=== PATIENT | female | born 1975 | race Two or more races ===

== ENCOUNTER 2020-02-12 07:29 | Outpatient (REF) | payer OTHER, SELFPAY ==
[2020-02-12 07:57] LABS: MANUAL DIFF FLAG NO
[2020-02-12 08:07] LABS: Basophils Percent Auto 0.7 % (0-2); Eosinophils Absolute Auto 0.1 X10*3/uL (0.0-0.4); Eosinophils Percent Auto 1.4 % (0-4); Hematocrit 42.3 % (37-47); Hemoglobin 13.4 g/dl (12.0-16.0); Imm Gran Abs Auto 0.02 X10*3/uL (0.00-0.03); Imm Gran Pct Auto 0.4 % (0.0-0.4); Lymphocytes Absolute Auto 1.7 X10*3/uL (1.2-4.9); Lymphocytes Percent Auto 29.4 % (20-40); Mean Corpuscular HGB Conc 31.7 g/dl (31.0-35.0); Mean Corpuscular Hemoglobin 28.5 pg (27.0-33.0); Mean Corpuscular Volume 89.8 fL (80-98); Mean Platelet Volume 11.6 fL (9.4-12.3); Monocytes Absolute Auto 0.5 X10*3/uL (0.1-1.2); Monocytes Percent Auto 8.2 % (2-11); Neutrophils Absolute Auto 3.4 X10*3/uL (2.0-8.3); Neutrophils Percent Auto 59.9 % (45-73); Platelet Count 190 X10*3/uL (160-400); Red Blood Count 4.71 X10*6/uL (4.20-5.50); Red Cell Distribution Width 14.2 % (11.0-16.0); White Blood Count 5.6 X10*3/uL (4.8-10.8)
[2020-02-12 08:18] LABS: Alanine Aminotransferase 9 U/L (0-31); Albumin Level 4.2 g/dL (3.5-5.0); Alkaline Phosphatase 71 U/L (39-117); Anion Gap 11 (12-20); Aspartate Amino Transferase 13 U/L (5-31); Blood Urea Nitrogen 13 mg/dL (9-16); Calcium 9.3 mg/dL (8.4-10.2); Carbon Dioxide 27 mmol/L (22-29); Chloride 108 mmol/L (96-108); Cholesterol 154 mg/dL; Estimated Glomerular Filt Rate > 60; Glucose Random 88 mg/dL (60-115); HDL Cholesterol 51 mg/dL; LDL Cholesterol Calculated 86 mg/dl; Potassium 4.2 mmol/l (3.3-5.1); Sodium 142 mmol/L (135-145); Triglycerides 88 mg/dL
[2020-02-12 08:42] LABS: Thyroid Stimulating Hormone 2.11 uIU/mL (0.32-4.0)
== END 2020-02-12 07:30 | disposition home or self-care (01) ==
LOC: HO.LAB 07:29
PROVIDERS: PCP Internal Medicine; Visit Provider Internal Medicine
DX: D50.8 Other iron deficiency anemias (principal); F32.5 Major depressive disorder, single episode, in full remission; I10 Essential (primary) hypertension; Z68.26 Body mass index [BMI] 26.0-26.9, adult
CPT/HCPCS: 36415; 80053; 80061; 84443; 85025

== ENCOUNTER 2020-05-13 16:40 | Outpatient (REF) | payer OTHER, SELFPAY ==
--- NOTE | ~2020-05-13 | XR_ITS ---
EXAMINATION: XR ANKLE, LEFT XR FOOT, LEFT CLINICAL INFORMATION: Left ankle sprain. COMPARISON: None TECHNIQUE: 3 views left ankle. 2 views left foot. FINDINGS: LEFT ANKLE: There is no visible acute fracture, dislocation or subluxation seen. There is small avulsion fracture fragment dorsal tip of navicular bone, ankle mortise and subtalar joints are normal. The soft tissues are normal. LEFT FOOT: There is no visible acute fracture, dislocation or subluxation seen. The soft tissues are normal. XR/XR foot LT min 3V IMPRESSION: 1. Unremarkable left ankle and left foot exam. 2. Small old avulsion fracture fragment tip of dorsal navicular bone.
--- NOTE | ~2020-05-13 | XR_ITS ---
EXAMINATION: XR ANKLE, LEFT XR FOOT, LEFT CLINICAL INFORMATION: Left ankle sprain. COMPARISON: None TECHNIQUE: 3 views left ankle. 2 views left foot. FINDINGS: LEFT ANKLE: There is no visible acute fracture, dislocation or subluxation seen. There is small avulsion fracture fragment dorsal tip of navicular bone, ankle mortise and subtalar joints are normal. The soft tissues are normal. LEFT FOOT: There is no visible acute fracture, dislocation or subluxation seen. The soft tissues are normal. XR/XR ankle LT min 3V IMPRESSION: 1. Unremarkable left ankle and left foot exam. 2. Small old avulsion fracture fragment tip of dorsal navicular bone.
== END 2020-05-13 16:41 | disposition home or self-care (01) ==
LOC: HO.XRAY 16:40
PROVIDERS: Visit Provider Internal Medicine
DX: S93.402A Sprain of unspecified ligament of left ankle, initial encounter (principal)
CPT/HCPCS: 73610; 73630

== ENCOUNTER 2020-07-04 11:10 | Outpatient (REF) | payer OTHER, SELFPAY ==
--- NOTE | ~2020-07-04 | MM_ITS ---
EXAMINATION: MM SCREENING DIGITAL BREAST TOMOSYNTHESIS, BILATERAL CLINICAL INFORMATION: Screening. Asymptomatic. Ultrasound-guided right breast biopsy 02/20/2019 (Benign breast parenchyma with periductal mastitis, pseudoangiomatous stromal hyperplasia and dense stromal fibrosis; negative for atypia or malignancy). The lifetime risk of breast cancer based on the Tyrer-Cuzick Model is 8%. COMPARISON: Mammography: 02/20/2019, 02/12/2019; outside mammography 12/22/2016 and 10/27/2025 ([place]); ultrasound right breast 02/12/2019; 10/09/2019; Ultrasound guided biopsy 02/20/2019. TECHNIQUE: Digital breast tomosynthesis is performed in both the craniocaudal and mediolateral oblique views along with computer-aided detection (CAD). Synthesized 2D images are generated from the tomosynthesis. FINDINGS: There are scattered areas of fibroglandular density (ACR BI-RADS breast composition Category b). Parenchymal pattern is similar to prior studies. Breast tissue composition borders on heterogeneously dense in the upper outer quadrants. There is no developing density or interval mass or architectural abnormality. There is a biopsy clip marker again noted mid 12:00 right breast. Calcifications loosely grouped anterior upper outer right breast are similar to prior imaging 2018. No abnormal calcifications left breast. The bilateral axilla and skin contours are unremarkable. MM/MM tomosynthesis screening BI IMPRESSION: No significant changes from prior exams. ASSESSMENT: BI-RADS 2: Benign RECOMMENDATION: Routine annual mammography screening. This patient's information was entered into a reminder system with a target due date for their next mammogram.
== END 2020-07-04 11:11 | disposition home or self-care (01) ==
LOC: HO.MAMMO 11:10
PROVIDERS: Visit Provider Internal Medicine
DX: Z12.31 Encounter for screening mammogram for malignant neoplasm of breast (principal)
CPT/HCPCS: 77063; 77067

== ENCOUNTER 2020-10-05 18:59 | Emergency (ER) | payer OTHER, SELFPAY ==
--- NOTE | 2020-10-05 | ECG_ITS ---
Test Reason : CHEST PAIN Blood Pressure : / mmHG Vent. Rate : 077 BPM Atrial Rate : 077 BPM P-R Int : 144 ms QRS Dur : 096 ms QT Int : 400 ms P-R-T Axes : 058 040 053 degrees QTc Int : 452 ms Normal sinus rhythm Normal ECG No significant changes when compared with the previous EKG of 27 feb 2014 Referred By: Generic ED Physician Electronically Signed By:ASHLEE BERMUDEZ
--- NOTE | ~2020-10-05 | US_ITS ---
EXAMINATION: US VENOUS ULTRASOUND WITH DOPPLER LOWER EXTREMITY, BILATERAL CLINICAL INFORMATION: Chest pain with history of PE COMPARISON: Venous Doppler left leg 12/25/2018 and bilateral legs 04/09/2018 TECHNIQUE: Ultrasound of the deep veins is performed from the hip to the calf with compression sonography and color and pulse Doppler assessment. Spectral analysis with color-flow imaging is performed. FINDINGS: RIGHT: There is normal venous compression and respiratory variation and augmented flow. The visualized common femoral vein, superficial femoral vein, profunda femoral vein, popliteal vein, and the trifurcation region shows no evidence of deep venous thrombosis. There is no significant popliteal fossa cyst. LEFT: There is normal venous compression and respiratory variation and augmented flow. The visualized common femoral vein, superficial femoral vein, profunda femoral vein, popliteal vein, and the trifurcation region shows no evidence of deep venous thrombosis. There is no significant popliteal fossa cyst. If the patient's symptoms persist, followup ultrasound in 5 days 7 days might be of value to exclude proximal propagation from a non-visualized calf vein. US/US venous duplex LE BI IMPRESSION: No DVT demonstrated in either lower extremity.
--- NOTE | ~2020-10-05 | CT_ITS ---
EXAMINATION: CT ANGIOGRAM OF THE CHEST WITH AND WITHOUT CONTRAST (CT PULMONARY ANGIOGRAM FOR PE) CLINICAL INFORMATION: Reason for Exam History of PE, chest pain. COMPARISON: CT angiogram chest for PE 04/09/2018 TECHNIQUE: Prior to contrast administration, noncontrast localization images were obtained. Subsequently, multidetector volumetric imaging was performed from the thoracic inlet to below the diaphragms following the administration of 55 mL Omnipaque 350 intravenous contrast. No contrast reaction reported Sagittal, coronal, and MIP oblique sagittal reformatted images were obtained on the CT workstation, uploaded to PACS, and reviewed. This CT examination was performed using dose optimization techniques as appropriate, variously including the following: *Automated exposure control *Adjustment of mA and/or kV according to patient size (this includes techniques or standardized protocols for targeted exams where dose is matched to indication/reason for exam; i.e. extremities or head) *Use of iterative reconstruction technique Total exam dose-length product 275 mGy-cm FINDINGS: QUALITY OF STUDY/CONTRAST BOLUS: Satisfactory. PULMONARY ARTERIES: No central or segmental pulmonary emboli. The pulmonary emboli seen at the time of the prior 04/09/2018 study have cleared. THORACIC AORTA: No aneurysm or dissection. LUNG: No focal consolidation, nodules or masses. PLEURA: No pleural effusion or pneumothorax. MEDIASTINUM: Normal heart size. No pericardial effusion. No hilar or mediastinal lymphadenopathy. No evidence of septal bowing or right heart strain. CHEST WALL/AXILLA: No axillary or internal mammary lymphadenopathy. OSSEOUS STRUCTURES: No acute or suspicious osseous abnormality. UPPER ABDOMEN: Unremarkable. No reflux of contrast into the hepatic veins to suggest elevated right heart pressures. CT/CT angio chest PE protocol IMPRESSION: No evidence of pulmonary emboli VTE: negative
[2020-10-05 19:05] VITALS: BP 182/92; PULSE 101; RESP 18; TEMP 36.9; O2SAT 100; BMI 23.9
[2020-10-05 19:23] LABS: Basophils Percent Auto 0.6 % (0-2); Eosinophils Absolute Auto 0.1 X10*3/uL (0.0-0.4); Eosinophils Percent Auto 0.9 % (0-4); Hematocrit 41.6 % (37-47); Hemoglobin 13.7 g/dl (12.0-16.0); Imm Gran Abs Auto 0.01 X10*3/uL (0.00-0.03); Imm Gran Pct Auto 0.1 % (0.0-0.4); Lymphocytes Absolute Auto 2.1 X10*3/uL (1.2-4.9); Lymphocytes Percent Auto 29.9 % (20-40); MANUAL DIFF FLAG NO; Mean Corpuscular HGB Conc 32.9 g/dl (31.0-35.0); Mean Corpuscular Hemoglobin 29.8 pg (27.0-33.0); Mean Corpuscular Volume 90.6 fL (80-98); Mean Platelet Volume 10.7 fL (9.4-12.3); Monocytes Absolute Auto 0.8 X10*3/uL (0.1-1.2); Neutrophils Absolute Auto 3.9 X10*3/uL (2.0-8.3); Neutrophils Percent Auto 56.5 % (45-73); Platelet Count 170 X10*3/uL (160-400); Red Blood Count 4.59 X10*6/uL (4.20-5.50); Red Cell Distribution Width 13.5 % (11.0-16.0); White Blood Count 6.9 X10*3/uL (4.8-10.8)
[2020-10-05 19:47] LABS: Alanine Aminotransferase 9 U/L (0-31); Albumin Level 4.2 g/dL (3.5-5.0); Alkaline Phosphatase 86 U/L (39-117); Anion Gap 13 (12-20); Aspartate Amino Transferase 17 U/L (5-31); Bilirubin Total 0.5 mg/dL (0.0-1.0); Blood Urea Nitrogen 17 mg/dL (9-16); Calcium 9.4 mg/dL (8.4-10.2); Carbon Dioxide 24 mmol/L (22-29); Chloride 107 mmol/L (96-108); Creatinine Clr Calc Pharmacy 72.2; Estimated Glomerular Filt Rate > 60; Glucose Random 91 mg/dL (60-115); Potassium 3.6 mmol/L (3.3-5.1); Sodium 140 mmol/L (135-145); Total Protein 7.1 g/dL (6.5-8.0)
[2020-10-05 19:53] LABS: Troponin-I High Sensitivity < 3.5 ng/L (<3.5-17.0)
--- NOTE | 2020-10-05 21:11 | ED_ITS ---
HPI - Chest Pain General Chief Complaint: Chest Pain Stated Complaint: chest pressure Time Seen by Provider: 10/05/20 21:07 Source: patient Mode of arrival: ambulatory Limitations: no limitations History of Present Illness HPI narrative: 45-year-old female had a history of pulmonary embolism with unremarkable hypercoagulable workup, patient is not taking anticoagulation therapy at this point, came in for evaluation of left-sided chest pain. Patient woke up this morning with severe pleuritic left-sided chest pain with difficulty breathing. Pain started 09:00 when she woke up from sleep, patient has no obvious risk factor for developing PE declined recent travel, known lower extremities swelling or tenderness. Pain is localized to the left parasternal area, no radiation, associated with pleuritic pain when she take a deep breath, patient had similar symptoms when she had a PE. Related Data Home Medications Medication Instructions Recorded Confirmed aspirin [Aspir-Low] 05/13/20 05/13/20 fluoxetine 20 mg PO DAILY 05/13/20 05/13/20 losartan 100 mg PO DAILY 05/13/20 05/13/20 warfarin 5 mg PO DAILY 05/13/20 05/13/20 Allergies Allergy/AdvReac Type Severity Reaction Status Date / Time latex [LATEX] Allergy Unknown DERMATITIS Unverified 11/29/19 17:45 Review of Systems Review of Systems: All other systems are reviewed and are negative Constitutional: Reports as per HPI and Reports no additional constitutional complaints Eyes: Reports as per HPI and Reports no additional eye complaints Reports system reviewed and no additional complaints, except as documented Cardiovascular: Reports as per HPI and Reports no additional cardiovascular complaints Respiratory: Reports as per HPI and Reports no additional respiratory complaints Gastrointestinal: Reports as per HPI and Reports no additional gastrointestinal complaints Genitourinary: Reports no additional female genitourinary complaints Musculoskeletal: Reports no additional musculoskeletal complaints Skin/Breast: Reports system reviewed and no additional complaints, except as docu Psychiatric: Reports no additional psychiatric complaints Endocrine: Reports no additional endocrine complaints Hematologic/Lymphatic: Reports no additional hematologic/lymphatic complaints Allergic/Immunologic: Reports no additional allergic/immunologic complaints Reports system reviewed and no additional complaints, except as documented and Reports Abnormal speech present [facility] Past Medical History Medical History Anemia History of back pain Hx pulmonary embolism Surgical History History of carpal tunnel surgery Hx of tubal ligation Family History Family History Maternal Uncle Hx of cancer of lung Mother Hx of myocardial infarction Social History Social History Alcohol intake: current Alcohol intake frequency: holidays/special occasions only Alcohol type: beer and wine Advance Directives: No Advance Directives Information Provided: Yes Patient : No Physical Exam Vital Signs: Vital Signs: Last Vital Signs Temp 98.4 F 10/05/20 19:05 Pulse 77 10/05/20 22:56 Resp 16 10/05/20 22:56 BP 159/91 H 10/05/20 22:56 Pulse Ox 98 10/05/20 22:56 Body Mass Index 23.9 Vital signs have been reviewed as appeared to be correct. Blood pressure elevated. Heart rate normal. Respiration rate normal. Temperature normal. Oxygen saturation normal. Appearance: Alert. Oriented X3. No acute distress. Head: Normal external exam. Normocephalic. Atraumatic. No Aiken signs noted. No raccoon eyes noted Eyes: PERRLA. EOMI. Conjunctiva and sclera normal. Eyelids normal. ENT: TM's Normal. Pharynx normal. Uvula midline. Moist mucous membranes. No trismus noted. No drooling noted. No muffled voice noted. Neck: Normal inspection. Neck supple. FROM. No adenopathy. Thyroid Normal. No meningeal signs. No neck mass noted. CVS: Normal heart rate and rhythm. Heart sound normal. No murmurs noted. Pulses normal throughout. Respiratory: No respiratory distress. Painless inspiration. Breath sounds normal. No wheezes/rales/rhonchi noted. Chest nontender. No accessory muscle usage noted or decreased air movement noted. Abdomen: Soft and nontender. Bowel sounds normal in all 4 quadrants. No distention noted. No organomegaly noted. No visible injury noted. Back: No CVA tenderness. Full range of motion noted. Skin: Skin warm and dry. Normal skin color. Normal skin turgor. No rashes/lesions/lacerations noted. Extremities: No lower extremity edema. Extremities exhibit normal range of motion. Extremities nontender. Neuro: Oriented X 3. No motor deficit. No sensory deficit. Reflexes normal. Course Course Course Narrative: Assessment and plan. 45-year-old female woke up from sleep today with chest pain. Which is pleuritic in nature, patient had a history of pulmonary embolism in the past, patient today had stable vital sign no hypoxia, no tachypnea, patient also had a negative D-dimer, had bilateral lower extremities ultrasound which was unremarkable for DVT, patient had CT angio of the chest which ruled out pulmonary embolism. Patient also have unremarkable EKG and negative high sensitive troponin (chest pain started over 12 hours ago). MDM - Chest Pain Lab Data Attestation: I reviewed the patient's lab results. Result diagrams: 10/05/20 19:18 10/05/20 19:18 Labs: Lab Results 10/05/20 10/05/20 10/05/20 Range/Units 19:18 19:18 19:18 WBC 6.9 (4.8-10.8) X10*3/uL RBC 4.59 (4.20-5.50) X10*6/uL Hgb 13.7 (12.0-16.0) g/dl Hct 41.6 (37-47) % MCV 90.6 (80-98) fL MCH 29.8 (27.0-33.0) pg MCHC 32.9 (31.0-35.0) g/dl RDW 13.5 (11.0-16.0) % Plt Count 170 (160-400) X10*3/uL MPV 10.7 (9.4-12.3) fL Immature Gran % (Auto) 0.1 (0.0-0.4) % Neut % (Auto) 56.5 (45-73) % Lymph % (Auto) 29.9 (20-40) % [place] % (Auto) 12.0 H (2-11) % Eos % (Auto) 0.9 (0-4) % Baso % (Auto) 0.6 (0-2) % Lymph # (Auto) 2.1 (1.2-4.9) X10*3/uL [place] # (Auto) 0.8 (0.1-1.2) X10*3/uL Eos # (Auto) 0.1 (0.0-0.4) X10*3/uL Baso # (Auto) 0.0 (0.0-0.2) X10*3/uL Abs Immat Gran (auto) 0.01 (0.00-0.03) X10*3/uL Absolute Neuts (auto) 3.9 (2.0-8.3) X10*3/uL Absolute Nucleated RBC 0.000 (0.0-0.012) X10*3/uL Nucleated RBC % (auto) 0.0 (0.0-0.2) /100WBC D-Dimer NG/ML Sodium 140 (135-145) mmol/L Potassium 3.6 (3.3-5.1) mmol/L Chloride 107 (96-108) mmol/L Carbon Dioxide 24 (22-29) mmol/L Anion Gap 13 (12-20) BUN 17 H (9-16) mg/dL Creatinine 0.77 (0.5-1.4) mg/dL Estim Creat Clear Calc 72.2 Estimated GFR > 60 Random Glucose 91 (60-115) mg/dL Calcium 9.4 D (8.4-10.2) mg/dL Total Bilirubin 0.5 (0.0-1.0) mg/dL AST 17 (5-31) U/L ALT 9 (0-31) U/L Alkaline Phosphatase 86 (39-117) U/L Troponin I High Sens < 3.5 (<3.5-17.0) ng/L Total Protein 7.1 (6.5-8.0) g/dL Albumin 4.2 (3.5-5.0) g/dL 10/05/20 Range/Units 21:29 WBC (4.8-10.8) X10*3/uL RBC (4.20-5.50) X10*6/uL Hgb (12.0-16.0) g/dl Hct (37-47) % MCV (80-98) fL MCH (27.0-33.0) pg MCHC (31.0-35.0) g/dl RDW (11.0-16.0) % Plt Count (160-400) X10*3/uL MPV (9.4-12.3) fL Immature Gran % (Auto) (0.0-0.4) % Neut % (Auto) (45-73) % Lymph % (Auto) (20-40) % [place] % (Auto) (2-11) % Eos % (Auto) (0-4) % Baso % (Auto) (0-2) % Lymph # (Auto) (1.2-4.9) X10*3/uL [place] # (Auto) (0.1-1.2) X10*3/uL Eos # (Auto) (0.0-0.4) X10*3/uL Baso # (Auto) (0.0-0.2) X10*3/uL Abs Immat Gran (auto) (0.00-0.03) X10*3/uL Absolute Neuts (auto) (2.0-8.3) X10*3/uL Absolute Nucleated RBC (0.0-0.012) X10*3/uL Nucleated RBC % (auto) (0.0-0.2) /100WBC D-Dimer < 200 NG/ML Sodium (135-145) mmol/L Potassium (3.3-5.1) mmol/L Chloride (96-108) mmol/L Carbon Dioxide (22-29) mmol/L Anion Gap (12-20) BUN (9-16) mg/dL Creatinine (0.5-1.4) mg/dL Estim Creat Clear Calc Estimated GFR Random Glucose (60-115) mg/dL Calcium (8.4-10.2) mg/dL Total Bilirubin (0.0-1.0) mg/dL AST (5-31) U/L ALT (0-31) U/L Alkaline Phosphatase (39-117) U/L Troponin I High Sens (<3.5-17.0) ng/L Total Protein (6.5-8.0) g/dL Albumin (3.5-5.0) g/dL Imaging Data CT angio of the chest: Radiologist's impression: No evidence of pulmonary emboli. Venous Doppler bilateral lower extremities: Radiologist's impression: No DVT demonstrated in either lower extremity. ECG Data ECG #1: Interpretation: Normal sinus rhythm at 77 beats per minutes, normal axis deviation, normal intervals, no ST-T changes. No change from EKG in 2014. Discharge Plan Discharge Clinical Impression: Pleurisy Patient Disposition: Home, Self-Care Instructions: Pleurisy (ED) Prescriptions: No Action fluoxetine 20 mg Tablet 20 mg PO DAILY RF: 0 losartan 100 mg Tablet 100 mg PO DAILY RF: 0 aspirin [Aspir-Low] 81 mg Tablet,Delayed Release (Dr/Ec) RF: 0 warfarin 5 mg Tablet 5 mg PO DAILY RF: 0 Referrals: Clover Okeefe MD [Primary Care Provider] - 2 days
[2020-10-05 21:45] LABS: D Dimer < 200 NG/ML
[2020-10-05] MEDS: iohexoL 350 MG/ML 100 ML INFUS..BTL IV (22:14)
[2020-10-05 22:56] VITALS: BP 159/91; PULSE 77; RESP 16; O2SAT 98
== END 2020-10-06 00:05 | disposition home or self-care (01) ==
PROVIDERS: Emergency Provider Emergency Medicine; PCP Internal Medicine
DX: R09.1 Pleurisy (principal); Z86.711 Personal history of pulmonary embolism; Z79.82 Long term (current) use of aspirin; Z79.01 Long term (current) use of anticoagulants; Z79.899 Other long term (current) drug therapy
CPT/HCPCS: 36415; 71275; 80053; 84484; 85025; 85379; 93005; 93970; 99284; Q9967

== ENCOUNTER 2021-07-10 10:42 | Outpatient (REF) | payer OTHER, SELFPAY ==
--- NOTE | ~2021-07-10 | MM_ITS ---
EXAMINATION: MM SCREENING DIGITAL BREAST TOMOSYNTHESIS, BILATERAL CLINICAL INFORMATION: Screening. Asymptomatic. Status post benign ultrasound-guided right breast biopsy 02/20/2019 (Benign breast parenchyma with periductal mastitis, pseudoangiomatous stromal hyperplasia and dense stromal fibrosis; negative for atypia or malignancy). The lifetime risk of breast cancer based on the Tyrer-Cuzick Model is 6%. COMPARISON: Mammography: 07/04/2020, 02/20/2019, 02/12/2019, 06/22/2017 TECHNIQUE: Digital breast tomosynthesis is performed in both the craniocaudal and mediolateral oblique views along with computer-aided detection (CAD). Synthesized 2D images are generated from the tomosynthesis. FINDINGS: The breasts are heterogeneously dense, which may obscure small masses (ACR BI-RADS breast composition Category c). Denser breast tissue composition is in the upper outer quadrants. Parenchymal pattern borders on average fibroglandular. There is no interval mass or architectural abnormality or developing density. Biopsy clip marker again seen mid 12:00 right breast. There are stable calcifications anterior upper outer right breast. No significant changes from prior studies. MM/MM tomosynthesis screening BI IMPRESSION: No mammographic evidence of malignancy. ASSESSMENT: BI-RADS 2: Benign RECOMMENDATION: Routine annual mammography screening. This patient's information was entered into a reminder system with a target due date for their next mammogram.
== END 2021-07-10 10:43 | disposition home or self-care (01) ==
LOC: HO.MAMMO 10:42
PROVIDERS: PCP Internal Medicine; Visit Provider Internal Medicine
DX: Z12.31 Encounter for screening mammogram for malignant neoplasm of breast (principal)
CPT/HCPCS: 77063; 77067

== ENCOUNTER 2021-08-04 15:29 | Emergency (ER) | payer OTHER, SELFPAY ==
--- NOTE | ~2021-08-04 | US_ITS ---
EXAMINATION: US VENOUS ULTRASOUND WITH DOPPLER LOWER EXTREMITY, RIGHT CLINICAL INFORMATION: Pain. COMPARISON: None TECHNIQUE: Ultrasound of the deep veins is performed from the hip to the calf with compression sonography and color and pulse Doppler assessment. Spectral analysis with color-flow imaging is performed. FINDINGS: There is normal venous compression and respiratory variation and augmented flow. The visualized common femoral vein, superficial femoral vein, profunda femoral vein, popliteal vein, and the trifurcation region shows no evidence of deep venous thrombosis. There is no significant popliteal fossa cyst. If the patient's symptoms persist, followup ultrasound in 5 days 7 days might be of value to exclude proximal propagation from a non-visualized calf vein. US/US venous duplex LE RT IMPRESSION: No DVT demonstrated in the right lower extremity.
[2021-08-04 16:43] VITALS: BP 189/98; PULSE 95; RESP 18; TEMP 37.1; O2SAT 100; BMI 25.7
[2021-08-04 17:40] LABS: MANUAL DIFF FLAG NO
[2021-08-04 17:41] LABS: Basophils Percent Auto 0.5 % (0-2); Eosinophils Absolute Auto 0.1 X10*3/uL (0.0-0.4); Eosinophils Percent Auto 1.4 % (0-4); Hematocrit 40.7 % (37.0-47.0); Imm Gran Abs Auto 0.02 X10*3/uL (0.00-0.03); Imm Gran Pct Auto 0.3 % (0.0-0.4); Lymphocytes Absolute Auto 1.9 X10*3/uL (1.2-4.9); Lymphocytes Percent Auto 30.7 % (20-40); Mean Corpuscular HGB Conc 31.9 g/dl (31.0-35.0); Mean Corpuscular Hemoglobin 29.2 pg (27.0-33.0); Mean Corpuscular Volume 91.5 fL (80.0-98.0); Mean Platelet Volume 10.5 fL (9.4-12.3); Monocytes Absolute Auto 0.5 X10*3/uL (0.1-1.2); Monocytes Percent Auto 7.5 % (2-11); Neutrophils Absolute Auto 3.8 x10*3/uL (2.0-8.3); Neutrophils Percent Auto 59.6 % (45-73); Platelet Count 179 X10*3/uL (160-400); Red Blood Count 4.45 X10*6/uL (4.20-5.50); Red Cell Distribution Width 13.6 % (11.0-16.0); White Blood Count 6.3 X10*3/uL (4.8-10.8)
[2021-08-04 17:55] LABS: D Dimer High Sensitivity < 150 NG/ML
[2021-08-04 17:59] LABS: Anion Gap 9 (12-20); Blood Urea Nitrogen 17 mg/dL (9-16); Calcium 9.4 mg/dL (8.4-10.2); Carbon Dioxide 27 mmol/L (22-29); Chloride 110 mmol/L (96-108); Creatinine Clr Calc Pharmacy 88.5; Estimated Glomerular Filt Rate > 60; Glucose Random 99 mg/dL (60-115); Potassium 4.6 mmol/L (3.3-5.1); Sodium 141 mmol/L (135-145)
[2021-08-04 19:57] VITALS: BP 184/103; PULSE 93; RESP 18; O2SAT 100
[2021-08-04 22:20] VITALS: BP 179/102; PULSE 67; TEMP 36.6; O2SAT 99
--- NOTE | 2021-08-04 22:46 | ED.GENADULT ---
HPI - General Adult General Chief complaint: General Medical Stated complaint: ankle pain Time Seen by Provider: 08/04/21 19:28 Source: patient Mode of arrival: ambulatory Limitations: no limitations History of Present Illness HPI narrative: 46-year-old female with a history of pulmonary embolism 2 years ago (unknown trigger) who is not currently on anticoagulation here with reports of right calf pain for the last several days with no known injury or trauma. Pain is worsened with flexion of the foot. Patient also reports her foot and ankle or more swollen than normal. No fevers, chills, shortness of breath, chest pain. Related Data Home Medications Medication Instructions Recorded Confirmed fluoxetine 20 mg tablet 20 mg PO DAILY 05/13/20 05/13/20 losartan 100 mg tablet 100 mg PO DAILY 05/13/20 05/13/20 warfarin 5 mg tablet 5 mg PO DAILY 05/13/20 05/13/20 Previous Rx's Medication Instructions Recorded aspirin 81 mg tablet,delayed tab 01/02/21 release Allergies Allergy/AdvReac Type Severity Reaction Status Date / Time latex [LATEX] Allergy Unknown DERMATITIS Unverified 11/29/19 17:45 Review of Systems Review of Systems: Yes all other systems are reviewed and are negative Constitutional: Constitutional: Reports no additional constitutional complaints, Denies body ache(s), Denies chills, Denies fever(s), Denies headache(s) and Denies weakness Eyes: Eyes: Reports no additional eye complaints and Denies change in vision ENT: Reports system reviewed and no additional complaints, except as documented, Denies dizziness, Denies headache(s), Denies nasal congestion, Denies nasal discharge and Denies neck pain Cardiovascular: Cardiovascular: Reports no additional cardiovascular complaints, Denies chest pain, Reports leg edema and Denies dyspnea Respiratory: Respiratory: Reports no additional respiratory complaints, Denies cough and Denies dyspnea Gastrointestinal: Gastrointestinal: Reports no additional gastrointestinal complaints, Denies abdominal pain, Denies diarrhea, Denies nausea and Denies vomiting Genitourinary: Genitourinary: Reports no additional female genitourinary complaints and Denies urinary incontinence Musculoskeletal: Musculoskeletal: Reports no additional musculoskeletal complaints, Denies back pain, Denies arthralgias, Denies joint swelling, Denies neck pain, Denies numbness and Denies tingling Comments: muscle pain Integumentary/Breasts: Skin/Breast: Reports system reviewed and no additional complaints, except as docu and Denies rash Neurologic: Reports system reviewed and no additional complaints, except as documented, Denies dizziness, Denies headache(s), Denies numbness, Denies tingling and Denies weakness PMFSH Past Medical History Attestation statement: The following information was validated with the patient. Source: old records reviewed and nursing notes reviewed Medical History Anemia History of back pain Hx pulmonary embolism Surgical History History of carpal tunnel surgery Hx of tubal ligation Family History Family History Maternal Uncle Hx of cancer of lung Mother Hx of myocardial infarction Social History Social History Alcohol intake: current Alcohol intake frequency: holidays/special occasions only Alcohol type: beer and wine Advance Directives: No Advance Directives Information Provided: No Patient : No Physical Exam ED Vital Signs: Vital Signs - 24 hr 08/04/21 16:43 08/04/21 19:57 08/04/21 22:20 Temperature 98.7 F 97.9 F Pulse Rate 95 93 67 Respiratory Rate 18 18 Blood Pressure 189/98 H 184/103 H 179/102 H Pulse Oximetry 100 100 99 BMI result Body Mass Index 25.7 Const General: cooperative, healthy appearing, comfortable and no acute distress Orientation/consciousness: patient oriented x3 Limitations: no limitations [facility] Head: Yes normal to inspection Ears: hearing grossly normal bilaterally General nose exam: Normal external nose present Face and sinus: Yes normal facial exam Mouth: Normal oral and palatal mucosa present Throat: Yes posterior oropharynx normal Eyes General: appearance normal, both eyes and all related structures Pupils: Equal, round and reactive pupils present Neck Neck: Yes normal visual inspection Chest Chest palpation & inspection: normal inspection of the chest Resp Effort & Inspection: normal respiratory effort Auscultation: clear to auscultation bilaterally Cardio Rate: regular rate Rhythm: regular rhythm Peripheral pulses: Peripheral pulses 2+ throughout GI Inspection: Yes normal to inspection General: Yes no CVA tenderness Back/Spine/Pelvis Back: no CVA tenderness Skin General skin exam: no rashes or lesions noted Neuro General: patient oriented x3 and moves all extremities Cranial nerves: Yes Equal, round and reactive pupils present Extrem Other: Pain to the right posterior calf. There is some swelling noted over the right ankle and dorsal aspect of the foot. There is pain with flexion of the foot. Distal palpable DP and PT pulses. No warmth or redness Course Course Course Narrative: 46-year-old female with history of pulmonary embolism not currently anticoagulated here with right calf pain for several days with no known injury or trauma. Will check ultrasound Reevaluation(s) Reevaluation #1: Ultrasound is negative for DVT. Additional labs and triage were reviewed and are unremarkable. Patient is mildly hypertensive but is asymptomatic. She can follow-up with her primary care doctor for this. Reviewed worrisome signs and symptoms when to return to the emergency department. Comfortable discharge home. Time: 23:15 Medical Decision Making MDM Narrative Medical decision making narrative: DVT, calf strain Medical Records Medical records reviewed: Yes I reviewed the patient's medical records. Lab Data Lab results reviewed: Yes I reviewed the patient's lab results. Result diagrams: 08/04/21 17:35 08/04/21 17:35 Labs: Lab Results 08/04/21 08/04/21 08/04/21 Range/Units 17:35 17:35 17:35 WBC 6.3 (4.8-10.8) X10*3/uL RBC 4.45 (4.20-5.50) X10*6/uL Hgb 13.0 (12.0-16.0) g/dl Hct 40.7 (37.0-47.0) % MCV 91.5 (80.0-98.0) fL MCH 29.2 (27.0-33.0) pg MCHC 31.9 (31.0-35.0) g/dl RDW 13.6 (11.0-16.0) % Plt Count 179 (160-400) X10*3/uL MPV 10.5 (9.4-12.3) fL Immature Gran % (Auto) 0.3 (0.0-0.4) % Neut % (Auto) 59.6 (45-73) % Lymph % (Auto) 30.7 (20-40) % Deuel % (Auto) 7.5 (2-11) % Eos % (Auto) 1.4 (0-4) % Baso % (Auto) 0.5 (0-2) % Lymph # (Auto) 1.9 (1.2-4.9) X10*3/uL Deuel # (Auto) 0.5 (0.1-1.2) X10*3/uL Eos # (Auto) 0.1 (0.0-0.4) X10*3/uL Baso # (Auto) 0.0 (0.0-0.2) X10*3/uL Abs Immat Gran (auto) 0.02 (0.00-0.03) X10*3/uL Absolute Neuts (auto) 3.8 (2.0-8.3) x10*3/uL Absolute Nucleated RBC 0.000 (0.0-0.012) X10*3/uL Nucleated RBC % (auto) 0.0 (0.0-0.2) /100WBC D-Dimer High Sensitivty < 150 NG/ML Sodium 141 (135-145) mmol/L Potassium 4.6 D (3.3-5.1) mmol/L Chloride 110 H (96-108) mmol/L Carbon Dioxide 27 (22-29) mmol/L Anion Gap 9 L (12-20) BUN 17 H (9-16) mg/dL Creatinine 0.69 (0.5-1.4) mg/dL Estim Creat Clear Calc 88.5 Estimated GFR > 60 Random Glucose 99 (60-115) mg/dL Calcium 9.4 (8.4-10.2) mg/dL Imaging Data Venous US: Attestation: I personally reviewed and interpreted this imaging study as follows: Radiologist's impression: TECHNIQUE: Ultrasound of the deep veins is performed from the hip to the calf with compression sonography and color and pulse Doppler assessment. Spectral analysis with color-flow imaging is performed. FINDINGS: There is normal venous compression and respiratory variation and augmented flow. The visualized common femoral vein, superficial femoral vein, profunda femoral vein, popliteal vein, and the trifurcation region shows no evidence of deep venous thrombosis. ? There is no significant popliteal fossa cyst. If the patient's symptoms persist, followup ultrasound in 5 days 7 days might be of value to exclude proximal propagation from a non-visualized calf vein. US/US venous duplex LE RT IMPRESSION: No DVT demonstrated in the right lower extremity. Discharge Plan Discharge Clinical Impression: Strain of right calf muscle Patient Disposition: Home, Self-Care Instructions: Muscle Strain (ED) Additional Instructions: Ultrasound is negative for blood clot Heat or ice Gentle stretching Motrin or Tylenol for pain as needed Prescriptions: No Action aspirin [Aspir-Low] 81 mg Tablet,Delayed Release (Dr/Ec) 4RF fluoxetine 20 mg Tablet 20 mg PO DAILY 0RF losartan 100 mg Tablet 100 mg PO DAILY 0RF warfarin 5 mg Tablet 5 mg PO DAILY 0RF Referrals: Clover Okeefe MD [Primary Care Provider] - 1 week (For persistent symptoms)
== END 2021-08-05 00:07 | disposition home or self-care (01) ==
PROVIDERS: Emergency Provider Internal Medicine; PCP Internal Medicine
DX: S86.911A Strain of unspecified muscle(s) and tendon(s) at lower leg level, right leg, initial encounter (principal); X58.XXXA Exposure to other specified factors, initial encounter; M79.661 Pain in right lower leg; I10 Essential (primary) hypertension; M79.89 Other specified soft tissue disorders; Y93.9 Activity, unspecified; Y92.9 Unspecified place or not applicable; Y99.9 Unspecified external cause status; Z86.711 Personal history of pulmonary embolism; Z79.82 Long term (current) use of aspirin
CPT/HCPCS: 36415; 80048; 85025; 85379; 93971; 99283; 99284

== ENCOUNTER 2021-09-21 06:19 | Outpatient (REF) | payer OTHER, SELFPAY ==
[2021-09-21 06:50] LABS: MANUAL DIFF FLAG NO
[2021-09-21 08:06] LABS: Basophils Absolute Auto 0.1 X10*3/uL (0.0-0.2); Basophils Percent Auto 0.8 % (0-2); Eosinophils Absolute Auto 0.1 X10*3/uL (0.0-0.4); Eosinophils Percent Auto 1.9 % (0-4); Hematocrit 43.9 % (37.0-47.0); Hemoglobin 14.4 g/dl (12.0-16.0); Imm Gran Abs Auto 0.02 X10*3/uL (0.00-0.03); Imm Gran Pct Auto 0.3 % (0.0-0.4); Lymphocytes Absolute Auto 1.7 X10*3/uL (1.2-4.9); Lymphocytes Percent Auto 25.9 % (20-40); Mean Corpuscular HGB Conc 32.8 g/dl (31.0-35.0); Mean Corpuscular Hemoglobin 29.4 pg (27.0-33.0); Mean Corpuscular Volume 89.8 fL (80.0-98.0); Mean Platelet Volume 11.4 fL (9.4-12.3); Monocytes Absolute Auto 0.5 X10*3/uL (0.1-1.2); Neutrophils Percent Auto 63.1 % (45-73); Platelet Count 191 X10*3/uL (160-400); Red Blood Count 4.89 X10*6/uL (4.20-5.50); Red Cell Distribution Width 13.5 % (11.0-16.0); White Blood Count 6.4 X10*3/uL (4.8-10.8)
[2021-09-21 08:41] LABS: Alanine Aminotransferase 10 U/L (0-31); Albumin Level 4.4 g/dL (3.5-5.0); Alkaline Phosphatase 73 U/L (39-117); Anion Gap 12 (12-20); Aspartate Amino Transferase 16 U/L (5-31); Bilirubin Total 0.8 mg/dL (0.0-1.0); Blood Urea Nitrogen 19 mg/dL (9-16); Calcium 9.5 mg/dL (8.4-10.2); Carbon Dioxide 24 mmol/L (22-29); Chloride 109 mmol/L (96-108); Cholesterol 178 mg/dL; Estimated Glomerular Filt Rate > 60; Glucose Random 85 mg/dL (60-115); HDL Cholesterol 67 mg/dL; LDL Cholesterol Calculated 100 mg/dl; Potassium 4.8 mmol/L (3.3-5.1); Sodium 140 mmol/L (135-145); Total Protein 7.8 g/dL (6.5-8.0); Triglycerides 56 mg/dL
[2021-09-21 08:48] LABS: Thyroid Stimulating Hormone 2.08 uIU/mL (0.32-4.0)
== END 2021-09-21 06:20 | disposition home or self-care (01) ==
LOC: HO.LAB 06:19
PROVIDERS: PCP Internal Medicine; Visit Provider Internal Medicine
DX: Z00.00 Encounter for general adult medical examination without abnormal findings (principal); F41.0 Panic disorder [episodic paroxysmal anxiety]; F51.5 Nightmare disorder; I10 Essential (primary) hypertension
CPT/HCPCS: 36415; 80053; 80061; 84443; 85025

== ENCOUNTER 2021-12-06 17:02 | Emergency (ER) | payer OTHER, SELFPAY ==
[2021-12-06 18:05] VITALS: BP 141/85; PULSE 78; RESP 18; TEMP 37.2; O2SAT 99; BMI 25.6
[2021-12-06 18:29] LABS: COVID-19 Test Positive (Negative); IDNOW Serial# 16C4AD1C
--- NOTE | 2021-12-06 18:34 | ED.GENADULT ---
HPI - General Adult General Chief complaint: Upper Respiratory Symptoms Stated complaint: Flu like symptoms Time Seen by Provider: 12/06/21 18:34 Source: patient Mode of arrival: ambulatory Limitations: no limitations History of Present Illness HPI narrative: Patient is a 46 year old female presenting to the emergency department today with a sore throat and feeling generally unwell. Patient states that her throat has been bothering her and her mother just tested positive for COVID-19. Patient denies any dizziness, lightheadedness, abdominal pain, nausea, vomiting, fever, chills, blurry vision, double vision, loss of vision, chest pain, difficulty breathing, shortness of breath, back pain, night sweats, pain with urination, increased urinary frequency, increased urinary urgency, blood in her urine or stool, syncope or a near syncopal episode, recent trauma or falls, bowel incontinence, bladder incontinence, bowel retention, bladder retention, or any other complaints at this time. Onset (ago): day(s) (1) Radiation: non-radiation Severity: mild Severity scale (1-10): 2 Quality: dull Pain Consistency: constant Relieving factors: none Exacerbating factors: none Associated symptoms: denies other symptoms Treatments prior to arrival: none Related Data Home Medications Medication Instructions Recorded Confirmed fluoxetine 20 mg tablet 20 mg PO DAILY 05/13/20 05/13/20 losartan 100 mg tablet 100 mg PO DAILY 05/13/20 05/13/20 warfarin 5 mg tablet 5 mg PO DAILY 05/13/20 05/13/20 Previous Rx's Medication Instructions Recorded aspirin 81 mg tablet,delayed 01/02/21 release Allergies Allergy/AdvReac Type Severity Reaction Status Date / Time latex [LATEX] Allergy Unknown DERMATITIS Verified 12/06/21 18:04 Review of Systems Constitutional: Constitutional: Reports no additional constitutional complaints, Denies chills, Denies fever(s) and Denies night sweats Eyes: Eyes: Reports no additional eye complaints, Denies blurry vision, Denies change in vision, Denies diplopia, Denies eye discharge, Denies loss of vision and Denies eye pain ENT: Denies dizziness and Reports sore throat Cardiovascular: Cardiovascular: Reports no additional cardiovascular complaints, Denies chest pain, Denies lightheadedness, Denies Loss of Consciousness and Denies dyspnea Respiratory: Respiratory: Reports no additional respiratory complaints and Denies dyspnea Gastrointestinal: Gastrointestinal: Reports no additional gastrointestinal complaints, Denies abdominal pain, Denies melena, Denies hematochezia, Denies change in bowel habits and Denies change in stool character Genitourinary: Genitourinary: Denies hematuria, Denies urinary frequency, Denies dysuria, Denies urinary incontinence, Denies urinary hesitancy and Denies urinary urgency Musculoskeletal: Musculoskeletal: Reports no additional musculoskeletal complaints, Denies numbness and Denies tingling Neurologic: Denies dizziness, Denies loss of vision, Denies numbness and Denies tingling Psychiatric: Psychiatric: Reports no additional psychiatric complaints Endocrine: Endocrine: Reports no additional endocrine complaints Hematologic/Lymphatic: Hematologic/Lymphatic: Reports no additional hematologic/lymphatic complaints Allergic/Immunologic: Allergic/Immunologic: Reports no additional allergic/immunologic complaints PMFSH Past Medical History Attestation statement: The following information was validated with the patient. Source: old records reviewed Medical History Anemia History of back pain Hx pulmonary embolism Surgical History History of carpal tunnel surgery Hx of tubal ligation Family History Family History Maternal Uncle Hx of cancer of lung Mother Hx of myocardial infarction Social History Social History Alcohol intake: current Alcohol intake frequency: holidays/special occasions only Alcohol type: beer and wine Advance Directives: No Advance Directives Information Provided: No Physical Exam ED Vital Signs: Vital Signs - 24 hr 12/06/21 18:05 Temperature 98.9 F Pulse Rate 78 Respiratory Rate 18 Blood Pressure 141/85 H Pulse Oximetry 99 Oxygen Delivery Method Room Air BMI result Body Mass Index 25.6 Const General: cooperative, no acute distress, alert and awake Nutritional Appearance: well nourished Orientation/consciousness: patient oriented x3 Limitations: no limitations HENMT Head: Yes normal to inspection and Yes atraumatic Ears: hearing grossly normal bilaterally and external ears normal General nose exam: Normal external nose present, no nasal discharge noted and no epistaxis Face and sinus: Yes normal facial exam, No abrasion and No laceration Mouth: Normal oral and palatal mucosa present, no drooling and no muffled voice Eyes General: appearance normal, both eyes and all related structures Periorbital: periorbital findings normal Eyelids: Yes eyelids normal Conjunctivae: conjunctivae normal Pupils: Equal, round and reactive pupils present EOM: EOMs intact bilaterally Neck Neck: Yes normal visual inspection, Yes full ROM and Yes no lymphadenopathy Chest Chest palpation & inspection: normal inspection of the chest Resp Effort & Inspection: normal respiratory effort and able to speak in complete sentences Auscultation: clear to auscultation bilaterally Cardio Rate: regular rate Rhythm: regular rhythm GI Inspection: Yes normal to inspection Neuro General: patient oriented x3 and moves all extremities Cranial nerves: Yes Equal, round and reactive pupils present Cognition (Neuro): normal cognition Motor exam (neuro): 5/5 motor strength present throughout Sensory Exam: Normal double simultaneous stimulation for sensation Coordination: [id number] test normal Extrem General: Yes normal to inspection, Yes full ROM and Yes capillary refill normal Psych Appearance: grossly normal Mental Status: mental status grossly normal Affect: normal affect Attitude: cooperative Thought process: Normal thought process present Thought content: Normal thought content present Insight: Good insight present (Psych) Medical Decision Making MDM Narrative Medical decision making narrative: Patient is a 46 year old female presenting to the emergency department today with a sore throat. Patient's physical exam was unremarkable. Patient's rapid COVID-19 test came back positive. I explained my physical exam findings as well as all test results to the patient. I answered all questions asked by the patient. I stressed the importance of the patient taking her medication as prescribed. I stressed the importance of the patient following up with her primary care provider. I stressed the importance of the patient returning to the emergency department immediately if her symptoms were to worsen or if she were to develop any dizziness, shortness of breath, difficulty breathing, chest pain, blurry vision, loss of vision, nausea, vomiting, abdominal pain, fever, chills, back pain, or any other complaints. Patient verbalized agreement and understanding with this treatment plan and discharge. Differential Diagnosis Differential Diagnosis: COVID-19 Medical Records Medical records reviewed: Yes I reviewed the patient's medical records. Lab Data Lab results reviewed: Yes I reviewed the patient's lab results. Labs: Lab Results 12/06/21 Range/Units 18:09 COVID-19 (MANNIE) Positive A (Negative) COVID-19 Clin Com See Note Discharge Plan Discharge Clinical Impression: COVID-19 Patient Disposition: Home, Self-Care Instructions: COVID-19 (Coronavirus Disease 2019) (ED) Additional Instructions: Follow up with your primary care provider. Return to the emergency department immediately if your symptoms worsen or if you develop any dizziness, shortness of breath, difficulty breathing, chest pain, blurry vision, loss of vision, nausea, vomiting, abdominal pain, fever, chills, back pain, or any other complaints. Prescriptions: No Action aspirin [Aspir-Low] 81 mg Tablet,Delayed Release (Dr/Ec) 4RF fluoxetine 20 mg Tablet 20 mg PO DAILY losartan 100 mg Tablet 100 mg PO DAILY warfarin 5 mg Tablet 5 mg PO DAILY Referrals: Clover Okeefe MD [Primary Care Provider] - Stand Alone Forms: Work/School Release Interventions: ED Discharge Assessment Last Done: 12/06/21 18:39 Discharge Date/Time: 12/06/21 18:41 Print Language: Welsh
== END 2021-12-06 18:41 | disposition home or self-care (01) ==
PROVIDERS: Emergency Provider Internal Medicine; PCP Internal Medicine
DX: U07.1 COVID-19 (principal); J02.9 Acute pharyngitis, unspecified; Z79.899 Other long term (current) drug therapy
CPT/HCPCS: 87635; 99282

== ENCOUNTER 2021-12-23 06:44 | Outpatient (REF) | payer OTHER, SELFPAY ==
[2021-12-23 06:48] LABS: MANUAL DIFF FLAG NO
[2021-12-23 07:38] LABS: Basophils Percent Auto 0.6 % (0-2); Eosinophils Absolute Auto 0.1 X10*3/uL (0.0-0.4); Eosinophils Percent Auto 1.3 % (0-4); Hematocrit 39.2 % (37.0-47.0); Hemoglobin 12.5 g/dl (12.0-16.0); Imm Gran Abs Auto 0.04 X10*3/uL (0.00-0.03); Imm Gran Pct Auto 0.6 % (0.0-0.4); Lymphocytes Absolute Auto 1.9 X10*3/uL (1.2-4.9); Lymphocytes Percent Auto 26.7 % (20-40); Mean Corpuscular HGB Conc 31.9 g/dl (31.0-35.0); Mean Corpuscular Hemoglobin 28.9 pg (27.0-33.0); Mean Corpuscular Volume 90.5 fL (80.0-98.0); Mean Platelet Volume 10.8 fL (9.4-12.3); Monocytes Absolute Auto 0.6 X10*3/uL (0.1-1.2); Neutrophils Absolute Auto 4.5 x10*3/uL (2.0-8.3); Neutrophils Percent Auto 62.8 % (45-73); Platelet Count 246 X10*3/uL (160-400); Red Blood Count 4.33 X10*6/uL (4.20-5.50); White Blood Count 7.1 X10*3/uL (4.8-10.8)
[2021-12-23 07:59] LABS: Alanine Aminotransferase 14 U/L (0-31); Albumin Level 4.1 g/dL (3.5-5.0); Alkaline Phosphatase 67 U/L (39-117); Anion Gap 16 (12-20); Aspartate Amino Transferase 15 U/L (5-31); Bilirubin Total 0.8 mg/dL (0.0-1.0); Blood Urea Nitrogen 16 mg/dL (9-16); Calcium 9.4 mg/dL (8.4-10.2); Carbon Dioxide 23 mmol/L (22-29); Chloride 109 mmol/L (96-108); Cholesterol 178 mg/dL; Estimated Glomerular Filt Rate > 60; Glucose Random 84 mg/dL (60-115); HDL Cholesterol 68 mg/dL; LDL Cholesterol Calculated 95 mg/dl; Potassium 5.1 mmol/L (3.3-5.1); Sodium 143 mmol/L (135-145); Total Protein 7.1 g/dL (6.5-8.0); Triglycerides 76 mg/dL
[2021-12-23 08:12] LABS: Thyroid Stimulating Hormone 2.35 uIU/mL (0.32-4.0)
== END 2021-12-23 06:45 | disposition home or self-care (01) ==
LOC: HO.LAB 06:44
PROVIDERS: PCP Internal Medicine; Visit Provider Internal Medicine
DX: Z00.00 Encounter for general adult medical examination without abnormal findings (principal); I10 Essential (primary) hypertension; F41.0 Panic disorder [episodic paroxysmal anxiety]; F51.5 Nightmare disorder
CPT/HCPCS: 36415; 80053; 80061; 84443; 85025

== ENCOUNTER 2022-03-11 20:06 | Emergency (ER) | payer OTHER, SELFPAY ==
[2022-03-11 20:12] VITALS: BP 158/89; PULSE 80; RESP 17; TEMP 36.8; O2SAT 97; BMI 25.6
--- NOTE | 2022-03-11 20:12 | ED.URI ---
HPI - URI/Sore Throat General Chief Complaint: Upper Respiratory Symptoms <Daisy Pozo NP - Last Filed: 03/11/22 20:14> Stated Complaint: nasal congestion,sore throat <Daisy Pozo NP - Last Filed: 03/11/22 20:14> Time Seen by Provider: 03/12/22 01:07 <Daisy Pozo NP - Last Filed: 03/11/22 20:14> Source: patient <Jacqui Xvaier MD - Last Filed: 03/12/22 01:31> Mode of arrival: ambulatory <Jacqui Xavier MD - Last Filed: 03/12/22 01:31> Limitations: no limitations <Jacqui Xavier MD - Last Filed: 03/12/22 01:31> History of Present Illness HPI Narrative: Patient comes to the emergency room complaining of a sore throat, nasal congestion and sneezing. Patient states that her [id number] tested positive for COVID a few days ago. Patient denies fever or chills, no nausea vomiting or diarrhea. <Jacqui Xavier MD - Last Filed: 03/12/22 01:31> Related Data Home Medications: Home Medications Medication Instructions Recorded Confirmed fluoxetine 20 mg tablet 20 mg PO DAILY 05/13/20 05/13/20 losartan 100 mg tablet 100 mg PO DAILY 05/13/20 05/13/20 warfarin 5 mg tablet 5 mg PO DAILY 05/13/20 05/13/20 Previous Rx's Medication Instructions Recorded aspirin 81 mg tablet,delayed 01/02/21 release <ZACH Ching Last Filed: 03/11/22 20:14> Allergies/Adverse Reactions: Allergies Allergy/AdvReac Type Severity Reaction Status Date / Time latex [LATEX] Allergy Unknown DERMATITIS Verified 03/11/22 20:15 <ZACH Ching Last Filed: 03/11/22 20:14> Review of Systems Review of Systems: Constitutional : No Weight loss, No Fever, No Chills, No Night Sweats, No Fatigue, No Malaise ENT/Mouth : No Hearing loss, No Ear Pain, complaining of Nasal Congestion, complaining of sneezing, No Hoarseness, No sore throat, No Rhinorrhea, No Swallowing Difficulty Eyes: No Eye Pain, No Swelling, No Redness, No Foreign Body, No Discharge, No Vision Changes Cardiovascular : No Chest Pain, No SOB, No Dyspnea on Exertion, No Orthopnea, No Edema, No Palpitations Respiratory : No Cough, No Sputum, No Wheezing, No Smoke Exposure, No Dyspnea Gastrointestinal : No Nausea, No Vomiting, No Diarrhea, No Constipation, No abdominal Pain, No Hematochezia, No Melena Genitourinary : no irregular bleeding, No Dysuria, No Urinary Frequency, No Hematuria, No Urinary Incontinence, No Urgency, No Flank Pain, No Urinary Flow Changes, No Hesitancy Musculoskeletal : No joint pain, No Myalgias, No Joint Swelling Skin : No Skin Lesions, No rash Neuro : No Weakness, No Numbness, No Paresthesias, No Loss of Consciousness, No Dizziness, No Headache Psych : No Anxiety/Panic, No Depression, No SI/HI/AH/VH, No Social Issues, Heme/Lymph: No Bruising, No Bleeding,No Lymphadenopathy Endocrine : No Polyuria, No Polydipsia, No Temperature Intolerance <Jacqui Xavier MD - Last Filed: 03/12/22 01:31> [facility] Past Medical History Medical History: Medical History Anemia History of back pain Hx pulmonary embolism <Daisy Pozo NP - Last Filed: 03/11/22 20:14> Surgical History: Surgical History History of carpal tunnel surgery Hx of tubal ligation <Daisy Pozo NP - Last Filed: 03/11/22 20:14> Family History Family History: Family History Maternal Uncle Hx of cancer of lung Mother Hx of myocardial infarction <Daisy Pozo NP - Last Filed: 03/11/22 20:14> Social History Social History: Social History Alcohol intake: current Alcohol intake frequency: holidays/special occasions only Alcohol type: beer and wine Advance Directives: No Advance Directives Information Provided: No <Daisy Pozo NP - Last Filed: 03/11/22 20:14> Physical Exam Vital Signs: Vital Signs: Last Vital Signs Temp 98.3 F 03/11/22 20:12 Pulse 80 03/11/22 20:12 Resp 17 03/11/22 20:12 BP 158/89 H 03/11/22 20:12 Pulse Ox 97 03/11/22 20:12 O2 Del Method 03/11/22 20:12 BMI result Body Mass Index 25.6 <Daisy Pozo NP - Last Filed: 03/11/22 20:14> Vital Signs: Last Vital Signs Temp 98.3 F 03/11/22 20:12 Pulse 80 03/11/22 20:12 Resp 17 03/11/22 20:12 BP 158/89 H 03/11/22 20:12 Pulse Ox 97 03/11/22 20:12 O2 Del Method 03/11/22 20:12 BMI result Body Mass Index 25.6 <Jacqui Xavier MD - Last Filed: 03/12/22 01:31> Const: Other: Appearance: Alert. Oriented X3. No acute distress. Eyes: Pupils equal, round and reactive to light. ENT: Pharynx normal. No abscess, no vesicles, very mild erythema Neck: Normal inspection. Neck supple. No lymph nodes noted. No crepitus CVS: Normal heart rate and rhythm. Pulses normal. Normal S1 and S2 Respiratory: No respiratory distress. Breath sounds normal. No Wheezing. No rales Abdomen: Soft and nontender. No rigidity. No distention. Skin: Skin warm and dry. Normal skin color. Normal skin turgor. Extremities: No lower extremity edema. No Lacerations. No Rash Neuro: Oriented X 3. No motor deficit. No sensory deficit. Moving all extremities. No slurred speech. CN 2 through 12 grossly intact Psych: calm, cooperative, normal affect <Jacqui Xavier MD - Last Filed: 03/12/22 01:31> Course Course Course Narrative: This is a rapid medical exam. Defer additional HPI, ROS, PE to prior provider. 46 yo female with history of HTN here with congestion, sore throat, sneezing x1 day. Exposure to sister in law who has covid. Will send testing for flu, covid, rsv. VSS <Daisy Pozo NP - Last Filed: 03/11/22 20:14> This is a rapid medical exam. Defer additional HPI, ROS, PE to prior provider. 46 yo female with history of HTN here with congestion, sore throat, sneezing x1 day. Exposure to sister in law who has covid. Will send testing for flu, covid, rsv. VSS Patient tested negative for COVID. Patient was given for symptomatic relief p.o. Decadron and viscous lidocaine. <Jacqui Xavier MD - Last Filed: 03/12/22 01:31> Medical Decision Making Differential Diagnosis Differential Diagnoses: The differential diagnosis associated with the presentation includes (COVID, influenza, strep, viral pharyngitis) <Jacqui Xavier MD - Last Filed: 03/12/22 01:31> Lab Data MDM Lab Attestation statement: I reviewed the patient's lab results. <Jacqui Xavier MD - Last Filed: 03/12/22 01:31> Labs: Lab Results 03/11/22 Range/Units 20:19 Influenza Type A (PCR) NEGATIVE (Negative) Influenza Type B (PCR) NEGATIVE (Negative) RSV RNA Qual (PCR) NEGATIVE (Negative) SARS-CoV-2 RNA (RT-PCR) NEGATIVE (Negative) <Daisy Pozo NP - Last Filed: 03/11/22 20:14> Lab Results 03/11/22 Range/Units 20:19 Influenza Type A (PCR) NEGATIVE (Negative) Influenza Type B (PCR) NEGATIVE (Negative) RSV RNA Qual (PCR) NEGATIVE (Negative) SARS-CoV-2 RNA (RT-PCR) NEGATIVE (Negative) <Jacqui Xavier MD - Last Filed: 03/12/22 01:31> Discharge Plan Discharge Clinical Impression: Acute viral pharyngitis <Daisy Pozo NP - Last Filed: 03/11/22 20:14> Patient Disposition: Home, Self-Care <Daisy Pozo NP - Last Filed: 03/11/22 20:14> Instructions: Pharyngitis (ED) <Daisy Pozo NP - Last Filed: 03/11/22 20:14> Additional Instructions: Please follow-up with your primary care physician tomorrow. If you have any worsening or new symptoms, please return to the emergency room or call 911 <Daisy Pozo NP - Last Filed: 03/11/22 20:14> Prescriptions: No Action aspirin [Aspir-Low] 81 mg Tablet,Delayed Release (Dr/Ec) 4RF fluoxetine 20 mg Tablet 20 mg PO DAILY losartan 100 mg Tablet 100 mg PO DAILY warfarin 5 mg Tablet 5 mg PO DAILY <Daisy Pozo NP - Last Filed: 03/11/22 20:14>
[2022-03-11 21:01] LABS: Influenza A PCR NEGATIVE (Negative); Influenza B PCR NEGATIVE (Negative); Resp Syncy Virus RNA Qual PCR NEGATIVE (Negative); SARS COV2 PCR INHOUSE NEGATIVE (Negative)
[2022-03-12] MEDS: Lidocaine HCl Viscous 2 % 15 ML SOLUTION MUCOUS MEM (01:27)
[2022-03-12] MEDS: dexAMETHasone sod phosphate 4 MG/ML VIAL 6 MG IVPUSH (01:28)
[2022-03-12 01:29] VITALS: BP 154/99; PULSE 76; RESP 16; O2SAT 98
== END 2022-03-12 01:36 | disposition home or self-care (01) ==
PROVIDERS: Nurse Practitioner Family; Emergency Provider Emergency Medicine; PCP Internal Medicine
DX: J02.9 Acute pharyngitis, unspecified (principal); Z20.828 Contact with and (suspected) exposure to other viral communicable diseases
CPT/HCPCS: 0241U; 99283; J1100

== ENCOUNTER 2022-07-05 12:00 | Observation (INO) | payer OTHER, SELFPAY ==
--- NOTE | ~2022-07-05 | US_ITS ---
EXAMINATION: US VENOUS ULTRASOUND WITH DOPPLER LOWER EXTREMITY, BILATERAL CLINICAL INFORMATION: Bilateral lower extremity pain COMPARISON: Previous exams 2020 and 2021 TECHNIQUE: Ultrasound of the deep veins is performed from the hip to the calf with compression sonography and color and pulse Doppler assessment. Spectral analysis with color-flow imaging is performed. FINDINGS: RIGHT: There is normal venous compression and respiratory variation and augmented flow. The visualized common femoral vein, superficial femoral vein, profunda femoral vein, popliteal vein, and the trifurcation region shows no evidence of deep venous thrombosis. There is no significant popliteal fossa cyst. LEFT: There is normal venous compression and respiratory variation and augmented flow. The visualized common femoral vein, superficial femoral vein, profunda femoral vein, popliteal vein, and the trifurcation region shows no evidence of deep venous thrombosis. There is no significant popliteal fossa cyst. US/US venous duplex LE BI IMPRESSION: No DVT demonstrated in the bilateral lower extremity.
--- NOTE | ~2022-07-05 | CT_ITS ---
EXAMINATION: CT HEAD WITHOUT CONTRAST CLINICAL INFORMATION: Right face and left lower extremity numbness COMPARISON: Previous head CT most recent December 2018 TECHNIQUE: Contiguous axial imaging was performed from the skull base to vertex without intravenous administration of contrast. This CT examination was performed using dose optimization techniques as appropriate, variously including the following: *Automated exposure control *Adjustment of mA and/or kV according to patient size (this includes techniques or standardized protocols for targeted exams where dose is matched to indication/reason for exam; i.e. extremities or head) *Use of iterative reconstruction technique DLP: 638 mGy-cm FINDINGS: There is no evidence of an extra-axial collection. There is no evidence of intra-axial or extra-axial hemorrhage. Ventricles and extra-axial CSF spaces are appropriate. Martinez-white matter differentiation is normal. No mass, mass effect or infarct. Review at bone windows is normal. No skull fracture. Visualized paranasal sinuses, mastoid air cells and middle ears are clear. CT/CT head/brain wo IV con IMPRESSION: Unremarkable exam.
--- NOTE | ~2022-07-05 | XR_ITS ---
EXAMINATION: XR CHEST CLINICAL INFORMATION: Shortness of breath COMPARISON: Previous chest x-ray from 2019 TECHNIQUE: Frontal view of the chest was obtained. FINDINGS: No significant abnormality is noted involving the heart, lungs, mediastinum, bony thorax or soft tissues. XR/XR chest 1V IMPRESSION: Unremarkable examination.
--- NOTE | ~2022-07-05 | CT_ITS ---
EXAMINATION: CT ANGIOGRAM OF THE CHEST WITH AND WITHOUT CONTRAST (CT PULMONARY ANGIOGRAM FOR PE) CLINICAL INFORMATION: Reason for Exam R sided lung pain hx of PE COMPARISON: Previous chest CTA most recent September 2020 and chest x-ray from earlier the same day TECHNIQUE: Prior to contrast administration, noncontrast localization images were obtained. Subsequently, multidetector volumetric imaging was performed from the thoracic inlet to below the diaphragms following the administration of 80 mL Omnipaque 350 intravenous contrast. No contrast reaction reported Sagittal, coronal, and MIP oblique sagittal reformatted images were obtained on the CT workstation, uploaded to PACS, and reviewed. This CT examination was performed using dose optimization techniques as appropriate, variously including the following: *Automated exposure control *Adjustment of mA and/or kV according to patient size (this includes techniques or standardized protocols for targeted exams where dose is matched to indication/reason for exam; i.e. extremities or head) *Use of iterative reconstruction technique Total exam dose-length product 257 mGy-cm FINDINGS: QUALITY OF STUDY/CONTRAST BOLUS: Satisfactory. PULMONARY ARTERIES: No pulmonary emboli. THORACIC AORTA: No aneurysm. LUNG: No focal consolidation, nodules or masses. PLEURA: No pleural effusion or pneumothorax. MEDIASTINUM: Normal heart size. No pericardial effusion. No hilar or mediastinal lymphadenopathy. No evidence of septal bowing or right heart strain. CORONARY ARTERY CALCIFICATION: None visualized on this study. CHEST WALL/AXILLA: No axillary or internal mammary lymphadenopathy. OSSEOUS STRUCTURES: No acute or suspicious osseous abnormality. UPPER ABDOMEN: Small gastric diverticulum similar to previous exams.. No reflux of contrast into the hepatic veins to suggest elevated right heart pressures. CT/CT angio chest PE protocol IMPRESSION: No evidence of pulmonary embolism VTE: negative
--- NOTE | ~2022-07-05 | MR_ITS ---
MRI OF THE BRAIN WITHOUT IV CONTRAST INDICATION: CVA. COMPARISON: Head CT 07/05/2022. TECHNIQUE: Multiplanar multisequence MR imaging of the brain was obtained without IV contrast. FINDINGS: There is no hydrocephalus, extra-axial surface collection, or herniation. There is lack of FLAIR CSF suppression within multiple bilateral posterior cerebral sulci. There is no evidence of acute subarachnoid hemorrhage on the gradient series nor yesterday's head CT. CSF analysis would be helpful in excluding any leptomeningeal pathology to explain this finding such as meningitis. Mild T2 signal changes within the supratentorial white matter in a nonspecific distribution. The major flow voids at the skull base are preserved. There is no acute infarct on diffusion-weighted imaging. There is no intracranial hemorrhage on the gradient recalled echo acquisition. The midline structures are normal. The cerebellar tonsils are normally positioned. The cerebellum and brainstem are normal. The craniocervical junction is normal. Osseous marrow signal intensity is homogenous. The visualized soft tissues are unremarkable. MR/MR head/brain wo con IMPRESSION: - No acute infarcts. - There is lack of FLAIR CSF suppression within multiple bilateral posterior cerebral sulci. There is no evidence of acute subarachnoid hemorrhage on the gradient series nor yesterday's head CT. CSF analysis would be helpful in excluding any leptomeningeal pathology to explain this finding such as meningitis. - Mild T2 signal changes within the supratentorial white matter in a nonspecific distribution.
[2022-07-05 12:50] VITALS: BP 176/88; PULSE 83; RESP 18; TEMP 36.4; O2SAT 99; BMI 27.1
--- NOTE | 2022-07-05 12:50 | ED_ITS ---
HPI - General Adult General Chief complaint: General Medical <UMESH Kelly Last Filed: 07/06/22 13:24> Stated complaint: blocked ear and numbness r side l leg numbness <UMESH Kelly Last Filed: 07/06/22 13:24> Time Seen by Provider: 07/05/22 18:54 <UMESH Kelly Last Filed: 07/06/22 13:24> Source: patient <UMESH Mcclellan Last Filed: 07/05/22 23:12> Mode of arrival: ambulatory <UMESH Mcclellan Last Filed: 07/05/22 23:12> Limitations: no limitations <UMESH Mcclellan Last Filed: 07/05/22 23:12> History of Present Illness HPI narrative: This is a 46-year-old female history of hypertension, PE not anticoagulated presenting to the emergency department with complaints of right- sided facial numbness, decreased sensation to right side of face, fullness sensation and right ear, pins and needles sensation to left lower extremity and right-sided lung pain that is worse with deep breathing. Patient tells me this all started this morning, she woke feeling this by. She reports that the right side of her face is numb and she feels some pain to her scalp particularly on the right side and she describes as someone pulling on her hair. She tells me she has a history of PE and was on anticoagulation taken often told to only take aspirin however she is non med compliant with all medications including antihypertensives, warfarin. Patient tells me she feels awful. <UMESH Mcclellan Last Filed: 07/05/22 23:12> Related Data Home medications: Home Medications Medication Instructions Recorded Confirmed amlodipine 2.5 mg tablet 2.5 mg PO DAILY 07/06/22 07/06/22 aspirin 81 mg tablet,delayed 81 mg DAILY 07/06/22 07/06/22 release fluoxetine 20 mg capsule (Prozac) 20 mg PO DAILY 07/06/22 07/06/22 losartan 100 1 tab DAILY 07/06/22 07/06/22 mg-hydrochlorothiazide 25 mg tablet prazosin 1 mg capsule 1 mg PO BEDTIME 07/06/22 07/06/22 <UMESH Kelly - Last Filed: 07/06/22 13:24> Allergies/adverse reactions: Allergies Allergy/AdvReac Type Severity Reaction Status Date / Time latex [LATEX] Allergy Unknown DERMATITIS Verified 07/05/22 12:52 <UMESH Kelly - Last Filed: 07/06/22 13:24> Review of Systems Review of Systems: Constitutional : No Weight loss, No Fever, No Chills, No Fatigue, No Malaise ENT/Mouth : No sore throat, No Rhinorrhea Eyes: No Eye Pain, No Swelling, No Redness Cardiovascular : No Chest Pain, No SOB, No Dyspnea on Exertion, No Orthopnea, No Edema, No Palpitations Respiratory : No Cough, No Sputum, No Wheezing, + lung pain Gastrointestinal : No Nausea, No Vomiting, No Diarrhea, No Constipation, No abdominal Pain, No Hematochezia, No Melena Genitourinary : No Dysuria, No Urinary Frequency, No Hematuria, Musculoskeletal : No joint pain, No Myalgias, No Joint Swelling Skin : No Skin Lesions, No rash Neuro : No Weakness, + Numbness, No Dizziness, No Headache Psych : No Anxiety/Panic, No Depression All other systems reviewed and are negative <UMESH Mcclellan - Last Filed: 07/05/22 23:12> Yes all other systems are reviewed and are negative <UMESH Mcclellan - Last Filed: 07/05/22 23:12> PMFSH Past Medical History Attestation statement: The following information was validated with the patient. <UMESH Mcclellan - Last Filed: 07/05/22 23:12> Source: old records reviewed and nursing notes reviewed <UMESH Mcclellan - Last Filed: 07/05/22 23:12> Medical History: Medical History Anemia History of back pain Hx pulmonary embolism <UMESH Kelly - Last Filed: 07/06/22 13:24> Surgical History: Surgical History History of carpal tunnel surgery Hx of tubal ligation <UMESH Kelly - Last Filed: 07/06/22 13:24> Family History Family History: Family History Maternal Uncle Hx of cancer of lung Mother Hx of myocardial infarction <UMESH Kelly - Last Filed: 07/06/22 13:24> Social History Social History: Social History Alcohol intake: never Patient Tobacco Use Status: Never used Tobacco service: No Current occupational status: disabled <UMESH Kelly - Last Filed: 07/06/22 13:24> Physical Exam ED Vital Signs: Vital Signs - 24 hr 07/05/22 19:29 07/05/22 22:31 Temperature 97.1 F 98.0 F Pulse Rate 76 66 Respiratory Rate 16 16 Blood Pressure 155/76 H 130/70 Pulse Oximetry 100 98 Oxygen Delivery Method Room Air Room Air BMI result Body Mass Index 27.1 <UMESH Kelly - Last Filed: 07/06/22 13:24> Vital Signs - 24 hr 07/05/22 19:29 07/05/22 22:31 Temperature 97.1 F 98.0 F Pulse Rate 76 66 Respiratory Rate 16 16 Blood Pressure 155/76 H 130/70 Pulse Oximetry 100 98 Oxygen Delivery Method Room Air Room Air BMI result Body Mass Index 27.1 vss <UMESH Mcclellan - Last Filed: 07/05/22 23:12> Appearance: Alert.? Oriented X3.? No acute distress.? Head: Normocephalic, atraumatic, no step-offs or deformities + decreased sensation to right side of face and scalp tenderness to right side of scalp. Eyes: Pupils equal, round and reactive to light.? ENT: Pharynx normal.? Neck: Normal inspection.? Neck supple.? CVS: Normal heart rate and rhythm.? Pulses normal.? Respiratory: No respiratory distress.? Breath sounds normal.? Abdomen: Soft and nontender.? Skin: Skin warm and dry.? Normal skin color.? Normal skin turgor.? Extremities: No lower extremity edema.? No calf ttp. 5/5 strength to bilateral upper and lower extremities Neuro: Oriented X 3.? No motor deficit.? No sensory deficit. CN 2-12 intact . Normal [id number], [id number] steady tandem gait,, negative Romberg and pronator drift. <UMESH Mcclellan - Last Filed: 07/05/22 23:12> Course Course Course Narrative: RME: 46-year-old female with no significant past medical history presenting to the ED complaining of clogged right ear with associated right- sided facial numbness and left leg numbness since waking this morning. Reports feels generally unwell, also mild SOB when waking. No focal neuro deficits noted on exam, ambulating with steady gait EKG, labs, CXR, head CT ordered Full HPI, ROS and PE to be performed by primary ED provider. <UMESH Kelly - Last Filed: 07/06/22 13:24> Reevaluation(s) Reevaluation #1: CBC within normal limits. Normal ESR. Normal CRP. Chemistry unremarkable no acute findings. Troponin negative. Coags unremarkable. Venous duplex of lower extremities with no blood clot. Head CT unremarkable. CTA without PE. Chest x-ray unremarkable. I did discuss this case with hospitalist will admit patient for possible TIA an MRI in the morning with Neurology consult. <UMESH Mcclellan - Last Filed: 07/05/22 23:12> Time: 23:10 <UMESH Mcclellan - Last Filed: 07/05/22 23:12> Reevaluation #2: Patient is now also complaining of mild diffuse headache throughout and slight right hand weakness she tells me she noticed this weakness this morning however did not think much of it initially. She tells me this morning she had difficulty opening a container when she 1st awoke around 8- 09:00 am <UMESH Mcclellan - Last Filed: 07/05/22 23:12> Time: 23:11 <UMESH Mcclellan - Last Filed: 07/05/22 23:12> Medications Administered Generic Name Dose Route Start Last Admin Trade Name Freq PRN Reason Stop Dose Admin Sodium Chloride 3 ml 07/06/22 00:00 07/06/22 07:37 0.9 % Sodium Chloride Flush 3 Ml Syringe IVFLUSH Not Given QSHIFT WILDA Discontinued Medications Generic Name Dose Route Start Last Admin Trade Name Freq PRN Reason Stop Dose Admin Diphenhydramine HCl 25 mg 07/05/22 23:08 07/05/22 23:26 Diphenhydramine Hcl 50 Mg/Ml Vial IVPUSH 07/05/22 23:09 25 mg ONCE ONE Administration Iohexol 100 ml 07/05/22 22:18 07/05/22 22:19 Iohexol 350 Mg/Ml 100 Ml Infus..Btl IV 07/05/22 22:19 65 ml ONCE ONE Administration Metoclopramide HCl 10 mg 07/05/22 23:08 07/05/22 23:26 Metoclopramide Hcl 10 Mg/2 Ml Vial IVPUSH 07/05/22 23:09 10 mg ONCE ONE Administration Morphine Sulfate 2 mg 07/05/22 23:08 07/05/22 23:25 Morphine Sulfate 2 Mg/Ml Cartridge IVPUSH 07/05/22 23:09 2 mg ONCE ONE Administration Protocol <UMESH Kelly - Last Filed: 07/06/22 13:24> Medications Administered Generic Name Dose Route Start Last Admin Trade Name Freq PRN Reason Stop Dose Admin Sodium Chloride 3 ml 07/06/22 00:00 07/06/22 07:37 0.9 % Sodium Chloride Flush 3 Ml Syringe IVFLUSH Not Given [facility] Discontinued Medications Generic Name Dose Route Start Last Admin Trade Name Freq PRN Reason Stop Dose Admin Diphenhydramine HCl 25 mg 07/05/22 23:08 07/05/22 23:26 Diphenhydramine Hcl 50 Mg/Ml Vial IVPUSH 07/05/22 23:09 25 mg ONCE ONE Administration Iohexol 100 ml 07/05/22 22:18 07/05/22 22:19 Iohexol 350 Mg/Ml 100 Ml Infus..Btl IV 07/05/22 22:19 65 ml ONCE ONE Administration Metoclopramide HCl 10 mg 07/05/22 23:08 07/05/22 23:26 Metoclopramide Hcl 10 Mg/2 Ml Vial IVPUSH 07/05/22 23:09 10 mg ONCE ONE Administration Morphine Sulfate 2 mg 07/05/22 23:08 07/05/22 23:25 Morphine Sulfate 2 Mg/Ml Cartridge IVPUSH 07/05/22 23:09 2 mg ONCE ONE Administration Protocol <UMESH Mcclellan - Last Filed: 07/05/22 23:12> Medical Decision Making Medical Decision Making [facility] Narrative: 1931 This is a 46-year-old female presenting with right-sided facial numbness, right- sided scalp tenderness, right-sided lung pain worse with deep breathing, patient has history of PE in is non med compliant with warfarin, aspirin. Physical exam decreased sensation to right side of face. Scalp tenderness on the right-hand side. Neuro nonfocal. Cerebellar intact. Concerns for possible lacunar infarcts, TIA, pulmonary embolism. Also some concern for temporal arteritis, giant cell arteritis. Other differentials include complex migraine. If patient has a PE likely secondary to non med compliance. Unlikely trigeminal neuralgia. Unlikely myasthenia gravis. Unlikely [place] Greco syndrome Patient outside of window for tPA. However I do not suspect embolic stroke or ischemic stroke Plan at this time labs, imaging, inflammatory markers, venous duplex of lower extremities and PE study. <UMESH Mcclellan - Last Filed: 07/05/22 23:12> Differential Diagnosis Differential Diagnoses: The differential diagnosis associated with the presentation includes <UMESH Mcclellan - Last Filed: 07/05/22 23:12> Concerns for possible lacunar infarcts, TIA, pulmonary embolism. Also some concern for temporal arteritis, giant cell arteritis. Other differentials include complex migraine. If patient has a PE likely secondary to non med compliance. Unlikely trigeminal neuralgia. Unlikely myasthenia gravis. Unlikely [place] Greco syndrome <UMESH Mcclellan - Last Filed: 07/05/22 23:12> Admission/Observation Consideration of admission/observation: Escalation of care including admission/observation considered <UMESH Mcclellan - Last Filed: 07/05/22 23:12> Lab Data Result Diagrams: 07/05/22 13:39 07/05/22 13:39 <UMESH Kelly - Last Filed: 07/06/22 13:24> Labs: Lab Results 07/05/22 07/05/22 07/05/22 Range/Units 13:39 13:39 13:39 WBC 6.5 (4.8-10.8) X10*3/uL RBC 4.93 (4.20-5.50) X10*6/uL Hgb 13.8 (12.0-16.0) g/dl Hct 42.7 (37.0-47.0) % MCV 86.6 (80.0-98.0) fL MCH 28.0 (27.0-33.0) pg MCHC 32.3 (31.0-35.0) g/dl RDW 13.7 (11.0-16.0) % Plt Count 203 (160-400) X10*3/uL MPV 11.3 (9.4-12.3) fL Immature Gran % (Auto) 0.2 (0.0-0.4) % Neut % (Auto) 64.7 (45-73) % Lymph % (Auto) 26.0 (20-40) % Cross % (Auto) 7.5 (2-11) % Eos % (Auto) 0.8 (0-4) % Baso % (Auto) 0.8 (0-2) % Lymph # (Auto) 1.7 (1.2-4.9) X10*3/uL Cross # (Auto) 0.5 (0.1-1.2) X10*3/uL Eos # (Auto) 0.1 (0.0-0.4) X10*3/uL Baso # (Auto) 0.1 (0.0-0.2) X10*3/uL Abs Immat Gran (auto) 0.01 (0.00-0.03) X10*3/uL Absolute Neuts (auto) 4.2 (2.0-8.3) x10*3/uL Absolute Nucleated RBC 0.000 (0.0-0.012) X10*3/uL Nucleated RBC % (auto) 0.0 (0.0-0.2) /100WBC ESR (0-20) MM/HR PT (10.0-13.1) SEC INR (0.9-1.1) D-Dimer High Sensitivty NG/ML Sodium 140 (135-145) mmol/L Potassium 4.0 D (3.3-5.1) mmol/L Chloride 106 (96-108) mmol/L Carbon Dioxide 28 (22-29) mmol/L Anion Gap 10 L (12-20) BUN 14 (9-16) mg/dL Creatinine 0.80 (0.5-1.4) mg/dL Estim Creat Clear Calc 78.0 Estimated GFR > 60 Random Glucose 105 (60-115) mg/dL Calcium 9.5 (8.4-10.2) mg/dL Magnesium 2.0 (1.6-2.6) mg/dL Total Bilirubin 1.2 H (0.0-1.0) mg/dL Direct Bilirubin 0.3 (0.0-0.5) mg/dL AST 17 (5-31) U/L ALT 14 (0-31) U/L Alkaline Phosphatase 78 (39-117) U/L Troponin I High Sens < 2.7 (<3.5-17.0) ng/L C-Reactive Protein (< or = 0.50) mg/dL Total Protein 7.2 (6.5-8.0) g/dL Albumin 4.2 (3.5-5.0) g/dL 07/05/22 07/05/22 07/05/22 Range/Units 19:32 19:32 19:32 WBC (4.8-10.8) X10*3/uL RBC (4.20-5.50) X10*6/uL Hgb (12.0-16.0) g/dl Hct (37.0-47.0) % MCV (80.0-98.0) fL MCH (27.0-33.0) pg MCHC (31.0-35.0) g/dl RDW (11.0-16.0) % Plt Count (160-400) X10*3/uL MPV (9.4-12.3) fL Immature Gran % (Auto) (0.0-0.4) % Neut % (Auto) (45-73) % Lymph % (Auto) (20-40) % Cross % (Auto) (2-11) % Eos % (Auto) (0-4) % Baso % (Auto) (0-2) % Lymph # (Auto) (1.2-4.9) X10*3/uL Cross # (Auto) (0.1-1.2) X10*3/uL Eos # (Auto) (0.0-0.4) X10*3/uL Baso # (Auto) (0.0-0.2) X10*3/uL Abs Immat Gran (auto) (0.00-0.03) X10*3/uL Absolute Neuts (auto) (2.0-8.3) x10*3/uL Absolute Nucleated RBC (0.0-0.012) X10*3/uL Nucleated RBC % (auto) (0.0-0.2) /100WBC ESR 6 (0-20) MM/HR PT 10.5 (10.0-13.1) SEC INR 0.9 (0.9-1.1) D-Dimer High Sensitivty < 150 NG/ML Sodium (135-145) mmol/L Potassium (3.3-5.1) mmol/L Chloride (96-108) mmol/L Carbon Dioxide (22-29) mmol/L Anion Gap (12-20) BUN (9-16) mg/dL Creatinine (0.5-1.4) mg/dL Estim Creat Clear Calc Estimated GFR Random Glucose (60-115) mg/dL Calcium (8.4-10.2) mg/dL Magnesium (1.6-2.6) mg/dL Total Bilirubin (0.0-1.0) mg/dL Direct Bilirubin (0.0-0.5) mg/dL AST (5-31) U/L ALT (0-31) U/L Alkaline Phosphatase (39-117) U/L Troponin I High Sens (<3.5-17.0) ng/L C-Reactive Protein < 0.10 (< or = 0.50) mg/dL Total Protein (6.5-8.0) g/dL Albumin (3.5-5.0) g/dL <UMESH Kelly - Last Filed: 07/06/22 13:24> Lab Results 07/05/22 07/05/22 07/05/22 Range/Units 13:39 13:39 13:39 WBC 6.5 (4.8-10.8) X10*3/uL RBC 4.93 (4.20-5.50) X10*6/uL Hgb 13.8 (12.0-16.0) g/dl Hct 42.7 (37.0-47.0) % MCV 86.6 (80.0-98.0) fL MCH 28.0 (27.0-33.0) pg MCHC 32.3 (31.0-35.0) g/dl RDW 13.7 (11.0-16.0) % Plt Count 203 (160-400) X10*3/uL MPV 11.3 (9.4-12.3) fL Immature Gran % (Auto) 0.2 (0.0-0.4) % Neut % (Auto) 64.7 (45-73) % Lymph % (Auto) 26.0 (20-40) % Cross % (Auto) 7.5 (2-11) % Eos % (Auto) 0.8 (0-4) % Baso % (Auto) 0.8 (0-2) % Lymph # (Auto) 1.7 (1.2-4.9) X10*3/uL Cross # (Auto) 0.5 (0.1-1.2) X10*3/uL Eos # (Auto) 0.1 (0.0-0.4) X10*3/uL Baso # (Auto) 0.1 (0.0-0.2) X10*3/uL Abs Immat Gran (auto) 0.01 (0.00-0.03) X10*3/uL Absolute Neuts (auto) 4.2 (2.0-8.3) x10*3/uL Absolute Nucleated RBC 0.000 (0.0-0.012) X10*3/uL Nucleated RBC % (auto) 0.0 (0.0-0.2) /100WBC ESR (0-20) MM/HR PT (10.0-13.1) SEC INR (0.9-1.1) D-Dimer High Sensitivty NG/ML Sodium 140 (135-145) mmol/L Potassium 4.0 D (3.3-5.1) mmol/L Chloride 106 (96-108) mmol/L Carbon Dioxide 28 (22-29) mmol/L Anion Gap 10 L (12-20) BUN 14 (9-16) mg/dL Creatinine 0.80 (0.5-1.4) mg/dL Estim Creat Clear Calc 78.0 Estimated GFR > 60 Random Glucose 105 (60-115) mg/dL Calcium 9.5 (8.4-10.2) mg/dL Magnesium 2.0 (1.6-2.6) mg/dL Total Bilirubin 1.2 H (0.0-1.0) mg/dL Direct Bilirubin 0.3 (0.0-0.5) mg/dL AST 17 (5-31) U/L ALT 14 (0-31) U/L Alkaline Phosphatase 78 (39-117) U/L Troponin I High Sens < 2.7 (<3.5-17.0) ng/L C-Reactive Protein (< or = 0.50) mg/dL Total Protein 7.2 (6.5-8.0) g/dL Albumin 4.2 (3.5-5.0) g/dL 07/05/22 07/05/22 07/05/22 Range/Units 19:32 19:32 19:32 WBC (4.8-10.8) X10*3/uL RBC (4.20-5.50) X10*6/uL Hgb (12.0-16.0) g/dl Hct (37.0-47.0) % MCV (80.0-98.0) fL MCH (27.0-33.0) pg MCHC (31.0-35.0) g/dl RDW (11.0-16.0) % Plt Count (160-400) X10*3/uL MPV (9.4-12.3) fL Immature Gran % (Auto) (0.0-0.4) % Neut % (Auto) (45-73) % Lymph % (Auto) (20-40) % Cross % (Auto) (2-11) % Eos % (Auto) (0-4) % Baso % (Auto) (0-2) % Lymph # (Auto) (1.2-4.9) X10*3/uL Cross # (Auto) (0.1-1.2) X10*3/uL Eos # (Auto) (0.0-0.4) X10*3/uL Baso # (Auto) (0.0-0.2) X10*3/uL Abs Immat Gran (auto) (0.00-0.03) X10*3/uL Absolute Neuts (auto) (2.0-8.3) x10*3/uL Absolute Nucleated RBC (0.0-0.012) X10*3/uL Nucleated RBC % (auto) (0.0-0.2) /100WBC ESR 6 (0-20) MM/HR PT 10.5 (10.0-13.1) SEC INR 0.9 (0.9-1.1) D-Dimer High Sensitivty < 150 NG/ML Sodium (135-145) mmol/L Potassium (3.3-5.1) mmol/L Chloride (96-108) mmol/L Carbon Dioxide (22-29) mmol/L Anion Gap (12-20) BUN (9-16) mg/dL Creatinine (0.5-1.4) mg/dL Estim Creat Clear Calc Estimated GFR Random Glucose (60-115) mg/dL Calcium (8.4-10.2) mg/dL Magnesium (1.6-2.6) mg/dL Total Bilirubin (0.0-1.0) mg/dL Direct Bilirubin (0.0-0.5) mg/dL AST (5-31) U/L ALT (0-31) U/L Alkaline Phosphatase (39-117) U/L Troponin I High Sens (<3.5-17.0) ng/L C-Reactive Protein < 0.10 (< or = 0.50) mg/dL Total Protein (6.5-8.0) g/dL Albumin (3.5-5.0) g/dL <UMESH Mcclellan - Last Filed: 07/05/22 23:12> Critical Care Time Critical Care Time Critical Care Time: No <UMESH Mcclellan - Last Filed: 07/05/22 23:12> Discharge Plan Discharge Clinical Impression: Facial numbness, Headache <UMESH Kelly - Last Filed: 07/06/22 13:24> Patient Disposition: Admitted As Inpatient <UMESH Kelly Last Filed: 07/06/22 13:24> Interventions: Admission Worksheet (ED) Last Done: 07/06/22 02:02 <UMESH Kelly - Last Filed: 07/06/22 13:24> Discharge Date/Time: 07/06/22 02:02 <UMESH Kelly - Last Filed: 07/06/22 13:24>
--- NOTE | 2022-07-05 12:51 | ECG_ITS ---
Test Reason : chest tightness/ numbness Blood Pressure : / mmHG Vent. Rate : 077 BPM Atrial Rate : 077 BPM P-R Int : 144 ms QRS Dur : 098 ms QT Int : 406 ms P-R-T Axes : 043 023 024 degrees QTc Int : 459 ms Sinus rhythm with occasional Premature ventricular complexes Incomplete right bundle branch block Borderline ECG When compared with ECG of 05-OCT-2020 19:15, Premature ventricular complexes are now Present Referred By: Valentina Henry Electronically Signed By:Saúl Monge
[2022-07-05 13:52] LABS: MANUAL DIFF FLAG NO
[2022-07-05 13:54] LABS: Basophils Absolute Auto 0.1 X10*3/uL (0.0-0.2); Basophils Percent Auto 0.8 % (0-2); Eosinophils Absolute Auto 0.1 X10*3/uL (0.0-0.4); Eosinophils Percent Auto 0.8 % (0-4); Hematocrit 42.7 % (37.0-47.0); Hemoglobin 13.8 g/dl (12.0-16.0); Imm Gran Abs Auto 0.01 X10*3/uL (0.00-0.03); Imm Gran Pct Auto 0.2 % (0.0-0.4); Lymphocytes Absolute Auto 1.7 X10*3/uL (1.2-4.9); Mean Corpuscular HGB Conc 32.3 g/dl (31.0-35.0); Mean Corpuscular Volume 86.6 fL (80.0-98.0); Mean Platelet Volume 11.3 fL (9.4-12.3); Monocytes Absolute Auto 0.5 X10*3/uL (0.1-1.2); Monocytes Percent Auto 7.5 % (2-11); Neutrophils Absolute Auto 4.2 x10*3/uL (2.0-8.3); Neutrophils Percent Auto 64.7 % (45-73); Platelet Count 203 X10*3/uL (160-400); Red Blood Count 4.93 X10*6/uL (4.20-5.50); Red Cell Distribution Width 13.7 % (11.0-16.0); White Blood Count 6.5 X10*3/uL (4.8-10.8)
[2022-07-05 14:10] LABS: Alanine Aminotransferase 14 U/L (0-31); Albumin Level 4.2 g/dL (3.5-5.0); Alkaline Phosphatase 78 U/L (39-117); Anion Gap 10 (12-20); Aspartate Amino Transferase 17 U/L (5-31); Bilirubin Direct 0.3 mg/dL (0.0-0.5); Bilirubin Total 1.2 mg/dL (0.0-1.0); Blood Urea Nitrogen 14 mg/dL (9-16); Calcium 9.5 mg/dL (8.4-10.2); Carbon Dioxide 28 mmol/L (22-29); Chloride 106 mmol/L (96-108); Estimated Glomerular Filt Rate > 60; Glucose Random 105 mg/dL (60-115); Sodium 140 mmol/L (135-145); Total Protein 7.2 g/dL (6.5-8.0)
[2022-07-05 14:25] LABS: Troponin-I High Sensitivity < 2.7 ng/L (<3.5-17.0)
[2022-07-05 19:29] VITALS: BP 155/76; PULSE 76; RESP 16; TEMP 36.2; O2SAT 100
[2022-07-05 19:45] LABS: INTERNATIONAL NORM RATIO 0.9 (0.9-1.1); Prothrombin Time 10.5 SEC (10.0-13.1)
[2022-07-05 19:48] LABS: D Dimer High Sensitivity < 150 NG/ML
[2022-07-05 19:50] LABS: C Reactive Protein < 0.10 mg/dL (< or = 0.50)
[2022-07-05 20:27] LABS: Erythrocyte Sedimentation Rate 6 MM/HR (0-20)
[2022-07-05] MEDS: iohexoL 350 MG/ML 100 ML INFUS..BTL IV (22:19)
[2022-07-05 22:31] VITALS: BP 130/70; PULSE 66; RESP 16; TEMP 36.7; O2SAT 98
--- NOTE | 2022-07-05 23:10 | P.HPHOSP_ITS ---
History of Present Illness Date of Service: 07/05/22 Chief Complaint: right arm weakness This is a 46-year-old female with pertinent history PE on Coumadin, mood disorder, essential hypertension who presents to the emergency department for evaluation of right-sided facial numbness and right arm weakness. Patient states she noticed when she got up this a.m.. No similar complaints in the past. Patient states her right sided face felt numb and she had difficulty using her right arm to open the lid containers. Patient admits she is not compliant with her medications including antihypertensives and Coumadin. Patient denies any other extremity weakness, difficulty with vision, headache, swallowing, gait imbalance. Patient denies fever, chills, chest discomfort, palpitations, shortness of breath, abdominal pain, changes in urinary or bowel habits. The emergency department CTA and CT head without acute abnormality Review of Systems Constitutional: Constitutional: Reports no additional constitutional complaints Cardiovascular: Cardiovascular: Reports no additional cardiovascular complaints Respiratory: Respiratory: Reports no additional respiratory complaints Gastrointestinal: Gastrointestinal: Reports no additional gastrointestinal complaints Genitourinary: Genitourinary: Reports no additional female genitourinary complaints Neurologic: Reports focal weakness [facility] Medical History Anemia History of back pain Hx pulmonary embolism Family History Maternal Uncle Hx of cancer of lung Mother Hx of myocardial infarction Surgical History History of carpal tunnel surgery Hx of tubal ligation Social History Alcohol intake: current Alcohol intake frequency: holidays/special occasions only Alcohol type: beer and wine Advance Directives: No Advance Directives Information Provided: Yes Meds Allergies Allergy/AdvReac Type Severity Reaction Status Date / Time latex [LATEX] Allergy Unknown DERMATITIS Verified 07/05/22 12:52 Home Medications Medication Instructions Recorded Confirmed Last Taken Type fluoxetine 20 mg tablet 20 mg PO DAILY 05/13/20 05/13/20 Unknown History losartan 100 mg tablet 100 mg PO DAILY 05/13/20 05/13/20 Unknown History warfarin 5 mg tablet 5 mg PO DAILY 05/13/20 05/13/20 Unknown History Physical Exam Vital Signs and Narrative: Vital Signs: Last Vital Signs Temp 98.0 F 07/05/22 22:31 Pulse 66 07/05/22 22:31 Resp 16 07/05/22 22:31 BP 130/70 07/05/22 22:31 Pulse Ox 98 07/05/22 22:31 O2 Del Method Room Air 07/05/22 22:31 BMI result Body Mass Index 27.1 Middle-aged female lying in bed in no distress Neck supple, no JVD Regular rate and rhythm, S1-S2 heard Regular breath sounds bilaterally, no wheezing or crackles appreciated Abdomen soft nontender, no guarding, no rigidity Patient is awake, alert and oriented to self, place, time and person ; strength equal and 5/5 in bilateral upper and lower extremity, no facial droop, no tongue deviation, no nystagmus Psych: Normal mood No pedal edema Results Labs 07/05/22 13:39 07/05/22 13:39 Labs: Laboratory Results - last 24 hr 07/05/22 07/05/22 07/05/22 13:39 13:39 13:39 MCV 86.6 MCH 28.0 MCHC 32.3 RDW 13.7 Plt Count 203 MPV 11.3 Immature Gran % (Auto) 0.2 Neut % (Auto) 64.7 Lymph % (Auto) 26.0 [place] % (Auto) 7.5 Eos % (Auto) 0.8 Baso % (Auto) 0.8 Lymph # (Auto) 1.7 [place] # (Auto) 0.5 Eos # (Auto) 0.1 Baso # (Auto) 0.1 Abs Immat Gran (auto) 0.01 Absolute Neuts (auto) 4.2 Absolute Nucleated RBC 0.000 Nucleated RBC % (auto) 0.0 ESR PT INR D-Dimer High Sensitivty Anion Gap 10 L Estim Creat Clear Calc 78.0 Estimated GFR > 60 Random Glucose 105 Calcium 9.5 Magnesium 2.0 Total Bilirubin 1.2 H Direct Bilirubin 0.3 AST 17 ALT 14 Alkaline Phosphatase 78 Troponin I High Sens < 2.7 C-Reactive Protein Total Protein 7.2 Albumin 4.2 07/05/22 07/05/22 07/05/22 19:32 19:32 19:32 MCV MCH MCHC RDW Plt Count MPV Immature Gran % (Auto) Neut % (Auto) Lymph % (Auto) [place] % (Auto) Eos % (Auto) Baso % (Auto) Lymph # (Auto) [place] # (Auto) Eos # (Auto) Baso # (Auto) Abs Immat Gran (auto) Absolute Neuts (auto) Absolute Nucleated RBC Nucleated RBC % (auto) ESR 6 PT 10.5 INR 0.9 D-Dimer High Sensitivty < 150 Anion Gap Estim Creat Clear Calc Estimated GFR Random Glucose Calcium Magnesium Total Bilirubin Direct Bilirubin AST ALT Alkaline Phosphatase Troponin I High Sens C-Reactive Protein < 0.10 Total Protein Albumin Imaging Radiologist's Impressions: Impressions Chest X-Ray 07/05/22 12:59 IMPRESSION: Unremarkable examination. Head CT 07/05/22 14:17 IMPRESSION: Unremarkable exam. Venous Duplex 07/05/22 20:37 IMPRESSION: No DVT demonstrated in the bilateral lower extremity. Chest CTA 07/05/22 22:19 IMPRESSION: No evidence of pulmonary embolism VTE: negative Assessment and Plan (1) Facial numbness: Status: Acute (2) Right arm weakness: Status: Acute Plan This is a 46-year-old female with pertinent history PE on Coumadin, mood diso rder, essential hypertension who presents to the emergency department for evaluation of right-sided facial numbness and right arm weakness. #. ?TIA: Will admit patient with observation. Consulting Neurology in a.m. and obtaining MRI of the brain to rule out acute CVA. Further workup based on MRI results #. Mood disorder: Continue home mood stabilizers #. Essential hypertension: Continue home antihypertensive #. History of PE on Coumadin Med rec pending DVT prophylaxis: On Coumadin Full code Cardiac diet Time Spent With Patient Time: Total time managing care of this patient today ____ minutes. Quality Stroke Does the patient have a stroke diagnosis?: No VTE Prior VTE?: No VTE Risk Level:: Medical - moderate - high VTE Device Contraindication: Treatment Not Indicated VTE Drug Contraindication: N/A - Med Ordered
[2022-07-05] MEDS: Morphine Sulfate 2 MG/ML CARTRIDGE IVPUSH (23:25)
[2022-07-05] MEDS: diphenhydrAMINE HCL 50 MG/ML VIAL 25 MG IVPUSH (23:26)
[2022-07-05] MEDS: Metoclopramide HCl 10 MG/2 ML VIAL IVPUSH (23:26)
[2022-07-06 01:04] VITALS: BP 97/66; PULSE 66; RESP 17; TEMP 36.7; O2SAT 96
[2022-07-06] MEDS: 0.9 % Sodium Chloride Flush 3 ML SYRINGE IVFLUSH (01:22)
[2022-07-06 02:38] VITALS: BMI 27.2
[2022-07-06 02:50] VITALS: BP 93/55; PULSE 66; RESP 20; TEMP 36.3; O2SAT 98
[2022-07-06 05:52] LABS: MANUAL DIFF FLAG NO
[2022-07-06 06:12] LABS: Basophils Absolute Auto 0.1 X10*3/uL (0.0-0.2); Basophils Percent Auto 0.9 % (0-2); Eosinophils Absolute Auto 0.1 X10*3/uL (0.0-0.4); Eosinophils Percent Auto 1.2 % (0-4); Hematocrit 40.9 % (37.0-47.0); Hemoglobin 13.1 g/dl (12.0-16.0); Imm Gran Abs Auto 0.02 X10*3/uL (0.00-0.03); Imm Gran Pct Auto 0.3 % (0.0-0.4); Mean Corpuscular Hemoglobin 27.8 pg (27.0-33.0); Mean Corpuscular Volume 86.8 fL (80.0-98.0); Mean Platelet Volume 11.3 fL (9.4-12.3); Monocytes Absolute Auto 0.7 X10*3/uL (0.1-1.2); Monocytes Percent Auto 9.9 % (2-11); Neutrophils Absolute Auto 3.8 x10*3/uL (2.0-8.3); Neutrophils Percent Auto 57.7 % (45-73); Platelet Count 201 X10*3/uL (160-400); Red Blood Count 4.71 X10*6/uL (4.20-5.50); Red Cell Distribution Width 13.7 % (11.0-16.0); White Blood Count 6.6 X10*3/uL (4.8-10.8)
[2022-07-06 06:21] LABS: Anion Gap 13 (12-20); Blood Urea Nitrogen 16 mg/dL (9-16); Calcium 9.3 mg/dL (8.4-10.2); Carbon Dioxide 26 mmol/L (22-29); Chloride 106 mmol/L (96-108); Estimated Glomerular Filt Rate > 60; Glucose Random 84 mg/dL (60-115); Potassium 3.7 mmol/L (3.3-5.1); Sodium 141 mmol/L (135-145)
[2022-07-06 06:40] LABS: Thyroid Stimulating Hormone 4.68 uIU/mL (0.32-4.0)
[2022-07-06 07:42] VITALS: BP 113/55; PULSE 64; RESP 18; TEMP 36.8; O2SAT 98
--- NOTE | 2022-07-06 08:30 | PHA.MEDREC ---
Pharmacy Consult ? Medication Reconciliation Pharmacy has completed the medication reconciliation. Instructional Interventionist services used, although pt able to communicate with German pretty well. Able to name most medications on her own. Pt admittedly non-adherent to medications, states she really only takes her blood pressure medications when it's high.
[2022-07-06 11:07] VITALS: BP 126/68; PULSE 75; RESP 18; TEMP 36.8; O2SAT 98
--- NOTE | 2022-07-06 11:18 | MHC.CM.PN ---
CM met with Patient and several family members at bedside and addressed CARVAJAL with Patient and her Daughter/HCP, providing them with the original and placing a copy on the chart. Patient lives alone in an apartment and she required no services nor DME CONSULTING SOLUTION DIRECTOR. Home/self care is the goal and CM has initiated and will follow for dc planning. Patient is taina freire and her PCP is Dr. Clover Okeefe.
[2022-07-06 15:20] VITALS: BP 117/65; PULSE 80; RESP 20; TEMP 36.7; O2SAT 98
--- NOTE | 2022-07-06 15:45 | P.DS_ITS ---
DS: Providers Provider Date of Service: 07/06/22 Date of admission: 07/05/22 23:08 Primary care physician: Clover Okeefe MD Consults: 07/05/22 23:10 Consult to Neurology Routine Consulting Provider: [facility] Reason for consultation: right arm weakness DS: Diagnosis Discharge Diagnosis (1) Facial numbness: Status: Acute (2) Right arm weakness: Status: Acute DS: Summary Hospital Course Hospital Course: HP as per admitting provider This is a 46-year-old female with pertinent history PE on Coumadin, mood disorder, essential hypertension who presents to the emergency department for evaluation of right-sided facial numbness and right arm weakness.? Patient states she noticed when she got up this a.m..? No similar complaints in the past.? Patient states her right sided face felt numb and she had difficulty using her right arm to open the lid containers.? Patient admits she is not compliant with her medications including antihypertensives and Coumadin.? Patient denies any other extremity weakness, difficulty with vision, headache, swallowing, gait imbalance.? Patient denies fever, chills, chest discomfort, palpitations, shortness of breath, abdominal pain, changes in urinary or bowel habits. The emergency department CTA and CT head without acute abnormality . Migraine. Normal MRI with no acute infarction. Seen by neurology. symptoms likely some degree of stress and anxiety Mood disorder. Continue home mood stabilizers Essential hypertension. Continue home antihypertensive History of PE on Coumadin Time Spent with Patient Time attestation: Total time managing care of this patient today ____ minutes. Discharge coordination time: Greater than 30 minutes Quality: Safe Use of Opioids Does Pt have an Active Cancer Diagnosis on the Problem List?: No Quality: Stroke Does the patient have a stroke diagnosis?: No Physical Exam Vital Signs: Vital Signs: Last Vital Signs Temp 98.0 F 07/06/22 15:20 Pulse 80 07/06/22 15:20 Resp 20 07/06/22 15:20 BP 117/65 07/06/22 15:20 Pulse Ox 98 07/06/22 15:20 O2 Del Method Room Air 07/06/22 15:20 BMI result Body Mass Index 27.2 Appearing in no acute distress head is normocephalic atraumatic eyes pupils are PERRLA sclera is anicteric mouth throat mucous membranes are intact and moist neck is supple no lymphadenopathy, no JVD noted lung sounds are clear to auscultation heart regular rate rhythm, clear S1, S2 positive bowel sounds, abdomen is soft, nontender neuro patient is alert x3, no focal deficits DS: Data Data Completed and Pending Labs on day of discharge: Laboratory Results - last 24 hr 07/05/22 07/05/22 07/05/22 19:32 19:32 19:32 WBC RBC Hgb Hct MCV MCH MCHC RDW Plt Count MPV Immature Gran % (Auto) Neut % (Auto) Lymph % (Auto) [place] % (Auto) Eos % (Auto) Baso % (Auto) Lymph # (Auto) [place] # (Auto) Eos # (Auto) Baso # (Auto) Abs Immat Gran (auto) Absolute Neuts (auto) Absolute Nucleated RBC Nucleated RBC % (auto) ESR 6 PT 10.5 INR 0.9 D-Dimer High Sensitivty < 150 Sodium Potassium Chloride Carbon Dioxide Anion Gap BUN Creatinine Estim Creat Clear Calc Estimated GFR Random Glucose Calcium C-Reactive Protein < 0.10 TSH 07/06/22 07/06/22 05:40 05:40 WBC 6.6 RBC 4.71 Hgb 13.1 Hct 40.9 MCV 86.8 MCH 27.8 MCHC 32.0 RDW 13.7 Plt Count 201 MPV 11.3 Immature Gran % (Auto) 0.3 Neut % (Auto) 57.7 Lymph % (Auto) 30.0 [place] % (Auto) 9.9 Eos % (Auto) 1.2 Baso % (Auto) 0.9 Lymph # (Auto) 2.0 [place] # (Auto) 0.7 Eos # (Auto) 0.1 Baso # (Auto) 0.1 Abs Immat Gran (auto) 0.02 Absolute Neuts (auto) 3.8 Absolute Nucleated RBC 0.000 Nucleated RBC % (auto) 0.0 ESR PT INR D-Dimer High Sensitivty Sodium 141 Potassium 3.7 Chloride 106 Carbon Dioxide 26 Anion Gap 13 BUN 16 Creatinine 0.87 Estim Creat Clear Calc 72.0 Estimated GFR > 60 Random Glucose 84 Calcium 9.3 C-Reactive Protein TSH 4.68 H Discharge Plan Discharge Anticipated Discharge Date/Time: 07/06/22 15:09 Patient Disposition: Home, Self-Care Discharge Diagnosis: migraine headache vs stress response no stroke Referrals: Clover Okeefe MD [Primary Care Provider] - 1 Week Discharge Medications: Continued prazosin 1 mg capsule 1 mg PO BEDTIME amlodipine 2.5 mg tablet 2.5 mg PO DAILY aspirin 81 mg tablet,delayed release (DR/EC) 81 mg DAILY losartan-hydrochlorothiazide 100-25 mg tablet 1 tab DAILY fluoxetine [Prozac] 20 mg capsule 20 mg PO DAILY Discharge Orders: Discharge Order (Routine); Ordered 07/06/22 Ordered By: Leia Bustamante Diet: Advance to usual diet Activity on Discharge: As tolerated Stand Alone Forms: Patient Portal Discharge page Care Plan Goals: complete resolution of symptoms Health Concerns: Migraine headache vs stress response no stroke Plan of Treatment: Follow up with primary care provider as needed take all medication as prescribed Assessment: See discharge summary
--- NOTE | 2022-07-06 18:01 | P.CNNE_ITS ---
History of Present Illness Data of Consult Service Date: 07/06/22 Primary Care Provider: Clover Okeefe MD [facility] Reason for consult: Right facial numbness This is a 46-year-old female with h/o PE on Coumadin, mood disorder, essential hypertension who presents to the emergency department after waking with right-sided facial numbness and right ear blocked.? Patient states she noticed when she got up this a.m..? No similar complaints in the past.? Patient admits she is not compliant with her medications including antihypertensives and Coumadin.? Patient denies any other extremity weakness, difficulty with vision, headache, swallowing, gait imbalance.? Patient denies fever, chills. MRI brain negative Review of Systems Review of Systems: Constitutional : No Weight loss, No Fever, No Chills, No Fatigue, No Malaise ENT/Mouth : No sore throat, No Rhinorrhea Eyes: No Eye Pain, No Swelling, No Redness Cardiovascular : No Chest Pain, No SOB, No Dyspnea on Exertion, No Orthopnea, No Edema, No Palpitations Respiratory : No Cough, No Sputum, No Wheezing, + lung pain Gastrointestinal : No Nausea, No Vomiting, No Diarrhea, No Constipation, No abdominal Pain, No Hematochezia, No Melena Genitourinary : No Dysuria, No Urinary Frequency, No Hematuria, Musculoskeletal : No joint pain, No Myalgias, No Joint Swelling Skin : No Skin Lesions, No rash Neuro : No Weakness, + Numbness, No Dizziness, No Headache Psych : No Anxiety/Panic, No Depression All other systems reviewed and are negative Yes all other systems are reviewed and are negative Constitutional: Constitutional: Reports no additional constitutional complaints Cardiovascular: Cardiovascular: Reports no additional cardiovascular compla ints Respiratory: Respiratory: Reports no additional respiratory complaints Gastrointestinal: Gastrointestinal: Reports no additional gastrointestinal complaints Neurologic: Reports focal weakness PMFSH Past Medical History Medical History Anemia History of back pain Hx pulmonary embolism Family History Family History Maternal Uncle Hx of cancer of lung Mother Hx of myocardial infarction Surgical History Surgical History History of carpal tunnel surgery Hx of tubal ligation Social History Social History Alcohol intake: never Patient Tobacco Use Status: Never used Tobacco service: No Current occupational status: disabled Meds Allergies Allergy/AdvReac Type Severity Reaction Status Date / Time latex [LATEX] Allergy Unknown DERMATITIS Verified 07/05/22 12:52 Active Medications: Current Medications Acetaminophen (Acetaminophen 325 Mg Tablet) 650 mg PO Q6H PRN PRN Reason: Pain, Mild (Pain Scale 1-3) Melatonin (Melatonin 3 Mg Tablet) 6 mg PO BEDTIME PRN PRN Reason: Insomnia Ondansetron HCl (Ondansetron Hcl 4 Mg/2 Ml Vial) 4 mg IVPUSH Q8H PRN PRN Reason: Nausea and Vomiting Pharmacy Consult (Consult Rx Perform Med Rec) 1 each MISCELLANE ONCE PRN PRN Reason: Consult order Sodium Chloride (0.9 % Sodium Chloride Flush 3 Ml Syringe) 3 ml IVFLUSH [facility] Last Admin: 07/06/22 14:24 Dose: Not Given Home Medications Medication Instructions Recorded Confirmed Last Taken Type amlodipine 2.5 mg tablet 2.5 mg PO DAILY 07/06/22 07/06/22 Unknown History aspirin 81 mg tablet,delayed 81 mg DAILY 07/06/22 07/06/22 Unknown History release fluoxetine 20 mg capsule (Prozac) 20 mg PO DAILY 07/06/22 07/06/22 Unknown History losartan 100 1 tab DAILY 07/06/22 07/06/22 Unknown History mg-hydrochlorothiazide 25 mg tablet prazosin 1 mg capsule 1 mg PO BEDTIME 07/06/22 07/06/22 Unknown History Physical Exam Vital Signs: Vital Signs: Last Vital Signs Temp 98.0 F 07/06/22 15:20 Pulse 80 07/06/22 15:20 Resp 20 07/06/22 15:20 BP 117/65 07/06/22 15:20 Pulse Ox 98 07/06/22 15:20 O2 Del Method Room Air 07/06/22 15:20 BMI result Body Mass Index 27.2 Neuro: Other: Normal. Non focal Results Labs 07/06/22 05:40 07/06/22 05:40 Labs: Short CBC 07/06/22 Range/Units 05:40 WBC 6.6 (4.8-10.8) X10*3/uL Hgb 13.1 (12.0-16.0) g/dl Hct 40.9 (37.0-47.0) % Plt Count 201 (160-400) X10*3/uL [facility] 07/06/22 05:40 Sodium 141 Potassium 3.7 Chloride 106 Carbon Dioxide 26 BUN 16 Creatinine 0.87 Calcium 9.3 Assessment and Plan (1) Facial numbness: Status: Acute unclear etiology, ? ear infection. No signs of Zoster or Gonzales's palsy. ? anxiety MRI and exam normal. Can be discharged (2) Right arm weakness: Status: Acute Plan This is a 46-year-old female with pertinent history PE on Coumadin, mood disorder, essential hypertension who presents to the emergency department for evaluation of right-sided facial numbness and right arm weakness. #. ?TIA: Will admit patient with observation. Consulting Neurology in a.m. and obtaining MRI of the brain to rule out acute CVA. Further workup based on MRI results #. Mood disorder: Continue home mood stabilizers #. Essential hypertension: Continue home antihypertensive #. History of PE on Coumadin Med rec pending DVT prophylaxis: On Coumadin Full code Cardiac diet Time Spent With Patient Time: Total time managing care of this patient today ____ minutes. Procedures Date of Service Date of Service: 07/06/22
== END 2022-07-06 19:03 | disposition home or self-care (01) ==
LOC: HO.ED 23:12 → HO.EDOVER 23:15 → HO.IMC 07-06 00:39
PROVIDERS: Physician Assistant; Admitting Provider Student in an Organized Health Care Education/Training Program; Emergency Provider Student in an Organized Health Care Education/Training Program; PCP Internal Medicine; Visit Provider Nurse Practitioner Acute Care
DX: R51.9 Headache, unspecified (principal); R53.1 Weakness; R20.0 Anesthesia of skin; I10 Essential (primary) hypertension; R07.1 Chest pain on breathing; Z86.711 Personal history of pulmonary embolism
CPT/HCPCS: 36415; 70450; 70551; 71045; 71275; 80048; 80076; 83735; 84443; 84484; 85025; 85379; 85610; 85652; 86140; 93005; 93970; 96374; 96375; 99222; 99285; J1200; J2270; J2765; Q9967

== ENCOUNTER 2022-07-26 17:48 | Emergency (ER) | payer OTHER, SELFPAY ==
--- NOTE | ~2022-07-26 | CT_ITS ---
EXAMINATION: CT ABDOMEN AND PELVIS WITH CONTRAST CLINICAL INFORMATION: Abdominal/epigastric pain COMPARISON: Previous CT of the abdomen and pelvis most recent July 2017 TECHNIQUE: Multidetector volumetric images were obtained from the superior aspect of the liver through the pubic symphysis following administration 85 mL of Omnipaque 350 intravenous contrast. Sagittal and coronal reformatted images were obtained on the technologist's workstation. Oral contrast: Yes This CT examination was performed using dose optimization techniques as appropriate, variously including the following: *Automated exposure control *Adjustment of mA and/or kV according to patient size (this includes techniques or standardized protocols for targeted exams where dose is matched to indication/reason for exam; i.e. extremities or head) *Use of iterative reconstruction technique DLP: 438 mGy-cm FINDINGS: LUNG BASES: The visualized lung bases are unremarkable. LIVER, GALLBLADDER, AND BILIARY TREE: The liver is normal in size, shape, and attenuation. No focal hepatic lesion or biliary ductal dilatation is present. The gallbladder is unremarkable with no evidence of radiopaque gallstones, gallbladder wall thickening, or obvious pericholecystic inflammatory changes. PANCREAS: Unremarkable. SPLEEN: Unremarkable. ADRENAL GLANDS: Unremarkable. KIDNEYS AND URETERS: The kidneys are normal in size, shape, and attenuation. No hydronephrosis, hydroureter. Question tiny stone in the lower pole right kidney. No perinephric stranding. BLADDER: Unremarkable. GASTROINTESTINAL TRACT: There is abnormal wall thickening, mucosal enhancement and wall edema of the distal ileum and cecum and proximal right colon. Findings are suggestive of enterocolitis. There is prominence of the adjacent vasculature/vasa recta. No evidence of obstruction, perforation or abscess. The appendix is fluid-filled and upper normal in size. There are fluid-filled large bowel suggestive of an ileus. ABDOMINAL WALL: No significant hernia is appreciated. LYMPH NODES: Small bowel mesentery shotty lymphadenopathy. Largest lymph nodes are upper normal in size. VASCULAR: Unremarkable. PELVIC VISCERA: Prominent pelvic vessels questionable for pelvic congestion. OSSEOUS STRUCTURES: Degenerative disc disease at L5-S1. CT/CT abdomen pelvis w IV con IMPRESSION: Severe enterocolitis. Fleischner guidelines were followed.
[2022-07-26 18:02] VITALS: BP 152/79; PULSE 78; RESP 18; TEMP 36.7; O2SAT 100; BMI 27.1
--- NOTE | 2022-07-26 18:02 | ED_ITS ---
HPI - Nausea/Vomiting/Diarrhea General Chief complaint: Abdominal Pain <Daisy Singleton NP - Last Filed: 07/26/22 18:06> Stated complaint: food poison? <Daisy Singleton NP - Last Filed: 07/26/22 18:06> Time Seen by Provider: 07/26/22 19:12 <Daisy Singleton NP - Last Filed: 07/26/22 18:06> Source: patient <Jacqui Xavier MD - Last Filed: 07/26/22 23:54> Mode of arrival: ambulatory <Jacqui Xavier MD - Last Filed: 07/26/22 23:54> Limitations: no limitations <Jacqui Xavier MD - Last Filed: 07/26/22 23:54> History of Present Illness HPI Narrative: Patient comes to the emergency room complaining of nausea vomiting diarrhea for a week <Jacqui Xavier MD - Last Filed: 07/26/22 23:54> Related Data Home medications: Home Medications Medication Instructions Recorded Confirmed amlodipine 2.5 mg tablet 2.5 mg PO DAILY 07/06/22 07/06/22 aspirin 81 mg tablet,delayed 81 mg DAILY 07/06/22 07/06/22 release fluoxetine 20 mg capsule (Prozac) 20 mg PO DAILY 07/06/22 07/06/22 losartan 100 1 tab DAILY 07/06/22 07/06/22 mg-hydrochlorothiazide 25 mg tablet prazosin 1 mg capsule 1 mg PO BEDTIME 07/06/22 07/06/22 <Daisy Singleton NP - Last Filed: 07/26/22 18:06> Allergies/Adverse reactions: Allergies Allergy/AdvReac Type Severity Reaction Status Date / Time latex [LATEX] Allergy Unknown DERMATITIS Verified 07/26/22 18:02 <Daisy Singleton NP - Last Filed: 07/26/22 18:06> [facility] Past Medical History Medical History: Medical History Anemia History of back pain Hx pulmonary embolism <Daisy Singleton NP - Last Filed: 07/26/22 18:06> Surgical History: Surgical History History of carpal tunnel surgery Hx of tubal ligation <Daisy Singleton NP - Last Filed: 07/26/22 18:06> Family History Family History: Family History Maternal Uncle Hx of cancer of lung Mother Hx of myocardial infarction <Daisy Singleton NP - Last Filed: 07/26/22 18:06> Social History Social History: Social History Alcohol intake: current Alcohol intake frequency: a few times a month Alcohol type: beer Patient Tobacco Use Status: Never used Tobacco Smoked in Last 30 Days: No Use of substances other than those prescribed or required for medical reasons: No Advance Directives: No Advance Directives Information Provided: Yes service: No Current occupational status: disabled <Daisy Singleton NP - Last Filed: 07/26/22 18:06> Physical Exam Vital Signs: Vital Signs: Last Vital Signs Temp 98.8 F 07/26/22 20:42 Pulse 65 07/26/22 22:39 Resp 16 07/26/22 22:39 BP 111/64 07/26/22 22:39 Pulse Ox 98 07/26/22 22:39 O2 Del Method Room Air 07/26/22 22:39 O2 Flow Rate 99 07/26/22 18:42 BMI result Body Mass Index 27.1 <Daisy Singleton NP - Last Filed: 07/26/22 18:06> Vital Signs: Last Vital Signs Temp 98.8 F 07/26/22 20:42 Pulse 65 07/26/22 22:39 Resp 16 07/26/22 22:39 BP 111/64 07/26/22 22:39 Pulse Ox 98 07/26/22 22:39 O2 Del Method Room Air 07/26/22 22:39 O2 Flow Rate 99 07/26/22 18:42 BMI result Body Mass Index 27.1 <Jacqui Xavier MD - Last Filed: 07/26/22 23:54> Course Course Course Narrative: This is a rapid medical exam. Deferred additional HPI, ROS, PE to primary provider. 46 yo w/ history of hypertension, PE not anticoagulated here with com plaints of 6 days of diarrhea, initially had tactile fever now resolved, +abdominal pain, intermittent vomiting. Started while patient was in [place] after eating green bananas w/ chicken, shrimp, queso and rice. Will need labs, UA, stool studies, COVID screen. VSS <Daisy Singleton NP - Last Filed: 07/26/22 18:06> Medications Administered Discontinued Medications Generic Name Dose Route Start Last Admin Trade Name Ammy PRN Reason Stop Dose Admin Sodium Chloride 1,000 mls @ 999 mls/hr 07/26/22 19:21 07/26/22 22:11 Ns IVCONT 07/26/22 20:21 Infused .Q1H1M ONE Infusion Iohexol 100 ml 07/26/22 21:10 07/26/22 21:10 Iohexol 350 Mg/Ml 100 Ml Infus..Btl IV 07/26/22 21:11 85 ml ONCE ONE Administration Levofloxacin 500 mg 07/26/22 22:41 07/26/22 23:06 Levofloxacin 500 Mg Tablet PO 07/26/22 22:42 500 mg ONCE ONE Administration Morphine Sulfate 4 mg 07/26/22 19:21 07/26/22 19:49 Morphine Sulfate 4 Mg/Ml Cartridge IVPUSH 07/26/22 19:22 4 mg ONCE ONE Administration Protocol Ondansetron HCl 4 mg 07/26/22 19:21 07/26/22 19:48 Ondansetron Hcl 4 Mg/2 Ml Vial IVPUSH 07/26/22 19:22 4 mg ONCE ONE Administration <Daisy Singleton NP - Last Filed: 07/26/22 18:06> Medications Administered Discontinued Medications Generic Name Dose Route Start Last Admin Trade Name Charlieq PRN Reason Stop Dose Admin Sodium Chloride 1,000 mls @ 999 mls/hr 07/26/22 19:21 07/26/22 22:11 Ns IVCONT 07/26/22 20:21 Infused .Q1H1M ONE Infusion Iohexol 100 ml 07/26/22 21:10 07/26/22 21:10 Iohexol 350 Mg/Ml 100 Ml Infus..Btl IV 07/26/22 21:11 85 ml ONCE ONE Administration Levofloxacin 500 mg 07/26/22 22:41 05/15/23 23:06 Levofloxacin 500 Mg Tablet PO 07/26/22 22:42 500 mg ONCE ONE Administration Morphine Sulfate 4 mg 07/26/22 19:21 07/26/22 19:49 Morphine Sulfate 4 Mg/Ml Cartridge IVPUSH 07/26/22 19:22 4 mg ONCE ONE Administration Protocol Ondansetron HCl 4 mg 07/26/22 19:21 07/26/22 19:48 Ondansetron Hcl 4 Mg/2 Ml Vial IVPUSH 07/26/22 19:22 4 mg ONCE ONE Administration <Jacqui Xavier MD - Last Filed: 07/26/22 23:54> Medical Decision Making Lab Data Result Diagrams: 07/26/22 18:18 07/26/22 18:18 <Diasy Singleton NP - Last Filed: 07/26/22 18:06> Labs: Lab Results 07/26/22 07/26/22 07/26/22 Range/Units 18:18 18:18 18:18 WBC 6.9 (4.8-10.8) X10*3/uL RBC 4.66 (4.20-5.50) X10*6/uL Hgb 13.2 (12.0-16.0) g/dl Hct 40.0 (37.0-47.0) % MCV 85.8 (80.0-98.0) fL MCH 28.3 (27.0-33.0) pg MCHC 33.0 (31.0-35.0) g/dl RDW 13.6 (11.0-16.0) % Plt Count 227 (160-400) X10*3/uL MPV 10.4 (9.4-12.3) fL Immature Gran % (Auto) 0.6 H (0.0-0.4) % Neut % (Auto) 55.4 (45-73) % Lymph % (Auto) 30.3 (20-40) % [place] % (Auto) 12.5 H (2-11) % Eos % (Auto) 0.6 (0-4) % Baso % (Auto) 0.6 (0-2) % Lymph # (Auto) 2.1 (1.2-4.9) X10*3/uL [place] # (Auto) 0.9 (0.1-1.2) X10*3/uL Eos # (Auto) 0.0 (0.0-0.4) X10*3/uL Baso # (Auto) 0.0 (0.0-0.2) X10*3/uL Abs Immat Gran (auto) 0.04 H (0.00-0.03) X10*3/uL Absolute Neuts (auto) 3.8 (2.0-8.3) x10*3/uL Absolute Nucleated RBC 0.000 (0.0-0.012) X10*3/uL Nucleated RBC % (auto) 0.0 (0.0-0.2) /100WBC Sodium 141 (135-145) mmol/L Potassium 3.5 (3.3-5.1) mmol/L Chloride 105 (96-108) mmol/L Carbon Dioxide 24 (22-29) mmol/L Anion Gap 16 (12-20) BUN 12 (9-16) mg/dL Creatinine 0.73 (0.5-1.4) mg/dL Estim Creat Clear Calc 85.7 Estimated GFR > 60 Random Glucose 106 (60-115) mg/dL Calcium 9.2 (8.4-10.2) mg/dL Total Bilirubin 0.6 (0.0-1.0) mg/dL Direct Bilirubin 0.2 (0.0-0.5) mg/dL AST 15 (5-31) U/L ALT 10 (0-31) U/L Alkaline Phosphatase 71 (39-117) U/L Total Protein 7.2 (6.5-8.0) g/dL Albumin 3.9 (3.5-5.0) g/dL Lipase 240 H (8-78) U/L Urine Color Dark Yellow Urine Appearance Clear Urine pH 6.5 (5.0-9.0) Ur Specific [place] 1.020 (1.005-1.025) Urine Protein 30 (1+) H (Neg-Trace) mg/dL Urine Glucose (UA) Negative (Negative) mg/dL Urine Ketones Trace (Negative) mg/dL Urine Blood Moderate (2+) H (Negative) Urine Nitrite Negative (Negative) Ur Leukocyte Esterase Trace H (Negative) Urine RBC >20 H (0-2) /HPF Urine WBC 0-5 (0-5) /HPF Ur Squamous Epith Cells 3-5 (0-2) /HPF Urine Bacteria None Seen (None Seen) Hyaline Casts 0-2 (0-2) /LPF C. difficile Tox B Gene (Negative) COVID-19 (MANNIE) (Negative) COVID-19 Clin Com 07/26/22 07/26/22 Range/Units 18:19 21:22 WBC (4.8-10.8) X10*3/uL RBC (4.20-5.50) X10*6/uL Hgb (12.0-16.0) g/dl Hct (37.0-47.0) % MCV (80.0-98.0) fL MCH (27.0-33.0) pg MCHC (31.0-35.0) g/dl RDW (11.0-16.0) % Plt Count (160-400) X10*3/uL MPV (9.4-12.3) fL Immature Gran % (Auto) (0.0-0.4) % Neut % (Auto) (45-73) % Lymph % (Auto) (20-40) % [place] % (Auto) (2-11) % Eos % (Auto) (0-4) % Baso % (Auto) (0-2) % Lymph # (Auto) (1.2-4.9) X10*3/uL [place] # (Auto) (0.1-1.2) X10*3/uL Eos # (Auto) (0.0-0.4) X10*3/uL Baso # (Auto) (0.0-0.2) X10*3/uL Abs Immat Gran (auto) (0.00-0.03) X10*3/uL Absolute Neuts (auto) (2.0-8.3) x10*3/uL Absolute Nucleated RBC (0.0-0.012) X10*3/uL Nucleated RBC % (auto) (0.0-0.2) /100WBC Sodium (135-145) mmol/L Potassium (3.3-5.1) mmol/L Chloride (96-108) mmol/L Carbon Dioxide (22-29) mmol/L Anion Gap (12-20) BUN (9-16) mg/dL Creatinine (0.5-1.4) mg/dL Estim Creat Clear Calc Estimated GFR Random Glucose (60-115) mg/dL Calcium (8.4-10.2) mg/dL Total Bilirubin (0.0-1.0) mg/dL Direct Bilirubin (0.0-0.5) mg/dL AST (5-31) U/L ALT (0-31) U/L Alkaline Phosphatase (39-117) U/L Total Protein (6.5-8.0) g/dL Albumin (3.5-5.0) g/dL Lipase (8-78) U/L Urine Color Urine Appearance Urine pH (5.0-9.0) Ur Specific [place] (1.005-1.025) Urine Protein (Neg-Trace) mg/dL Urine Glucose (UA) (Negative) mg/dL Urine Ketones (Negative) mg/dL Urine Blood (Negative) Urine Nitrite (Negative) Ur Leukocyte Esterase (Negative) Urine RBC (0-2) /HPF Urine WBC (0-5) /HPF Ur Squamous Epith Cells (0-2) /HPF Urine Bacteria (None Seen) Hyaline Casts (0-2) /LPF C. difficile Tox B Gene NEGATIVE (Negative) COVID-19 (MANNIE) Negative (Negative) COVID-19 Clin Com See Note <Daisy Singleton NP - Last Filed: 07/26/22 18:06> Lab Results 07/26/22 07/26/22 07/26/22 Range/Units 18:18 18:18 18:18 WBC 6.9 (4.8-10.8) X10*3/uL RBC 4.66 (4.20-5.50) X10*6/uL Hgb 13.2 (12.0-16.0) g/dl Hct 40.0 (37.0-47.0) % MCV 85.8 (80.0-98.0) fL MCH 28.3 (27.0-33.0) pg MCHC 33.0 (31.0-35.0) g/dl RDW 13.6 (11.0-16.0) % Plt Count 227 (160-400) X10*3/uL MPV 10.4 (9.4-12.3) fL Immature Gran % (Auto) 0.6 H (0.0-0.4) % Neut % (Auto) 55.4 (45-73) % Lymph % (Auto) 30.3 (20-40) % [place] % (Auto) 12.5 H (2-11) % Eos % (Auto) 0.6 (0-4) % Baso % (Auto) 0.6 (0-2) % Lymph # (Auto) 2.1 (1.2-4.9) X10*3/uL [place] # (Auto) 0.9 (0.1-1.2) X10*3/uL Eos # (Auto) 0.0 (0.0-0.4) X10*3/uL Baso # (Auto) 0.0 (0.0-0.2) X10*3/uL Abs Immat Gran (auto) 0.04 H (0.00-0.03) X10*3/uL Absolute Neuts (auto) 3.8 (2.0-8.3) x10*3/uL Absolute Nucleated RBC 0.000 (0.0-0.012) X10*3/uL Nucleated RBC % (auto) 0.0 (0.0-0.2) /100WBC Sodium 141 (135-145) mmol/L Potassium 3.5 (3.3-5.1) mmol/L Chloride 105 (96-108) mmol/L Carbon Dioxide 24 (22-29) mmol/L Anion Gap 16 (12-20) BUN 12 (9-16) mg/dL Creatinine 0.73 (0.5-1.4) mg/dL Estim Creat Clear Calc 85.7 Estimated GFR > 60 Random Glucose 106 (60-115) mg/dL Calcium 9.2 (8.4-10.2) mg/dL Total Bilirubin 0.6 (0.0-1.0) mg/dL Direct Bilirubin 0.2 (0.0-0.5) mg/dL AST 15 (5-31) U/L ALT 10 (0-31) U/L Alkaline Phosphatase 71 (39-117) U/L Total Protein 7.2 (6.5-8.0) g/dL Albumin 3.9 (3.5-5.0) g/dL Lipase 240 H (8-78) U/L Urine Color Dark Yellow Urine Appearance Clear Urine pH 6.5 (5.0-9.0) Ur Specific [place] 1.020 (1.005-1.025) Urine Protein 30 (1+) H (Neg-Trace) mg/dL Urine Glucose (UA) Negative (Negative) mg/dL Urine Ketones Trace (Negative) mg/dL Urine Blood Moderate (2+) H (Negative) Urine Nitrite Negative (Negative) Ur Leukocyte Esterase Trace H (Negative) Urine RBC >20 H (0-2) /HPF Urine WBC 0-5 (0-5) /HPF Ur Squamous Epith Cells 3-5 (0-2) /HPF Urine Bacteria None Seen (None Seen) Hyaline Casts 0-2 (0-2) /LPF C. difficile Tox B Gene (Negative) COVID-19 (MANNIE) (Negative) COVID-19 Clin Com 07/26/22 07/26/22 Range/Units 18:19 21:22 WBC (4.8-10.8) X10*3/uL RBC (4.20-5.50) X10*6/uL Hgb (12.0-16.0) g/dl Hct (37.0-47.0) % MCV (80.0-98.0) fL MCH (27.0-33.0) pg MCHC (31.0-35.0) g/dl RDW (11.0-16.0) % Plt Count (160-400) X10*3/uL MPV (9.4-12.3) fL Immature Gran % (Auto) (0.0-0.4) % Neut % (Auto) (45-73) % Lymph % (Auto) (20-40) % [place] % (Auto) (2-11) % Eos % (Auto) (0-4) % Baso % (Auto) (0-2) % Lymph # (Auto) (1.2-4.9) X10*3/uL [place] # (Auto) (0.1-1.2) X10*3/uL Eos # (Auto) (0.0-0.4) X10*3/uL Baso # (Auto) (0.0-0.2) X10*3/uL Abs Immat Gran (auto) (0.00-0.03) X10*3/uL Absolute Neuts (auto) (2.0-8.3) x10*3/uL Absolute Nucleated RBC (0.0-0.012) X10*3/uL Nucleated RBC % (auto) (0.0-0.2) /100WBC Sodium (135-145) mmol/L Potassium (3.3-5.1) mmol/L Chloride (96-108) mmol/L Carbon Dioxide (22-29) mmol/L Anion Gap (12-20) BUN (9-16) mg/dL Creatinine (0.5-1.4) mg/dL Estim Creat Clear Calc Estimated GFR Random Glucose (60-115) mg/dL Calcium (8.4-10.2) mg/dL Total Bilirubin (0.0-1.0) mg/dL Direct Bilirubin (0.0-0.5) mg/dL AST (5-31) U/L ALT (0-31) U/L Alkaline Phosphatase (39-117) U/L Total Protein (6.5-8.0) g/dL Albumin (3.5-5.0) g/dL Lipase (8-78) U/L Urine Color Urine Appearance Urine pH (5.0-9.0) Ur Specific [place] (1.005-1.025) Urine Protein (Neg-Trace) mg/dL Urine Glucose (UA) (Negative) mg/dL Urine Ketones (Negative) mg/dL Urine Blood (Negative) Urine Nitrite (Negative) Ur Leukocyte Esterase (Negative) Urine RBC (0-2) /HPF Urine WBC (0-5) /HPF Ur Squamous Epith Cells (0-2) /HPF Urine Bacteria (None Seen) Hyaline Casts (0-2) /LPF C. difficile Tox B Gene NEGATIVE (Negative) COVID-19 (MANNIE) Negative (Negative) COVID-19 Clin Com See Note <Jacqui Xavier MD - Last Filed: 07/26/22 23:54> Discharge Plan Discharge Clinical Impression: Enterocolitis <Daisy Singleton NP - Last Filed: 07/26/22 18:06> Patient Disposition: Home, Self-Care <Daisy Singleton NP - Last Filed: 07/26/22 18:06> Instructions: Colitis (ED) <Daisy Singleton NP - Last Filed: 07/26/22 18:06> Prescriptions: No Action prazosin 1 mg capsule 1 mg PO BEDTIME amlodipine 2.5 mg tablet 2.5 mg PO DAILY aspirin 81 mg tablet,delayed release (DR/EC) 81 mg DAILY losartan-hydrochlorothiazide 100-25 mg tablet 1 tab DAILY fluoxetine [Prozac] 20 mg capsule 20 mg PO DAILY <Daisy Singleton NP - Last Filed: 07/26/22 18:06>
[2022-07-26 18:23] LABS: MANUAL DIFF FLAG NO
[2022-07-26 18:30] LABS: Basophils Percent Auto 0.6 % (0-2); Eosinophils Percent Auto 0.6 % (0-4); Hemoglobin 13.2 g/dl (12.0-16.0); Imm Gran Abs Auto 0.04 X10*3/uL (0.00-0.03); Imm Gran Pct Auto 0.6 % (0.0-0.4); Lymphocytes Absolute Auto 2.1 X10*3/uL (1.2-4.9); Lymphocytes Percent Auto 30.3 % (20-40); Mean Corpuscular Hemoglobin 28.3 pg (27.0-33.0); Mean Corpuscular Volume 85.8 fL (80.0-98.0); Mean Platelet Volume 10.4 fL (9.4-12.3); Monocytes Absolute Auto 0.9 X10*3/uL (0.1-1.2); Monocytes Percent Auto 12.5 % (2-11); Neutrophils Absolute Auto 3.8 x10*3/uL (2.0-8.3); Neutrophils Percent Auto 55.4 % (45-73); Platelet Count 227 X10*3/uL (160-400); Red Blood Count 4.66 X10*6/uL (4.20-5.50); Red Cell Distribution Width 13.6 % (11.0-16.0); White Blood Count 6.9 X10*3/uL (4.8-10.8)
[2022-07-26 18:36] LABS: Appearance Urine Clear; Color Urine Dark Yellow; Glucose Urine UA Negative (Negative); Leukocyte Esterase Urine Trace (Negative); Nitrite Urine Negative (Negative); PH 6.5 (5.0-9.0); UMIC TRIGGER UACC YES; Urine Blood Moderate (2+) (Negative); Urine Ketones Trace mg/dL (Negative); Urine Protein 30 (1+) mg/dL (Neg-Trace)
[2022-07-26 18:37] VITALS: BP 132/67; PULSE 73; RESP 16; O2SAT 100
[2022-07-26 18:40] LABS: Bacteria Urine None Seen (None Seen); Hyaline Casts Urine 0-2 /LPF (0-2); RBC Urine >20 /HPF (0-2); WBC Urine 0-5 /HPF (0-5)
[2022-07-26 18:42] VITALS: BP 132/67; PULSE 106; RESP 18; TEMP 37.2
[2022-07-26 18:47] LABS: COVID-19 Test Negative (Negative); IDNOW Serial# BCCEAD1C
[2022-07-26 19:09] LABS: Alanine Aminotransferase 10 U/L (0-31); Albumin Level 3.9 g/dL (3.5-5.0); Alkaline Phosphatase 71 U/L (39-117); Anion Gap 16 (12-20); Aspartate Amino Transferase 15 U/L (5-31); Bilirubin Direct 0.2 mg/dL (0.0-0.5); Bilirubin Total 0.6 mg/dL (0.0-1.0); Blood Urea Nitrogen 12 mg/dL (9-16); Calcium 9.2 mg/dL (8.4-10.2); Carbon Dioxide 24 mmol/L (22-29); Chloride 105 mmol/L (96-108); Creatinine Clr Calc Pharmacy 85.7; Estimated Glomerular Filt Rate > 60; Glucose Random 106 mg/dL (60-115); Lipase 240 U/L (8-78); Potassium 3.5 mmol/L (3.3-5.1); Sodium 141 mmol/L (135-145); Total Protein 7.2 g/dL (6.5-8.0)
--- NOTE | 2022-07-26 19:12 | PC.NURSE ---
Report received from kyler Walker Pt is resting on stretcher, no apparent distress at this time. Respirations even and unlabored, skin pwd, alert and oriented x4. Awaiting new MD orders
--- NOTE | 2022-07-26 19:22 | ED.ABDPAIN ---
HPI - Abdominal Pain General Chief Complaint: Abdominal Pain Stated Complaint: food poison? Time Seen by Provider: 07/26/22 19:12 Source: patient Mode of arrival: ambulatory Limitations: no limitations History of Present Illness HPI narrative: Patient comes to the emergency room complaining of abdominal pain, epigastric area, nausea vomiting and diarrhea. Patient states that 1 week ago she went to [facility]. Patient states that when she was there, she developed nausea vomiting diarrhea and abdominal pain. Patient went to a local clinic and she was given an IM injection of hyoscyamine and dipirona (NSAID). Patient states that she did not improve, she actually started getting much worse. Patient states that she got here few days ago back to the [facility], patient has not vomited, but has 8-10 bowel movements of diarrhea and epigastric pain keeps getting worse. Related Data Home Medications Medication Instructions Recorded Confirmed amlodipine 2.5 mg tablet 2.5 mg PO DAILY 07/06/22 07/06/22 aspirin 81 mg tablet,delayed 81 mg DAILY 07/06/22 07/06/22 release fluoxetine 20 mg capsule (Prozac) 20 mg PO DAILY 07/06/22 07/06/22 losartan 100 1 tab DAILY 07/06/22 07/06/22 mg-hydrochlorothiazide 25 mg tablet prazosin 1 mg capsule 1 mg PO BEDTIME 07/06/22 07/06/22 Previous Rx's Medication Instructions Recorded levofloxacin 500 mg tablet 500 mg PO DAILY #7 tabs 07/26/22 Allergies Allergy/AdvReac Type Severity Reaction Status Date / Time latex [LATEX] Allergy Unknown DERMATITIS Verified 07/26/22 18:02 Review of Systems Review of Systems Constitutional : No Weight loss, No Fever, No Chills, No Night Sweats, No Fatigue, No Malaise ENT/Mouth : No Hearing loss, No Ear Pain, No Nasal Congestion, No Sinus Pain, No Hoarseness, No sore throat, No Rhinorrhea, No Swallowing Difficulty Eyes: No Eye Pain, No Swelling, No Redness, No Foreign Body, No Discharge, No Vision Changes Cardiovascular : No Chest Pain, No SOB, No Dyspnea on Exertion, No Orthopnea, No Edema, No Palpitations Respiratory : No Cough, No Sputum, No Wheezing, No Smoke Exposure, No Dyspnea Gastrointestinal : Complaining of nausea, vomiting stopped, continues diarrhea, worsening epigastric pain, denies melena Genitourinary : no irregular bleeding, No Dysuria, No Urinary Frequency, No Hematuria, No Urinary Incontinence, No Urgency, No Flank Pain, No Urinary Flow Changes, No Hesitancy Musculoskeletal : No joint pain, No Myalgias, No Joint Swelling Skin : No Skin Lesions, No rash Neuro : No Weakness, No Numbness, No Paresthesias, No Loss of Consciousness, No Dizziness, No Headache Psych : No Anxiety/Panic, No Depression, No SI/HI/AH/VH, No Social Issues, Heme/Lymph: No Bruising, No Bleeding,No Lymphadenopathy Endocrine : No Polyuria, No Polydipsia, No Temperature Intolerance [facility] Past Medical History Medical History Anemia History of back pain Hx pulmonary embolism Surgical History History of carpal tunnel surgery Hx of tubal ligation Family History Family History Maternal Uncle Hx of cancer of lung Mother Hx of myocardial infarction Social History Social History Alcohol intake: current Alcohol intake frequency: a few times a month Alcohol type: beer Patient Tobacco Use Status: Never used Tobacco Smoked in Last 30 Days: No Use of substances other than those prescribed or required for medical reasons: No Advance Directives: No Advance Directives Information Provided: Yes service: No Current occupational status: disabled Physical Exam ED Vital Signs: Vital Signs - 24 hr 07/26/22 18:02 07/26/22 18:37 07/26/22 18:42 Temperature 98.0 F 98.9 F Pulse Rate 78 73 106 H Respiratory Rate 18 16 18 Blood Pressure 152/79 H 132/67 132/67 Pulse Oximetry 100 100 Oxygen Delivery Method Room Air Room Air Oxygen Flow Rate 99 07/26/22 20:42 07/26/22 22:39 07/26/22 23:51 Temperature 98.8 F 98.5 F Pulse Rate 71 65 72 Respiratory Rate 16 16 16 Blood Pressure 121/73 111/64 115/76 Pulse Oximetry 99 98 98 Oxygen Delivery Method Room Air Room Air Oxygen Flow Rate BMI result Body Mass Index 27.1 Const Other: Appearance: Alert. Oriented X3. No acute distress. Eyes: Pupils equal, round and reactive to light. ENT: Pharynx normal. Neck: Normal inspection. Neck supple. No lymph nodes noted. No crepitus CVS: Normal heart rate and rhythm. Pulses normal. Normal S1 and S2 Respiratory: No respiratory distress. Breath sounds normal. No Wheezing. No rales Abdomen: Soft , tenderness to palpation epigastric area. No rigidity. No distention. Skin: Skin warm and dry. Normal skin color. Normal skin turgor. Extremities: No lower extremity edema. No Lacerations. No Rash Neuro: Oriented X 3. No motor deficit. No sensory deficit. Moving all extremities. No slurred speech. CN 2 through 12 grossly intact Psych: calm, cooperative, normal affect Course Course Course Narrative: -patient's lipase is a bit bumped. Patient does have epigastric pain, CT scan pending. Electrolytes within normal limits. -patient receiving IV fluids, morphine, Zofran. Medical Decision Making Medical Decision Making MDM Narrative: -patient's lipase is a bit elevated, CT scan does not show pancreatitis -symptoms patient does have severe colitis. Patient given p.o. Levaquin in the emergency room Differential Diagnosis Differential Diagnoses: The differential diagnosis associated with the presentation includes (Pancreatitis, colitis, gastroenteritis) Lab Data [facility] Lab Attestation statement: I reviewed the patient's lab results. 07/26/22 18:18 07/26/22 18:18 Labs: Lab Results 07/26/22 07/26/22 07/26/22 Range/Units 18:18 18:18 18:18 WBC 6.9 (4.8-10.8) X10*3/uL RBC 4.66 (4.20-5.50) X10*6/uL Hgb 13.2 (12.0-16.0) g/dl Hct 40.0 (37.0-47.0) % MCV 85.8 (80.0-98.0) fL MCH 28.3 (27.0-33.0) pg MCHC 33.0 (31.0-35.0) g/dl RDW 13.6 (11.0-16.0) % Plt Count 227 (160-400) X10*3/uL MPV 10.4 (9.4-12.3) fL Immature Gran % (Auto) 0.6 H (0.0-0.4) % Neut % (Auto) 55.4 (45-73) % Lymph % (Auto) 30.3 (20-40) % [place] % (Auto) 12.5 H (2-11) % Eos % (Auto) 0.6 (0-4) % Baso % (Auto) 0.6 (0-2) % Lymph # (Auto) 2.1 (1.2-4.9) X10*3/uL [place] # (Auto) 0.9 (0.1-1.2) X10*3/uL Eos # (Auto) 0.0 (0.0-0.4) X10*3/uL Baso # (Auto) 0.0 (0.0-0.2) X10*3/uL Abs Immat Gran (auto) 0.04 H (0.00-0.03) X10*3/uL Absolute Neuts (auto) 3.8 (2.0-8.3) x10*3/uL Absolute Nucleated RBC 0.000 (0.0-0.012) X10*3/uL Nucleated RBC % (auto) 0.0 (0.0-0.2) /100WBC Sodium 141 (135-145) mmol/L Potassium 3.5 (3.3-5.1) mmol/L Chloride 105 (96-108) mmol/L Carbon Dioxide 24 (22-29) mmol/L Anion Gap 16 (12-20) BUN 12 (9-16) mg/dL Creatinine 0.73 (0.5-1.4) mg/dL Estim Creat Clear Calc 85.7 Estimated GFR > 60 Random Glucose 106 (60-115) mg/dL Calcium 9.2 (8.4-10.2) mg/dL Total Bilirubin 0.6 (0.0-1.0) mg/dL Direct Bilirubin 0.2 (0.0-0.5) mg/dL AST 15 (5-31) U/L ALT 10 (0-31) U/L Alkaline Phosphatase 71 (39-117) U/L Total Protein 7.2 (6.5-8.0) g/dL Albumin 3.9 (3.5-5.0) g/dL Lipase 240 H (8-78) U/L Urine Color Dark Yellow Urine Appearance Clear Urine pH 6.5 (5.0-9.0) Ur Specific [place] 1.020 (1.005-1.025) Urine Protein 30 (1+) H (Neg-Trace) mg/dL Urine Glucose (UA) Negative (Negative) mg/dL Urine Ketones Trace (Negative) mg/dL Urine Blood Moderate (2+) H (Negative) Urine Nitrite Negative (Negative) Ur Leukocyte Esterase Trace H (Negative) Urine RBC >20 H (0-2) /HPF Urine WBC 0-5 (0-5) /HPF Ur Squamous Epith Cells 3-5 (0-2) /HPF Urine Bacteria None Seen (None Seen) Hyaline Casts 0-2 (0-2) /LPF C. difficile Tox B Gene (Negative) COVID-19 (MANNIE) (Negative) COVID-19 Clin Com 07/26/22 07/26/22 Range/Units 18:19 21:22 WBC (4.8-10.8) X10*3/uL RBC (4.20-5.50) X10*6/uL Hgb (12.0-16.0) g/dl Hct (37.0-47.0) % MCV (80.0-98.0) fL MCH (27.0-33.0) pg MCHC (31.0-35.0) g/dl RDW (11.0-16.0) % Plt Count (160-400) X10*3/uL MPV (9.4-12.3) fL Immature Gran % (Auto) (0.0-0.4) % Neut % (Auto) (45-73) % Lymph % (Auto) (20-40) % [place] % (Auto) (2-11) % Eos % (Auto) (0-4) % Baso % (Auto) (0-2) % Lymph # (Auto) (1.2-4.9) X10*3/uL [place] # (Auto) (0.1-1.2) X10*3/uL Eos # (Auto) (0.0-0.4) X10*3/uL Baso # (Auto) (0.0-0.2) X10*3/uL Abs Immat Gran (auto) (0.00-0.03) X10*3/uL Absolute Neuts (auto) (2.0-8.3) x10*3/uL Absolute Nucleated RBC (0.0-0.012) X10*3/uL Nucleated RBC % (auto) (0.0-0.2) /100WBC Sodium (135-145) mmol/L Potassium (3.3-5.1) mmol/L Chloride (96-108) mmol/L Carbon Dioxide (22-29) mmol/L Anion Gap (12-20) BUN (9-16) mg/dL Creatinine (0.5-1.4) mg/dL Estim Creat Clear Calc Estimated GFR Random Glucose (60-115) mg/dL Calcium (8.4-10.2) mg/dL Total Bilirubin (0.0-1.0) mg/dL Direct Bilirubin (0.0-0.5) mg/dL AST (5-31) U/L ALT (0-31) U/L Alkaline Phosphatase (39-117) U/L Total Protein (6.5-8.0) g/dL Albumin (3.5-5.0) g/dL Lipase (8-78) U/L Urine Color Urine Appearance Urine pH (5.0-9.0) Ur Specific [place] (1.005-1.025) Urine Protein (Neg-Trace) mg/dL Urine Glucose (UA) (Negative) mg/dL Urine Ketones (Negative) mg/dL Urine Blood (Negative) Urine Nitrite (Negative) Ur Leukocyte Esterase (Negative) Urine RBC (0-2) /HPF Urine WBC (0-5) /HPF Ur Squamous Epith Cells (0-2) /HPF Urine Bacteria (None Seen) Hyaline Casts (0-2) /LPF C. difficile Tox B Gene NEGATIVE (Negative) COVID-19 (MANNIE) Negative (Negative) COVID-19 Clin Com See Note Radiology Impression Discussion of test interpretation with radiology: I have reviewed the radiologist's reading. Radiologist Impression: FINDINGS: LUNG BASES: The visualized lung bases are unremarkable.? LIVER, GALLBLADDER, AND BILIARY TREE: The liver is normal in size, shape, and attenuation. No focal hepatic lesion or biliary ductal dilatation is present. The gallbladder is unremarkable with no evidence of radiopaque gallstones, gallbladder wall thickening, or obvious pericholecystic inflammatory changes.? PANCREAS: Unremarkable.? SPLEEN: Unremarkable.? ADRENAL GLANDS: Unremarkable.? KIDNEYS AND URETERS: The kidneys are normal in size, shape, and attenuation. No hydronephrosis, hydroureter. Question tiny stone in the lower pole right kidney. No perinephric stranding. ? BLADDER: Unremarkable.? GASTROINTESTINAL TRACT: There is abnormal wall thickening, mucosal enhancement and wall edema of the distal ileum and cecum and proximal right colon. Findings are suggestive of enterocolitis. There is prominence of the adjacent vasculature/vasa recta.? No evidence of obstruction, perforation or abscess. The appendix is fluid-filled and upper normal in size. There are fluid-filled large bowel suggestive of an ileus. ABDOMINAL WALL: No significant hernia is appreciated.? LYMPH NODES: Small bowel mesentery shotty lymphadenopathy. Largest lymph nodes are upper normal in size. VASCULAR: Unremarkable. PELVIC VISCERA: Prominent pelvic vessels questionable for pelvic congestion.? OSSEOUS STRUCTURES: Degenerative disc disease at L5-S1.? CT/CT abdomen pelvis w IV con IMPRESSION: Severe enterocolitis. Fleischner guidelines were followed. Medications Administered Discontinued Medications Generic Name Dose Route Start Last Admin Trade Name Freq PRN Reason Stop Dose Admin Sodium Chloride 1,000 mls @ 999 mls/hr 07/26/22 19:21 07/26/22 22:11 Ns IVCONT 07/26/22 20:21 Infused .Q1H1M ONE Infusion Iohexol 100 ml 07/26/22 21:10 07/26/22 21:10 Iohexol 350 Mg/Ml 100 Ml Infus..Btl IV 07/26/22 21:11 85 ml ONCE ONE Administration Levofloxacin 500 mg 07/26/22 22:41 07/26/22 23:06 Levofloxacin 500 Mg Tablet PO 07/26/22 22:42 500 mg ONCE ONE Administration Morphine Sulfate 4 mg 07/26/22 19:21 07/26/22 19:49 Morphine Sulfate 4 Mg/Ml Cartridge IVPUSH 07/26/22 19:22 4 mg ONCE ONE Administration Protocol Ondansetron HCl 4 mg 07/26/22 19:21 07/26/22 19:48 Ondansetron Hcl 4 Mg/2 Ml Vial IVPUSH 07/26/22 19:22 4 mg ONCE ONE Administration Discharge Plan Discharge Clinical Impression: Enterocolitis Patient Disposition: Home, Self-Care Instructions: Colitis (ED) Additional Instructions: Please follow-up with your primary care physician tomorrow. If you have any worsening or new symptoms, please return to the emergency room or call 911 Prescriptions: New levofloxacin 500 mg tablet 500 mg PO DAILY Qty: 7 0RF No Action prazosin 1 mg capsule 1 mg PO BEDTIME amlodipine 2.5 mg tablet 2.5 mg PO DAILY aspirin 81 mg tablet,delayed release (DR/EC) 81 mg DAILY losartan-hydrochlorothiazide 100-25 mg tablet 1 tab DAILY fluoxetine [Prozac] 20 mg capsule 20 mg PO DAILY
[2022-07-26] MEDS: 0.9 % Sodium Chloride 1,000 ML 999 ML IVCONT (19:48)
[2022-07-26] MEDS: ondansetron HCL 4 MG/2 ML VIAL IVPUSH (19:48)
[2022-07-26] MEDS: Morphine Sulfate 4 MG/ML CARTRIDGE IVPUSH (19:49)
[2022-07-26 20:42] VITALS: BP 121/73; PULSE 71; RESP 16; TEMP 37.1; O2SAT 99
[2022-07-26] MEDS: iohexoL 350 MG/ML 100 ML INFUS..BTL IV (21:10)
[2022-07-26 22:39] VITALS: BP 111/64; PULSE 65; RESP 16; O2SAT 98
[2022-07-26 22:58] LABS: CDiff Gene PCR NEGATIVE (Negative)
[2022-07-26] MEDS: levoFLOXacin 500 MG TABLET PO (23:06)
[2022-07-26 23:51] VITALS: BP 115/76; PULSE 72; RESP 16; TEMP 36.9; O2SAT 98
--- NOTE | 2022-07-26 23:54 | MHC.EDTECH ---
THIS PCT ASSUMED CARE OF PATIENT AT 2300 ,VITALS SIGN TAKEN ,PATIENT RESTING ,QUIETLY IN BED .
[2022-07-27 12:51] LABS: Campylobacter Not Detected (Not Detect.); Plesiomonas shigelloides Not Detected (Not Detect.)
[2022-07-27 12:53] LABS: Adenovirus F 40/41 Not Detected (Not Detect.); Astrovirus Not Detected (Not Detect.); Cryptosporidium Not Detected (Not Detect.); Cyclospora cayetanensis Not Detected (Not Detect.); E. coli EAEC Not Detected (Not Detect.); E. coli EPEC Not Detected (Not Detect.); E. coli ETEC Not Detected (Not Detect.); E. coli STEC Not Detected (Not Detect.); Entamoeba histolytica Not Detected (Not Detect.); Giardia lamblia Not Detected (Not Detect.); Norovirus GI/GII Not Detected (Not Detect.); Rotavirus A Not Detected (Not Detect.); Sapovirus Not Detected (Not Detect.); Shigella sp./EIEC Not Detected (Not Detect.); Vibrio Cholerae Not Detected (Not Detect.); Yersinia enterocolitica Not Detected (Not Detect.)
[2022-07-27 12:56] LABS: Salmonella Detected (Not Detect.)
[2022-07-27 12:57] LABS: Vibrio Not Detected (Not Detect.)
== END 2022-07-27 00:43 | disposition home or self-care (01) ==
PROVIDERS: Nurse Practitioner Family; Emergency Provider Emergency Medicine; PCP Internal Medicine
DX: K52.9 Noninfective gastroenteritis and colitis, unspecified (principal); R10.13 Epigastric pain; Z20.822 Contact with and (suspected) exposure to COVID-19; Z20.828 Contact with and (suspected) exposure to other viral communicable diseases; Z79.899 Other long term (current) drug therapy
CPT/HCPCS: 74177; 80048; 80076; 81001; 83690; 85025; 87493; 87507; 87635; 96361; 96374; 96375; 99284; 99285; J2270; J2405; Q9967

== ENCOUNTER 2022-07-28 14:36 | Outpatient (REF) | payer OTHER, SELFPAY | END 2022-07-28 14:37 | disposition home or self-care (01) | LOC: HO.SH 14:36 | PROVIDERS: PCP Internal Medicine; Visit Provider Internal Medicine | DX: Z01.118 Encounter for examination of ears and hearing with other abnormal findings (principal); H90.3 Sensorineural hearing loss, bilateral; H93.13 Tinnitus, bilateral | CPT/HCPCS: 92557; 92567; 92588 ==

== ENCOUNTER 2022-07-28 16:11 | Inpatient (IN) | payer OTHER, SELFPAY ==
[2022-07-28 16:17] VITALS: BP 144/75; PULSE 73; RESP 18; TEMP 36.7; O2SAT 100; BMI 27.5
--- NOTE | 2022-07-28 16:20 | ED.NAVMDI ---
HPI - Nausea/Vomiting/Diarrhea General Chief complaint: Nausea/Vomiting/Diarrhea Stated complaint: salmonella positive from labs Time Seen by Provider: 07/28/22 17:58 Related Data Home Medications Medication Instructions Recorded Confirmed amlodipine 2.5 mg tablet 2.5 mg PO DAILY 07/06/22 07/06/22 aspirin 81 mg tablet,delayed 81 mg DAILY 07/06/22 07/06/22 release fluoxetine 20 mg capsule (Prozac) 20 mg PO DAILY 07/06/22 07/06/22 losartan 100 1 tab DAILY 07/06/22 07/06/22 mg-hydrochlorothiazide 25 mg tablet prazosin 1 mg capsule 1 mg PO BEDTIME 07/06/22 07/06/22 Previous Rx's Medication Instructions Recorded levofloxacin 500 mg tablet 500 mg PO DAILY #7 tabs 07/26/22 Allergies Allergy/AdvReac Type Severity Reaction Status Date / Time latex [LATEX] Allergy Unknown DERMATITIS Verified 07/26/22 18:02 PMFSH Past Medical History Medical History Anemia History of back pain Hx pulmonary embolism Surgical History History of carpal tunnel surgery Hx of tubal ligation Family History Family History Maternal Uncle Hx of cancer of lung Mother Hx of myocardial infarction Social History Social History Alcohol intake: never Patient Tobacco Use Status: Never used Tobacco Smoked in Last 30 Days: No Use of substances other than those prescribed or required for medical reasons: No Advance Directives: No Advance Directives Information Provided: No Patient : No service: No Current occupational status: disabled Physical Exam Vital Signs: Vital Signs: Last Vital Signs Temp 98.1 F 07/28/22 20:04 Pulse 62 07/28/22 20:04 Resp 17 07/28/22 20:04 BP 125/79 07/28/22 20:04 Pulse Ox 98 07/28/22 20:04 O2 Del Method Room Air 07/28/22 20:04 BMI result Body Mass Index 27.5 Course Course Course Narrative: RME 46 yo female recently diagnosed with Salmonella on Levaquin presenting with epigastric abdominal pain and ongoing diarrhea, no blood in the stool, but her stool is black (took Pepto Bismol recently). She is unable to tolerate PO, food is going right through her. Plan: CMP, CBC, IVF Reevaluation(s) Reevaluation #1: See Dr. Mitchell's note for full evaluation and treatment Medications Administered Discontinued Medications Generic Name Dose Route Start Last Admin Trade Name Freq PRN Reason Stop Dose Admin Belladonna Alkaloids/Phenobarbital 10 ml 07/28/22 18:16 07/28/22 18:30 Phenobarb/Hyoscy/Atropine/Scop 10 Ml Elixir PO 07/28/22 18:17 10 ml ONCE ONE Administration Sodium Chloride 1,000 mls @ 999 mls/hr 07/28/22 16:30 07/28/22 19:35 Ns IVCONT 07/28/22 17:30 Infused .Q1H1M WILDA Infusion Sodium Chloride 1,000 mls @ 999 mls/hr 07/28/22 18:15 07/28/22 20:20 Ns IVCONT 07/28/22 20:15 999 mls/hr .Q1H1M WILDA Administration Promethazine HCl 12.5 mg/ 50.5 mls @ 202 mls/hr 07/28/22 18:14 07/28/22 19:00 Sodium Chloride IV 07/28/22 18:15 Infused ONCE ONE Infusion Medical Decision Making Lab Data 07/28/22 17:07 07/28/22 17:07 Labs: Lab Results 07/28/22 07/28/22 Range/Units 17:07 17:07 WBC 7.0 (4.8-10.8) X10*3/uL RBC 4.25 (4.20-5.50) X10*6/uL Hgb 11.7 L (12.0-16.0) g/dl Hct 36.2 L (37.0-47.0) % MCV 85.2 (80.0-98.0) fL MCH 27.5 (27.0-33.0) pg MCHC 32.3 (31.0-35.0) g/dl RDW 13.3 (11.0-16.0) % Plt Count 262 (160-400) X10*3/uL MPV 10.3 (9.4-12.3) fL Immature Gran % (Auto) 1.0 H (0.0-0.4) % Neut % (Auto) 53.5 (45-73) % Lymph % (Auto) 36.0 (20-40) % [place] % (Auto) 8.1 (2-11) % Eos % (Auto) 1.0 (0-4) % Baso % (Auto) 0.4 (0-2) % Lymph # (Auto) 2.5 (1.2-4.9) X10*3/uL [place] # (Auto) 0.6 (0.1-1.2) X10*3/uL Eos # (Auto) 0.1 (0.0-0.4) X10*3/uL Baso # (Auto) 0.0 (0.0-0.2) X10*3/uL Abs Immat Gran (auto) 0.07 H (0.00-0.03) X10*3/uL Absolute Neuts (auto) 3.8 (2.0-8.3) x10*3/uL Absolute Nucleated RBC 0.000 (0.0-0.012) X10*3/uL Nucleated RBC % (auto) 0.0 (0.0-0.2) /100WBC Smear Tech's Comments VERIFIED Sodium 143 (135-145) mmol/L Potassium 3.8 (3.3-5.1) mmol/L Chloride 109 H (96-108) mmol/L Carbon Dioxide 27 (22-29) mmol/L Anion Gap 11 L (12-20) BUN 11 (9-16) mg/dL Creatinine 0.70 (0.5-1.4) mg/dL Estim Creat Clear Calc 89.9 Estimated GFR > 60 Random Glucose 89 (60-115) mg/dL Calcium 9.0 (8.4-10.2) mg/dL Magnesium 2.1 (1.6-2.6) mg/dL Total Bilirubin 0.4 (0.0-1.0) mg/dL Direct Bilirubin 0.1 (0.0-0.5) mg/dL AST 13 (5-31) U/L ALT 11 (0-31) U/L Alkaline Phosphatase 66 (39-117) U/L Total Protein 6.6 (6.5-8.0) g/dL Albumin 3.7 (3.5-5.0) g/dL Discharge Plan Discharge Clinical Impression: Salmonella enteritis Patient Disposition: Still a Patient Prescriptions: No Action prazosin 1 mg capsule 1 mg PO BEDTIME amlodipine 2.5 mg tablet 2.5 mg PO DAILY aspirin 81 mg tablet,delayed release (DR/EC) 81 mg DAILY losartan-hydrochlorothiazide 100-25 mg tablet 1 tab DAILY fluoxetine [Prozac] 20 mg capsule 20 mg PO DAILY levofloxacin 500 mg tablet 500 mg PO DAILY Qty: 7 0RF
[2022-07-28 17:21] LABS: Basophils Percent Auto 0.4 % (0-2); Eosinophils Absolute Auto 0.1 X10*3/uL (0.0-0.4); Hematocrit 36.2 % (37.0-47.0); Hemoglobin 11.7 g/dl (12.0-16.0); Imm Gran Abs Auto 0.07 X10*3/uL (0.00-0.03); Lymphocytes Absolute Auto 2.5 X10*3/uL (1.2-4.9); MANUAL DIFF FLAG SCAN; Mean Corpuscular HGB Conc 32.3 g/dl (31.0-35.0); Mean Corpuscular Hemoglobin 27.5 pg (27.0-33.0); Mean Corpuscular Volume 85.2 fL (80.0-98.0); Mean Platelet Volume 10.3 fL (9.4-12.3); Monocytes Absolute Auto 0.6 X10*3/uL (0.1-1.2); Monocytes Percent Auto 8.1 % (2-11); Neutrophils Absolute Auto 3.8 x10*3/uL (2.0-8.3); Neutrophils Percent Auto 53.5 % (45-73); Platelet Count 262 X10*3/uL (160-400); Red Blood Count 4.25 X10*6/uL (4.20-5.50); Red Cell Distribution Width 13.3 % (11.0-16.0); SCAN SMEAR FLAG 1
[2022-07-28 17:28] LABS: Alanine Aminotransferase 11 U/L (0-31); Albumin Level 3.7 g/dL (3.5-5.0); Alkaline Phosphatase 66 U/L (39-117); Anion Gap 11 (12-20); Aspartate Amino Transferase 13 U/L (5-31); Bilirubin Direct 0.1 mg/dL (0.0-0.5); Bilirubin Total 0.4 mg/dL (0.0-1.0); Blood Urea Nitrogen 11 mg/dL (9-16); Carbon Dioxide 27 mmol/L (22-29); Chloride 109 mmol/L (96-108); Creatinine Clr Calc Pharmacy 89.9; Estimated Glomerular Filt Rate > 60; Glucose Random 89 mg/dL (60-115); Magnesium 2.1 mg/dL (1.6-2.6); Potassium 3.8 mmol/L (3.3-5.1); Sodium 143 mmol/L (135-145); Total Protein 6.6 g/dL (6.5-8.0)
[2022-07-28 17:51] LABS: SLIDE REVIEW VERIFIED
[2022-07-28] MEDS: 0.9 % Sodium Chloride 1,000 ML 999 ML IVCONT ×3 (17:59→20:20)
--- NOTE | 2022-07-28 18:01 | PC.NURSE ---
Initial contact with pt. IV placed, fluids as ordered. blankets offered.
[2022-07-28 18:12] VITALS: BP 140/84; PULSE 65; RESP 18; TEMP 36.8; O2SAT 100
--- NOTE | 2022-07-28 18:16 | ED_ITS ---
HPI - General Adult General Chief complaint: Nausea/Vomiting/Diarrhea Stated complaint: salmonella positive from labs Time Seen by Provider: 07/28/22 17:58 Source: patient History of Present Illness HPI narrative: Patient with nausea vomiting diarrhea and abdominal cramping symptoms since she was in [place]. She was seen here in the emergency department 2 days ago and diagnosed with enterocolitis. Her stool profile, however, has since resulted positive for salmonella. She returns today because she is unable to keep down p.o. fluids. She took 1 dose of Levaquin yesterday but none today. No fevers or chills. Stool is dark but she did take Pepto-Bismol. No bloody stool. Related Data Home Medications Medication Instructions Recorded Confirmed amlodipine 2.5 mg tablet 2.5 mg PO DAILY 07/06/22 07/06/22 aspirin 81 mg tablet,delayed 81 mg DAILY 07/06/22 07/06/22 release fluoxetine 20 mg capsule (Prozac) 20 mg PO DAILY 07/06/22 07/06/22 losartan 100 1 tab DAILY 07/06/22 07/06/22 mg-hydrochlorothiazide 25 mg tablet prazosin 1 mg capsule 1 mg PO BEDTIME 07/06/22 07/06/22 Previous Rx's Medication Instructions Recorded levofloxacin 500 mg tablet 500 mg PO DAILY #7 tabs 07/26/22 Allergies Allergy/AdvReac Type Severity Reaction Status Date / Time latex [LATEX] Allergy Unknown DERMATITIS Verified 07/26/22 18:02 Review of Systems Constitutional: Comments: General malaise Cardiovascular: Comments: No chest pain Respiratory: Comments: No cough or dyspnea Gastrointestinal: Gastrointestinal: Reports as per HPI Integumentary/Breasts: Comments: No rash Neurologic: Comments: No focal weakness PMFSH Past Medical History Medical History Anemia History of back pain Hx pulmonary embolism Surgical History History of carpal tunnel surgery Hx of tubal ligation Family History Family History Maternal Uncle Hx of cancer of lung Mother Hx of myocardial infarction Social History Social History Alcohol intake: never Patient Tobacco Use Status: Never used Tobacco Smoked in Last 30 Days: No Use of substances other than those prescribed or required for medical reasons: No Advance Directives: No Advance Directives Information Provided: No Patient : No service: No Current occupational status: disabled Physical Exam ED Vital Signs: Vital Signs - 24 hr 07/28/22 16:17 07/28/22 18:12 07/28/22 20:04 Temperature 98.0 F 98.3 F 98.1 F Pulse Rate 73 65 62 Respiratory Rate 18 18 17 Blood Pressure 144/75 H 140/84 H 125/79 Pulse Oximetry 100 100 98 Oxygen Delivery Method Room Air Room Air Room Air 07/28/22 21:22 07/28/22 21:22 07/28/22 21:23 Temperature Pulse Rate 72 74 72 Respiratory Rate Blood Pressure 132/74 134/74 135/78 Pulse Oximetry Oxygen Delivery Method BMI result Body Mass Index 27.5 Const Other: Awake and alert. Looks fatigued but nontoxic. No acute distress. Resp Other: Clear and equal bilaterally Cardio Other: Regular rate and rhythm without murmurs rubs or gallops GI Other: Soft. Diffusely mildly tender without guarding or rebound. No focal or point tenderness. Nondistended. Bowel sounds normal Skin Other: Warm pink and dry without rash Neuro Other: No gross neuro deficits Medications Administered Discontinued Medications Generic Name Dose Route Start Last Admin Trade Name Freq PRN Reason Stop Dose Admin Belladonna Alkaloids/Phenobarbital 10 ml 07/28/22 18:16 07/28/22 18:30 Phenobarb/Hyoscy/Atropine/Scop 10 Ml Elixir PO 07/28/22 18:17 10 ml ONCE ONE Administration Sodium Chloride 1,000 mls @ 999 mls/hr 07/28/22 16:30 07/28/22 19:35 Ns IVCONT 07/28/22 17:30 Infused .Q1H1M WILDA Infusion Sodium Chloride 1,000 mls @ 999 mls/hr 07/28/22 18:15 07/28/22 20:20 Ns IVCONT 07/28/22 20:15 999 mls/hr .Q1H1M WILDA Administration Promethazine HCl 12.5 mg/ 50.5 mls @ 202 mls/hr 07/28/22 18:14 07/28/22 19:00 Sodium Chloride IV 07/28/22 18:15 Infused ONCE ONE Infusion Medical Decision Making Medical Decision Making MDM Narrative: Patient with enterocolitis secondary to Salmonella, complicated by dehydration. Antibiotic treatment and salmonella gastroenteritis is equivocal as it likely will not decrease duration of symptoms and may increase rate of symptomatic areas. Given this, will treat symptomatically as patient is immunocompetent. Will continue with IV fluids, IV antiemetics. P.o. when able to tolerate. 21:23. Patient is feeling somewhat better. No longer having abdominal pain or nausea. Will attempt a p.o. challenge. She does, however, still feel dizzy when she stands up. Will check orthostatic vital signs as well. 21:27. Orthostatic vital signs are normal. Unfortunately, she is unable to tolerate p.o. challenge. Will hospitalized for IV hydration and antiemetics Lab Data 07/28/22 17:07 07/28/22 17:07 Labs: Lab Results 07/28/22 07/28/22 Range/Units 17:07 17:07 WBC 7.0 (4.8-10.8) X10*3/uL RBC 4.25 (4.20-5.50) X10*6/uL Hgb 11.7 L (12.0-16.0) g/dl Hct 36.2 L (37.0-47.0) % MCV 85.2 (80.0-98.0) fL MCH 27.5 (27.0-33.0) pg MCHC 32.3 (31.0-35.0) g/dl RDW 13.3 (11.0-16.0) % Plt Count 262 (160-400) X10*3/uL MPV 10.3 (9.4-12.3) fL Immature Gran % (Auto) 1.0 H (0.0-0.4) % Neut % (Auto) 53.5 (45-73) % Lymph % (Auto) 36.0 (20-40) % [place] % (Auto) 8.1 (2-11) % Eos % (Auto) 1.0 (0-4) % Baso % (Auto) 0.4 (0-2) % Lymph # (Auto) 2.5 (1.2-4.9) X10*3/uL [place] # (Auto) 0.6 (0.1-1.2) X10*3/uL Eos # (Auto) 0.1 (0.0-0.4) X10*3/uL Baso # (Auto) 0.0 (0.0-0.2) X10*3/uL Abs Immat Gran (auto) 0.07 H (0.00-0.03) X10*3/uL Absolute Neuts (auto) 3.8 (2.0-8.3) x10*3/uL Absolute Nucleated RBC 0.000 (0.0-0.012) X10*3/uL Nucleated RBC % (auto) 0.0 (0.0-0.2) /100WBC Smear Tech's Comments VERIFIED Sodium 143 (135-145) mmol/L Potassium 3.8 (3.3-5.1) mmol/L Chloride 109 H (96-108) mmol/L Carbon Dioxide 27 (22-29) mmol/L Anion Gap 11 L (12-20) BUN 11 (9-16) mg/dL Creatinine 0.70 (0.5-1.4) mg/dL Estim Creat Clear Calc 89.9 Estimated GFR > 60 Random Glucose 89 (60-115) mg/dL Calcium 9.0 (8.4-10.2) mg/dL Magnesium 2.1 (1.6-2.6) mg/dL Total Bilirubin 0.4 (0.0-1.0) mg/dL Direct Bilirubin 0.1 (0.0-0.5) mg/dL AST 13 (5-31) U/L ALT 11 (0-31) U/L Alkaline Phosphatase 66 (39-117) U/L Total Protein 6.6 (6.5-8.0) g/dL Albumin 3.7 (3.5-5.0) g/dL Discharge Plan Discharge Clinical Impression: Salmonella enteritis Patient Disposition: Admitted As Inpatient Prescriptions: No Action prazosin 1 mg capsule 1 mg PO BEDTIME amlodipine 2.5 mg tablet 2.5 mg PO DAILY aspirin 81 mg tablet,delayed release (DR/EC) 81 mg DAILY losartan-hydrochlorothiazide 100-25 mg tablet 1 tab DAILY fluoxetine [Prozac] 20 mg capsule 20 mg PO DAILY levofloxacin 500 mg tablet 500 mg PO DAILY Qty: 7 0RF
[2022-07-28] MEDS: PHENobarb/Hyoscy/Atropine/Scop 10 ML ELIXIR PO (18:30)
[2022-07-28 20:04] VITALS: BP 125/79; PULSE 62; RESP 17; TEMP 36.7; O2SAT 98
[2022-07-28 21:22] VITALS: BP 132/74; BP 134/74; PULSE 72; PULSE 74
[2022-07-28 21:23] VITALS: BP 135/78; PULSE 72
--- NOTE | 2022-07-28 22:11 | PHA.MEDREC ---
Pharmacy Consult ? Medication Reconciliation Pharmacy has completed the medication reconciliation. spoke with patient. She was able to confirm her medications. Daughter was also present and was able to assist translating when there was any confusion. Patient claims no medication was taken today.
[2022-07-28 22:37] VITALS: BP 100/66; PULSE 70; RESP 15; O2SAT 98
--- NOTE | 2022-07-28 22:40 | P.HPHOSP_ITS ---
History of Present Illness Date of Service: 07/28/22 Chief Complaint: nausea. vomiting diarrhea 47-year-old female with past medical history of PE not on anticoagulation, history of back pain, hypertension, presents to the hospital with complaints of persistent nausea vomiting and diarrhea. Patient was seen in the hospital on 07/26, diagnosed with salmonella, discharged home on levofloxacin. Returns today stating that continued symptoms. She states that she continues to not tolerate anything by mouth, she vomit even small amounts of water, and has persistent diarrhea. She reports that she was in [place], and has been treated with rifaximin for a week, and given levofloxacin was taking it for the past 2 days with no relief of symptoms. Denies any fever, no chills, no chest pain, shortness of breath, no urinary symptoms, no lower extremity edema On arrival to the ED patient hemodynamically stable Labs are significant for WBC count 7.0, otherwise unremarkable, GI panel done on 07/[address] abdomen shows severe enterocolitis patient started on IV fluids, antiemetics, and will be admitted for further management Review of Systems Review of Systems: Yes all other systems are reviewed and are negative [facility] Medical History Anemia History of back pain Hx pulmonary embolism Hypertension Family History Maternal Uncle Hx of cancer of lung Mother Hx of myocardial infarction Surgical History History of carpal tunnel surgery Hx of tubal ligation Social History Alcohol intake: never Patient Tobacco Use Status: Never used Tobacco Smoked in Last 30 Days: No Use of substances other than those prescribed or required for medical reasons: No Advance Directives: No Advance Directives Information Provided: No Patient : No service: No Current occupational status: disabled Meds Allergies Allergy/AdvReac Type Severity Reaction Status Date / Time latex [LATEX] Allergy Unknown DERMATITIS Verified 07/26/22 18:02 Active Medications: Current Medications Acetaminophen (Acetaminophen 325 Mg Tablet) 650 mg PO Q6H PRN PRN Reason: Pain, Mild (Pain Scale 1-3) Amlodipine Besylate (Amlodipine Besylate 2.5 Mg Tablet) 2.5 mg PO DAILY [facility]; Protocol Aspirin (Aspirin Enteric Coated 81 Mg Tablet.Dr) 81 mg PO DAILY [facility] Docusate Sodium (Docusate Sodium 100 Mg Capsule) 100 mg PO DAILY PRN PRN Reason: Constipation Enoxaparin Sodium (Enoxaparin Sodium 40 Mg/0.4 Ml Syringe) 40 mg SUBCUT Q24H [facility] Fluoxetine HCl (Fluoxetine Hcl 20 Mg Capsule) 20 mg PO BID [facility] Hydroxyzine HCl (Hydroxyzine Hcl 25 Mg Tablet) 25 - 50 mg PO BEDTIME PRN PRN Reason: Sleep Ceftriaxone Sodium 1 gm/ (Sodium Chloride) 50 mls @ 100 mls/hr IV Q24H [facility] Morphine Sulfate (Morphine Sulfate 4 Mg/Ml Cartridge) 4 mg IVPUSH Q4H PRN; Protocol PRN Reason: Pain, Severe (Pain Scale 7-10) Ondansetron HCl (Ondansetron Hcl 4 Mg/2 Ml Vial) 4 mg IVPUSH Q8H PRN PRN Reason: Nausea and Vomiting Sodium Chloride (0.9 % Sodium Chloride Flush 3 Ml Syringe) 3 ml IVFLUSH QSHIFT [facility] Home Medications Medication Instructions Recorded Confirmed Last Taken Type amlodipine 2.5 mg tablet 2.5 mg PO DAILY 07/06/22 07/28/22 Unknown History aspirin 81 mg tablet,delayed 81 mg DAILY 07/06/22 07/28/22 Unknown History release fluoxetine 20 mg capsule (Prozac) 20 mg PO BID 07/06/22 07/28/22 Unknown History losartan 100 1 tab DAILY 07/06/22 07/28/22 Unknown History mg-hydrochlorothiazide 25 mg tablet hydroxyzine pamoate 25 mg capsule 25 - 50 mg PO BEDTIME PRN Sleep 07/28/2207/28 Unknown History Physical Exam Vital Signs and Narrative: Vital Signs: Last Vital Signs Temp 98.1 F 07/28/22 20:04 Pulse 70 07/28/22 22:37 Resp 15 07/28/22 22:37 BP 100/66 07/28/22 22:37 Pulse Ox 98 07/28/22 22:37 O2 Del Method Room Air 07/28/22 22:37 BMI result Body Mass Index 27.5 Const: General: cooperative and no acute distress Soy entation/consciousness: patient oriented x3 Eyes: General: appearance normal, both eyes and all related structures Resp: Effort & Inspection: normal respiratory effort Auscultation: clear to auscultation bilaterally Cardio: Rate: regular rate Rhythm: regular rhythm GI: Other: abdomen is diffusely tender, no rebound or guarding Palpation (GI): Soft to palpation Auscultation: normal bowel sounds Skin: General skin exam: no rashes or lesions noted Neuro: General: patient oriented x3 Cognition (Neuro): normal cognition Extrem: General: Yes normal to inspection and Yes no pedal edema Results Labs 07/28/22 17:07 07/28/22 17:07 Labs: Laboratory Results - last 24 hr 07/28/22 07/28/22 17:07 17:07 MCV 85.2 MCH 27.5 MCHC 32.3 RDW 13.3 Plt Count 262 MPV 10.3 Immature Gran % (Auto) 1.0 H Neut % (Auto) 53.5 Lymph % (Auto) 36.0 [place] % (Auto) 8.1 Eos % (Auto) 1.0 Baso % (Auto) 0.4 Lymph # (Auto) 2.5 [place] # (Auto) 0.6 Eos # (Auto) 0.1 Baso # (Auto) 0.0 Abs Immat Gran (auto) 0.07 H Absolute Neuts (auto) 3.8 Absolute Nucleated RBC 0.000 Nucleated RBC % (auto) 0.0 Smear Tech's Comments VERIFIED Anion Gap 11 L Estim Creat Clear Calc 89.9 Estimated GFR > 60 Random Glucose 89 Calcium 9.0 Magnesium 2.1 Total Bilirubin 0.4 Direct Bilirubin 0.1 AST 13 ALT 11 Alkaline Phosphatase 66 Total Protein 6.6 Albumin 3.7 Assessment and Plan (1) Salmonella enteritis: Status: Acute Plan 47-year-old female with past medical history of hypertension, PE presents to the hospital with complaints of nausea vomiting diarrhea found to have salmonella enter colitis # severe enterocolitis - CT abdomen showing severe enterocolitis - GI panel done on 07/26 shows positive salmonella - given the severity, failed p.o. antibiotics, and duration of symptoms will treat with ceftriaxone IV - follow cultures - antiemetics - IV fluids # hypertension - continue home antihypertensives # history of PE - patient with history of PE, on last visit to the hospital on 07/01/2022, patient was noted to be on Coumadin, and somewhere / somehow that medication was discontinued, patient reports that her PE was provoked with a family history, she does not remember why Coumadin was discontinued, and there is no note of that in our discharge summary from 07/04 - therefore at this time I will start her on Eliquis 10 mg b.i.d. for 10 days, and then 5 mg b.i.d. from there DVT prophylaxis: Eliquis given patient's need for IV antibiotics, IV fluids patient will be admitted for further management and monitoring Time Spent With Patient Time: Total time managing care of this patient today ____ minutes. Quality Stroke Does the patient have a stroke diagnosis?: No VTE Prior VTE?: No VTE Risk Level:: Medical - moderate - high VTE Device Contraindication: Treatment Not Indicated VTE Drug Contraindication: N/A - Med Ordered
[2022-07-28] MEDS: Enoxaparin Sodium 40 MG/0.4 ML SYRINGE SUBCUT (23:18)
[2022-07-28] MEDS: FLUoxetine HCl 20 MG CAPSULE PO (23:18)
[2022-07-28] MEDS: cefTRIAXone sodium 1 GM in 0.9 % Sodium Chloride 50 ML IV (23:19)
[2022-07-28] MEDS: 0.9 % Sodium Chloride Flush 3 ML SYRINGE IVFLUSH (23:43)
[2022-07-29 02:00] VITALS: BP 121/76; PULSE 66; RESP 14; O2SAT 97
[2022-07-29 05:56] LABS: MANUAL DIFF FLAG NO
[2022-07-29 05:57] LABS: Basophils Absolute Auto 0.1 X10*3/uL (0.0-0.2); Basophils Percent Auto 0.7 % (0-2); Eosinophils Absolute Auto 0.1 X10*3/uL (0.0-0.4); Eosinophils Percent Auto 1.6 % (0-4); Hematocrit 34.6 % (37.0-47.0); Hemoglobin 11.4 g/dl (12.0-16.0); Imm Gran Abs Auto 0.09 X10*3/uL (0.00-0.03); Imm Gran Pct Auto 1.3 % (0.0-0.4); Lymphocytes Absolute Auto 2.4 X10*3/uL (1.2-4.9); Lymphocytes Percent Auto 34.7 % (20-40); Mean Corpuscular HGB Conc 32.9 g/dl (31.0-35.0); Mean Corpuscular Hemoglobin 27.9 pg (27.0-33.0); Mean Corpuscular Volume 84.6 fL (80.0-98.0); Mean Platelet Volume 9.8 fL (9.4-12.3); Monocytes Absolute Auto 0.5 X10*3/uL (0.1-1.2); Monocytes Percent Auto 7.8 % (2-11); Neutrophils Absolute Auto 3.8 x10*3/uL (2.0-8.3); Neutrophils Percent Auto 53.9 % (45-73); Platelet Count 245 X10*3/uL (160-400); Red Blood Count 4.09 X10*6/uL (4.20-5.50); Red Cell Distribution Width 13.4 % (11.0-16.0)
[2022-07-29 05:58] VITALS: BP 121/75; PULSE 66; RESP 16; TEMP 37.2; O2SAT 96
[2022-07-29 06:18] LABS: Anion Gap 9 (12-20); Blood Urea Nitrogen 6 mg/dL (9-16); Calcium 8.3 mg/dL (8.4-10.2); Carbon Dioxide 25 mmol/L (22-29); Chloride 111 mmol/L (96-108); Estimated Glomerular Filt Rate > 60; Glucose Random 92 mg/dL (60-115); Potassium 3.4 mmol/L (3.3-5.1); Sodium 142 mmol/L (135-145)
[2022-07-29 09:50] VITALS: BP 124/80; PULSE 70; RESP 14; TEMP 37.2; O2SAT 97
[2022-07-29] MEDS: 0.9 % Sodium Chloride Flush 3 ML SYRINGE IVFLUSH (09:52)
[2022-07-29] MEDS: amLODIPine Besylate 2.5 MG TABLET PO (09:52)
[2022-07-29] MEDS: Apixaban 5 MG TABLET 10 MG PO ×2 (09:52→20:00)
[2022-07-29] MEDS: Aspirin Enteric Coated 81 MG TABLET.DR PO (09:53)
[2022-07-29] MEDS: FLUoxetine HCl 20 MG CAPSULE PO ×2 (09:53→20:00)
--- NOTE | 2022-07-29 11:43 | P.PNIM_ITS ---
Subjective Subjective Date of Service: 07/29/22 Interval History: feeling better, no further episodes of diarrhea since arrival to [facility], denies nausea ,vomiting ,continue to have mild mid abdominal discomfort, denied any blood in stools, denies fever chills, no shortness of breath, no chest pain no headache, no dizziness, no lightheadedness. Review of Systems Review of Systems: Yes all other systems are reviewed and are negative Physical Exam Vital Signs: Vital Signs: Last Vital Signs Temp 98.9 F 07/29/22 09:50 Pulse 70 07/29/22 09:50 Resp 14 07/29/22 09:50 BP 124/80 07/29/22 09:50 Pulse Ox 97 07/29/22 09:50 O2 Del Method Room Air 07/29/22 09:50 BMI result Body Mass Index 27.5 Const: Other: General resting comfortably in no acute distress. Neck supple no JVD. CVS regular rate rhythm, Respiratory lungs clear to auscultation, no respiratory distress, no wheeze, no rhonchi. Gastrointestinal abdomen soft, mid abd tenderness mild, bowel sounds audible, no guarding , no rigidity. Extremities no edema. Neuro nonfocal Skin no rash psych appropriate affect Objective Data Active Medications Acetaminophen (Acetaminophen 325 Mg Tablet) 650 mg PO Q6H PRN PRN Reason: Pain, Mild (Pain Scale 1-3) Amlodipine Besylate (Amlodipine Besylate 2.5 Mg Tablet) 2.5 mg PO DAILY [facility]; Protocol Last Admin: 07/29/22 09:52 Dose: 2.5 mg Documented By: SUSANNE Apixaban (Apixaban 5 Mg Tablet) 10 mg PO BID [facility] Stop: 08/04/22 21:01 Last Admin: 07/29/22 09:52 Dose: 10 mg Documented By: SUSANNE Aspirin (Aspirin Enteric Coated 81 Mg Tablet.) 81 mg PO DAILY [facility] Last Admin: 07/29/22 09:53 Dose: 81 mg Documented By: SUSANNE Docusate Sodium (Docusate Sodium 100 Mg Capsule) 100 mg PO DAILY PRN PRN Reason: Constipation Fluoxetine HCl (Fluoxetine Hcl 20 Mg Capsule) 20 mg PO BID [facility] Last Admin: 07/29/22 09:53 Dose: 20 mg Documented By: SUSANNE Hydroxyzine HCl (Hydroxyzine Hcl 25 Mg Tablet) 25 - 50 mg PO BEDTIME PRN PRN Reason: Sleep Ceftriaxone Sodium 1 gm/ (Sodium Chloride) 50 mls @ 100 mls/hr IV Q24H [facility] Last Infusion: 07/28/22 23:58 Dose: 0 mls/hr Documented By: MIGUE Morphine Sulfate (Morphine Sulfate 4 Mg/Ml Cartridge) 4 mg IVPUSH Q4H PRN; Protocol PRN Reason: Pain, Severe (Pain Scale 7-10) Ondansetron HCl (Ondansetron Hcl 4 Mg/2 Ml Vial) 4 mg IVPUSH Q8H PRN PRN Reason: Nausea and Vomiting Sodium Chloride (0.9 % Sodium Chloride Flush 3 Ml Syringe) 3 ml IVFLUSH QSHIFT [facility] Last Admin: 07/29/22 09:52 Dose: 3 ml Documented By: SUSANNE Labs 07/29/22 05:51 07/29/22 05:51 Labs: Laboratory Results - last 24 hr 07/28/22 07/28/22 07/29/22 17:07 17:07 05:51 MCV 85.2 84.6 MCH 27.5 27.9 MCHC 32.3 32.9 RDW 13.3 13.4 Plt Count 262 245 MPV 10.3 9.8 Immature Gran % (Auto) 1.0 H 1.3 H Neut % (Auto) 53.5 53.9 Lymph % (Auto) 36.0 34.7 [place] % (Auto) 8.1 7.8 Eos % (Auto) 1.0 1.6 Baso % (Auto) 0.4 0.7 Lymph # (Auto) 2.5 2.4 [place] # (Auto) 0.6 0.5 Eos # (Auto) 0.1 0.1 Baso # (Auto) 0.0 0.1 Abs Immat Gran (auto) 0.07 H 0.09 H Absolute Neuts (auto) 3.8 3.8 Absolute Nucleated RBC 0.000 0.000 Nucleated RBC % (auto) 0.0 0.0 Smear Tech's Comments VERIFIED Anion Gap 11 L Estim Creat Clear Calc 89.9 Estimated GFR > 60 Random Glucose 89 Calcium 9.0 Magnesium 2.1 Total Bilirubin 0.4 Direct Bilirubin 0.1 AST 13 ALT 11 Alkaline Phosphatase 66 Total Protein 6.6 Albumin 3.7 07/29/22 05:51 MCV MCH MCHC RDW Plt Count MPV Immature Gran % (Auto) Neut % (Auto) Lymph % (Auto) [place] % (Auto) Eos % (Auto) Baso % (Auto) Lymph # (Auto) [place] # (Auto) Eos # (Auto) Baso # (Auto) Abs Immat Gran (auto) Absolute Neuts (auto) Absolute Nucleated RBC Nucleated RBC % (auto) Smear Tech's Comments Anion Gap 9 L Estim Creat Clear Calc 89.0 Estimated GFR > 60 Random Glucose 92 Calcium 8.3 L D Magnesium Total Bilirubin Direct Bilirubin AST ALT Alkaline Phosphatase Total Protein Albumin Assessment and Plan (1) Salmonella enteritis: Status: Acute (2) Pulmonary embolism: Status: Acute Plan 47-year-old female with past medical history of hypertension, PE presents to the hospital with complaints of nausea vomiting diarrhea found to have salmonella enter colitis #? severe enterocolitis due to salmonella feeling better less abdominal pain no further bout of nausea vomiting or diarrhea, with similar symptoms, was in [place] when symptoms started 1 week ago same day after eating chicken. -? CT abdomen showing severe enterocolitis, denies high-grade fevers, no bloody stools -? GI panel done on 07/26 shows positive salmonella -? took outpatient antibiotics, will DC further antibiotics continue supportive care with IV fluids antiemetics add clear liquid diet #? hypertensionm-? continue home antihypertensives #? history of PE-? patient with history of PE, on last visit to the hospital on 07/01/2022, patient was noted to be on Coumadin, and somewhere / somehow that medication was discontinued, since PE was provoked with a family history,? she does not remember why Coumadin was discontinued, and there is no note of that in our discharge summary from 07/04 - therefore started on Eliquis 10 mg b.i.d. for 10 days, and then 5 mg b.i.d. ?DVT prophylaxis: Eliquis ?given patient's need for IV IV fluids, IV antiemetics and unable to keep food down patient will need continued inpatient management and monitoring. Time Spent With Patient Time: Total time managing care of this patient today ____ minutes. Quality Stroke Does the patient have a stroke diagnosis?: No VTE Prior VTE?: No VTE Risk Level:: Medical - moderate - high VTE Device Contraindication: Treatment Not Indicated VTE Drug Contraindication: N/A - Med Ordered
--- NOTE | 2022-07-29 12:44 | PC.NURSE ---
[facility] called for IVF.
[2022-07-29] MEDS: KCl 20 mEq in 5 % Dex/Lact Rin 20 MEQ/1,000 ML IV.SOLN 100 MEQ IVCONT ×2 (13:21→16:01)
--- NOTE | 2022-07-29 14:00 | PC.NURSE ---
pt tolerating clear liquid diet. ambulating with strong independent gait.
--- NOTE | 2022-07-29 15:17 | PC.NURSE ---
nurse to nurse report to S3 Colten CHACON
[2022-07-29 15:49] VITALS: BMI 27.5
[2022-07-29 19:07] VITALS: BP 120/81; PULSE 68; RESP 18; TEMP 36.5; O2SAT 97
[2022-07-30] MEDS: KCl 20 mEq in 5 % Dex/Lact Rin 20 MEQ/1,000 ML IV.SOLN 100 MEQ IVCONT (02:30)
[2022-07-30 03:23] VITALS: BP 113/70; PULSE 63; RESP 16; TEMP 36.6; O2SAT 96
[2022-07-30 07:31] VITALS: BP 114/73; PULSE 69; RESP 17; TEMP 36.7; O2SAT 97
[2022-07-30] MEDS: Aspirin Enteric Coated 81 MG TABLET.DR PO (07:44)
[2022-07-30] MEDS: FLUoxetine HCl 20 MG CAPSULE PO (07:44)
[2022-07-30] MEDS: Apixaban 5 MG TABLET 10 MG PO (07:44)
[2022-07-30] MEDS: amLODIPine Besylate 2.5 MG TABLET PO (07:44)
--- NOTE | 2022-07-30 10:43 | MHC.CM.PN ---
pt lives alone had no previous serveis is expected to dc home no servies covid vax x 3
--- NOTE | 2022-07-30 13:45 | P.DS_ITS ---
DS: Providers Provider Date of Service: 07/30/22 Date of admission: 07/28/22 22:32 Primary care physician: Clover Okeefe MD Consults: 07/29/22 08:22 Consult to Infectious Diseases Routine Consulting Provider: Candida Bee Reason for consultation: salmonella enteritis Has provider been notified: No DS: Diagnosis Discharge Diagnosis (1) Salmonella enteritis: Status: Acute (2) Pulmonary embolism: Status: Acute DS: Summary Hospital Course Hospital Course: Hospital course: Date of Service: 07/28/22 Chief Complaint: nausea. vomiting diarrhea ?47-year-old female with past medical history of PE not on anticoagulation, history of back pain, hypertension, presents to the hospital with complaints of persistent nausea vomiting and diarrhea.? Patient was seen in the hospital on 07/26, diagnosed with salmonella, discharged home on levofloxacin.? Returns today stating that continued symptoms.? She states that she continues to not tolerate anything by mouth, she vomit even small amounts of water,? and has persistent diarrhea.? She reports that? she was in [place], and has been treated with rifaximin for a week, and given levofloxacin was taking it for the past 2 days with no relief of symptoms. Denies any fever, no chills, no chest pain, shortness of breath, no urinary symptoms, no lower extremity edema On arrival to the ED patient hemodynamically stable Labs are significant for WBC count 7.0, otherwise unremarkable, GI panel done on 07/26 shows? salmonella CT abdomen shows severe enterocolitis patient started on IV fluids, antiemetics, and will be admitted for further management. hospital course: 47-year-old female with past medical history of hypertension, PE presents to the hospital with complaints of nausea vomiting diarrhea found to have salmonella enter colitis #? severe enterocolitis due to salmonella, admitted to medical floor treated with IV fluids, antiemetics and analgesics CT abdomen showed severe enterocoliti s patient denied bloody stool no high-grade fevers patient responded well to symptomatic treatment diet was gradually advanced patient is tolerating diet with no further bout of nausea vomiting abdominal pain or diarrhea therefore being discharged home with recommendation to follow bland diet. ? #? hypertensionm-? noted to have soft blood pressure therefore losartan/hydrochlorothiazide has been discontinued continue Norvas recommend resume losartan/ hydrochlorothiazide if noted to have systolic BP greater than 135. #? history of PE-? patient with history of PE, previously was on Coumadin, currently patient not on any anticoagulation recommend to follow-up with primary care physician to address continued need for anticoagulationon. Time Spent with Patient Time attestation: Total time managing care of this patient today ____ minutes. Discharge coordination time: Greater than 30 minutes Quality: Safe Use of Opioids Does Pt have an Active Cancer Diagnosis on the Problem List?: No Quality: Stroke Does the patient have a stroke diagnosis?: No Physical Exam Vital Signs: Vital Signs: Last Vital Signs Temp 98.0 F 07/30/22 07:31 Pulse 69 07/30/22 07:31 Resp 17 07/30/22 07:31 BP 114/73 07/30/22 07:31 Pulse Ox 97 07/30/22 07:31 O2 Del Method Room Air 07/30/22 07:31 BMI result Body Mass Index 27.5 Const: Other: General? resting comfortably in no acute distress.? Neck supple no JVD. CVS? regular rate rhythm, Respiratory lungs clear to auscultation, no respiratory distress, no wheeze, no rhonchi. Gastrointestinal abdomen soft, nontender, bowel sounds audible, no guarding , no rigidity. Extremities no? edema. Neuro nonfocal Skin no rash psych appropriate affect Discharge Plan Discharge Anticipated Discharge Date/Time: 07/30/22 13:38 Patient Disposition: Home, Self-Care Discharge Diagnosis: severe enterocolitis Referrals: Clover Okeefe MD [Primary Care Provider] - 1 Week Discharge Medications: Continued amlodipine 2.5 mg tablet 2.5 mg PO DAILY aspirin 81 mg tablet,delayed release (DR/EC) 81 mg DAILY fluoxetine [Prozac] 20 mg capsule 20 mg PO BID hydroxyzine pamoate 25 mg capsule 25 - 50 mg PO BEDTIME PRN (Reason: Sleep) Discontinued losartan-hydrochlorothiazide 100-25 mg tablet 1 tab DAILY levofloxacin 500 mg tablet 500 mg PO DAILY Qty: 7 0RF Discharge Orders: Discharge Order (Routine); Ordered 07/30/22 Ordered By: Tasia Sánchez Diet: bland diet Activity on Discharge: As tolerated Stand Alone Forms: Patient Portal Discharge page Care Plan Goals: salmonella enterocolitis, take bland diet that is yogurt banana pudding Jell-O for next few days avoid high-fiber diet drink plenty of fluids soft blood pressures hold losartan/ hydrochlorothiazide if noted to have blood pressure greater than 135 resume medication follow-up with primary care physician to discuss regarding continued use of anticoagulant return to check with recurrent episodes of abdominal pain, worsening diarrhea. Health Concerns: history of PE/hypertension Plan of Treatment: outpatient follow-up with primary care physician Assessment: as above
--- NOTE | 2022-07-30 14:02 | MHC.CM.PN ---
pt dcd home no skilled sevceis ordered by
== END 2022-07-30 14:57 | disposition home or self-care (01) | DRG 373 ==
LOC: HO.ED 21:28 → HO.EDOVER 22:40 → HO.S3 07-29 15:08
PROVIDERS: Physician Assistant; Admitting Provider Internal Medicine; Emergency Provider Emergency Medicine; PCP Internal Medicine; Visit Provider Hospitalist
DX: A02.0 Salmonella enteritis (principal); Z86.711 Personal history of pulmonary embolism; I10 Essential (primary) hypertension; Z91.040 Latex allergy status; Z79.82 Long term (current) use of aspirin; Z79.899 Other long term (current) drug therapy
CPT/HCPCS: 36415; 80048; 80076; 83735; 85025; 99285; J0696; J1650; J2550

== ENCOUNTER 2022-09-15 17:41 | Emergency (ER) | payer OTHER, SELFPAY ==
[2022-09-15 17:56] VITALS: BP 135/79; PULSE 92; RESP 18; TEMP 37.9; O2SAT 97; BMI 27.1
--- NOTE | 2022-09-15 17:57 | ED_ITS ---
HPI - General Adult General Chief complaint: Urogenital-Female Stated complaint: right side abd pain Time Seen by Provider: 09/15/22 19:01 Source: patient Mode of arrival: ambulatory Limitations: language barrier (Arabic-speaking medical concierge utilized) History of Present Illness HPI narrative: Patient is a 39-year-old female who presents emergency department with 3 days of dysuria, foul-smelling urine, urinary urgency, and right flank pain. Low-grade temperature at home, 100.2 upon arrival to ED. Denies chills, nausea, vomiting, abdominal pain, hematuria, abnormal vaginal discharge or bleeding. Denies possibility of , however she is unaware of last menstrual period. Related Data Home Medications Medication Instructions Recorded Confirmed amlodipine 2.5 mg tablet 2.5 mg PO DAILY 07/06/22 07/28/22 aspirin 81 mg tablet,delayed 81 mg DAILY 07/06/22 07/28/22 release fluoxetine 20 mg capsule (Prozac) 20 mg PO BID 07/06/22 07/28/22 hydroxyzine pamoate 25 mg capsule 25 - 50 mg PO BEDTIME PRN Sleep 07/28/22 07/28/22 Previous Rx's Medication Instructions Recorded ciprofloxacin HCl 500 mg tablet 500 mg PO BID #14 tabs 09/15/22 phenazopyridine 100 mg tablet 100 mg PO TID PRN pain 6 doses #6 09/15/22 (Pyridium) tabs Allergies Allergy/AdvReac Type Severity Reaction Status Date / Time latex [LATEX] Allergy Unknown DERMATITIS Verified 07/26/22 18:02 Review of Systems Review of Systems: Constitutional : No Weight loss, No Fever, No Chills ENT/Mouth :? No sore throat, No Rhinorrhea Eyes: No Swelling, No Redness Cardiovascular : No Chest Pain, No SOB, No Edema Respiratory : No Cough, No Sputum, No Wheezing Gastrointestinal : No Nausea, no Vomiting, no Diarrhea, no abdominal pain, No Hematochezia, No Melena Genitourinary : Positive Dysuria, positive Urinary Frequency, No Hematuria, positive Urgency. Positive flank pain Musculoskeletal : No joint pain, No Myalgias, No Joint Swelling Skin : No Skin Lesions, No rash Neuro : No Weakness, No Numbness, No Dizziness, No Headache Psych : No Anxiety/Panic, No Depression Heme/Lymph: No Bruising, No Lymphadenopathy Endocrine : No Polyuria, No Polydipsia Yes all other systems are reviewed and are negative [facility] Past Medical History Attestation statement: The following information was validated with the patient. Source: old records reviewed Medical History Anemia History of back pain Hx pulmonary embolism Hypertension Pulmonary embolism Surgical History History of carpal tunnel surgery Hx of tubal ligation Family History Family History Maternal Uncle Hx of cancer of lung Mother Hx of myocardial infarction Social History Social History Household Members: Significant Other Housing: Apartment Do you presently have visiting nurse or other home services: No Alcohol intake: never Patient Tobacco Use Status: Never used Tobacco Advance Directives: No Advance Directives Information Provided: Yes service: No Current occupational status: disabled Physical Exam ED Vital Signs: Vital Signs - 24 hr 09/15/22 17:56 Temperature 100.2 F Pulse Rate 92 Respiratory Rate 18 Blood Pressure 135/79 Pulse Oximetry 97 Oxygen Delivery Method Room Air BMI result Body Mass Index 27.1 Appearance: Alert.?Oriented to person, place and time. No acute distress.?Normal affect. Eyes: Pupils equal, round and reactive to light.? ENT: Pharynx normal.?? Neck: Normal inspection.? Neck supple.?? CVS: Heart sounds normal. Normal heart rate and rhythm.? Pulses normal.?? Respiratory: No respiratory distress.? Lung sounds clear to auscultation bilaterally?? Abdomen: Soft and non-tender. Mild right-sided CVA tenderness. Normoactive bowel sounds. Skin: Skin warm and dry.? Normal skin color.? Extremities: No lower extremity edema.? Neuro: Moves all extremities spontaneously. Sensation intact bilaterally. No focal neuro deficits. Ambulates with normal steady gait. Course Course Course Narrative: RME- 39-year-old female presents for evaluation of right flank pain, foul smelling and painful urination. In triage with a temp 100.2?. Plan for labs, UA Reevaluation(s) Reevaluation #1: CBC reveals a mild leukocytosis 11.4 with left shift, overall unremarkable CMP, no ENEDINA, urinalysis consistent with urinary tract infection. HCG is negative. Patient is Tolerating oral intake, mild right CVA tenderness, concern for pyelonephritis, Will treat with oral antibiotic, discussed strict return precautions. Verbalized understanding. Stable for discharge. Time: 20:19 Medical Decision Making Medical Decision Making MDM Narrative: Patient is a 47-year-old female presenting to emergency department for evaluation of dysuria. At the time of examination she is overall well- appearing, nontoxic, low-grade temp, mild CVA tenderness upon examination, otherwise abdominal examination is benign, no peritoneal signs. Will obtain CBC to evaluate for leukocytosis/ anemia, CMP to evaluate for abnormal electrolytes /abnormal renal function and Urinalysis. Differential Diagnosis Differential Diagnoses: The differential diagnosis associated with the presentation includes (Urinary tract infection, pyelonephritis, nephrolithiasis, ureteral calculi, hydronephrosis) Lab Data [facility] Lab Attestation statement: I reviewed the patient's lab results. (As per course narrative) 09/15/22 18:13 09/15/22 18:13 Labs: Lab Results 09/15/22 09/15/22 09/15/22 Range/Units 18:12 18:13 18:13 WBC 11.4 H (4.8-10.8) X10*3/uL RBC 4.67 (4.20-5.50) X10*6/uL Hgb 13.2 (12.0-16.0) g/dl Hct 39.9 (37.0-47.0) % MCV 85.4 (80.0-98.0) fL MCH 28.3 (27.0-33.0) pg MCHC 33.1 (31.0-35.0) g/dl RDW 14.1 (11.0-16.0) % Plt Count 190 (160-400) X10*3/uL MPV 11.9 (9.4-12.3) fL Immature Gran % (Auto) 0.3 (0.0-0.4) % Neut % (Auto) 74.2 H (45-73) % Lymph % (Auto) 17.6 L (20-40) % [place] % (Auto) 5.9 (2-11) % Eos % (Auto) 1.4 (0-4) % Baso % (Auto) 0.6 (0-2) % Lymph # (Auto) 2.0 (1.2-4.9) X10*3/uL [place] # (Auto) 0.7 (0.1-1.2) X10*3/uL Eos # (Auto) 0.2 (0.0-0.4) X10*3/uL Baso # (Auto) 0.1 (0.0-0.2) X10*3/uL Abs Immat Gran (auto) 0.03 (0.00-0.03) X10*3/uL Absolute Neuts (auto) 8.5 H (2.0-8.3) x10*3/uL Absolute Nucleated RBC 0.000 (0.0-0.012) X10*3/uL Nucleated RBC % (auto) 0.0 (0.0-0.2) /100WBC Sodium 143 (135-145) mmol/L Potassium 3.7 (3.3-5.1) mmol/L Chloride 110 H (96-108) mmol/L Carbon Dioxide 26 (22-29) mmol/L Anion Gap 11 L (12-20) BUN 12 (9-16) mg/dL Creatinine 0.83 (0.5-1.4) mg/dL Estim Creat Clear Calc 74.5 Estimated GFR > 60 Random Glucose 90 (60-115) mg/dL Lactic Acid 1.0 (0.5-2.0) mmol/L Calcium 9.4 D (8.4-10.2) mg/dL Total Bilirubin 0.8 (0.0-1.0) mg/dL AST 14 (5-31) U/L ALT 9 (0-31) U/L Alkaline Phosphatase 80 (39-117) U/L Total Protein 7.7 (6.5-8.0) g/dL Albumin 4.1 (3.5-5.0) g/dL Lipase 22 (8-78) U/L Urine Color Urine Appearance Urine pH (5.0-9.0) Ur Specific [place] (1.005-1.025) Urine Protein (Neg-Trace) mg/dL Urine Glucose (UA) (Negative) mg/dL Urine Ketones (Negative) mg/dL Urine Blood (Negative) Urine Nitrite (Negative) Ur Leukocyte Esterase (Negative) Urine RBC (0-2) /HPF Urine WBC (0-5) /HPF Ur Squamous Epith Cells Urine Bacteria (None Seen) Hyaline Casts Urine Test (NEGATIVE) 09/15/22 09/15/22 Range/Units 18:13 18:13 WBC (4.8-10.8) X10*3/uL RBC (4.20-5.50) X10*6/uL Hgb (12.0-16.0) g/dl Hct (37.0-47.0) % MCV (80.0-98.0) fL MCH (27.0-33.0) pg MCHC (31.0-35.0) g/dl RDW (11.0-16.0) % Plt Count (160-400) X10*3/uL MPV (9.4-12.3) fL Immature Gran % (Auto) (0.0-0.4) % Neut % (Auto) (45-73) % Lymph % (Auto) (20-40) % [place] % (Auto) (2-11) % Eos % (Auto) (0-4) % Baso % (Auto) (0-2) % Lymph # (Auto) (1.2-4.9) X10*3/uL [place] # (Auto) (0.1-1.2) X10*3/uL Eos # (Auto) (0.0-0.4) X10*3/uL Baso # (Auto) (0.0-0.2) X10*3/uL Abs Immat Gran (auto) (0.00-0.03) X10*3/uL Absolute Neuts (auto) (2.0-8.3) x10*3/uL Absolute Nucleated RBC (0.0-0.012) X10*3/uL Nucleated RBC % (auto) (0.0-0.2) /100WBC Sodium (135-145) mmol/L Potassium (3.3-5.1) mmol/L Chloride (96-108) mmol/L Carbon Dioxide (22-29) mmol/L Anion Gap (12-20) BUN (9-16) mg/dL Creatinine (0.5-1.4) mg/dL Estim Creat Clear Calc Estimated GFR Random Glucose (60-115) mg/dL Lactic Acid (0.5-2.0) mmol/L Calcium (8.4-10.2) mg/dL Total Bilirubin (0.0-1.0) mg/dL AST (5-31) U/L ALT (0-31) U/L Alkaline Phosphatase (39-117) U/L Total Protein (6.5-8.0) g/dL Albumin (3.5-5.0) g/dL Lipase (8-78) U/L Urine Color Yellow Urine Appearance Cloudy Urine pH 6.0 (5.0-9.0) Ur Specific [place] >= 1.030 H (1.005-1.025) Urine Protein 300 (3+) H (Neg-Trace) mg/dL Urine Glucose (UA) Negative (Negative) mg/dL Urine Ketones 15 (Negative) mg/dL Urine Blood Large (3+) H (Negative) Urine Nitrite Positive H (Negative) Ur Leukocyte Esterase Trace H (Negative) Urine RBC 6-10 H (0-2) /HPF Urine WBC 6-10 (0-5) /HPF Ur Squamous Epith Cells Not Reportable Urine Bacteria 1+ (None Seen) Hyaline Casts Not Reportable Urine Test NEGATIVE (NEGATIVE) External Record Review External record reviewed: Outpatient record and Prior outpatient labs Tests considered The following testing was considered but not selected: I considered CT imaging of the abdomen and pelvis, however abdominal examination is benign, CT imaging deferred. Prescription Management I considered prescription management with: Antibiotic Discharge Plan Discharge Clinical Impression: Urinary tract infection Patient Disposition: Home, Self-Care Instructions: Urinary Tract Infection in Women (DC) Additional Instructions: As discussed, you were found to have a urinary tract infection today. I have sent a prescription for Pyridium to the pharmacy this may help with the burning while urinating, it is common that this will turn your urine bright orange. I have also sent a prescription for antibiotics your pharmacy, please complete this entire course. Return back to the emergency department any new or worsening symptoms or concerns, this includes but is not limited to; fevers not responding to acetaminophen/ibuprofen, shaking chills, nausea with persistent vomiting, inability to tolerate oral intake, inability to urinate, severe worsening pain. Please contact your primary care provider and arrange for a follow-up visit within 1-3 days. Prescriptions: New phenazopyridine [Pyridium] 100 mg tablet 100 mg PO TID PRN (Reason: pain) Qty: 6 0RF ciprofloxacin HCl 500 mg tablet 500 mg PO BID Qty: 14 0RF No Action amlodipine 2.5 mg tablet 2.5 mg PO DAILY aspirin 81 mg tablet,delayed release (DR/EC) 81 mg DAILY fluoxetine [Prozac] 20 mg capsule 20 mg PO BID hydroxyzine pamoate 25 mg capsule 25 - 50 mg PO BEDTIME PRN (Reason: Sleep) Referrals: Clover Okeefe MD [Primary Care Provider] - Interventions: ED Discharge Assessment Last Done: 09/15/22 20:21 Discharge Date/Time: 09/15/22 20:37
== END 2022-09-15 20:37 | disposition home or self-care (01) ==
PROVIDERS: Emergency Provider Emergency Medicine Emergency Medical Services; PCP Internal Medicine
DX: N39.0 Urinary tract infection, site not specified (principal); B96.20 Unspecified Escherichia coli [E. coli] as the cause of diseases classified elsewhere; R50.9 Fever, unspecified; I10 Essential (primary) hypertension; Z79.82 Long term (current) use of aspirin; Z79.899 Other long term (current) drug therapy
CPT/HCPCS: 36415; 80053; 81001; 81025; 83605; 83690; 85025; 87040; 87086; 87088; 87186; 99283

== ENCOUNTER 2022-12-20 09:51 | Emergency (ER) | payer OTHER, SELFPAY ==
[2022-12-20 10:03] VITALS: BP 168/90; PULSE 96; RESP 16; TEMP 37; O2SAT 98; BMI 27.4
[2022-12-20 12:12] VITALS: BP 127/79; PULSE 83; RESP 14; TEMP 37.3; O2SAT 99
--- NOTE | 2022-12-20 12:53 | ED.URI ---
HPI - URI/Sore Throat General Chief Complaint: Upper Respiratory Symptoms Stated Complaint: running nose headache Time Seen by Provider: 12/20/22 11:39 Source: patient and RN notes reviewed Mode of arrival: ambulatory Limitations: no limitations History of Present Illness HPI Narrative: This is a 47-year-old female, with a past medical history of pulmonary embolism on Eliquis, presenting to the emergency department for evaluation of nasal congestion, runny nose, headaches, and productive cough with clear colored sputum x 5 days. Patient denies any fevers, chills, worsening headache with leaning over, chest pain, abdominal pain, nausea, vomiting or diarrhea. Denies any sick contacts. She has been taking [place] for her symptoms which has provided her with minimal relief. No other complaints or concerns at this time. MD elicited complaint: cough Consistency: constant Severity: moderate Description of mucous: clear and watery Able to tolerate fluids by mouth: Yes Exacerbating factors: nothing Associated symptoms: headache, rhinorrhea, nasal congestion and cough Treatments prior to arrival: none Related Data Home Medications Medication Instructions Recorded Confirmed amlodipine 2.5 mg tablet 2.5 mg PO DAILY 07/06/22 07/28/22 aspirin 81 mg tablet,delayed 81 mg DAILY 07/06/22 07/28/22 release fluoxetine 20 mg capsule (Prozac) 20 mg PO BID 07/06/22 07/28/22 hydroxyzine pamoate 25 mg capsule 25 - 50 mg PO BEDTIME PRN Sleep 07/28/22 07/28/22 Previous Rx's Medication Instructions Recorded ciprofloxacin HCl 500 mg tablet 500 mg PO BID #14 tabs 09/15/22 phenazopyridine 100 mg tablet 100 mg PO TID PRN pain 6 doses #6 09/15/22 (Pyridium) tabs acetaminophen 325 mg capsule 650 mg (2 x 325 mg) PO Q6H PRN 12/20/22 (Tylenol) pain #30 caps benzonatate 200 mg capsule 200 mg PO BID PRN cough #20 caps 12/20/22 Allergies Allergy/AdvReac Type Severity Reaction Status Date / Time latex [LATEX] Allergy Unknown DERMATITIS Verified 07/26/22 18:02 Review of Systems Review of Systems: Yes all other systems are reviewed and are negative Constitutional: Constitutional: Reports as per [facility] Past Medical History Medical History Anemia History of back pain Hx pulmonary embolism Hypertension Pulmonary embolism Surgical History History of carpal tunnel surgery Hx of tubal ligation Family History Family History Maternal Uncle Hx of cancer of lung Mother Hx of myocardial infarction Social History Social History Household Members: Significant Other Housing: Apartment Do you presently have visiting nurse or other home services: No Alcohol intake: never Patient Tobacco Use Status: Never used Tobacco Advance Directives: No service: No Current occupational status: disabled Physical Exam Vital Signs: Vital Signs: Last Vital Signs Temp 99.1 F 12/20/22 12:12 Pulse 83 12/20/22 12:12 Resp 14 12/20/22 12:12 BP 127/79 12/20/22 12:12 Pulse Ox 99 12/20/22 12:12 O2 Del Method Room Air 12/20/22 12:12 BMI result Body Mass Index 27.4 Const: General: cooperative, comfortable and no acute distress Orientation/consciousness: patient oriented x3 Limitations: no limitations HEENT: Head: Yes normal to inspection, Yes normocephalic and Yes atraumatic Ears: hearing grossly normal bilaterally General nose exam: Normal external nose present Face and sinus: Yes normal facial exam Mouth: Normal oral and palatal mucosa present, oropharynx normal and moist mucous membranes Throat: Yes posterior oropharynx normal Eyes: General: appearance normal, both eyes and all related structures Eyelids: Yes eyelids normal Conjunctivae: conjunctivae normal Sclerae: sclerae normal Pupils: Equal, round and reactive pupils present EOM: EOMs intact bilaterally Neck: Neck: Yes normal visual inspection, Yes full ROM and Yes no lymphadenopathy Lymphatic: no lymphadenopathy noted Chest: Chest palpation & inspection: normal inspection of the chest Resp: Other: Faint expiratory wheeze noted at the left lower base Effort & Inspection: normal respiratory effort and able to speak in complete sentences Auscultation: clear to auscultation bilaterally, no crackles, no rales and no rhonchi Cardio: Rate: regular rate Rhythm: regular rhythm Heart sounds: S1 normal heart sound present and S2 normal heart sound present GI: Inspection: Yes normal to inspection Skin: General skin exam: no rashes or lesions noted Trauma: no lacerations or abrasions Wounds: no wounds Neuro: General: patient oriented x3 and moves all extremities Cranial nerves: Yes Equal, round and reactive pupils present Extrem: General: Yes normal to inspection Right upper extremity: normal to inspection Left upper extremity: normal to inspection Right lower extremity: normal to inspection Left lower extremity: normal to inspection Course Reevaluation(s) Reevaluation #1: Chest x-ray negative. Symptoms likely due to viral URI. Will treat conservatively, does not require antibiotics at this time. Given return precautions. Patient understands and agrees with plan patient stable for discharge. Time: 13:22 Medical Decision Making Medical Decision Making MDM Narrative: 47-year-old female presenting to the emergency department for evaluation of nasal congestion, runny nose, headache, productive cough with clear colored sputum x5 days. On arrival, blood pressure elevated at 168/90, repeat 127/79, patient afebrile. On examination, patient has nontender sinuses, with faint expiratory wheeze noted to the left lower base, no rhonchi or rales noted. Given findings, will obtain chest x-ray Differential Diagnosis Differential Diagnoses: The differential diagnosis associated with the presentation includes URI, sinusitis, COVID, influenza, pneumonia Lab Data Labs: Lab Results 12/20/22 Range/Units 10:12 COVID-19 (MANNIE) Negative (Negative) COVID-19 Clin Com See Note Influenza Type A (JUANY) Negative (Negative) Influenza Type B (JUANY) Negative (Negative) Influenza A & B Note See Note Radiology Impression Discussion of test interpretation with radiology: I have reviewed the radiologist's reading. Radiologist Impression: EXAMINATION: XR CHEST 2 VIEW CLINICAL INFORMATION: Cough COMPARISON: 07/05/2022 TECHNIQUE: PA and lateral views of the chest obtained. FINDINGS: The lungs are clear. There are no pleural effusions. The cardiomediastinal silhouette is normal. XR/XR chest 2V IMPRESSION: No acute cardiopulmonary disease. Dictated By: Kane Freeman MD Discharge Plan Discharge Clinical Impression: Acute viral syndrome, Acute upper respiratory infection Patient Disposition: Home, Self-Care Instructions: Viral Syndrome (ED) Additional Instructions: You tested negative for flu, RSV, COVID. Your chest x-ray did not show pneumonia. Your symptoms are likely due to a virus. This does not require antibiotics to resolve. Please drink plenty of fluids get plenty of rest. Take prescribed medication as directed. Follow-up with your primary care physician. If any new or worsening symptoms occur, including but not limited to chest pain, shortness of breath, please return for re-evaluation. Prescriptions: New benzonatate 200 mg capsule 200 mg PO BID PRN (Reason: cough) Qty: 20 0RF acetaminophen [Tylenol] 325 mg capsule 650 mg PO Q6H PRN (Reason: pain) Qty: 30 0RF No Action amlodipine 2.5 mg tablet 2.5 mg PO DAILY aspirin 81 mg tablet,delayed release (DR/EC) 81 mg DAILY fluoxetine [Prozac] 20 mg capsule 20 mg PO BID hydroxyzine pamoate 25 mg capsule 25 - 50 mg PO BEDTIME PRN (Reason: Sleep) phenazopyridine [Pyridium] 100 mg tablet 100 mg PO TID PRN (Reason: pain) Qty: 6 0RF ciprofloxacin HCl 500 mg tablet 500 mg PO BID Qty: 14 0RF Interventions: ED Discharge Assessment Last Done: 12/20/22 13:30 Discharge Date/Time: 12/20/22 13:31
--- NOTE | 2022-12-20 13:08 | PC.NURSE ---
AWAITING XRAY RESULTS. RESTING QUIETLY ON STRETCHER
== END 2022-12-20 13:31 | disposition home or self-care (01) ==
PROVIDERS: Emergency Provider Emergency Medicine; PCP Internal Medicine
DX: J06.9 Acute upper respiratory infection, unspecified (principal); B34.9 Viral infection, unspecified; R09.81 Nasal congestion; R51.9 Headache, unspecified; R05.9 Cough, unspecified; R07.89 Other chest pain; Z11.52 Encounter for screening for COVID-19
CPT/HCPCS: 71046; 87502; 87635; 99283

== ENCOUNTER 2023-02-07 10:44 | Emergency (ER) | payer OTHER, SELFPAY ==
[2023-02-07 11:11] VITALS: BP 155/83; PULSE 91; RESP 18; TEMP 37.3; O2SAT 99; BMI 27.9
--- NOTE | 2023-02-07 11:12 | ED_ITS ---
HPI - Abdominal Pain General Chief Complaint: Urogenital-Female Stated Complaint: R side back pain Time Seen by Provider: 02/07/23 13:51 Source: patient Mode of arrival: ambulatory Limitations: language barrier History of Present Illness HPI narrative: 47yo female with history of HTN, PE on eliquis here with complaints of right flank pain x 1 month with dysuria, urinary frequency. NO vomiting, fevers, vaginal discharge LMP 10/15-h/o irregular menses. Related Data Home Medications Medication Instructions Recorded Confirmed amlodipine 2.5 mg tablet 2.5 mg PO DAILY 07/06/22 07/28/22 aspirin 81 mg tablet,delayed 81 mg DAILY 07/06/22 07/28/22 release fluoxetine 20 mg capsule (Prozac) 20 mg PO BID 07/06/22 07/28/22 hydroxyzine pamoate 25 mg capsule 25 - 50 mg PO BEDTIME PRN Sleep 07/28/22 07/28/22 Previous Rx's Medication Instructions Recorded ciprofloxacin HCl 500 mg tablet 500 mg PO BID #14 tabs 09/15/22 phenazopyridine 100 mg tablet 100 mg PO TID PRN pain 6 doses #6 09/15/22 (Pyridium) tabs acetaminophen 325 mg capsule 650 mg (2 x 325 mg) PO Q6H PRN 12/20/22 (Tylenol) pain #30 caps benzonatate 200 mg capsule 200 mg PO BID PRN cough #20 caps 12/20/22 cephalexin 500 mg capsule 500 mg PO BID 14 days #28 caps 02/07/23 phenazopyridine 200 mg tablet 200 mg PO TID PRN pain 6 doses #6 02/07/23 (Pyridium) tabs Allergies Allergy/AdvReac Type Severity Reaction Status Date / Time latex [LATEX] Allergy Unknown DERMATITIS Verified 07/26/22 18:02 Review of Systems Review of Systems Yes all other systems are reviewed and are negative Constitutional: Reports no additional constitutional complaints, Denies body ache(s), Denies chills, Denies fever(s), Denies headache(s) and Denies weakness Eyes: Reports no additional eye complaints and Denies change in vision Reports system reviewed and no additional complaints, except as documented, Denies dizziness, Denies headache(s), Denies nasal congestion, Denies nasal discharge and Denies neck pain Cardiovascular: Reports no additional cardiovascular complaints, Denies chest pain, Denies leg edema and Denies dyspnea Respiratory: Reports no additional respiratory complaints, Denies cough and Denies dyspnea Gastrointestinal: Reports no additional gastrointestinal complaints, Denies abdominal pain, Denies diarrhea, Denies nausea and Denies vomiting Genitourinary: Reports no additional female genitourinary complaints, Denies hematuria, Denies dysuria, Reports flank pain, Denies urinary incontinence, Denies urinary hesitancy, Reports urinary urgency and Denies vaginal discharge Musculoskeletal: Reports no additional musculoskeletal complaints, Reports back pain, Denies arthralgias, Denies joint swelling, Denies neck pain, Denies numbness and Denies tingling Skin/Breast: Reports system reviewed and no additional complaints, except as docu and Denies rash Reports system reviewed and no additional complaints, except as documented, Denies Abnormal speech present, Denies dizziness, Denies headache(s), Denies numbness, Denies tingling and Denies weakness PMFSH Past Medical History Attestation statement: The following information was validated with the patient. Source: old records reviewed and nursing notes reviewed Medical History Hypertension Pulmonary embolism History of back pain Anemia Hx pulmonary embolism Surgical History Hx of tubal ligation History of carpal tunnel surgery Family History Family History Maternal Uncle Hx of cancer of lung Mother Hx of myocardial infarction Social History Household Members: Significant Other Housing: Apartment Do you presently have visiting nurse or other home services: No Alcohol intake: never Patient Tobacco Use Status: Never used Tobacco service: No Current occupational status: disabled Physical Exam ED Vital Signs: Vital Signs - 24 hr 02/07/23 11:11 Temperature 99.2 F Pulse Rate 91 Respiratory Rate 18 Blood Pressure 155/83 H Pulse Oximetry 99 Oxygen Delivery Method Room Air BMI result Body Mass Index 27.9 Const General: cooperative, healthy appearing, comfortable and no acute distress Orientation/consciousness: patient oriented x3 Limitations: no limitations HENMT Head: Yes normal to inspection Ears: hearing grossly normal bilaterally General nose exam: Normal external nose present Face and sinus: Yes normal facial exam Mouth: Normal oral and palatal mucosa present Throat: Yes posterior oropharynx normal Eyes General: appearance normal, both eyes and all related structures Pupils: Equal, round and reactive pupils present Neck Neck: Yes normal visual inspection Chest Chest palpation & inspection: normal inspection of the chest Resp Effort & Inspection: normal respiratory effort Auscultation: clear to auscultation bilaterally Cardio Rate: regular rate Rhythm: regular rhythm Peripheral pulses: Peripheral pulses 2+ throughout GI Inspection: Yes normal to inspection Palpation (GI): Soft to palpation and nontender Auscultation: normal bowel sounds General: Yes CVA tenderness (mild) Back/Spine/Pelvis Back: CVA tenderness (mild) Thoracic/Lumbar Spine: thoracic and lumbar spine normal to inspection Skin General skin exam: no rashes or lesions noted Neuro General: patient oriented x3, no focal motor deficits and normal sensation to monofilament Cranial nerves: Yes Equal, round and reactive pupils present Cognition (Neuro): normal cognition Speech: No Abnormal speech present Gait exam (Neuro): Normal gait present Motor exam (neuro): 5/5 motor strength present throughout Extrem General: Yes normal to inspection Course Course Course Narrative: This is a rapid medical exam. Deferred additional HPI, ROS, PE to primary provider. 47 yo female with history of HTN, PE on eliquis here with complaints of right flank pain x 1 month with dysuria, urinary frequency. LMP 10/15-h/o irregular menses. Will obtain labs, UA, ur preg VSS Medical Decision Making Medical Decision Making MDM Narrative: 47yo female with history of HTN, PE on eliquis here with complaints of right flank pain x 1 month with dysuria, urinary frequency. NO vomiting, fevers, vaginal discharge LMP 10/15-h/o irregular menses. Mild R CVAT. NO focal abdominal pain Reviewed labs, UA from triage Mild UTI-normal renal function with no leukocytosis or shift. Patient afebrile, non-toxic and tolerating PO. May have mild pyelo. Can be discharged home on oral antitbiotics with return precautions. Differential Diagnosis Differential Diagnoses: The differential diagnosis associated with the presentation includes low concern for acute appy, renal colic Admission/Observation Consideration of admission/observation: Escalation of care including admission/observation considered Afebrile, normal renal function, tolerating PO, pain controlled-will discharge home with oral antibiotics. No need for IV antibiotics or admission Lab Data MDM Lab Attestation statement: I reviewed the patient's lab results. +uti otherwise normal 02/07/23 13:18 02/07/23 13:23 Labs: Lab Results 02/07/23 02/07/23 Range/Units 13:18 13:23 WBC 7.0 (4.8-10.8) X10*3/uL RBC 4.98 (4.20-5.50) X10*6/uL Hgb 13.3 (12.0-16.0) g/dl Hct 41.9 (37.0-47.0) % MCV 84.1 (80.0-98.0) fL MCH 26.7 L (27.0-33.0) pg MCHC 31.7 (31.0-35.0) g/dl RDW 15.4 (11.0-16.0) % Plt Count 217 (160-400) X10*3/uL MPV 11.8 (9.4-12.3) fL Immature Gran % (Auto) 0.1 (0.0-0.4) % Neut % (Auto) 60.6 (45-73) % Lymph % (Auto) 29.4 (20-40) % Mineral % (Auto) 8.5 (2-11) % Eos % (Auto) 0.7 (0-4) % Baso % (Auto) 0.7 (0-2) % Lymph # (Auto) 2.1 (1.2-4.9) X10*3/uL Mineral # (Auto) 0.6 (0.1-1.2) X10*3/uL Eos # (Auto) 0.1 (0.0-0.4) X10*3/uL Baso # (Auto) 0.1 (0.0-0.2) X10*3/uL Abs Immat Gran (auto) 0.01 (0.00-0.03) X10*3/uL Absolute Neuts (auto) 4.3 (2.0-8.3) x10*3/uL Absolute Nucleated RBC 0.000 (0.0-0.012) X10*3/uL Nucleated RBC % (auto) 0.0 (0.0-0.2) /100WBC Sodium 139 (135-145) mmol/L Potassium 4.3 (3.3-5.1) mmol/L Chloride 109 H (96-108) mmol/L Carbon Dioxide 24 (22-29) mmol/L Anion Gap 10 L (12-20) BUN 15 (9-16) mg/dL Creatinine 0.78 (0.5-1.4) mg/dL Estim Creat Clear Calc 80.3 Estimated GFR > 60 Random Glucose 88 (60-115) mg/dL Calcium 9.5 (8.4-10.2) mg/dL Total Bilirubin 0.7 (0.0-1.0) mg/dL Direct Bilirubin 0.2 (0.0-0.5) mg/dL AST 14 (5-31) U/L ALT 9 (0-31) U/L Alkaline Phosphatase 72 (39-117) U/L Total Protein 7.8 (6.5-8.0) g/dL Albumin 4.2 (3.5-5.0) g/dL Urine Color Dark Yellow Urine Appearance Cloudy Urine pH 7.0 (5.0-9.0) Ur Specific [place] 1.025 (1.005-1.025) Urine Protein Trace (Neg-Trace) mg/dL Urine Glucose (UA) Negative (Negative) mg/dL Urine Ketones Trace (Negative) mg/dL Urine Blood Negative (Negative) Urine Nitrite Positive H (Negative) Ur Leukocyte Esterase Small (1+) H (Negative) Urine RBC 0-2 (0-2) /HPF Urine WBC 11-20 H (0-5) /HPF Ur Squamous Epith Cells 6-10 (0-2) /HPF Urine Bacteria 4+ (None Seen) Hyaline Casts 3-5 (0-2) /LPF Urine Test NEGATIVE (NEGATIVE) Tests considered The following testing was considered but not selected: MIld cvat, non toxic-no need for CT A/P Prescription Management I considered prescription management with: Pain Medication and Antibiotic Chronic Conditions PE on AC therapy Discharge Plan Discharge Clinical Impression: Pyelonephritis Patient Disposition: Home, Self-Care Instructions: Kidney Infection (ED) Additional Instructions: Increase fluid, rest Take the antibiotics as prescribed Return for worsening symptoms Aumentar l?quido, descansar. [place] los antibi?ticos seg?n lo recetado. Regresar si los s?ntomas empeoran Prescriptions: New cephalexin 500 mg capsule 500 mg PO BID 14 Days Qty: 28 0RF phenazopyridine [Pyridium] 200 mg tablet 200 mg PO TID PRN (Reason: pain) Qty: 6 0RF No Action amlodipine 2.5 mg tablet 2.5 mg PO DAILY aspirin 81 mg tablet,delayed release (DR/EC) 81 mg DAILY fluoxetine [Prozac] 20 mg capsule 20 mg PO BID benzonatate 200 mg capsule 200 mg PO BID PRN (Reason: cough) Qty: 20 0RF acetaminophen [Tylenol] 325 mg capsule 650 mg PO Q6H PRN (Reason: pain) Qty: 30 0RF hydroxyzine pamoate 25 mg capsule 25 - 50 mg PO BEDTIME PRN (Reason: Sleep) phenazopyridine [Pyridium] 100 mg tablet 100 mg PO TID PRN (Reason: pain) Qty: 6 0RF ciprofloxacin HCl 500 mg tablet 500 mg PO BID Qty: 14 0RF Referrals: Clover Okeefe MD [Primary Care Provider] - 10 days Print Language: Indonesian
[2023-02-07 13:25] LABS: MANUAL DIFF FLAG NO
[2023-02-07 13:33] LABS: Appearance Urine Cloudy; Color Urine Dark Yellow; Glucose Urine UA Negative (Negative); Leukocyte Esterase Urine Small (1+) (Negative); Nitrite Urine Positive (Negative); Specific Gravity - Urine 1.025 (1.005-1.025); UMIC TRIGGER UACC YES; Urine Blood Negative (Negative); Urine Ketones Trace mg/dL (Negative); Urine Protein Trace mg/dL (Neg-Trace)
[2023-02-07 13:34] LABS: UPreg QC Valid YES; Urine Pregnancy NEGATIVE (NEGATIVE)
[2023-02-07 13:35] LABS: Basophils Absolute Auto 0.1 X10*3/uL (0.0-0.2); Basophils Percent Auto 0.7 % (0-2); Eosinophils Absolute Auto 0.1 X10*3/uL (0.0-0.4); Eosinophils Percent Auto 0.7 % (0-4); Hematocrit 41.9 % (37.0-47.0); Hemoglobin 13.3 g/dl (12.0-16.0); Imm Gran Abs Auto 0.01 X10*3/uL (0.00-0.03); Imm Gran Pct Auto 0.1 % (0.0-0.4); Lymphocytes Absolute Auto 2.1 X10*3/uL (1.2-4.9); Lymphocytes Percent Auto 29.4 % (20-40); Mean Corpuscular HGB Conc 31.7 g/dl (31.0-35.0); Mean Corpuscular Hemoglobin 26.7 pg (27.0-33.0); Mean Corpuscular Volume 84.1 fL (80.0-98.0); Mean Platelet Volume 11.8 fL (9.4-12.3); Monocytes Absolute Auto 0.6 X10*3/uL (0.1-1.2); Monocytes Percent Auto 8.5 % (2-11); Neutrophils Absolute Auto 4.3 x10*3/uL (2.0-8.3); Neutrophils Percent Auto 60.6 % (45-73); Platelet Count 217 X10*3/uL (160-400); Red Blood Count 4.98 X10*6/uL (4.20-5.50); Red Cell Distribution Width 15.4 % (11.0-16.0)
[2023-02-07 13:37] LABS: Bacteria Urine 4+ (None Seen); RBC Urine 0-2 /HPF (0-2); UACC Culture Trigger YES
[2023-02-07 13:45] LABS: Alanine Aminotransferase 9 U/L (0-31); Albumin Level 4.2 g/dL (3.5-5.0); Alkaline Phosphatase 72 U/L (39-117); Anion Gap 10 (12-20); Aspartate Amino Transferase 14 U/L (5-31); Bilirubin Direct 0.2 mg/dL (0.0-0.5); Bilirubin Total 0.7 mg/dL (0.0-1.0); Blood Urea Nitrogen 15 mg/dL (9-16); Calcium 9.5 mg/dL (8.4-10.2); Carbon Dioxide 24 mmol/L (22-29); Chloride 109 mmol/L (96-108); Creatinine Clr Calc Pharmacy 80.3; Estimated Glomerular Filt Rate > 60; Glucose Random 88 mg/dL (60-115); Potassium 4.3 mmol/L (3.3-5.1); Sodium 139 mmol/L (135-145); Total Protein 7.8 g/dL (6.5-8.0)
== END 2023-02-07 14:08 | disposition home or self-care (01) ==
PROVIDERS: Nurse Practitioner Family; Emergency Provider Emergency Medicine; PCP Internal Medicine
DX: N12 Tubulo-interstitial nephritis, not specified as acute or chronic (principal); I10 Essential (primary) hypertension; Z86.711 Personal history of pulmonary embolism; Z79.01 Long term (current) use of anticoagulants; Z79.82 Long term (current) use of aspirin; Z79.899 Other long term (current) drug therapy
CPT/HCPCS: 36415; 80048; 80076; 81001; 81025; 85025; 87086; 87088; 87186; 99282; 99283

== ENCOUNTER 2023-03-24 11:17 | Emergency (ER) | payer OTHER, SELFPAY ==
--- NOTE | ~2023-03-24 | CT_ITS ---
EXAMINATION: CT SOFT TISSUE NECK WITH CONTRAST CLINICAL INFORMATION: Globus sensation, evaluate for peritonsillar abscess COMPARISON: None available. TECHNIQUE: Following the administration of 60 mL of Omnipaque 350 intravenous contrast, helical imaging was performed in the axial plane with generation of coronal and sagittal reformatted images. This CT examination was performed using dose optimization techniques as appropriate, variously including the following: *Automated exposure control. *Adjustment of mA and/or kV according to patient size (this includes techniques or standardized protocols for targeted exams where dose is matched to indication/reason for exam; i.e. extremities or head). *Use of iterative reconstruction technique. DLP: 449.0 mGy-cm mGy-cm. FINDINGS: Nasopharynx/Skull Base: The fat planes at the skull base and the soft tissues of the nasopharynx are within normal limits. The paranasal sinuses and mastoid air cells are well-aerated. Suprahyoid Neck: Suboptimal evaluation the oral cavity/oropharynx secondary to streak artifact from dental amalgam. No exophytic mass/lesion or drainable collection is visualized within this constraint. The submandibular glands are within normal limits. Approximately 9 mm hyperenhancing nodule along the deep lobe of the left parotid gland (2-27). Infrahyoid Neck: Evaluation is limited by apposed vocal folds. No exophytic mass/lesion is visualized within this constraint. Thyroid: Subcentimeter hypodense thyroid nodules for which no imaging follow-up is needed per size criteria. Nodes: No significant cervical lymph nodes by CT size criteria. Lung Apices: The partially visualized lungs are clear. Vascular Structures:Venous contamination degrades evaluation of the left vertebral artery and portions of the right vertebral artery. Osseous Structures: No acute osseous abnormality. Other Findings: Limited intracranial evaluation is within normal limits. CT/CT soft tissue neck w IV con IMPRESSION: Suboptimal evaluation of the oral cavity/oropharynx secondary to streak artifact from dental amalgam. No exophytic mass/lesion or drainable collection is visualized within this constraint. Approximately 9 mm rounded lesion along the deep lobe of the left parotid gland is indeterminate and may represent a primary parotid neoplasm. Attention on follow-up/ENT evaluation is recommended.
--- NOTE | ~2023-03-24 | XR_ITS ---
EXAMINATION: XR CHEST 2 VIEW CLINICAL INFORMATION: Chest pain COMPARISON: 12/20/2022 TECHNIQUE: PA and lateral views of the chest obtained. FINDINGS: The lungs are clear. There are no pleural effusions. The cardiomediastinal silhouette is normal. XR/XR chest 2V IMPRESSION: No acute cardiopulmonary disease.
--- NOTE | 2023-03-24 11:21 | ECG_ITS ---
Test Reason : chest pain Blood Pressure : / mmHG Vent. Rate : 105 BPM Atrial Rate : 105 BPM P-R Int : 166 ms QRS Dur : 094 ms QT Int : 350 ms P-R-T Axes : 060 018 047 degrees QTc Int : 462 ms Sinus tachycardia Incomplete right bundle branch block Borderline ECG When compared with ECG of 05-JUL-2022 13:31, Premature ventricular complexes are no longer Present Referred By: Kathi Doherty Electronically Signed By:NICHOLAS MCCARTHY MD
--- NOTE | 2023-03-24 11:22 | ED.CHESTPAIN ---
HPI - Chest Pain General Chief Complaint: Chest Pain Stated Complaint: chest pain dizzy Time Seen by Provider: 03/24/23 12:54 Source: patient and patient experience coordinator Mode of arrival: ambulatory Limitations: language barrier History of Present Illness HPI narrative: Patient is a 47 year old assigned female at with a medical history of anemia, PE, and HTN presenting to the emergency department today with a cough, sore throat, and upper chest pain. Patient states that over the last 2 days she has had a sore throat and felt like something is stuck in her upper chest. Patient states that she is able to eat and drink but when she does, she immediately feels nauseous. Patient states that 2 days ago when this started she was seen in a [facility] where they told her that her cardiac enzyme was elevated and transferred her to a different hospital. The other hospital told her everything was fine and discharged her. Patient's neck has not been imaged. Patient denies any dizziness, lightheadedness, abdominal pain, fever, chills, blurry vision, double vision, loss of vision, difficulty breathing, shortness of breath, back pain, night sweats, pain with urination, increased urinary frequency, increased urinary urgency, blood in her urine or stool, syncope or a near syncopal episode, recent trauma or falls, bowel incontinence, bladder incontinence, bowel retention, bladder retention, or any other complaints at this time. Onset (ago): day(s) (2) Related Data Home Medications Medication Instructions Recorded Confirmed amlodipine 2.5 mg tablet 2.5 mg PO DAILY 07/06/22 07/28/22 aspirin 81 mg tablet,delayed 81 mg DAILY 07/06/22 07/28/22 release fluoxetine 20 mg capsule (Prozac) 20 mg PO BID 07/06/22 07/28/22 hydroxyzine pamoate 25 mg capsule 25 - 50 mg PO BEDTIME PRN Sleep 07/28/22 07/28/22 Previous Rx's Medication Instructions Recorded ciprofloxacin HCl 500 mg tablet 500 mg PO BID #14 tabs 09/15/22 phenazopyridine 100 mg tablet 100 mg PO TID PRN pain 6 doses #6 09/15/22 (Pyridium) tabs acetaminophen 325 mg capsule 650 mg (2 x 325 mg) PO Q6H PRN 12/20/22 (Tylenol) pain #30 caps benzonatate 200 mg capsule 200 mg PO BID PRN cough #20 caps 12/20/22 cephalexin 500 mg capsule 500 mg PO BID 14 days #28 caps 02/07/23 phenazopyridine 200 mg tablet 200 mg PO TID PRN pain 6 doses #6 02/07/23 (Pyridium) tabs Allergies Allergy/AdvReac Type Severity Reaction Status Date / Time latex [LATEX] Allergy Unknown DERMATITIS Verified 03/24/23 11:55 Review of Systems Constitutional: Constitutional: Reports no additional constitutional complaints, Denies chills, Denies fever(s) and Denies night sweats Eyes: Eyes: Reports no additional eye complaints, Denies blurry vision, Denies change in vision, Denies diplopia, Denies eye discharge, Denies loss of vision and Denies eye pain ENT: Denies dizziness and Reports sore throat Cardiovascular: Cardiovascular: Reports no additional cardiovascular complaints, Reports chest pain, Denies lightheadedness, Denies Loss of Consciousness and Denies dyspnea Respiratory: Respiratory: Reports no additional respiratory complaints and Denies dyspnea Gastrointestinal: Gastrointestinal: Reports no additional gastrointestinal complaints, Denies abdominal pain, Denies melena, Denies hematochezia, Denies change in bowel habits and Denies change in stool character Genitourinary: Genitourinary: Denies hematuria, Denies urinary frequency, Denies dysuria, Denies urinary incontinence, Denies urinary hesitancy and Denies urinary urgency Musculoskeletal: Musculoskeletal: Reports no additional musculoskeletal complaints, Denies numbness and Denies tingling Neurologic: Denies dizziness, Denies loss of vision, Denies numbness and Denies tingling Psychiatric: Psychiatric: Reports no additional psychiatric complaints Endocrine: Endocrine: Reports no additional endocrine complaints Hematologic/Lymphatic: Hematologic/Lymphatic: Reports no additional hematologic/lymphatic complaints Allergic/Immunologic: Allergic/Immunologic: Reports no additional allergic/immunologic complaints PMFSH Past Medical History Attestation statement: The following information was validated with the patient. Source: old records reviewed and nursing notes reviewed Onset Date is defined in the Problem List Problems that require an onset date and time if occurred within 24 hrs of arrival to the ED Aortic Dissection and Rupture; Neurologic impairment; Cardiopulmonary Arrest; Endotracheal Intubation; Insertion or Replacement of Mechanical Circulatory Assist Device Medical History (Updated 03/24/23 @ 17:22 by Elsie Vazquez NP) Salmonella enteritis COVID-19 Pulmonary embolism Hypertension History of back pain Anemia Hx pulmonary embolism Surgical History Hx of tubal ligation History of carpal tunnel surgery Family History Family History Maternal Uncle Hx of cancer of lung Mother Hx of myocardial infarction Social History Social History Household Members: Significant Other Housing: Apartment Do you presently have visiting nurse or other home services: No Alcohol intake: never Patient Tobacco Use Status: Never used Tobacco Advance Directives: No Advance Directives Information Provided: Yes service: No Current occupational status: disabled Physical Exam Vital Signs: Vital Signs: Last Vital Signs Temp 99.2 F 03/24/23 14:01 Pulse 92 03/24/23 15:02 Resp 16 03/24/23 15:02 BP 168/92 H 03/24/23 15:02 Pulse Ox 99 03/24/23 15:02 O2 Del Method Room Air 03/24/23 15:02 BMI result Body Mass Index 27.4 Const: General: cooperative, no acute distress, alert and awake Nutritional Appearance: well nourished Orientation/consciousness: patient oriented x3 Limitations: no limitations HEENT: Head: Yes normal to inspection and Yes atraumatic Ears: hearing grossly normal bilaterally and external ears normal General nose exam: Normal external nose present, no nasal discharge noted and no epistaxis Face and sinus: Yes normal facial exam, No abrasion and No laceration Mouth: Normal oral and palatal mucosa present, no drooling and no muffled voice Eyes: General: appearance normal, both eyes and all related structures Periorbital: periorbital findings normal Eyelids: Yes eyelids normal Conjunctivae: conjunctivae normal Pupils: Equal, round and reactive pupils present EOM: EOMs intact bilaterally Neck: Neck: Yes normal visual inspection, Yes full ROM and Yes no lymphadenopathy Chest: Chest palpation & inspection: normal inspection of the chest Resp: Effort & Inspection: normal respiratory effort and able to speak in complete sentences Auscultation: clear to auscultation bilaterally Cardio: Rate: regular rate Rhythm: regular rhythm GI: Inspection: Yes normal to inspection Neuro: General: patient oriented x3 and moves all extremities Cranial nerves: Yes Equal, round and reactive pupils present Cognition (Neuro): normal cognition Motor exam (neuro): 5/5 motor strength present throughout Sensory Exam: Normal double simultaneous stimulation for sensation Coordination: [id number] test normal Extrem: General: Yes normal to inspection, Yes full ROM and Yes capillary refill normal Psych: Appearance: grossly normal Mental Status: mental status grossly normal Affect: normal affect Attitude: cooperative Thought process: Normal thought process present Thought content: Normal thought content present Insight: Good insight present (Psych) Course Course Course Narrative: Came in from [place] yesterday. Pain in mid chest x 2 days. 'feels like something is stuck' but denies difficulty eating or drinking or tolerating secretions. Coughing began today. Denies fevers. SOB exacerbated by inspiration. Denies dizziness, FLORES, hemoptysis Seen at hospital in [place] with high blood pressure and told she was having a 'small' heart attack and transferrred to a different hospital and was told 'there was nothing wrong'. RME: NAD, LS CTA, +cough, A&O x4, JORGE x 4, tachycardic w/HR 120s, BP 195/116. Reevaluation(s) Reevaluation #1: Patient received in sign out from UMESH Botello pending CT results. CT neck shows 9mm lesion along left parotid gland. When results discussed with patient, she states that she was already aware of this, has seen a specialist and told it was a benign cyst. On exam, patient has no trismus, no evidence of Ubaldo's angina, no erythema or warmth. She is afebrile. Patient states her symptoms this morning that brought her to the ED were cough, chest pain worse with coughing, and sensation of food getting stuck in the area of her cricoid notch with swallowing. She states her chest pain has resolved since arriving to the ED. Will refer to ENT and GI, feel patient is stable for discharge home at this time. Return precautions discussed at bedside. seamer elastic band utilized. Patient verbalized understanding of and agreement with plan. Time: 17:10 Medications Administered Discontinued Medications Generic Name Dose Route Start Last Admin Trade Name Freq PRN Reason Stop Dose Admin Al Hydroxide/Mg Hydroxide 15 ml 03/24/23 13:06 03/24/23 15:00 Magnesium Hydrox/Alum Hydrox 30 Ml Oral.Susp PO 03/24/23 13:07 15 ml ONCE ONE Administration Dexamethasone Sodium Phosphate 10 mg 03/24/23 13:06 03/24/23 14:59 Dexamethasone Sod Phosphate 10 Mg/Ml Vial PO 03/24/23 13:07 Not Given ONCE ONE Iohexol 60 ml 03/24/23 14:38 03/24/23 14:38 Iohexol 350 Mg/Ml 50 Ml Infus..Btl IV 03/24/23 14:39 60 ml ONCE ONE Administration Morphine Sulfate 4 mg 03/24/23 15:09 03/24/23 15:28 Morphine Sulfate 4 Mg/Ml Cartridge IVPUSH 03/24/23 15:10 4 mg ONCE ONE Administration Protocol Ondansetron HCl 4 mg 03/24/23 15:09 03/24/23 15:28 Ondansetron Hcl 4 Mg/2 Ml Vial IVPUSH 03/24/23 15:10 4 mg ONCE ONE Administration Pantoprazole Sodium 40 mg 03/24/23 13:06 03/24/23 15:01 Pantoprazole Sodium 40 Mg/10 Ml Vial IVPUSH 03/24/23 13:07 40 mg ONCE ONE Administration Medical Decision Making Medical Decision Making MDM Narrative: Patient is a 47 year old assigned female at with a history of anemia, PE, and HTN presenting to the emergency department today with a sore throat. Patient's physical exam was unremarkable. Patient's blood work showed an elevated WBC count of 12.4 but was otherwise unremarkable. Patient's EKG was unremarkable. Patient's chest x-ray showed no acute process. Patient's CT soft tissue neck is pending at this time. I explained my physical exam findings as well as all test results to the patient. I answered all questions asked by the patient. Patient's disposition will be determined after the CT soft tissue neck results. Patient signed out to evening ELISA. 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 Lab Data [facility] Lab Attestation statement: I reviewed the patient's lab results. My interpretation of these results are in the MDM Rationale portion of this note. 03/24/23 11:34 03/24/23 11:34 Labs: Lab Results 03/24/23 03/24/23 03/24/23 Range/Units 11:34 14:02 14:03 WBC 12.4 H (4.8-10.8) X10*3/uL RBC 4.78 (4.20-5.50) X10*6/uL Hgb 12.8 (12.0-16.0) g/dl Hct 40.6 (37.0-47.0) % MCV 84.9 (80.0-98.0) fL MCH 26.8 L (27.0-33.0) pg MCHC 31.5 (31.0-35.0) g/dl RDW 15.0 (11.0-16.0) % Plt Count 245 (160-400) X10*3/uL MPV 10.3 (9.4-12.3) fL Immature Gran % (Auto) 0.4 (0.0-0.4) % Neut % (Auto) 83.8 H (45-73) % Lymph % (Auto) 10.2 L (20-40) % [place] % (Auto) 4.7 (2-11) % Eos % (Auto) 0.6 (0-4) % Baso % (Auto) 0.3 (0-2) % Lymph # (Auto) 1.3 (1.2-4.9) X10*3/uL Canadian # (Auto) 0.6 (0.1-1.2) X10*3/uL Eos # (Auto) 0.1 (0.0-0.4) X10*3/uL Baso # (Auto) 0.0 (0.0-0.2) X10*3/uL Abs Immat Gran (auto) 0.05 H (0.00-0.03) X10*3/uL Absolute Neuts (auto) 10.4 H (2.0-8.3) x10*3/uL Absolute Nucleated RBC 0.000 (0.0-0.012) X10*3/uL Nucleated RBC % (auto) 0.0 (0.0-0.2) /100WBC Sodium 139 (135-145) mmol/L Potassium 3.5 (3.3-5.1) mmol/L Chloride 106 (96-108) mmol/L Carbon Dioxide 24 (22-29) mmol/L Anion Gap 13 (12-20) BUN 9 (9-16) mg/dL Creatinine 0.68 (0.5-1.4) mg/dL Estim Creat Clear Calc TNP Estimated GFR > 60 Random Glucose 92 (60-115) mg/dL Calcium 9.1 (8.4-10.2) mg/dL Total Bilirubin 1.2 H (0.0-1.0) mg/dL AST 15 (5-31) U/L ALT 9 (0-31) U/L Alkaline Phosphatase 85 (39-117) U/L Troponin I High Sens < 2.7 (<3.5-17.0) ng/L Total Protein 7.9 (6.5-8.0) g/dL Albumin 4.1 (3.5-5.0) g/dL COVID-19 (MANNIE) Negative (Negative) COVID-19 Clin Com See Note Influenza Type A (JUANY) Negative (Negative) Influenza Type B (JUANY) Negative (Negative) Influenza A & B Note See Note S. pyogenes GrpA JUANY Negative (Negative) Independent Interpretation I performed an independent interpretation of an: EKG and Plain X-Ray Interpretation: My interpretation is in agreement with the radiologist's impression of this imaging study. EXAMINATION: XR CHEST 2 VIEW CLINICAL INFORMATION: Chest pain COMPARISON: 12/20/2022 TECHNIQUE: PA and lateral views of the chest obtained. FINDINGS: The lungs are clear. There are no pleural effusions. The cardiomediastinal silhouette is normal. XR/XR chest 2V IMPRESSION: No acute cardiopulmonary disease. Dictated By: Kane Freeman MD Signed By: Electronically signed by Kane Freeman MD 03/24/23 1334 Vent. Rate: 105 BPM Atrial Rate: 105 BPM P-R Int: 166 ms QRS Dur: 094 ms QT Int: 350 ms P-R-T Axes: 060 018 047 degrees QTc Int: 462 ms Sinus tachycardia Incomplete right bundle branch block Borderline ECG When compared with ECG of 05-JUL-2022 13:31, Premature ventricular complexes are no longer Present Electronically Signed By:KIT MCCARTHY MD Dictated By: Kit Mccarthy MD Signed By: Electronically signed by Kit Mccarthy MD 03/24/23 4741 Radiology Impression Discussion of test interpretation with radiology: I have reviewed the radiologist's reading. Discharge Plan Discharge Clinical Impression: Sore throat, Viral illness Patient Disposition: Home, Self-Care Instructions: Viral Syndrome (ED) Additional Instructions: Lo evaluaron hoy en el departamento de emergencias por tos, dolor en el pecho y dolor al tragar. Hudson evaluaci?n no revel? evidencia de condiciones que requieran tratamiento m?dico de emergencia en bereket momento. Se observ? wei lesi?n en la tomograf?a computarizada de hudson tera que usted afirma conocer previamente. Lo derivar?n al especialista en o?do, nariz y garganta si desarrolla nuevas inquietudes con respecto a esta lesi?n. Tambi?n lo derivar?n al gastroenter?logo para wei evaluaci?n m?s detallada de shaun s?ntomas. Llame a hudson oficina para programar wei joseph. Regrese al departamento de emergencias si presenta un dolor en el pecho que empeora, dificultad para respirar, dificultad para tragar, dificultad para abrir y cerrar la boca, fiebre de 100.4? F o m?s, o cualquier otro s?ntoma preocupante. Prescriptions: No Action amlodipine 2.5 mg tablet 2.5 mg PO DAILY aspirin 81 mg tablet,delayed release (DR/EC) 81 mg DAILY fluoxetine [Prozac] 20 mg capsule 20 mg PO BID benzonatate 200 mg capsule 200 mg PO BID PRN (Reason: cough) Qty: 20 0RF acetaminophen [Tylenol] 325 mg capsule 650 mg PO Q6H PRN (Reason: pain) Qty: 30 0RF hydroxyzine pamoate 25 mg capsule 25 - 50 mg PO BEDTIME PRN (Reason: Sleep) phenazopyridine [Pyridium] 100 mg tablet 100 mg PO TID PRN (Reason: pain) Qty: 6 0RF ciprofloxacin HCl 500 mg tablet 500 mg PO BID Qty: 14 0RF cephalexin 500 mg capsule 500 mg PO BID 14 Days Qty: 28 0RF phenazopyridine [Pyridium] 200 mg tablet 200 mg PO TID PRN (Reason: pain) Qty: 6 0RF Referrals: [facility] [Provider Group] Jagjit Vega [Physician] - Print Language: Indonesian
[2023-03-24 11:40] LABS: MANUAL DIFF FLAG NO
[2023-03-24 11:41] LABS: Basophils Percent Auto 0.3 % (0-2); Eosinophils Absolute Auto 0.1 X10*3/uL (0.0-0.4); Eosinophils Percent Auto 0.6 % (0-4); Hematocrit 40.6 % (37.0-47.0); Hemoglobin 12.8 g/dl (12.0-16.0); Imm Gran Abs Auto 0.05 X10*3/uL (0.00-0.03); Imm Gran Pct Auto 0.4 % (0.0-0.4); Lymphocytes Absolute Auto 1.3 X10*3/uL (1.2-4.9); Lymphocytes Percent Auto 10.2 % (20-40); Mean Corpuscular HGB Conc 31.5 g/dl (31.0-35.0); Mean Corpuscular Hemoglobin 26.8 pg (27.0-33.0); Mean Corpuscular Volume 84.9 fL (80.0-98.0); Mean Platelet Volume 10.3 fL (9.4-12.3); Monocytes Absolute Auto 0.6 X10*3/uL (0.1-1.2); Monocytes Percent Auto 4.7 % (2-11); Neutrophils Absolute Auto 10.4 x10*3/uL (2.0-8.3); Neutrophils Percent Auto 83.8 % (45-73); Platelet Count 245 X10*3/uL (160-400); Red Blood Count 4.78 X10*6/uL (4.20-5.50); White Blood Count 12.4 X10*3/uL (4.8-10.8)
[2023-03-24 11:55] VITALS: BP 195/116; PULSE 111; RESP 19; TEMP 36.6; O2SAT 99; BMI 27.4
[2023-03-24 11:57] LABS: Alanine Aminotransferase 9 U/L (0-31); Albumin Level 4.1 g/dL (3.5-5.0); Alkaline Phosphatase 85 U/L (39-117); Anion Gap 13 (12-20); Aspartate Amino Transferase 15 U/L (5-31); Bilirubin Total 1.2 mg/dL (0.0-1.0); Blood Urea Nitrogen 9 mg/dL (9-16); Calcium 9.1 mg/dL (8.4-10.2); Carbon Dioxide 24 mmol/L (22-29); Chloride 106 mmol/L (96-108); Estimated Glomerular Filt Rate > 60; Glucose Random 92 mg/dL (60-115); Potassium 3.5 mmol/L (3.3-5.1); Sodium 139 mmol/L (135-145); Total Protein 7.9 g/dL (6.5-8.0)
[2023-03-24 12:10] LABS: Troponin-I High Sensitivity < 2.7 ng/L (<3.5-17.0)
[2023-03-24 13:58] VITALS: BP 164/91; PULSE 93; RESP 16; O2SAT 98
[2023-03-24 14:01] VITALS: TEMP 37.3
[2023-03-24 14:55] LABS: IDNOW Serial# 58CA691E; Strep A Nucleic Acid Negative (Negative)
[2023-03-24] MEDS: Magnesium Hydrox/Alum Hydrox 30 ML ORAL.SUSP 15 ML PO (15:00)
[2023-03-24] MEDS: Pantoprazole Sodium 40 MG/10 ML VIAL IVPUSH (15:01)
[2023-03-24 15:02] VITALS: BP 168/92; PULSE 92; RESP 16; O2SAT 99
[2023-03-24 15:02] LABS: IDNOW Serial# 9DB6401D; Influenza A Negative (Negative); Influenza B2 Negative (Negative)
[2023-03-24 15:03] LABS: COVID-19 Test Negative (Negative); IDNOW Serial# 152EDE1D
--- NOTE | 2023-03-24 15:25 | PC.NURSE ---
alert and oriented, respirations even and unlabored. no signs/symptoms of distress noted. complaining of headache and dry throat, IV established pending ct scan. call gomez within reach.
[2023-03-24] MEDS: Morphine Sulfate 4 MG/ML CARTRIDGE IVPUSH (15:28)
[2023-03-24] MEDS: ondansetron HCL 4 MG/2 ML VIAL IVPUSH (15:28)
--- NOTE | 2023-03-24 15:31 | PC.NURSE ---
patient resting quietly in bed, this rn assumed care of patient. patient respirations equal and unlabored manages own secretions speaks in clear full sentences, medicated per MAY for pain in head 11/21. patient shows no signs of distress, call gomez within reach
== END 2023-03-24 17:53 | disposition home or self-care (01) ==
PROVIDERS: Nurse Practitioner Family; Physician Assistant Medical; Emergency Provider Emergency Medicine; PCP Internal Medicine
DX: B34.9 Viral infection, unspecified (principal); J02.9 Acute pharyngitis, unspecified; Z11.52 Encounter for screening for COVID-19; I10 Essential (primary) hypertension; Z79.899 Other long term (current) drug therapy
CPT/HCPCS: 36415; 70491; 71046; 80053; 84484; 85025; 87502; 87635; 87651; 93005; 96374; 96375; 99284; C9113; J2270; J2405; Q9967

== ENCOUNTER → 2023-03-24 11:21 | Outpatient (BNV) | payer OTHER, SELFPAY | PROVIDERS: Emergency Provider Emergency Medicine; PCP Internal Medicine; Visit Provider Internal Medicine Cardiovascular Disease | DX: R00.0 Tachycardia, unspecified (principal) | CPT/HCPCS: 93010 ==

== ENCOUNTER 2023-03-26 10:46 | Emergency (ER) | payer OTHER, SELFPAY ==
--- NOTE | ~2023-03-26 | XR_ITS ---
EXAMINATION: XR CHEST CLINICAL INFORMATION: Chest pain COMPARISON: Chest x-ray 03/24/2023 TECHNIQUE: 2 views of the chest were obtained. FINDINGS: No significant abnormality is noted involving the heart, lungs, mediastinum, bony thorax or soft tissues. XR/XR chest 2V IMPRESSION: Unremarkable examination.
--- NOTE | ~2023-03-26 | CT_ITS ---
EXAMINATION: CT ABDOMEN AND PELVIS WITHOUT CONTRAST CLINICAL INFORMATION: Right CVA. Hematuria and tenderness. COMPARISON: None available. TECHNIQUE: Multidetector volumetric imaging was performed from the superior aspect of the liver through the pubic symphysis. Sagittal and coronal reformatted images were obtained on the technologist's workstation. This CT examination was performed using dose optimization techniques as appropriate, variously including the following: *Automated exposure control *Adjustment of mA and/or kV according to patient size (this includes techniques or standardized protocols for targeted exams where dose is matched to indication/reason for exam; i.e. extremities or head) *Use of iterative reconstruction technique DLP: 420 mGy-cm FINDINGS: LUNG BASES: The visualized lung bases are unremarkable. LIVER, GALLBLADDER, AND BILIARY TREE: The liver is normal in size, shape, and attenuation. No focal hepatic lesion or biliary ductal dilatation is present. The gallbladder is unremarkable with no evidence of radiopaque gallstones, gallbladder wall thickening, or obvious pericholecystic inflammatory changes. PANCREAS: Unremarkable. SPLEEN: Unremarkable. ADRENAL GLANDS: Unremarkable. KIDNEYS AND URETERS: The kidneys are normal in size, shape, and attenuation. No hydronephrosis, hydroureter, or calculi seen. No perinephric stranding. BLADDER: Unremarkable. GASTROINTESTINAL TRACT: The small and large bowel are unremarkable. The appendix is unremarkable. ABDOMINAL WALL: No significant hernia is appreciated. LYMPH NODES: Normal. VASCULAR: Unremarkable. PELVIC VISCERA: Unremarkable. OSSEOUS STRUCTURES: Unremarkable. CT/CT abdomen pelvis wo IV con IMPRESSION: No significant abnormality. Fleischner guidelines were followed.
[2023-03-26 11:23] VITALS: BP 149/72; PULSE 91; RESP 18; TEMP 37.1; O2SAT 99; BMI 27.0
--- NOTE | 2023-03-26 11:23 | ED_ITS ---
HPI - General Adult General Chief complaint: Urogenital-Female Stated complaint: flu like symptoms/ chest pain Time Seen by Provider: 03/26/23 16:01 Source: patient, RN notes reviewed, old records reviewed and translator and interpreter Mode of arrival: ambulatory Limitations: language barrier History of Present Illness HPI narrative: 47-year-old female presents for evaluation of fevers, body aches, flank pain and blood in her urine. Patient reports her symptoms started 2 days ago and she was actually seen here 2 days ago. At that time she had a negative viral swab including flu, COVID, RSV She did not check her temperature earlier but reports subjective fevers Denies cough, shortness of breath but the patient endorses some chest pain Patient reports that due to subjective fevers today she represents to the ER Related Data Home Medications Medication Instructions Recorded Confirmed amlodipine 2.5 mg tablet 2.5 mg PO DAILY 07/06/22 07/28/22 aspirin 81 mg tablet,delayed 81 mg DAILY 07/06/22 07/28/22 release fluoxetine 20 mg capsule (Prozac) 20 mg PO BID 07/06/22 07/28/22 hydroxyzine pamoate 25 mg capsule 25 - 50 mg PO BEDTIME PRN Sleep 07/28/22 07/28/22 Previous Rx's Medication Instructions Recorded ciprofloxacin HCl 500 mg tablet 500 mg PO BID #14 tabs 09/15/22 phenazopyridine 100 mg tablet 100 mg PO TID PRN pain 6 doses #6 09/15/22 (Pyridium) tabs acetaminophen 325 mg capsule 650 mg (2 x 325 mg) PO Q6H PRN 12/20/22 (Tylenol) pain #30 caps benzonatate 200 mg capsule 200 mg PO BID PRN cough #20 caps 12/20/22 cephalexin 500 mg capsule 500 mg PO BID 14 days #28 caps 02/07/23 phenazopyridine 200 mg tablet 200 mg PO TID PRN pain 6 doses #6 02/07/23 (Pyridium) tabs Allergies Allergy/AdvReac Type Severity Reaction Status Date / Time latex [LATEX] Allergy Unknown DERMATITIS Verified 03/26/23 11:23 Review of Systems 2 Constitutional: Constitutional: Reports body ache(s), Reports chills, Reports fever(s) and Reports headache(s) ENT: Reports headache(s) and Reports sore throat Cardiovascular: Cardiovascular: Reports chest pain and Denies dyspnea Respiratory: Respiratory: Denies dyspnea Gastrointestinal: Gastrointestinal: Reports abdominal pain Genitourinary: Genitourinary: Reports hematuria and Reports flank pain Integumentary/Breasts: Skin/Breast: Denies rash Neurologic: Reports headache(s) PMFSH Past Medical History Onset Date is defined in the Problem List Problems that require an onset date and time if occurred within 24 hrs of arrival to the ED Aortic Dissection and Rupture; Neurologic impairment; Cardiopulmonary Arrest; Endotracheal Intubation; Insertion or Replacement of Mechanical Circulatory Assist Device Medical History (Updated 03/26/23 @ 17:11 by Milan Richardson) Salmonella enteritis COVID-19 Pulmonary embolism Hypertension History of back pain Anemia Hx pulmonary embolism Surgical History Hx of tubal ligation History of carpal tunnel surgery Family History Family History Maternal Uncle Hx of cancer of lung Mother Hx of myocardial infarction Social History Social History Household Members: Significant Other Housing: Apartment Do you presently have visiting nurse or other home services: No Alcohol intake: never Patient Tobacco Use Status: Never used Tobacco Advance Directives: No Advance Directives Information Provided: No service: No Current occupational status: disabled Physical Exam ED Vital Signs: Vital Signs - 24 hr 03/26/23 11:23 03/26/23 14:55 03/26/23 16:00 Temperature 98.8 F 98.4 F Pulse Rate 91 96 78 Respiratory Rate 18 18 16 Blood Pressure 149/72 H 141/85 H 140/82 H Pulse Oximetry 99 99 98 Oxygen Delivery Method Room Air Room Air Room Air BMI result Body Mass Index 27.0 Const General: healthy appearing, comfortable, no acute distress, alert and awake Nutritional Appearance: well nourished Orientation/consciousness: patient oriented x3 HENMT Head: Yes normocephalic and Yes atraumatic Eyes Eyelids: Yes eyelids normal Conjunctivae: conjunctivae normal Sclerae: sclerae normal Corneas: corneas normal Pupils: Equal, round and reactive pupils present EOM: EOMs intact bilaterally Neck Neck: Yes full ROM Resp Effort & Inspection: normal respiratory effort, able to speak in complete sentences, no audible wheezes and not labored Auscultation: clear to auscultation bilaterally GI Inspection: No distended Palpation (GI): Soft to palpation, not firm, nontender, no guarding and not rigid Neuro General: patient oriented x3 Cranial nerves: Yes Equal, round and reactive pupils present and Yes Bilaterally intact EOM present Cognition (Neuro): normal cognition Extrem Other: Moving all extremities well without any obvious deformities Course Course Course Narrative: This is an RME: Additional HPI, ROS, PE not included below will be deferred to primary provider. This is a [id number], medical history of anemia, PE, and HTN presenting to the emergency department today with a cough, sore throat. Patient was seen here 2 days ago was diagnosed with viral syndrome. She noticed blood in her urine and back pain last night. LMP March 09. She has a history of kidney stones. No dysuria. Right CVA tenderness Plan: Labs, UA, CT abd/pelvis Medical Decision Making Medical Decision Making [facility] Narrative: 39-year-old female presents for evaluation continued fevers. She states she was told her white blood cell count was 2 days ago and it was in fact 12.4 K. vital signs are within normal limits. Patient's white count today is actually 3.9 she has no lab abnormalities. Will repeat influenza and COVID swabs. An abdominal pelvic CT scan was ordered in triage that did not show any significant findings or obstructive uropathy to explain the hematuria. Patient's urine does not appear infected. She can follow up with Urology for the hematuria. Plan for chest x-ray as we had not found a source of her symptoms with may just be viral Differential Diagnosis Differential Diagnoses: The differential diagnosis associated with the presentation includes Upper respiratory infection Bronchitis Influenza COVID-19 Pharyngitis Hematuria Obstructive uropathy Lab Data [facility] Lab Attestation statement: I reviewed the patient's lab results. Mild leukopenia to 3.9, no left shift. No anemia. No significant electrolyte abnormalities. 03/26/23 11:58 03/26/23 11:58 Labs: Lab Results 03/26/23 03/26/23 Range/Units 11:58 16:21 WBC 3.9 L (4.8-10.8) X10*3/uL RBC 5.11 (4.20-5.50) X10*6/uL Hgb 13.5 (12.0-16.0) g/dl Hct 42.8 (37.0-47.0) % MCV 83.8 (80.0-98.0) fL MCH 26.4 L (27.0-33.0) pg MCHC 31.5 (31.0-35.0) g/dl RDW 15.0 (11.0-16.0) % Plt Count 208 (160-400) X10*3/uL MPV 9.6 (9.4-12.3) fL Immature Gran % (Auto) 0.5 H (0.0-0.4) % Neut % (Auto) 52.9 (45-73) % Lymph % (Auto) 26.0 (20-40) % [place] % (Auto) 19.3 H (2-11) % Eos % (Auto) 0.8 (0-4) % Baso % (Auto) 0.5 (0-2) % Lymph # (Auto) 1.0 L (1.2-4.9) X10*3/uL [place] # (Auto) 0.8 (0.1-1.2) X10*3/uL Eos # (Auto) 0.0 (0.0-0.4) X10*3/uL Baso # (Auto) 0.0 (0.0-0.2) X10*3/uL Abs Immat Gran (auto) 0.02 (0.00-0.03) X10*3/uL Absolute Neuts (auto) 2.1 (2.0-8.3) x10*3/uL Absolute Nucleated RBC 0.000 (0.0-0.012) X10*3/uL Nucleated RBC % (auto) 0.0 (0.0-0.2) /100WBC Sodium 138 (135-145) mmol/L Potassium 3.9 (3.3-5.1) mmol/L Chloride 105 (96-108) mmol/L Carbon Dioxide 25 (22-29) mmol/L Anion Gap 12 (12-20) BUN 16 (9-16) mg/dL Creatinine 0.88 (0.5-1.4) mg/dL Estim Creat Clear Calc 70.1 Estimated GFR > 60 Random Glucose 89 (60-115) mg/dL Calcium 9.5 (8.4-10.2) mg/dL Total Bilirubin 0.5 (0.0-1.0) mg/dL Direct Bilirubin 0.2 (0.0-0.5) mg/dL AST 18 (5-31) U/L ALT 13 (0-31) U/L Alkaline Phosphatase 77 (39-117) U/L Total Protein 8.1 H (6.5-8.0) g/dL Albumin 4.1 (3.5-5.0) g/dL Beta HCG, Quant < 2 mIU/mL Urine Color Dark Yellow Urine Appearance Turbid Urine pH 6.0 (5.0-9.0) Ur Specific [place] 1.020 (1.005-1.025) Urine Protein 30 (1+) H (Neg-Trace) mg/dL Urine Glucose (UA) Negative (Negative) mg/dL Urine Ketones Trace (Negative) mg/dL Urine Blood Large (3+) H (Negative) Urine Nitrite Negative (Negative) Ur Leukocyte Esterase Negative (Negative) Urine RBC 6-10 H (0-2) /HPF Urine WBC 0-5 (0-5) /HPF Ur Squamous Epith Cells 6-10 (0-2) /HPF Urine Bacteria None Seen (None Seen) Hyaline Casts 3-5 (0-2) /LPF COVID-19 (MANNIE) Negative (Negative) COVID-19 Clin Com See Note Influenza Type A (JUANY) Negative (Negative) Influenza Type B (JUANY) Negative (Negative) Influenza A & B Note See Note Discharge Plan Discharge Clinical Impression: Acute viral syndrome Patient Disposition: Home, Self-Care Instructions: Viral Syndrome (ED) Additional Instructions: Your workup in the emergency room today was reassuring. Include your blood work, repeat viral swabs and chest x-ray Your CT scan of the abdomen pelvis did not show any evidence of kidney stones. Your urine had some blood but did not show any infection You may follow-up with urology for the blood in your urine at the number provided Prescriptions: No Action amlodipine 2.5 mg tablet 2.5 mg PO DAILY aspirin 81 mg tablet,delayed release (DR/EC) 81 mg DAILY fluoxetine [Prozac] 20 mg capsule 20 mg PO BID benzonatate 200 mg capsule 200 mg PO BID PRN (Reason: cough) Qty: 20 0RF acetaminophen [Tylenol] 325 mg capsule 650 mg PO Q6H PRN (Reason: pain) Qty: 30 0RF hydroxyzine pamoate 25 mg capsule 25 - 50 mg PO BEDTIME PRN (Reason: Sleep) phenazopyridine [Pyridium] 100 mg tablet 100 mg PO TID PRN (Reason: pain) Qty: 6 0RF ciprofloxacin HCl 500 mg tablet 500 mg PO BID Qty: 14 0RF cephalexin 500 mg capsule 500 mg PO BID 14 Days Qty: 28 0RF phenazopyridine [Pyridium] 200 mg tablet 200 mg PO TID PRN (Reason: pain) Qty: 6 0RF Referrals: Radha Hitchcock MD [Physician] - (hematuria)
[2023-03-26 12:03] LABS: MANUAL DIFF FLAG NO
[2023-03-26 12:05] LABS: Appearance Urine Turbid; Color Urine Dark Yellow; Glucose Urine UA Negative (Negative); Leukocyte Esterase Urine Negative (Negative); Nitrite Urine Negative (Negative); UMIC TRIGGER UACC YES; Urine Blood Large (3+) (Negative); Urine Ketones Trace mg/dL (Negative); Urine Protein 30 (1+) mg/dL (Neg-Trace)
[2023-03-26 12:09] LABS: Basophils Percent Auto 0.5 % (0-2); Eosinophils Percent Auto 0.8 % (0-4); Hematocrit 42.8 % (37.0-47.0); Hemoglobin 13.5 g/dl (12.0-16.0); Imm Gran Abs Auto 0.02 X10*3/uL (0.00-0.03); Imm Gran Pct Auto 0.5 % (0.0-0.4); Mean Corpuscular HGB Conc 31.5 g/dl (31.0-35.0); Mean Corpuscular Hemoglobin 26.4 pg (27.0-33.0); Mean Corpuscular Volume 83.8 fL (80.0-98.0); Mean Platelet Volume 9.6 fL (9.4-12.3); Monocytes Absolute Auto 0.8 X10*3/uL (0.1-1.2); Monocytes Percent Auto 19.3 % (2-11); Neutrophils Absolute Auto 2.1 x10*3/uL (2.0-8.3); Neutrophils Percent Auto 52.9 % (45-73); Platelet Count 208 X10*3/uL (160-400); Red Blood Count 5.11 X10*6/uL (4.20-5.50); White Blood Count 3.9 X10*3/uL (4.8-10.8)
[2023-03-26 12:12] LABS: Bacteria Urine None Seen (None Seen); WBC Urine 0-5 /HPF (0-5)
[2023-03-26 12:28] LABS: Alanine Aminotransferase 13 U/L (0-31); Albumin Level 4.1 g/dL (3.5-5.0); Alkaline Phosphatase 77 U/L (39-117); Anion Gap 12 (12-20); Aspartate Amino Transferase 18 U/L (5-31); Bilirubin Direct 0.2 mg/dL (0.0-0.5); Bilirubin Total 0.5 mg/dL (0.0-1.0); Blood Urea Nitrogen 16 mg/dL (9-16); Calcium 9.5 mg/dL (8.4-10.2); Carbon Dioxide 25 mmol/L (22-29); Chloride 105 mmol/L (96-108); Creatinine Clr Calc Pharmacy 70.1; Estimated Glomerular Filt Rate > 60; Glucose Random 89 mg/dL (60-115); Potassium 3.9 mmol/L (3.3-5.1); Sodium 138 mmol/L (135-145); Total Protein 8.1 g/dL (6.5-8.0)
[2023-03-26 12:39] LABS: HCG Quantitative < 2 mIU/mL
[2023-03-26 14:55] VITALS: BP 141/85; PULSE 96; RESP 18; O2SAT 99
[2023-03-26 16:00] VITALS: BP 140/82; PULSE 78; RESP 16; TEMP 36.9; O2SAT 98
[2023-03-26 17:03] LABS: IDNOW Serial# 152EDE1D; Influenza A Negative (Negative); Influenza B2 Negative (Negative)
[2023-03-26 17:04] LABS: COVID-19 Test Negative (Negative); IDNOW Serial# 08D9AD1C
[2023-03-26 20:00] VITALS: BP 139/80; PULSE 81; RESP 18; TEMP 536.7; TEMP 998.1; O2SAT 98
== END 2023-03-26 20:02 | disposition home or self-care (01) ==
PROVIDERS: Physician Assistant; Physician Assistant Medical; Emergency Provider Internal Medicine; PCP Internal Medicine
DX: B34.9 Viral infection, unspecified (principal); R50.9 Fever, unspecified; R10.9 Unspecified abdominal pain; R31.9 Hematuria, unspecified; Z11.52 Encounter for screening for COVID-19; R51.9 Headache, unspecified; J02.9 Acute pharyngitis, unspecified; I10 Essential (primary) hypertension; Z86.711 Personal history of pulmonary embolism; Z79.82 Long term (current) use of aspirin; Z79.899 Other long term (current) drug therapy
CPT/HCPCS: 36415; 71046; 74176; 80048; 80076; 81001; 84702; 85025; 87502; 87635; 99284

== ENCOUNTER 2023-06-03 21:21 | Emergency (ER) | payer OTHER, SELFPAY ==
[2023-06-03 21:46] VITALS: BP 167/100; PULSE 83; RESP 14; TEMP 37; O2SAT 100; BMI 26.7
[2023-06-03 22:06] LABS: MANUAL DIFF FLAG NO
[2023-06-03 22:07] LABS: Basophils Absolute Auto 0.1 X10*3/uL (0.0-0.2); Basophils Percent Auto 0.6 % (0-2); Eosinophils Absolute Auto 0.1 X10*3/uL (0.0-0.4); Eosinophils Percent Auto 1.7 % (0-4); Hematocrit 39.2 % (37.0-47.0); Hemoglobin 12.6 g/dl (12.0-16.0); Imm Gran Abs Auto 0.01 X10*3/uL (0.00-0.03); Imm Gran Pct Auto 0.1 % (0.0-0.4); Lymphocytes Absolute Auto 2.4 X10*3/uL (1.2-4.9); Lymphocytes Percent Auto 30.8 % (20-40); Mean Corpuscular HGB Conc 32.1 g/dl (31.0-35.0); Mean Corpuscular Hemoglobin 26.6 pg (27.0-33.0); Mean Corpuscular Volume 82.9 fL (80.0-98.0); Mean Platelet Volume 10.3 fL (9.4-12.3); Monocytes Absolute Auto 0.6 X10*3/uL (0.1-1.2); Monocytes Percent Auto 7.4 % (2-11); Neutrophils Absolute Auto 4.7 x10*3/uL (2.0-8.3); Neutrophils Percent Auto 59.4 % (45-73); Platelet Count 213 X10*3/uL (160-400); Red Blood Count 4.73 X10*6/uL (4.20-5.50); White Blood Count 7.9 X10*3/uL (4.8-10.8)
[2023-06-03 22:20] LABS: Alanine Aminotransferase 11 U/L (0-31); Albumin Level 4.3 g/dL (3.5-5.0); Alkaline Phosphatase 83 U/L (39-117); Anion Gap 11 (12-20); Aspartate Amino Transferase 17 U/L (5-31); Bilirubin Total 0.5 mg/dL (0.0-1.0); Blood Urea Nitrogen 21 mg/dL (9-16); Calcium 9.9 mg/dL (8.4-10.2); Carbon Dioxide 26 mmol/L (22-29); Chloride 105 mmol/L (96-108); Creatinine Clr Calc Pharmacy 83.9; Estimated Glomerular Filt Rate > 60; Glucose Random 93 mg/dL (60-115); Potassium 3.2 mmol/L (3.3-5.1); Sodium 139 mmol/L (135-145); Total Protein 7.9 g/dL (6.5-8.0)
[2023-06-03 22:21] LABS: COVID-19 Test Negative (Negative); IDNOW Serial# 08D9AD1C
[2023-06-03 22:30] LABS: IDNOW Serial# 152EDE1D; Influenza A Negative (Negative); Influenza B2 Negative (Negative)
[2023-06-04 00:06] VITALS: BP 157/85; PULSE 74; RESP 16; TEMP 36.6; O2SAT 99
--- NOTE | 2023-06-04 00:07 | MHC.EDTECH ---
This tech took over care of patient at this time, hourly rounds and vitals completed,call gomez in reach
--- NOTE | 2023-06-04 00:22 | ED.HA ---
HPI - Headache General Chief Complaint: Headache Stated Complaint: Headache/Nausea/Dizziness Time Seen by Provider: 06/04/23 00:15 Source: patient Mode of arrival: ambulatory Limitations: no limitations History of Present Illness HPI Narrative: Patient with no diagnosed history of migraine complaining of right-sided headache for last 6 days treated with nausea slight light sensitivity no fever no sinus problem no neck pain no head injury patient had MRI of brain in 07/04 which was negative headache does not get worse with change of position Related Data Home Medications Medication Instructions Recorded Confirmed amlodipine 2.5 mg tablet 2.5 mg PO DAILY 07/06/22 07/28/22 aspirin 81 mg tablet,delayed 81 mg DAILY 07/06/22 07/28/22 release fluoxetine 20 mg capsule (Prozac) 20 mg PO BID 07/06/22 07/28/22 hydroxyzine pamoate 25 mg capsule 25 - 50 mg PO BEDTIME PRN Sleep 07/28/22 07/28/22 Previous Rx's Medication Instructions Recorded ciprofloxacin HCl 500 mg tablet 500 mg PO BID #14 tabs 09/15/22 phenazopyridine 100 mg tablet 100 mg PO TID PRN pain 6 doses #6 09/15/22 (Pyridium) tabs acetaminophen 325 mg capsule 650 mg (2 x 325 mg) PO Q6H PRN 12/20/22 (Tylenol) pain #30 caps benzonatate 200 mg capsule 200 mg PO BID PRN cough #20 caps 12/20/22 cephalexin 500 mg capsule 500 mg PO BID 14 days #28 caps 02/07/23 phenazopyridine 200 mg tablet 200 mg PO TID PRN pain 6 doses #6 02/07/23 (Pyridium) tabs haafsmzluc-[id number]-[id number] 1 tab PO Q6H PRN haeadace #20 tabs 06/04/23 50 mg-325 mg-40 mg tablet ondansetron 4 mg disintegrating 4 mg PO Q6-8H PRN nausea and 06/04/23 tablet vomiting #10 tabs sumatriptan succinate 50 mg tablet 50 mg PO Q2H PRN migraine headache 06/04/23 (Imitrex) #10 tabs Allergies Allergy/AdvReac Type Severity Reaction Status Date / Time latex [LATEX] Allergy Unknown DERMATITIS Verified 06/03/23 21:46 Review of Systems Review of Systems: Yes all other systems are reviewed and are negative PMFSH Past Medical History Medical History Salmonella enteritis COVID-19 Pulmonary embolism Hypertension History of back pain Anemia Hx pulmonary embolism Surgical History Hx of tubal ligation History of carpal tunnel surgery Family History Family History Maternal Uncle Hx of cancer of lung Mother Hx of myocardial infarction Social History Social History Household Members: Significant Other Housing: Apartment Do you presently have visiting nurse or other home services: No Alcohol intake: never Patient Tobacco Use Status: Never used Tobacco Advance Directives: No Advance Directives Information Provided: No service: No Current occupational status: disabled Physical Exam Vital Signs: Vital Signs: Last Vital Signs Temp 97.9 F 06/04/23 02:20 Pulse 61 06/04/23 02:20 Resp 18 06/04/23 02:20 BP 127/85 06/04/23 02:20 Pulse Ox 99 06/04/23 02:20 O2 Del Method Room Air 06/04/23 02:20 BMI result Body Mass Index 26.7 Appearance: Alert. Oriented X3. No acute distress. Eyes: PERRLA, No Nystagmus ENT: Pharynx normal. Oral Mucosa moist no temporal artery tenderness Neck: Normal inspection. Neck supple. CVS: Normal heart rate and rhythm. Pulses normal. Respiratory: No respiratory distress. Equal air entry bilateral, no wheezing/rales/rhonchi Abdomen: Soft and nontender. Bowel sounds are present, no mass palpable, no CVA tenderness Skin: Skin warm and dry. Normal skin color. Normal skin turgor. Extremities: No lower extremity edema. No calf tenderness Neuro: Oriented X 3. No motor deficit. No sensory deficit.No cerebellar signs , cranial nerves II-XII intact Medications Administered Discontinued Medications Generic Name Dose Route Start Last Admin Trade Name Freq PRN Reason Stop Dose Admin Acetaminophen/Butalbital/Caffeine 1 tab 06/04/23 01:47 06/04/23 01:56 Butalb/Acetamin/Caff 50/325/40 Tablet PO 06/04/23 01:48 1 tab ONCE ONE Administration Ondansetron HCl 4 mg 06/04/23 00:57 06/04/23 01:13 Ondansetron Odt 4 Mg Tab.Rapdis TRANSLINGU 06/04/23 00:58 4 mg ONCE ONE Administration Sumatriptan Succinate 6 mg 06/04/23 00:57 06/04/23 01:13 Sumatriptan Succinate 6 Mg/0.5 Ml Vial SUBCUT 06/04/23 00:58 6 mg ONCE ONE Administration Medical Decision Making Medical Decision Making [facility] Narrative: Patient with right-sided headache likely migraine/complex migraine headache partially responded to Imitrex will give Fioricet Differential Diagnosis Differential Diagnoses: The differential diagnosis associated with the presentation includes Migraine headache/sinus headache /tension headache/temporal arteritis Lab Data 06/03/23 21:59 06/03/23 21:59 Labs: Lab Results 06/03/23 Range/Units 21:59 WBC 7.9 (4.8-10.8) X10*3/uL RBC 4.73 (4.20-5.50) X10*6/uL Hgb 12.6 (12.0-16.0) g/dl Hct 39.2 (37.0-47.0) % MCV 82.9 (80.0-98.0) fL MCH 26.6 L (27.0-33.0) pg MCHC 32.1 (31.0-35.0) g/dl RDW 15.0 (11.0-16.0) % Plt Count 213 (160-400) X10*3/uL MPV 10.3 (9.4-12.3) fL Immature Gran % (Auto) 0.1 (0.0-0.4) % Neut % (Auto) 59.4 (45-73) % Lymph % (Auto) 30.8 (20-40) % [place] % (Auto) 7.4 (2-11) % Eos % (Auto) 1.7 (0-4) % Baso % (Auto) 0.6 (0-2) % Lymph # (Auto) 2.4 (1.2-4.9) X10*3/uL [place] # (Auto) 0.6 (0.1-1.2) X10*3/uL Eos # (Auto) 0.1 (0.0-0.4) X10*3/uL Baso # (Auto) 0.1 (0.0-0.2) X10*3/uL Abs Immat Gran (auto) 0.01 (0.00-0.03) X10*3/uL Absolute Neuts (auto) 4.7 (2.0-8.3) x10*3/uL Absolute Nucleated RBC 0.000 (0.0-0.012) X10*3/uL Nucleated RBC % (auto) 0.0 (0.0-0.2) /100WBC Sodium 139 (135-145) mmol/L Potassium 3.2 L (3.3-5.1) mmol/L Chloride 105 (96-108) mmol/L Carbon Dioxide 26 (22-29) mmol/L Anion Gap 11 L (12-20) BUN 21 H (9-16) mg/dL Creatinine 0.76 (0.5-1.4) mg/dL Estim Creat Clear Calc 83.9 Estimated GFR > 60 Random Glucose 93 (60-115) mg/dL Calcium 9.9 (8.4-10.2) mg/dL Total Bilirubin 0.5 (0.0-1.0) mg/dL AST 17 (5-31) U/L ALT 11 (0-31) U/L Alkaline Phosphatase 83 (39-117) U/L Total Protein 7.9 (6.5-8.0) g/dL Albumin 4.3 (3.5-5.0) g/dL COVID-19 (MANNIE) Negative (Negative) COVID-19 Clin Com See Note Influenza Type A (JUANY) Negative (Negative) Influenza Type B (JUANY) Negative (Negative) Influenza A & B Note See Note Discharge Plan Discharge Clinical Impression: Migraine Patient Disposition: Home, Self-Care Instructions: Migraine Headache (ED) Additional Instructions: Take Imitrex 1 tablet at onset of headache may repeat in 2 hours if headache persists Fioricet 1 tablet every 6 hours as needed for the headaches Zofran for nausea as prescribed Follow with PCP as needed Prescriptions: New sumatriptan succinate [Imitrex] 50 mg tablet 50 mg PO Q2H PRN (Reason: migraine headache) Qty: 10 0RF Rx Instructions: do not exceed 2 doses per 24 hrs ytnfsaprqd-waskiiusbpipx-blal 50-325-40 mg tablet 1 tab PO Q6H PRN (Reason: haeadace) Qty: 20 0RF ondansetron 4 mg tablet,disintegrating 4 mg PO Q6-8H PRN (Reason: nausea and vomiting) Qty: 10 0RF No Action amlodipine 2.5 mg tablet 2.5 mg PO DAILY aspirin 81 mg tablet,delayed release (DR/EC) 81 mg DAILY fluoxetine [Prozac] 20 mg capsule 20 mg PO BID benzonatate 200 mg capsule 200 mg PO BID PRN (Reason: cough) Qty: 20 0RF acetaminophen [Tylenol] 325 mg capsule 650 mg PO Q6H PRN (Reason: pain) Qty: 30 0RF hydroxyzine pamoate 25 mg capsule 25 - 50 mg PO BEDTIME PRN (Reason: Sleep) phenazopyridine [Pyridium] 100 mg tablet 100 mg PO TID PRN (Reason: pain) Qty: 6 0RF ciprofloxacin HCl 500 mg tablet 500 mg PO BID Qty: 14 0RF cephalexin 500 mg capsule 500 mg PO BID 14 Days Qty: 28 0RF phenazopyridine [Pyridium] 200 mg tablet 200 mg PO TID PRN (Reason: pain) Qty: 6 0RF Interventions: ED Discharge Assessment Last Done: 06/04/23 02:20 Discharge Date/Time: 06/04/23 02:42
[2023-06-04] MEDS: Ondansetron ODT 4 MG TAB.RAPDIS TRANSLINGU (01:13)
[2023-06-04] MEDS: SUMAtriptan succinate 6 MG/0.5 ML VIAL SUBCUT (01:13)
[2023-06-04] MEDS: Butalb/Acetamin/Caff 50/325/40 TABLET 1 TAB PO (01:56)
[2023-06-04 02:20] VITALS: BP 127/85; PULSE 61; RESP 18; TEMP 36.6; O2SAT 99
--- NOTE | 2023-06-04 02:20 | MHC.EDTECH ---
Hourly rounds and vitals completed,awaiting discharge at this time
== END 2023-06-04 02:42 | disposition home or self-care (01) ==
PROVIDERS: Emergency Provider Internal Medicine; PCP Internal Medicine
DX: G43.909 Migraine, unspecified, not intractable, without status migrainosus (principal); I10 Essential (primary) hypertension; Z86.711 Personal history of pulmonary embolism; Z11.52 Encounter for screening for COVID-19
CPT/HCPCS: 80053; 85025; 87502; 87635; 96372; 99284; J3030

== ENCOUNTER 2023-09-26 16:09 | Emergency (ER) | payer OTHER, SELFPAY ==
[2023-09-26 16:13] VITALS: BP 147/79; PULSE 72; RESP 17; TEMP 36.4; O2SAT 99; BMI 27.8
--- NOTE | 2023-09-26 16:15 | ED.GENADULT ---
HPI - General Adult General Chief complaint: Wound/Laceration Stated complaint: stabbed leg with scissors Time Seen by Provider: 09/26/23 19:57 Source: patient Mode of arrival: ambulatory Limitations: no limitations History of Present Illness HPI narrative: Patient is a 48-year-old female who presents to the emergency department for evaluation. She reports sustaining an accidental laceration to the left anterior thigh. She was crafting at home, the scissors she was using had fallen from the counter and she attempted to catch them by adducting her legs, the tips of the scissors stabbed into her thigh. Admits that this was completely accidental. No active bleeding at this time, she does admit that she is anticoagulated with Eliquis. She has had unaware of the date of her last tetanus vaccination. Two denies any numbness tingling or pain to this area. Related Data Home Medications ?Medication ?Instructions ?Recorded ?Confirmed amlodipine 2.5 mg tablet 2.5 mg PO DAILY 07/06/22 07/28/22 aspirin 81 mg tablet,delayed 81 mg DAILY 07/06/22 07/28/22 release fluoxetine 20 mg capsule (Prozac) 20 mg PO BID 07/06/22 07/28/22 hydroxyzine pamoate 25 mg capsule 25 - 50 mg PO BEDTIME PRN Sleep 07/28/22 07/28/22 Previous Rx's ?Medication ?Instructions ?Recorded ciprofloxacin HCl 500 mg tablet 500 mg PO BID #14 tabs 09/15/22 phenazopyridine 100 mg tablet 100 mg PO TID PRN pain 6 doses #6 09/15/22 (Pyridium) tabs acetaminophen 325 mg capsule 650 mg (2 x 325 mg) PO Q6H PRN 12/20/22 (Tylenol) pain #30 caps benzonatate 200 mg capsule 200 mg PO BID PRN cough #20 caps 12/20/22 cephalexin 500 mg capsule 500 mg PO BID 14 days #28 caps 02/07/23 phenazopyridine 200 mg tablet 200 mg PO TID PRN pain 6 doses #6 02/07/23 (Pyridium) tabs rnogxslrob-xdusxqbjrsghj-erwxvqmr 1 tab PO Q6H PRN haeadace #20 tabs 06/04/23 50 mg-325 mg-40 mg tablet ondansetron 4 mg disintegrating 4 mg PO Q6-8H PRN nausea and 03/23/24 tablet vomiting #10 tabs sumatriptan succinate 50 mg tablet 50 mg PO Q2H PRN migraine headache 06/04/23 (Imitrex) #10 tabs Allergies Allergy/AdvReac Type Severity Reaction Status Date / Time latex [LATEX] Allergy Unknown DERMATITIS Verified 09/26/23 16:31 Review of Systems Review of Systems: Yes all other systems are reviewed and are negative [facility] Past Medical History Attestation statement: The following information was validated with the patient. Source: old records reviewed Medical History Salmonella enteritis COVID-19 Pulmonary embolism Hypertension History of back pain Anemia Hx pulmonary embolism Surgical History Hx of tubal ligation History of carpal tunnel surgery Family History Family History Maternal Uncle Hx of cancer of lung Mother Hx of myocardial infarction Social History Social History Household Members: Significant Other Housing: Apartment Do you presently have visiting nurse or other home services: No Alcohol intake: never Patient Tobacco Use Status: Never used Tobacco Advance Directives: No Advance Directives Information Provided: No Do you have a plan to hurt others: No Plan service: No Current occupational status: disabled Physical Exam ED Vital Signs: Vital Signs - 24 hr 09/26/23 16:13 09/26/23 20:23 Temperature 97.6 F 98.1 F Pulse Rate 72 67 Respiratory Rate 17 16 Blood Pressure 147/79 H 125/69 Pulse Oximetry 99 100 Oxygen Delivery Method Room Air BMI result Body Mass Index 27.8 Appearance: Alert.?Oriented to person, place and time. No acute distress.?Normal affect. Neck: Normal inspection.? Neck supple.?? CVS: Heart sounds normal. Normal heart rate and rhythm.? Pulses normal.?? Respiratory: No respiratory distress.? Lung sounds clear to auscultation bilaterally?? Skin: Skin warm and dry.? Normal skin color.? Left anterior mid thigh with 2 superficial lacerations measuring 0.5 cm, no active bleeding. Mild tenderness upon palpation of the surrounding region, no evidence of hematoma. Extremities: No lower extremity edema.? Neuro: Moves all extremities spontaneously. Sensation intact bilaterally. Ambulates with normal steady gait. Course Course Course Narrative: RME performed by Rosmery Sawyer PA-C. Patient is a 48 year old assigned female at presenting to the emergency department with a right thigh injury. Detailed physical exam and review of systems are deferred to the glass beveler. Patient placed back in the waiting room pending room availability. Medications Administered Discontinued Medications Generic Name Dose Route Start Last Admin Trade Name Freq PRN Reason Stop Dose Admin Diphtheria/Tetanus/Acell Pertussis 0.5 ml 09/26/23 16:31 09/26/23 19:18 Diphth,Pertus(Acell),Tet Adult 0.5 Ml Syringe IM 09/26/23 16:32 0.5 ml .ONCE ONE Administration Medical Decision Making Medical Decision Making MDM Narrative: Patient is a 48-year-old female who presents emergency department for evaluation of laceration to the left anterior by, accidental in nature as per HPI. Overall appears well, no active bleeding. Laceration/puncture is superficial, not amenable to repair with suture, edges are well approximated, areas not under tension. Cleansed extensively with saline and Betadine, skin adhesive applied. No active hematoma. Given mechanism of injury suspect less likely to have any acute osseous involvement. Discussed conservative treatment, monitoring of the area. Tetanus vaccination was updated. Advised outpatient follow-up with primary care provider. Differential Diagnosis Differential Diagnoses: The differential diagnosis associated with the presentation includes (See narrative above) External Record Review External record reviewed: Outpatient record Prescription Management I considered prescription management with: Pain Medication (Acetaminophen/ibuprofen) Chronic Conditions Patient?s care impacted by: Other (Long-term anticoagulant with Eliquis secondary to past medical history of pulmonary embolism) Discharge Plan Discharge Clinical Impression: Laceration of left thigh Patient Disposition: Home, Self-Care Instructions: Laceration (ED), Skin Adhesive Care (ED) Prescriptions: No Action amlodipine 2.5 mg tablet 2.5 mg PO DAILY aspirin 81 mg tablet,delayed release (DR/EC) 81 mg DAILY fluoxetine [Prozac] 20 mg capsule 20 mg PO BID benzonatate 200 mg capsule 200 mg PO BID PRN (Reason: cough) Qty: 20 0RF acetaminophen [Tylenol] 325 mg capsule 650 mg PO Q6H PRN (Reason: pain) Qty: 30 0RF hydroxyzine pamoate 25 mg capsule 25 - 50 mg PO BEDTIME PRN (Reason: Sleep) phenazopyridine [Pyridium] 100 mg tablet 100 mg PO TID PRN (Reason: pain) Qty: 6 0RF ciprofloxacin HCl 500 mg tablet 500 mg PO BID Qty: 14 0RF cephalexin 500 mg capsule 500 mg PO BID 14 Days Qty: 28 0RF phenazopyridine [Pyridium] 200 mg tablet 200 mg PO TID PRN (Reason: pain) Qty: 6 0RF sumatriptan succinate [Imitrex] 50 mg tablet 50 mg PO Q2H PRN (Reason: migraine headache) Qty: 10 0RF Rx Instructions: do not exceed 2 doses per 24 hrs kzcqjtwles-bvljjejshaqjh-bfdt 50-325-40 mg tablet 1 tab PO Q6H PRN (Reason: haeadace) Qty: 20 0RF ondansetron 4 mg tablet,disintegrating 4 mg PO Q6-8H PRN (Reason: nausea and vomiting) Qty: 10 0RF Referrals: Clover Okeefe MD [Primary Care Provider] - Print Language: Belarusian
[2023-09-26] MEDS: Diphth,Pertus(ACell),Tet Adult 0.5 ML SYRINGE IM (19:18)
[2023-09-26 20:23] VITALS: BP 125/69; PULSE 67; RESP 16; TEMP 36.7; O2SAT 100
[2023-09-26 21:20] VITALS: BP 121/71; PULSE 59; RESP 18; TEMP 36.6; O2SAT 98
[2023-09-26 21:29] VITALS: BP 121/71; PULSE 59; RESP 18; TEMP 36.6; O2SAT 98
== END 2023-09-26 21:30 | disposition home or self-care (01) ==
PROVIDERS: Emergency Provider Emergency Medicine; PCP Internal Medicine
DX: S71.112A Laceration without foreign body, left thigh, initial encounter (principal); X58.XXXA Exposure to other specified factors, initial encounter; W27.2XXA Contact with scissors, initial encounter; Y93.89 Activity, other specified; Y92.008 Other place in unspecified non-institutional (private) residence as the place of occurrence of the external cause; Y99.8 Other external cause status; Z23 Encounter for immunization
CPT/HCPCS: 90471; 90715; 99283; 99284

== ENCOUNTER → 2023-11-09 15:01 | Outpatient (RCR) | payer OTHER, SELFPAY ==
[2020-05-13 15:59] VITALS: BP 138/72; PULSE 80; RESP 12; TEMP 36.7; O2SAT 100; BMI 24.7
--- NOTE | 2020-05-13 16:08 | P.PNHO_ITS ---
Medical Summary - Medical Summary Date of Service: 05/13/20 Chief complaint: Follow-up for: PE. Medical Summary: DIAGNOSIS: Bilateral Subsegmental P.E, noted April 09, 2018. CURRENT THERAPY: Off Warfarin. Currently on a baby aspirin. Interval History Interval history: This is a pleasant 44-year-old lady, here for a follow-up visit. She tells me she has been feeling quite well. Sometimes she gets tired. She has a cyst in her neck. She tells me she is on prednisolone liquid and Cefdinir 100 mg, antibiotic under the care of Dr. Vega. She has to follow-up with him. Denies headaches nor dizziness. She denies any lower extremity pain or swelling. No chest pain or trouble breathing. She denies abdominal pain nausea vomiting heartburn indigestion. Bowels are working without any gross blood in it. She enjoys a good appetite. She has lost weight. She used to get a heavy period. Not any more. She recently took herself off the Depo-Provera. She is in good spirits. Rest of the review of systems is unremarkable. Review of Systems - Constitutional Reports no additional constitutional complaints - Eyes Reports no additional eye complaints - ENT Reports no additional ear, nose, mouth, and throat complaints - Cardiovascular Reports no additional cardiovascular complaints - Respiratory Reports no additional respiratory complaints - Gastrointestinal Reports no additional gastrointestinal complaints - Genitourinary Reports no additional female genitourinary complaints - Musculoskeletal Reports no additional musculoskeletal complaints - Integumentary/Breasts Skin/Breast: Reports no additional skin complaints - Neurologic Reports no additional neurologic complaints - Psychiatric Reports no additional psychiatric complaints - Endocrine Reports no additional endocrine complaints - Hematologic/Lymphatic Reports no additional hematologic/lymphatic complaints - Allergic/Immunologic Reports no additional allergic/immunologic complaints [facility] Medical History: Medical History (Last Updated 05/13/20 @ 14:06 by Johanna Mendez) Anemia History of back pain Hx pulmonary embolism Functional capacity: independent ambulation Patient : No Family History: Family History (Last Updated 05/13/20 @ 14:08 by Johanna Mendez) Maternal Uncle Hx of cancer of lung Mother Hx of myocardial infarction Surgical History: Surgical History (Last Updated 05/13/20 @ 14:06 by Johanna Mendez) History of carpal tunnel surgery Hx of tubal ligation Social History: Social History (Last Updated 05/13/20 @ 16:10 by Johanna Gonzalez Alcohol History: Alcohol intake: current Alcohol History Details: Alcohol intake frequency: holiday/special occasion Alcohol type: beer Alcohol type: wine Oncology Screenings - ECOG Performance Status ECOG Performance Status: 0 Home Medications and Allergies Home Medications Medication Instructions Recorded Confirmed Type aspirin [Aspir-Low] 05/13/20 05/13/20 History fluoxetine 20 mg PO DAILY 05/13/20 05/13/20 History losartan 100 mg PO DAILY 05/13/20 05/13/20 History warfarin 5 mg PO DAILY 05/13/20 05/13/20 History Allergies Allergy/AdvReac Type Severity Reaction Status Date / Time latex [LATEX] Allergy Unknown DERMATITIS Unverified 11/29/19 17:45 Exam Vital signs: Vital Signs Temp 98.1 F 05/13/20 15:59 Pulse 80 05/13/20 15:59 Resp 12 05/13/20 15:59 BP 138/72 05/13/20 15:59 Pulse Ox 100 05/13/20 15:59 Intake & Output 05/12/20 05/13/20 05/13/20 18:59 06:59 18:59 Other: Weight 61.5 kg Weight in Grams 58160 Weight 61.5 kg Body Mass Index 24.7 - Constitutional Present: no acute distress - Routine HEENT Exam Head: Present: normal inspection Eye: Present: normal appearance ENT: Present: mucous membranes moist - Routine Neck Exam Present: full ROM - Routine Respiratory Exam Present: CTAB - Routine Cardiovascular Exam Cardiovascular: Present: RRR, S1, S2 - Routine Abdominal Exam Present: soft, nontender - Routine Rectal Exam Patient deferred: digital exam - Routine Extremities Exam Present: nontender - Routine Back/Spine/Pelvis Exam Back/Spine: Present: full ROM - Routine Skin Exam Present: intact - Routine Neurological Exam Present: alert, oriented X3 - Routine Psychiatric Exam Present: normal affect Data - Labs CBC & Chem 7: 05/13/20 16:00 05/13/20 16:00 Progress Note: A/P (1) Pulmonary embolism Status: Acute Assessment and plan: This is a pleasant 44 year-old lady, admitted April 092018, with chest pain and shortness of breath. She was noted to have bilateral subsegmental Pulmonary Emboli. There was no obvious precipitating factor, indicative of unprovoked Thromboembolism. In view of her young age, I recommended a hypercoagulable workup. This came back nonrevealing. She initially elected to go on one of the NOAC. After she had a workup by PET SITTER, she was switched over to warfarin. Her INR from and October 31 was 1.5. She has been taking 5 mg daily. Except for last couple days when the dose was boosted. It appears that she is not very compliant, with her visit to [facility]. Her D-dimer has been less than 200, since June of last year. This is reassuring. We discussed the duration of anticoagulation therapy. I explained that since this is unprovoked the duration recommended is controversial. The risk goes down after a couple of years of anticoagulation therapy. We had initially decided to complete 2 years of therapy. However she felt quite asymptomatic. [place] comfortable getting off of it. She stopped taking it about 6 months ago. She has been feeling fine. She started baby aspirin. PLAN: She will stay on the baby aspirin daily for prophylaxis. She will return in 6 months for a followup visit. She will keep me posted about her progress in the interim. She will follow-up with electrical sign servicer. I went over symptoms that would require her to go to the emergency room. Thank you, CC: Dr. Okeefe. Dr. Edgar Holland. - Time Spent With Patient Total time spent is greater than 50% in coordination of care (as documented) at patient's floor/unit and/or counseling patient: 25 - 35 minutes
[2020-05-13 16:17] LABS: Basophils Percent Auto 0.7 % (0-2); Eosinophils Absolute Auto 0.1 X10*3/uL (0.0-0.4); Hematocrit 42.4 % (37-47); Imm Gran Abs Auto 0.01 X10*3/uL (0.00-0.03); Imm Gran Pct Auto 0.2 % (0.0-0.4); Lymphocytes Absolute Auto 1.7 X10*3/uL (1.2-4.9); Lymphocytes Percent Auto 31.2 % (20-40); MANUAL DIFF FLAG NO; Mean Corpuscular Hemoglobin 29.6 pg (27.0-33.0); Mean Corpuscular Volume 89.6 fL (80-98); Mean Platelet Volume 11.5 fL (9.4-12.3); Monocytes Absolute Auto 0.5 X10*3/uL (0.1-1.2); Monocytes Percent Auto 9.7 % (2-11); Neutrophils Absolute Auto 3.1 X10*3/uL (2.0-8.3); Neutrophils Percent Auto 56.2 % (45-73); Platelet Count 186 X10*3/uL (160-400); Red Blood Count 4.73 X10*6/uL (4.20-5.50); Red Cell Distribution Width 12.4 % (11.0-16.0); White Blood Count 5.5 X10*3/uL (4.8-10.8)
--- NOTE | 2020-05-13 16:47 | MHC.HEMONCMA ---
Patient present to f.u on anemia. 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
[2020-05-13 16:48] LABS: Alanine Aminotransferase 7 U/L (0-31); Albumin Level 4.1 g/dL (3.5-5.0); Alkaline Phosphatase 75 U/L (39-117); Anion Gap 11 (12-20); Aspartate Amino Transferase 13 U/L (5-31); Bilirubin Total 0.6 mg/dL (0.0-1.0); Blood Urea Nitrogen 17 mg/dL (9-16); Calcium 8.8 mg/dL (8.4-10.2); Carbon Dioxide 24 mmol/L (22-29); Chloride 110 mmol/L (96-108); Creatinine Clr Calc Pharmacy 54.7; Estimated Glomerular Filt Rate 53; Glucose Random 74 mg/dL (60-115); Potassium 3.9 mmol/L (3.3-5.1); Sodium 141 mmol/L (135-145)
[2020-05-13 16:55] LABS: D Dimer < 200 NG/ML
== END | disposition home or self-care (01) ==
LOC: HO.ONC 05-13 15:49
PROVIDERS: PCP Internal Medicine; Visit Provider Internal Medicine Medical Oncology
DX: Z86.711 Personal history of pulmonary embolism (principal); Z79.82 Long term (current) use of aspirin
CPT/HCPCS: 36415; 80053; 85025; 85379; 99214

== ENCOUNTER 2024-11-18 17:13 | Emergency (ER) | payer MEDICARE, SELFPAY ==
--- NOTE | ~2024-11-18 | XR_ITS ---
CLINICAL HISTORY: chest pain 1 view chest x-ray Comparison: CR/SR - XR CHEST 2 VIEWS - 03/26/23 17:35 EST Findings: The lungs are clear. Normal size heart. No acute fracture. IMPRESSION: 1. No acute findings. This document has been electronically signed by: Lucero Melendez MD on 11/18/2024 18:51:23
--- NOTE | 2024-11-18 17:14 | ECG_ITS ---
Test Reason : CP Blood Pressure : */* mmHG Vent. Rate : 106 BPM Atrial Rate : 106 BPM P-R Int : 160 ms QRS Dur : 100 ms QT Int : 366 ms P-R-T Axes : 55 1 30 degrees QTcB Int : 486 ms Sinus tachycardia Low voltage QRS Incomplete right bundle branch block Borderline ECG When compared with ECG of 24-Mar-2023 11:26, No significant change was found Referred By: Zurdo Ahuja Electronically Signed By: NICHOLAS MCCARTHY MD
[2024-11-18 17:23] VITALS: BP 163/108; PULSE 92; RESP 16; TEMP 36.6; O2SAT 98; BMI 28.1
--- NOTE | 2024-11-18 17:29 | ED.CHESTPAIN ---
HPI - Chest Pain General Chief Complaint: Chest Pain Stated Complaint: chest pain Time Seen by Provider: 11/18/24 17:43 Related Data Home Medications ?Medication ?Instructions ?Recorded ?Confirmed amlodipine 2.5 mg tablet 2.5 mg PO DAILY 07/06/22 07/28/22 aspirin 81 mg tablet,delayed 81 mg DAILY 07/06/22 07/28/22 release fluoxetine 20 mg capsule (Prozac) 20 mg PO BID 07/06/22 07/28/22 hydroxyzine pamoate 25 mg capsule 25 - 50 mg PO BEDTIME PRN Sleep 07/28/22 07/28/22 Previous Rx's ?Medication ?Instructions ?Recorded ciprofloxacin HCl 500 mg tablet 500 mg PO BID #14 tabs 09/15/22 phenazopyridine 100 mg tablet 100 mg PO TID PRN pain 6 doses #6 09/15/22 (Pyridium) tabs acetaminophen 325 mg capsule 650 mg (2 x 325 mg) PO Q6H PRN 12/20/22 (Tylenol) pain #30 caps benzonatate 200 mg capsule 200 mg PO BID PRN cough #20 caps 12/20/22 cephalexin 500 mg capsule 500 mg PO BID 14 days #28 caps 02/07/23 phenazopyridine 200 mg tablet 200 mg PO TID PRN pain 6 doses #6 02/07/23 (Pyridium) tabs rbsahfujdb-mdwqydftmuqhx-bkpvbslu 1 tab PO Q6H PRN haeadace #20 tabs 06/04/23 50 mg-325 mg-40 mg tablet ondansetron 4 mg disintegrating 4 mg PO Q6-8H PRN nausea and 06/04/23 tablet vomiting #10 tabs sumatriptan succinate 50 mg tablet 50 mg PO Q2H PRN migraine headache 06/04/23 (Imitrex) #10 tabs Allergies Allergy/AdvReac Type Severity Reaction Status Date / Time latex (LATEX) Allergy Unknown DERMATITIS Verified 11/18/24 17:23 [facility] Past Medical History Medical History Salmonella enteritis COVID-19 Pulmonary embolism Hypertension History of back pain Anemia Hx pulmonary embolism Surgical History Hx of tubal ligation History of carpal tunnel surgery Family History Family History Maternal Uncle Hx of cancer of lung Mother Hx of myocardial infarction Social History Social History Household Members: Significant Other Housing: Apartment Do you presently have visiting nurse or other home services: No Alcohol intake: never Patient Tobacco Use Status: Never used Tobacco Smoked in Last 30 Days: No Use of substances other than those prescribed or required for medical reasons: No Advance Directives: No Advance Directives Information Provided: No service: No Current occupational status: disabled Physical Exam Vital Signs: Vital Signs: Last Vital Signs Temp 97.9 F 11/18/24 20:17 Pulse 65 11/18/24 20:17 Resp 16 11/18/24 20:17 BP 144/78 H 11/18/24 20:17 Pulse Ox 96 11/18/24 20:17 O2 Del Method Room Air 11/18/24 20:17 BMI result Body Mass Index 28.1 Course Course Course Narrative: RME: 49-year-old female presents to ED for shortness of breath palpitation left-sided chest pain. Patient has been having it for the past 2 weeks. Patient has abnormal echo and [place] and was due for a stress test but is scheduled for 2 months in [place]. Medications Administered Discontinued Medications Generic Name Dose Route Start Last Admin Trade Name Ammy PRN Reason Stop Dose Admin Aspirin 324 mg 11/18/24 18:17 11/18/24 18:30 Aspirin 81 Mg Tab.Chew PO 11/18/24 18:18 324 mg ONCE ONE Administration Medical Decision Making Medical Decision Making MDM Narrative: Patient has a history of PE but is on Eliquis. Her D-dimer is negative. In the setting of negative D-dimer and being on Eliquis. Unlikely to have PE. Patient has nonspecific chest pain has been ongoing. Cardiac enzymes are negative x2 sets. In the setting of a normal EKG negative troponin atypical history 49 years old with 1-2 risk factors patient's heart score is less than 3. My interpretation patient's chest x-ray is grossly negative for pneumonia no pneumothorax. Patient is stable will discharge patient home close follow-up on an outpatient basis. Will give patient referral for Cardiology. Currently in stable condition. Differential Diagnosis Differential Diagnoses: The differential diagnosis associated with the presentation includes ACS, pneumonia, pneumothorax, PE Admission/Observation Consideration of admission/observation: Escalation of care including admission/observation considered Lab Data MDM Lab Attestation statement: I reviewed the patient's lab results. 11/18/24 17:46 11/18/24 17:46 Labs: Lab Results 11/18/24 11/18/24 Range/Units 17:46 19:16 WBC 7.7 (4.8-10.8) X10*3/uL RBC 4.83 (4.20-5.50) X10*6/uL Hgb 12.9 (12.0-16.0) g/dl Hct 38.5 (37.0-47.0) % MCV 79.7 L (80.0-98.0) fL MCH 26.7 L (27.0-33.0) pg MCHC 33.5 (31.0-35.0) g/dl RDW 15.5 (11.0-16.0) % Plt Count 208 (160-400) X10*3/uL MPV 11.5 (9.4-12.3) fL Immature Gran % (Auto) Cancelled Neut % (Auto) Cancelled Lymph % (Auto) Cancelled [place] % (Auto) Cancelled Eos % (Auto) Cancelled Baso % (Auto) Cancelled Lymph # (Auto) Cancelled [place] # (Auto) Cancelled Eos # (Auto) Cancelled Baso # (Auto) Cancelled Abs Immat Gran (auto) Cancelled Absolute Neuts (auto) Cancelled Absolute Nucleated RBC 0.000 (0.0-0.012) X10*3/uL Nucleated RBC % (auto) 0.0 (0.0-0.2) /100WBC Neutrophils % (Manual) 67 (45-73) % Band Neutrophils % 0 L (3-5) % Lymphocytes % (Manual) 26 (20-40) % Monocytes % (Manual) 4 (2-11) % Basophils % (Manual) 3 H (0-2) % Abs Neuts (Manual) 5.2 (2.0-8.3) X10*3/uL Lymphocytes # (Manual) 2.0 (1.2-4.9) X10*3/uL Monocytes # (Manual) 0.3 (0.1-1.2) X10*3/uL Basophils # (Manual) 0.2 (0.0-0.2) X10*3/uL Platelet Estimate NORMAL (NORMAL) Large Platelets PRESENT Plt Morphology Comment NORMAL RBC Morphology NORMAL PT 11.2 (10.9-12.4) SEC INR 1.0 (0.9-1.1) APTT 31.2 (26.7-34.1) SEC D-Dimer High Sensitivty < 150 NG/ML Sodium 142 (135-145) mmol/L Potassium 3.2 L (3.3-5.1) mmol/L Chloride 107 (96-108) mmol/L Carbon Dioxide 24 (22-29) mmol/L Anion Gap 14 (12-20) BUN 23 H (9-16) mg/dL Creatinine 0.71 (0.5-1.4) mg/dL Estim Creat Clear Calc 86.7 Estimated GFR > 60 Random Glucose 105 (60-115) mg/dL Calcium 9.4 (8.4-10.2) mg/dL Total Bilirubin 0.5 (0.0-1.0) mg/dL AST 21 (5-31) U/L ALT 15 (0-31) U/L Alkaline Phosphatase 115 (39-117) U/L Troponin I High Sens < 2.7 < 2.7 (<3.5-17.0) ng/L B-Natriuretic Peptide 55 (<100) pg/mL Total Protein 7.5 (6.5-8.0) g/dL Albumin 4.4 (3.5-5.0) g/dL Independent Interpretation I performed an independent interpretation of an: EKG (Sinus heart rate is 100 ID QRS QTC within normal limits there is nonspecific T-wave inversion in the anterior leads.) and Plain X-Ray (Chest x-ray grossly negative for pneumonia pneumothorax) Radiology Impression Discussion of test interpretation with radiology: I have reviewed the radiologist's reading. Chronic Conditions Patient?s care impacted by: Hypertension Family history of coronary artery disease Social Determinants Patient?s care significantly limited by Social Determinants of Health including: Unemployment and Other Social Determinant of Health Recently moved to [place] Discharge Plan Discharge Clinical Impression: Hypertension, Chest pain Patient Disposition: Home, Self-Care Instructions: Chest Pain (ED) Prescriptions: No Action amlodipine 2.5 mg tablet 2.5 mg PO DAILY aspirin 81 mg tablet,delayed release (DR/EC) 81 mg DAILY fluoxetine [Prozac] 20 mg capsule 20 mg PO BID benzonatate 200 mg capsule 200 mg PO BID PRN (Reason: cough) Qty: 20 0RF acetaminophen [Tylenol] 325 mg capsule 650 mg PO Q6H PRN (Reason: pain) Qty: 30 0RF hydroxyzine pamoate 25 mg capsule 25 - 50 mg PO BEDTIME PRN (Reason: Sleep) phenazopyridine [Pyridium] 100 mg tablet 100 mg PO TID PRN (Reason: pain) Qty: 6 0RF ciprofloxacin HCl 500 mg tablet 500 mg PO BID Qty: 14 0RF cephalexin 500 mg capsule 500 mg PO BID 14 Days Qty: 28 0RF phenazopyridine [Pyridium] 200 mg tablet 200 mg PO TID PRN (Reason: pain) Qty: 6 0RF sumatriptan succinate [Imitrex] 50 mg tablet 50 mg PO Q2H PRN (Reason: migraine headache) Qty: 10 0RF Rx Instructions: do not exceed 2 doses per 24 hrs elrjdetbpv-ijjqhhuuanpfq-jdbe 50-325-40 mg tablet 1 tab PO Q6H PRN (Reason: haeadace) Qty: 20 0RF ondansetron 4 mg tablet,disintegrating 4 mg PO Q6-8H PRN (Reason: nausea and vomiting) Qty: 10 0RF Referrals: Saúl Monge MD [Physician, Cardiology] - 11/20/24 Interventions: ED Discharge Assessment Last Done: 11/18/24 20:17 Discharge Date/Time: 11/18/24 20:23 Print Language: Frisian
[2024-11-18 18:09] LABS: Alanine Aminotransferase 15 U/L (0-31); Albumin Level 4.4 g/dL (3.5-5.0); Alkaline Phosphatase 115 U/L (39-117); Anion Gap 14 (12-20); Aspartate Amino Transferase 21 U/L (5-31); Blood Urea Nitrogen 23 mg/dL (9-16); Calcium 9.4 mg/dL (8.4-10.2); Carbon Dioxide 24 mmol/L (22-29); Chloride 107 mmol/L (96-108); Creatinine Clr Calc Pharmacy 86.7; Estimated Glomerular Filt Rate > 60; INTERNATIONAL NORM RATIO 1.0 (0.9-1.1); Potassium 3.2 mmol/L (3.3-5.1); Prothrombin Time 11.2 SEC (10.9-12.4); Sodium 142 mmol/L (135-145); Total Protein 7.5 g/dL (6.5-8.0)
[2024-11-18 18:12] LABS: Partial Thromboplastin Time 31.2 SEC (26.7-34.1)
[2024-11-18 18:15] LABS: B Type Natriuretic Peptide 55 pg/mL (<100)
--- NOTE | 2024-11-18 18:17 | ED.CHESTPAIN ---
HPI - Chest Pain General Chief Complaint: Chest Pain Stated Complaint: chest pain Time Seen by Provider: 11/18/24 17:43 History of Present Illness HPI narrative: Patient is a 49 old female with a history of hypertension family history of coronary disease patient's mom had a cardiac event in her 50s. Presented today with having chest pain. The chest pains in the left side been ongoing for the last week. Patient lives in [place] just arrived to the [place] area 2 days prior. She did flu on a plane for 3 hours. Denies any leg swelling she has a history of blood clots in the past but is on Eliquis she claims compliant and has been taking her Eliquis. Patient had an echo done in [place] which showed mitral valve prolapse. No fever no chills. No diaphoresis. She was supposed to get a stress test but was unable to do so. Came to the ED for help. Patient denies any history of high cholesterol any history of smoking and history of SD. did not have any history of recreational drug use. No trauma to the chest. No cough no congestion or upper respiratory symptoms. Related Data Home Medications ?Medication ?Instructions ?Recorded ?Confirmed amlodipine 2.5 mg tablet 2.5 mg PO DAILY 07/06/22 07/28/22 aspirin 81 mg tablet,delayed 81 mg DAILY 07/06/22 07/28/22 release fluoxetine 20 mg capsule (Prozac) 20 mg PO BID 07/06/22 07/28/22 hydroxyzine pamoate 25 mg capsule 25 - 50 mg PO BEDTIME PRN Sleep 07/28/22 07/28/22 Previous Rx's ?Medication ?Instructions ?Recorded ciprofloxacin HCl 500 mg tablet 500 mg PO BID #14 tabs 09/15/22 phenazopyridine 100 mg tablet 100 mg PO TID PRN pain 6 doses #6 09/15/22 (Pyridium) tabs acetaminophen 325 mg capsule 650 mg (2 x 325 mg) PO Q6H PRN 12/20/22 (Tylenol) pain #30 caps benzonatate 200 mg capsule 200 mg PO BID PRN cough #20 caps 12/20/22 cephalexin 500 mg capsule 500 mg PO BID 14 days #28 caps 02/07/23 phenazopyridine 200 mg tablet 200 mg PO TID PRN pain 6 doses #6 02/07/23 (Pyridium) tabs otrcdutlxc-bagxquebdqjoh-ytlocvdm 1 tab PO Q6H PRN haeadace #20 tabs 06/04/23 50 mg-325 mg-40 mg tablet ondansetron 4 mg disintegrating 4 mg PO Q6-8H PRN nausea and 06/04/23 tablet vomiting #10 tabs sumatriptan succinate 50 mg tablet 50 mg PO Q2H PRN migraine headache 06/04/23 (Imitrex) #10 tabs Allergies Allergy/AdvReac Type Severity Reaction Status Date / Time latex (LATEX) Allergy Unknown DERMATITIS Verified 11/18/24 17:23 Review of Systems Review of Systems: Positive chest pain Yes all other systems are reviewed and are negative PMFSH Past Medical History Attestation statement: The following information was validated with the patient. Medical History Salmonella enteritis COVID-19 Pulmonary embolism Hypertension History of back pain Anemia Hx pulmonary embolism Surgical History Hx of tubal ligation History of carpal tunnel surgery Family History Family History Maternal Uncle Hx of cancer of lung Mother Hx of myocardial infarction Social History Social History Household Members: Significant Other Housing: Apartment Do you presently have visiting nurse or other home services: No Alcohol intake: never Patient Tobacco Use Status: Never used Tobacco Smoked in Last 30 Days: No Use of substances other than those prescribed or required for medical reasons: No Advance Directives: No Advance Directives Information Provided: No service: No Current occupational status: disabled Physical Exam Exam: Exam: Appearance: Alert. Oriented X3. No acute distress. Eyes: Pupils equal, round and reactive to light. ENT: Pharynx normal. Neck: Normal inspection. Neck supple. No lymph nodes noted. No crepitus CVS: Normal heart rate and rhythm. Pulses normal. Normal S1 and S2 Respiratory: No respiratory distress. Breath sounds normal. No Wheezing. No rales Abdomen: Soft and nontender. No rigidity. No distention. good BS x4 Skin: Skin warm and dry. Normal skin color. Normal skin turgor. Extremities: No lower extremity edema. Neurovascular intact to all extremities. No Lacerations. No Rash Neuro: Oriented X 3. No motor deficit. No sensory deficit. Moving all extermities. No slurred speech Vital Signs: Vital Signs: Last Vital Signs Temp 97.9 F 11/18/24 20:17 Pulse 65 11/18/24 20:17 Resp 16 11/18/24 20:17 BP 144/78 H 11/18/24 20:17 Pulse Ox 96 11/18/24 20:17 O2 Del Method Room Air 11/18/24 20:17 BMI result Body Mass Index 28.1 Medications Administered Discontinued Medications Generic Name Dose Route Start Last Admin Trade Name Freq PRN Reason Stop Dose Admin Aspirin 324 mg 11/18/24 18:17 11/18/24 18:30 Aspirin 81 Mg Tab.Chew PO 11/18/24 18:18 324 mg ONCE ONE Administration Medical Decision Making Lab Data 11/18/24 17:46 11/18/24 17:46 Labs: Lab Results 11/18/24 11/18/24 Range/Units 17:46 19:16 WBC 7.7 (4.8-10.8) X10*3/uL RBC 4.83 (4.20-5.50) X10*6/uL Hgb 12.9 (12.0-16.0) g/dl Hct 38.5 (37.0-47.0) % MCV 79.7 L (80.0-98.0) fL MCH 26.7 L (27.0-33.0) pg MCHC 33.5 (31.0-35.0) g/dl RDW 15.5 (11.0-16.0) % Plt Count 208 (160-400) X10*3/uL MPV 11.5 (9.4-12.3) fL Immature Gran % (Auto) Cancelled Neut % (Auto) Cancelled Lymph % (Auto) Cancelled [place] % (Auto) Cancelled Eos % (Auto) Cancelled Baso % (Auto) Cancelled Lymph # (Auto) Cancelled [place] # (Auto) Cancelled Eos # (Auto) Cancelled Baso # (Auto) Cancelled Abs Immat Gran (auto) Cancelled Absolute Neuts (auto) Cancelled Absolute Nucleated RBC 0.000 (0.0-0.012) X10*3/uL Nucleated RBC % (auto) 0.0 (0.0-0.2) /100WBC Neutrophils % (Manual) 67 (45-73) % Band Neutrophils % 0 L (3-5) % Lymphocytes % (Manual) 26 (20-40) % Monocytes % (Manual) 4 (2-11) % Basophils % (Manual) 3 H (0-2) % Abs Neuts (Manual) 5.2 (2.0-8.3) X10*3/uL Lymphocytes # (Manual) 2.0 (1.2-4.9) X10*3/uL Monocytes # (Manual) 0.3 (0.1-1.2) X10*3/uL Basophils # (Manual) 0.2 (0.0-0.2) X10*3/uL Platelet Estimate NORMAL (NORMAL) Large Platelets PRESENT Plt Morphology Comment NORMAL RBC Morphology NORMAL PT 11.2 (10.9-12.4) SEC INR 1.0 (0.9-1.1) APTT 31.2 (26.7-34.1) SEC D-Dimer High Sensitivty < 150 NG/ML Sodium 142 (135-145) mmol/L Potassium 3.2 L (3.3-5.1) mmol/L Chloride 107 (96-108) mmol/L Carbon Dioxide 24 (22-29) mmol/L Anion Gap 14 (12-20) BUN 23 H (9-16) mg/dL Creatinine 0.71 (0.5-1.4) mg/dL Estim Creat Clear Calc 86.7 Estimated GFR > 60 Random Glucose 105 (60-115) mg/dL Calcium 9.4 (8.4-10.2) mg/dL Total Bilirubin 0.5 (0.0-1.0) mg/dL AST 21 (5-31) U/L ALT 15 (0-31) U/L Alkaline Phosphatase 115 (39-117) U/L Troponin I High Sens < 2.7 < 2.7 (<3.5-17.0) ng/L B-Natriuretic Peptide 55 (<100) pg/mL Total Protein 7.5 (6.5-8.0) g/dL Albumin 4.4 (3.5-5.0) g/dL Discharge Plan Discharge Clinical Impression: Hypertension, Chest pain Patient Disposition: Home, Self-Care Instructions: Chest Pain (ED) Prescriptions: No Action amlodipine 2.5 mg tablet 2.5 mg PO DAILY aspirin 81 mg tablet,delayed release (DR/EC) 81 mg DAILY fluoxetine [Prozac] 20 mg capsule 20 mg PO BID benzonatate 200 mg capsule 200 mg PO BID PRN (Reason: cough) Qty: 20 0RF acetaminophen [Tylenol] 325 mg capsule 650 mg PO Q6H PRN (Reason: pain) Qty: 30 0RF hydroxyzine pamoate 25 mg capsule 25 - 50 mg PO BEDTIME PRN (Reason: Sleep) phenazopyridine [Pyridium] 100 mg tablet 100 mg PO TID PRN (Reason: pain) Qty: 6 0RF ciprofloxacin HCl 500 mg tablet 500 mg PO BID Qty: 14 0RF cephalexin 500 mg capsule 500 mg PO BID 14 Days Qty: 28 0RF phenazopyridine [Pyridium] 200 mg tablet 200 mg PO TID PRN (Reason: pain) Qty: 6 0RF sumatriptan succinate [Imitrex] 50 mg tablet 50 mg PO Q2H PRN (Reason: migraine headache) Qty: 10 0RF Rx Instructions: do not exceed 2 doses per 24 hrs yrogfzfcle-acfyonlqzihbt-jntw 50-325-40 mg tablet 1 tab PO Q6H PRN (Reason: haeadace) Qty: 20 0RF ondansetron 4 mg tablet,disintegrating 4 mg PO Q6-8H PRN (Reason: nausea and vomiting) Qty: 10 0RF Referrals: Saúl Monge MD [Physician, Cardiology] - 11/20/24 Interventions: ED Discharge Assessment Last Done: 11/18/24 20:17 Discharge Date/Time: 11/18/24 20:23 Print Language: Uzbek
[2024-11-18 18:18] LABS: Troponin-I High Sensitivity < 2.7 ng/L (<3.5-17.0)
[2024-11-18 18:23] LABS: Hematocrit 38.5 % (37.0-47.0); Hemoglobin 12.9 g/dl (12.0-16.0); Mean Corpuscular HGB Conc 33.5 g/dl (31.0-35.0); Mean Corpuscular Hemoglobin 26.7 pg (27.0-33.0); Mean Corpuscular Volume 79.7 fL (80.0-98.0); NRBC Abs Auto 0.000 X10*3/uL (0.0-0.012); NRBC Pct Auto 0.0 /100WBC (0.0-0.2); Platelet Count 208 X10*3/uL (160-400); Red Blood Count 4.83 X10*6/uL (4.20-5.50)
[2024-11-18 18:24] LABS: WBC ABN SCTR FOR CBC 1
[2024-11-18 18:37] VITALS: BP 164/89; PULSE 82; RESP 16; O2SAT 96
[2024-11-18 18:48] LABS: Band Neutrophils Percent 0 % (3-5); Basophils Percent Manual 3 % (0-2); Lymphocytes Percent Manual 26 % (20-40); Monocytes Percent Manual 4 % (2-11); Neutrophils Percent Manual 67 % (45-73)
[2024-11-18 18:51] LABS: Basophils Abs Manual 0.2 X10*3/uL (0.0-0.2); Large Platelet PRESENT; Lymphocytes Absolute Manual 2.0 X10*3/uL (1.2-4.9); Monocytes Absolute Manual 0.3 X10*3/uL (0.1-1.2); Neutrophils Absolute Manual 5.2 X10*3/uL (2.0-8.3); RBC Morphology NORMAL; White Blood Count 7.7 X10*3/uL (4.8-10.8)
[2024-11-18 18:52] LABS: D Dimer High Sensitivity < 150 NG/ML
[2024-11-18 19:41] LABS: Troponin-I High Sensitivity < 2.7 ng/L (<3.5-17.0)
[2024-11-18 20:15] VITALS: BP 144/78; PULSE 65; RESP 16; TEMP 36.6; O2SAT 96
[2024-11-18 20:17] VITALS: BP 144/78; PULSE 65; RESP 16; TEMP 36.6; O2SAT 96
== END 2024-11-18 20:23 | disposition home or self-care (01) ==
PROVIDERS: Physician Assistant; Emergency Provider Emergency Medicine Emergency Medical Services; PCP Internal Medicine
DX: R07.89 Other chest pain (principal); R06.02 Shortness of breath; I10 Essential (primary) hypertension; Z79.01 Long term (current) use of anticoagulants; Z79.899 Other long term (current) drug therapy
CPT/HCPCS: 36415; 71045; 80053; 83880; 84484; 85007; 85027; 85379; 85610; 85730; 93005; 99283; 99285

== ENCOUNTER → 2024-11-18 17:14 | Outpatient (BNV) | payer MEDICARE, SELFPAY | PROVIDERS: Emergency Provider Emergency Medicine Emergency Medical Services; PCP Internal Medicine; Visit Provider Internal Medicine Cardiovascular Disease | DX: I45.10 Unspecified right bundle-branch block (principal); R00.0 Tachycardia, unspecified | CPT/HCPCS: 93010 ==

== ENCOUNTER → 2024-11-18 17:29 | Outpatient (BNV) | payer MEDICARE, SELFPAY | PROVIDERS: Emergency Provider Emergency Medicine Emergency Medical Services; PCP Internal Medicine; Visit Provider Radiology Diagnostic Radiology | DX: R07.9 Chest pain, unspecified (principal) | CPT/HCPCS: 71045 ==

== ENCOUNTER 2024-11-29 20:28 | Emergency (ER) | payer MEDICARE, MEDICAID, SELFPAY ==
--- NOTE | ~2024-11-29 | CT_ITS ---
CLINICAL HISTORY: right flank pain renal colic CT abdomen and pelvis without contrast Comparison: CT/REG/UT/SR - CT ABDOMEN PELVIS WITHOUT IV CONTRAST - 03/26/23 12:53 EST Findings: Minor atelectasis both lower lungs. 2 mm nonobstructing bilateral inferior renal stones and right mid renal stone. Gallbladder and solid organs otherwise unremarkable. Incidental gastric cardia diverticulum. Variant anatomy. Moderate stool. Uterus and ovaries unremarkable. Normal appendix. The bones are intact. IMPRESSION: 1. Nonobstructing bilateral nephrolithiasis. 2. Moderate stool without obstruction. This document has been electronically signed by: Virginia Gordillo MD on 11/30/2024 02:34:32
[2024-11-29 21:07] VITALS: BP 147/67; PULSE 79; RESP 16; TEMP 36.9; O2SAT 99; BMI 27.8
[2024-11-29 21:33] LABS: MANUAL DIFF FLAG NO
[2024-11-29 21:36] LABS: Appearance Urine Clear; Glucose Urine UA Negative (Negative); PH 5.5 (5.0-9.0); Specific Gravity - Urine 1.025 (1.005-1.025)
[2024-11-29 21:37] LABS: Hematocrit 39.3 % (37.0-47.0); Hemoglobin 13.0 g/dl (12.0-16.0); Imm Gran Abs Auto 0.01 X10*3/uL (0.00-0.03); Imm Gran Pct Auto 0.1 % (0.0-0.4); Lymphocytes Absolute Auto 2.3 X10*3/uL (1.2-4.9); Mean Corpuscular HGB Conc 33.1 g/dl (31.0-35.0); Mean Corpuscular Hemoglobin 26.6 pg (27.0-33.0); Mean Corpuscular Volume 80.5 fL (80.0-98.0); NRBC Abs Auto 0.000 X10*3/uL (0.0-0.012); NRBC Pct Auto 0.0 /100WBC (0.0-0.2); Platelet Count 188 X10*3/uL (160-400); Red Blood Count 4.88 X10*6/uL (4.20-5.50); White Blood Count 7.8 X10*3/uL (4.8-10.8)
[2024-11-29 21:47] LABS: Alanine Aminotransferase 11 U/L (0-31); Albumin Level 4.4 g/dL (3.5-5.0); Alkaline Phosphatase 101 U/L (39-117); Anion Gap 9 (12-20); Aspartate Amino Transferase 21 U/L (5-31); Blood Urea Nitrogen 18 mg/dL (9-16); Calcium 9.7 mg/dL (8.4-10.2); Carbon Dioxide 28 mmol/L (22-29); Chloride 108 mmol/L (96-108); Creatinine Clr Calc Pharmacy 74.7; Estimated Glomerular Filt Rate > 60; Magnesium 2.1 mg/dL (1.6-2.6); Potassium 3.5 mmol/L (3.3-5.1); Sodium 141 mmol/L (135-145); Total Protein 7.4 g/dL (6.5-8.0)
--- NOTE | 2024-11-29 22:12 | ED.GENADULT ---
HPI - General Adult General Chief complaint: Abdominal Pain Stated complaint: right side back pain Time Seen by Provider: 11/29/24 22:11 Source: patient Limitations: language barrier History of Present Illness ED Provider: Rosalba Reaves PA-C HPI narrative: 49-year-old female with a history of kidney stones presents with right flank pain x2 days. Pain over mid right flank, is nonradiating, the discomfort fluctuates in intensity, becoming moderately uncomfortable at times. Associated discolored urine with increased frequency. Denies dysuria, nausea, vomiting or fever. Denies postprandial pain/nausea. Related Data Home Medications ?Medication ?Instructions ?Recorded ?Confirmed amlodipine 2.5 mg tablet 2.5 mg PO DAILY 07/06/22 07/28/22 aspirin 81 mg tablet,delayed 81 mg DAILY 07/06/22 07/28/22 release fluoxetine 20 mg capsule (Prozac) 20 mg PO BID 07/06/22 07/28/22 hydroxyzine pamoate 25 mg capsule 25 - 50 mg PO BEDTIME PRN Sleep 07/28/22 07/28/22 Previous Rx's ?Medication ?Instructions ?Recorded ciprofloxacin HCl 500 mg tablet 500 mg PO BID #14 tabs 09/15/22 phenazopyridine 100 mg tablet 100 mg PO TID PRN pain 6 doses #6 09/15/22 (Pyridium) tabs acetaminophen 325 mg capsule 650 mg (2 x 325 mg) PO Q6H PRN 12/20/22 (Tylenol) pain #30 caps benzonatate 200 mg capsule 200 mg PO BID PRN cough #20 caps 12/20/22 cephalexin 500 mg capsule 500 mg PO BID 14 days #28 caps 02/07/23 phenazopyridine 200 mg tablet 200 mg PO TID PRN pain 6 doses #6 02/07/23 (Pyridium) tabs hwbqhpgxtz-mcbhoobfbkkcw-fohykjan 1 tab PO Q6H PRN haeadace #20 tabs 06/04/23 50 mg-325 mg-40 mg tablet ondansetron 4 mg disintegrating 4 mg PO Q6-8H PRN nausea and 06/04/23 tablet vomiting #10 tabs sumatriptan succinate 50 mg tablet 50 mg PO Q2H PRN migraine headache 06/04/23 (Imitrex) #10 tabs Allergies Allergy/AdvReac Type Severity Reaction Status Date / Time latex (LATEX) Allergy Unknown DERMATITIS Verified 11/29/24 21:10 Review of Systems Review of Systems: Yes all other systems are reviewed and are negative Constitutional: Constitutional: Denies fatigue and Denies fever(s) Cardiovascular: Cardiovascular: Denies chest pain and Denies dyspnea Respiratory: Respiratory: Denies dyspnea Gastrointestinal: Gastrointestinal: Reports abdominal pain, Denies constipation, Denies diarrhea, Denies nausea and Denies vomiting Genitourinary: Genitourinary: Denies hematuria, Denies dysuria, Reports flank pain and Reports urinary urgency Musculoskeletal: Musculoskeletal: Denies back pain Endocrine: Endocrine: Denies fatigue [facility] Past Medical History Attestation statement: The following information was validated with the patient. Medical History Salmonella enteritis COVID-19 Pulmonary embolism Hypertension History of back pain Anemia Hx pulmonary embolism Surgical History Hx of tubal ligation History of carpal tunnel surgery Family History Family History Maternal Uncle Hx of cancer of lung Mother Hx of myocardial infarction Social History Social History Household Members: Significant Other Housing: Apartment Do you presently have visiting nurse or other home services: No Alcohol intake: never Patient Tobacco Use Status: Never used Tobacco service: No Current occupational status: disabled Physical Exam ED Vital Signs: Vital Signs - 24 hr 11/29/24 21:07 11/29/24 22:19 11/30/24 01:40 Temperature 98.4 F 97.7 F 97.7 F Pulse Rate 79 68 67 Respiratory Rate 16 18 16 Blood Pressure 147/67 H 129/71 117/66 Pulse Oximetry 99 99 97 Oxygen Delivery Method Room Air Room Air Room Air BMI result Body Mass Index 27.8 Const Other: Alert well-appearing Orientation/consciousness: patient oriented x3 Resp Effort & Inspection: normal respiratory effort Cardio Other: Normal peripheral perfusion GI Other: Soft, nontender no guarding no distention General: Yes no CVA tenderness Back/Spine/Pelvis Back: no CVA tenderness Skin Other: Warm dry no rash Neuro General: patient oriented x3, gait normal, no focal motor deficits and CN's II-XI intact bilaterally Psych Other: Cooperative Medications Administered Discontinued Medications Generic Name Dose Route Start Last Admin Trade Name Ammy PRN Reason Stop Dose Admin Ketorolac Tromethamine 15 mg 11/29/24 22:20 11/29/24 22:37 Ketorolac Tromethamine 15 Mg/Ml Vial IM 11/29/24 22:21 15 mg ONCE ONE Administration Ondansetron HCl 4 mg 11/29/24 22:20 11/29/24 22:36 Ondansetron Odt 4 Mg Tab.Rapdis TRANSLINGU 11/29/24 22:21 4 mg ONCE ONE Administration Medical Decision Making Medical Decision Making [facility] Narrative: 49-year-old female with a history of kidney stones presents with right flank pain x2 days. Pain over mid right flank, is nonradiating, the discomfort fluctuates in intensity, becoming moderately uncomfortable at times. Associated discolored urine with increased frequency. Denies dysuria, nausea, vomiting or fever. Denies postprandial pain/nausea. Problem: Kidney stones History: Per patient I have considered the following differential diagnoses: Renal colic, pyelonephritis, UTI, biliary colic, cholecystitis Plan: Given right-sided upper abdominal symptoms, considered biliary pathology, although there was no focal right upper quadrant pain she has no postprandial symptoms. The patient does have a history of kidney stones, I am strongly considering renal colic given nature of her symptoms, we will be obtaining a CT scan, giving Toradol and morphine. Doubtful to be pyelonephritis, she has no fever no active vomiting and no CVA tenderness. Urine pending, other labs completed from triage. I have independently reviewed the following tests: Labs: No leukocytosis, not anemic, no electrolyte abnormality, urine not infected CT abdomen and pelvis:MPRESSION: 1. Nonobstructing bilateral nephrolithiasis. 2. Moderate stool without obstruction. Differential Diagnosis Differential Diagnoses: The differential diagnosis associated with the presentation includes See medical decision making Admission/Observation Consideration of admission/observation: Escalation of care including admission/observation considered Not applicable Lab Data [facility] Lab Attestation statement: I reviewed the patient's lab results. 11/29/24 21:27 11/29/24 21:27 Labs: Lab Results 11/29/24 Range/Units 21:27 WBC 7.8 (4.8-10.8) X10*3/uL RBC 4.88 (4.20-5.50) X10*6/uL Hgb 13.0 (12.0-16.0) g/dl Hct 39.3 (37.0-47.0) % MCV 80.5 (80.0-98.0) fL MCH 26.6 L (27.0-33.0) pg MCHC 33.1 (31.0-35.0) g/dl RDW 15.5 (11.0-16.0) % Plt Count 188 (160-400) X10*3/uL MPV 11.6 (9.4-12.3) fL Immature Gran % (Auto) 0.1 (0.0-0.4) % Neut % (Auto) 60.8 (45-73) % Lymph % (Auto) 29.8 (20-40) % [place] % (Auto) 7.7 (2-11) % Eos % (Auto) 1.0 (0-4) % Baso % (Auto) 0.6 (0-2) % Lymph # (Auto) 2.3 (1.2-4.9) X10*3/uL [place] # (Auto) 0.6 (0.1-1.2) X10*3/uL Eos # (Auto) 0.1 (0.0-0.4) X10*3/uL Baso # (Auto) 0.1 (0.0-0.2) X10*3/uL Abs Immat Gran (auto) 0.01 (0.00-0.03) X10*3/uL Absolute Neuts (auto) 4.8 (2.0-8.3) x10*3/uL Absolute Nucleated RBC 0.000 (0.0-0.012) X10*3/uL Nucleated RBC % (auto) 0.0 (0.0-0.2) /100WBC Sodium 141 (135-145) mmol/L Potassium 3.5 (3.3-5.1) mmol/L Chloride 108 (96-108) mmol/L Carbon Dioxide 28 (22-29) mmol/L Anion Gap 9 L (12-20) BUN 18 H (9-16) mg/dL Creatinine 0.82 (0.5-1.4) mg/dL Estim Creat Clear Calc 74.7 Estimated GFR > 60 Random Glucose 99 (60-115) mg/dL Calcium 9.7 (8.4-10.2) mg/dL Magnesium 2.1 (1.6-2.6) mg/dL Total Bilirubin 0.6 (0.0-1.0) mg/dL AST 21 (5-31) U/L ALT 11 (0-31) U/L Alkaline Phosphatase 101 (39-117) U/L Total Protein 7.4 (6.5-8.0) g/dL Albumin 4.4 (3.5-5.0) g/dL Urine Color Yellow Urine Appearance Clear Urine pH 5.5 (5.0-9.0) Ur Specific [place] 1.025 (1.005-1.025) Urine Protein Trace (Neg-Trace) mg/dL Urine Glucose (UA) Negative (Negative) mg/dL Urine Ketones Trace (Negative) mg/dL Urine Blood Negative (Negative) Urine Nitrite Negative (Negative) Ur Leukocyte Esterase Negative (Negative) Radiology Impression Discussion of test interpretation with radiology: I have reviewed the radiologist's reading. Discharge Plan Discharge Clinical Impression: Constipation Patient Disposition: Home, Self-Care Instructions: Constipation (ED) Additional Instructions: All of your screening labs were normal, you do not have a urinary tract infection. The CT scan revealed no acute issue, you were found to be constipated. See home care instructions. Use abrb-esi-ggmmczd Colace, this is a stool softener, twice a day. Use kibq-sts-ptuwvma MiraLax, 4 to 5 times a day, until you begin having multiple large volume bowel movements. Once you clear your current stool burden, stay on the Colace daily with the MiraLax daily, to help prevent constipation. Follow up with your primary care provider as needed. Prescriptions: No Action amlodipine 2.5 mg tablet 2.5 mg PO DAILY aspirin 81 mg tablet,delayed release (DR/EC) 81 mg DAILY fluoxetine [Prozac] 20 mg capsule 20 mg PO BID benzonatate 200 mg capsule 200 mg PO BID PRN (Reason: cough) Qty: 20 0RF acetaminophen [Tylenol] 325 mg capsule 650 mg PO Q6H PRN (Reason: pain) Qty: 30 0RF hydroxyzine pamoate 25 mg capsule 25 - 50 mg PO BEDTIME PRN (Reason: Sleep) phenazopyridine [Pyridium] 100 mg tablet 100 mg PO TID PRN (Reason: pain) Qty: 6 0RF ciprofloxacin HCl 500 mg tablet 500 mg PO BID Qty: 14 0RF cephalexin 500 mg capsule 500 mg PO BID 14 Days Qty: 28 0RF phenazopyridine [Pyridium] 200 mg tablet 200 mg PO TID PRN (Reason: pain) Qty: 6 0RF sumatriptan succinate [Imitrex] 50 mg tablet 50 mg PO Q2H PRN (Reason: migraine headache) Qty: 10 0RF Rx Instructions: do not exceed 2 doses per 24 hrs duhasvyenz-rtrnhcbobmxik-wqpy 50-325-40 mg tablet 1 tab PO Q6H PRN (Reason: haeadace) Qty: 20 0RF ondansetron 4 mg tablet,disintegrating 4 mg PO Q6-8H PRN (Reason: nausea and vomiting) Qty: 10 0RF Interventions: ED Discharge Assessment Last Done: 11/30/24 03:15 Discharge Date/Time: 11/30/24 03:15 Print Language: Wolof
[2024-11-29 22:19] VITALS: BP 129/71; PULSE 68; RESP 18; TEMP 36.5; O2SAT 99
[2024-11-30 01:40] VITALS: BP 117/66; PULSE 67; RESP 16; TEMP 36.5; O2SAT 97
[2024-11-30 03:15] VITALS: BP 117/66; PULSE 67; RESP 16; TEMP 36.5; O2SAT 97
== END 2024-11-30 03:15 | disposition home or self-care (01) ==
PROVIDERS: Emergency Provider Student in an Organized Health Care Education/Training Program; PCP Internal Medicine
DX: K59.00 Constipation, unspecified (principal); I10 Essential (primary) hypertension; Z86.711 Personal history of pulmonary embolism; Z87.442 Personal history of urinary calculi; Z79.899 Other long term (current) drug therapy
CPT/HCPCS: 36415; 74176; 80053; 81003; 83735; 85025; 96372; 99284; J1885

== ENCOUNTER → 2024-11-29 22:20 | Outpatient (BNV) | payer MEDICARE, MEDICAID, SELFPAY | PROVIDERS: PCP Internal Medicine; Visit Provider Radiology Diagnostic Radiology | DX: N20.0 Calculus of kidney (principal) | CPT/HCPCS: 74176 ==

== ENCOUNTER 2024-12-04 12:35 | Outpatient (AMB) | payer MEDICARE, MEDICAID, SELFPAY ==
[2024-12-04 12:48] VITALS: BP 118/70; PULSE 83; BMI 27.9
--- NOTE | 2024-12-04 12:48 | MHC.OFFVIS ---
Vital Signs 12/04/24 12:48 Height 5 ft 2 in Weight 152 lb 8.958 oz BMI 27.9 BP 118/70 Blood Pressure Location Lt brachial Position Sitting Pulse 83 Pulse Source Monitor Intake Visit Reasons: [facility] [place] referral dr iverson pt Scout Executive Required: Yes Scout Executive Name: Tarah weinberg [phone] Accompanied by: Self / Same As Patient Allergies latex (LATEX) Allergy (Unknown, Verified 12/04/24 12:52) DERMATITIS Medication List - Last Reconciled 12/04/24 by Dakota Baum NP amlodipine 5 mg orally daily; apixaban (Eliquis) 5 mg PO BID clonazepam 2.5 orally 2 times a day PRN; administer 30 minutes before bedtime fluoxetine (Prozac) 20 mg PO BID losartan-hydrochlorothiazide 100-12.5 mg 1 tab PO DAILY metoprolol tartrate 25 mg PO DAILY sumatriptan succinate (Imitrex) 50 mg PO Q2H PRN zolpidem 10 mg PO BEDTIME PRN HPI Comments Details: This is a 49-year-old female patient referred to us for further evaluation of her ongoing symptoms of chest discomfort, palpitations, and lightheadedness. A plant etiologist was used throughout the visit. Patient with a history of hypertension, PE back in 2019 who was previously on Coumadin then on aspirin and is now on Eliquis. Patient does not quite remember who started this but states that she has been on this for the past 2 years. Patient otherwise with no known coronary artery disease, cardiomyopathy, or ischemic heart disease. Patient does note that she has a family history of coronary artery disease- mother in her 50s. Patient was recently in the ER for chest discomfort where she was ruled out for ACS and PE. Patient notes that she had an echo done in the past that showed mitral valve prolapse but did not follow with a hard rock miner blasting there. Patient states that she has moved to [place] recently. Today, patient is reporting ongoing symptoms of chest discomfort that is random in nature as patient can have this with exertion as well as at rest. Patient also notes ongoing palpitations and dizziness which patient states is constant and not positional. Patient states her blood pressures at home have been stable as well. Patient does note that she also had an ultrasound of her legs that showed moderate deep vein insufficiency and would like referral to vascular surgery. Patient is otherwise reporting compliance with all her medications. Patient denies any use of alcohol, tobacco, or street drugs. [facility] Medical History Salmonella enteritis COVID-19 Pulmonary embolism Hypertension History of back pain Anemia Hx pulmonary embolism Surgical History Hx of tubal ligation History of carpal tunnel surgery Family History Maternal Uncle Hx of cancer of lung Mother Hx of myocardial infarction Social History Household Members: Significant Other Housing: Apartment Do you presently have visiting nurse or other home services: No Alcohol intake: never Patient Tobacco Use Status: Never used Tobacco service: No Current occupational status: disabled Review of Systems Const Denies chills, Denies daytime sleepiness, Denies fatigue, Denies fever(s), Denies poor appetite, Denies snoring, Denies stops breathing during sleep, Denies weight gain and Denies weight loss Eyes Denies loss of vision ENT Reports dizziness Card Denies chest pain, Denies claudication, Denies leg edema, Reports lightheadedness, Reports palpitations, Reports dyspnea, Denies dyspnea on exertion and Reports orthopnea Resp Denies cough, Denies excessive phlegm production, Denies pain with cough, Reports dyspnea, Denies dyspnea on exertion, Denies snoring, Denies wheezing and Denies other GI Denies abdominal pain, Denies hematochezia, Denies change in bowel habits, Denies nausea and Denies vomiting Denies urinary frequency and Denies dysuria Musc Denies arthralgias and Denies muscle weakness Skin/Breast Denies nail changes and Denies rash Neuro Reports dizziness, Denies loss of vision and Denies memory loss Psych Denies depression, Reports difficulty concentrating, Denies auditory hallucinations and Denies memory loss Endo Denies fatigue and Reports palpitations Ravinder/Lymph Denies easy bruising Aller/Immun Denies wheezing Physical Exam Vital Signs: Last Vital Signs Pulse 83 12/04/24 12:48 BP 118/70 12/04/24 12:48 BMI result Body Mass Index 27.9 Const General: cooperative, healthy appearing, comfortable and no acute distress Orientation/consciousness: patient oriented x3 HEENT Head: Yes normal to inspection Neck Neck: Yes normal visual inspection, Yes trachea midline and Yes supple Chest Chest palpation & inspection: normal inspection of the chest Resp Effort & Inspection: normal respiratory effort Auscultation: clear to auscultation bilaterally, no crackles, no rales, no rhonchi and no wheezes Cardio Jugular venous distension: no JVD Palpation: normal PMI Rate: regular rate Rhythm: regular rhythm Heart sounds: S1 normal heart sound present, S2 normal heart sound present, no click, no gallops, no murmurs and no rubs Peripheral pulses: Peripheral pulses 2+ throughout GI Inspection: Yes normal to inspection Palpation (GI): Soft to palpation Auscultation: normal bowel sounds Skin General skin exam: no rashes or lesions noted Neuro General: patient oriented x3 Extrem General: Yes normal to inspection, No no pedal edema and No calf tenderness Psych Appearance: grossly normal Mental Status: mental status grossly normal Speech and movement: Normal speech and movement present Office Procedures EKG Details: EKG today shows sinus rhythm with occasional PACs, rate 83 beats per minute, [place], [place] [id number], Complete Assessment & Plan Assessment & Plan (1) Chest pain: Code(s): R07.9 - Chest pain, unspecified Category: Medical (2) Palpitations: Code(s): R00.2 - Palpitations Category: Medical (3) Dizziness: Code(s): R42 - Dizziness and giddiness Category: Medical (4) Pulmonary embolism: Code(s): I26.99 - Other pulmonary embolism without acute cor pulmonale Category: Medical (5) Hypertension: Code(s): I10 - Essential (primary) hypertension Category: Medical Plan EKG today shows sinus rhythm with PACs. Patient's symptoms of palpitations could be related to the PACs however, given her reports of elevated heart rates with ongoing dizziness, we will proceed with a Holter study to look for any potential arrhythmias. Given patient's family history of coronary artery disease and ongoing symptoms of chest discomfort, we will further evaluate patient for ischemia with a exercise stress test. We will also get an echocardiogram to assess for LV systolic and diastolic function as well as valvular pathology. Further treatment based on findings. Blood pressure today is well controlled. Continue current regimen. Advised monitoring blood pressures at home with a goal less than 130/80. For reports of moderate deep vein insufficiency on her recent ultrasound of bilateral lower legs, we will refer patient out to Dr. Haines's office. (reports scanned into the chart) Advised heart healthy diet, regular exercise, med compliance, adequate hydration, and management of vascular risk factors. Follow up after completion of the test. In the interim, patient will call the office with any concerns or change in symptoms. Advised to seek ER care in case of exertional chest pain not resolved with rest. This note was generated using voice recognition software. While every effort has been made to ensure accuracy and proper continuous absorption process operator, there may be occasional errors that could affect the content or meaning of the described symptoms. Orders: Orders CA stress test Today R00.2 - Palpitations CA echo transthoracic complete Today R00.2 - Palpitations, R07.9 - Chest pain, unspecified, R42 - Dizziness and giddiness AMB EKG-In Office Today R07.9 - Chest pain, unspecified ECG holter monitor 48 hour Today R00.2 - Palpitations Referrals Vascular Surgery Referral I87.2 - Venous insufficiency (chronic) (peripheral) Medications: Discontinued ciprofloxacin HCl Discontinued Reason: Patient no longer taking 500 mg PO BID 14 tabs 0RF gfhmmjtzhv-sfunkislieefa-ibun 50-325-40 mg Discontinued Reason: Patient no longer taking 1 tab PO Q6H PRN 20 tabs 0RF haeadace phenazopyridine (Pyridium) Discontinued Reason: Patient no longer taking 100 mg PO TID PRN 6 tabs 0RF pain acetaminophen (Tylenol) Discontinued Reason: Patient no longer taking 650 mg (2 x 325 mg) PO Q6H PRN 30 caps 0RF pain benzonatate Discontinued Reason: Patient no longer taking 200 mg PO BID PRN 20 caps 0RF cough cephalexin Discontinued Reason: Stopped on Transfer 500 mg PO BID 14 days 28 caps 0RF phenazopyridine (Pyridium) Discontinued Reason: Patient no longer taking 200 mg PO TID PRN 6 tabs 0RF pain ondansetron Discontinued Reason: Patient no longer taking 4 mg PO Q6-8H PRN 10 tabs 0RF nausea and vomiting Coding Level of Care Code New Pt Level 4 (36614) Complex EM visit Add On G2211 Diagnoses Chest pain R07.9 Palpitations R00.2 Dizziness R42 Pulmonary embolism I26.99 Hypertension I10 CPT Codes EKG - CPT: 57251-[id number], Complete ([id number]) Time Spent (min) 33 Comment Time spent in reviewing the chart, test results, assessment, counseling and documentation.
== END 2024-12-04 13:44 | disposition home or self-care (01) ==
PROVIDERS: PCP Internal Medicine
DX: R07.9 Chest pain, unspecified (principal); R00.2 Palpitations; R42 Dizziness and giddiness; I26.99 Other pulmonary embolism without acute cor pulmonale; I10 Essential (primary) hypertension
CPT/HCPCS: 93010; 99204; G2211

== ENCOUNTER → 2024-12-04 12:35 | Outpatient (BNVA) | payer MEDICARE, SELFPAY | PROVIDERS: PCP Internal Medicine | DX: I10 Essential (primary) hypertension (principal); R07.9 Chest pain, unspecified; R00.2 Palpitations; R42 Dizziness and giddiness; I26.99 Other pulmonary embolism without acute cor pulmonale; I73.9 Peripheral vascular disease, unspecified | CPT/HCPCS: 93005; 99202 ==

== ENCOUNTER 2024-12-05 15:19 | Outpatient (REF) | payer MEDICAID, SELFPAY ==
--- NOTE | ~2024-12-05 | MM_ITS ---
EXAMINATION: MM SCREENING DIGITAL BREAST TOMOSYNTHESIS, BILATERAL CLINICAL INFORMATION: Screening. Asymptomatic. COMPARISON: Comparison made to multiple prior, most recent July 10, 2021, and most remote May 06, 2016. TECHNIQUE: Digital breast tomosynthesis is performed in mediolateral oblique and craniocaudal views along with computer-aided detection (CAD). Synthesized 2D images are generated from the tomosynthesis. FINDINGS: BREAST COMPOSITION: The breasts are heterogeneously dense, which may obscure small masses. RIGHT BREAST: Prior excisional biopsy. No significant masses, suspicious calcifications or other abnormalities are seen. LEFT BREAST: No significant masses, suspicious calcifications or other abnormalities are seen. MM/MM tomosynthesis screening BI IMPRESSION: BILATERAL BREASTS: Benign, no mammographic evidence of malignancy. Normal interval follow-up is recommended in 12 months. ASSESSMENT: BI-RADS: Category 2: Benign RECOMMENDATION: Routine annual mammography screening. FOLLOW-UP: 1 year F/U This examination should not preclude the clinical evaluation of a suspicious palpable abnormality. This patient's information was entered into a reminder system with a target due date for their next mammogram. Electronically signed by: Nancy Herman MD 12/07/2024 07:08 PM EDT
== END 2024-12-05 15:20 | disposition home or self-care (01) ==
LOC: HO.MAMMO 15:19
PROVIDERS: PCP Internal Medicine; Visit Provider Internal Medicine
DX: Z12.31 Encounter for screening mammogram for malignant neoplasm of breast (principal)
CPT/HCPCS: 77063; 77067

== ENCOUNTER → 2024-12-05 15:30 | Outpatient (BNV) | payer MEDICAID, SELFPAY | PROVIDERS: PCP Internal Medicine; Visit Provider Radiology Body Imaging | DX: Z12.31 Encounter for screening mammogram for malignant neoplasm of breast (principal) | CPT/HCPCS: 77063; 77067 ==

== ENCOUNTER 2024-12-13 17:50 | Emergency (ER) | payer OTHER, SELFPAY ==
--- NOTE | 2024-12-13 | ECG_ITS ---
Test Reason : CP Blood Pressure : */* mmHG Vent. Rate : 77 BPM Atrial Rate : 77 BPM P-R Int : 152 ms QRS Dur : 102 ms QT Int : 420 ms P-R-T Axes : 40 6 41 degrees QTcB Int : 475 ms Normal sinus rhythm Normal ECG When compared with ECG of 18-Nov-2024 17:19, No significant change was found Referred By: Generic ED Physician Electronically Signed By: ASHLEE BERMUDEZ
--- NOTE | ~2024-12-13 | XR_ITS ---
CLINICAL HISTORY: Chest pain and SOB 1 view chest x-ray Comparison: CR - XR CHEST 1V - 11/18/24 17:54 EDT Findings: The lungs are clear. Heart size is normal. No acute fracture. IMPRESSION: 1. No acute findings. This document has been electronically signed by: Freddie Nieves MD on 12/13/2024 18:46:06
[2024-12-13 18:08] VITALS: BP 112/67; PULSE 83; RESP 18; TEMP 37; O2SAT 100; BMI 24.2
--- NOTE | 2024-12-13 18:20 | ED.CHESTPAIN ---
HPI - Chest Pain General Chief Complaint: Chest Pain Stated Complaint: chest pain, dizzy, blurry vision Time Seen by Provider: 12/13/24 19:07 History of Present Illness ED Provider: Duke Lewis MD HPI narrative: 49-year-old female experiencing chronic recurrent palpitations atypical chest discomfort. She has seen Cardiology recently and is pending stress test and Holter monitor. She reports main reason for presenting today was palpitations that are bothering her not allowing her to sleep. No active severe chest pain no significant radiation of the pain when she does get it. This is nonexertional chest discomfort. Palpitations are irregular. No leg swelling no skin changes no weight loss. Denies fever or chills or hemoptysis no prior PE or DVT. No known cardiac disease. I reviewed outpatient cardiology note from recently Related Data Home Medications ?Medication ?Instructions ?Recorded ?Confirmed fluoxetine 20 mg capsule (Prozac) 20 mg PO BID 07/06/22 12/04/24 amlodipine 2.5 mg tablet See Rx Instructions PO DAILY 12/04/24 12/04/24 apixaban 5 mg tablet (Eliquis) 5 mg PO BID 12/04/24 12/04/24 clonazepam 2 mg disintegrating See Rx Instructions PO BID PRN 12/04/24 12/04/24 tablet losartan 100 1 tab PO DAILY 12/04/24 12/04/24 mg-hydrochlorothiazide 12.5 mg tablet metoprolol tartrate 25 mg tablet 25 mg PO DAILY 12/04/24 12/04/24 zolpidem 10 mg tablet 10 mg PO BEDTIME PRN 12/04/24 12/04/24 Previous Rx's ?Medication ?Instructions ?Recorded sumatriptan succinate 50 mg tablet 50 mg PO Q2H PRN migraine headache 06/04/23 (Imitrex) #10 tabs Allergies Allergy/AdvReac Type Severity Reaction Status Date / Time latex (LATEX) Allergy Unknown DERMATITIS Verified 12/13/24 18:08 [facility] Past Medical History Medical History Salmonella enteritis COVID-19 Pulmonary embolism Hypertension History of back pain Anemia Hx pulmonary embolism Surgical History Hx of tubal ligation History of carpal tunnel surgery Family History Family History Maternal Uncle Hx of cancer of lung Mother Hx of myocardial infarction Social History Social History Household Members: Significant Other Housing: Apartment Do you presently have visiting nurse or other home services: No Alcohol intake: never Patient Tobacco Use Status: Never used Tobacco Advance Directives: No Advance Directives Information Provided: No service: No Current occupational status: disabled Physical Exam Exam: Exam: EXAM: Gen: Alert, awake, well appearing, well hydrated. Head: Atraumatic Eyes: Anicteric, Normal conjunctiva. ENT: Moist mucosa, no pallor. ? Neck: Supple. Skin: ?No observable rash or bruising on exposed or examined skin Respiratory: Breathing comfortably, No distress.Clear to auscultation bilaterally, symmetric chest expansion, No wheeze, rales, ronchi. Cardiovascular: Regular rate and rhythm. No murmurs or rub. Well perfused periphery, warm extremities. No edema. ? Abdominal: No focal tenderness. Soft, no objective distension. No palpable masses or obvious organomegaly. ?No guarding, no rebound tenderness or other peritoneal findings. : No flank tenderness. Neuro: Alert. Gross movement of all extremities intact. ? Psych: Calm. Cooperative. MSK: No grossly visible deformity. Vital signs: See flowsheet Vital Signs: Vital Signs: Last Vital Signs Temp 98.1 F 12/13/24 20:30 Pulse 66 12/13/24 20:30 Resp 18 12/13/24 20:30 BP 118/62 12/13/24 20:30 Pulse Ox 97 12/13/24 20:30 O2 Del Method Room Air 12/13/24 20:30 BMI result Body Mass Index 24.2 Course Course Course Narrative: RME: 49 year female presents to ED for chest pain, dizziness, blurry vision, shortness of breath presents to the ED for evaluation. Patient was seen by Cardiology tubes days ago recommend outpatient echo and Holter monitor. Patient denies any slurred speech facial droop or paralysis of extremities. Patient denies any leg swelling. EKG labs chest x-ray ordered. Procedures Procedure Narrative Procedure Narrative: EMERGENCY ULTRASOUND INTERPRETATION-Limited Echocardiography [This study was ordered, performed, and interpreted by myself. The study reveals: Impression: NORMAL LV FUNCTION, NO RV DYSFUNCTION, NO PERICARDIAL EFFUSION] [Emergent Cardiac for Indication: Views Used: PLAX, PSSA, A4, SX, IVC Pericardial Effusion/Tamponade Findings: NONE RV Dilation (> LV diam in 4ch apical): NONE Global LV Fxn: NORMAL IVC Dilation and Resp Variation: NORMAL Performed by: MD Debbie Images were stored CPT:31243] Medical Decision Making Medical Decision Making MDM Narrative: Medical Decision Makin-year-old female with chronic recurrent chest pain palpitations seen Cardiology plan for outpatient echo, Holter, stress test. Recurrent and similar symptoms presenting today including palpitations keeping her upright hurt night which is the most concerning for her. Patient is anxious appearing but comfortable with hemodynamics that are stable in the ED. Sinus rhythm no acute ischemic changes. Reassuring point of care echocardiogram see results above. Reassuring lab work including TSH electrolytes and troponin. Doubt ACS. PE recently excluded doubt this. Could be anxiety, symptomatic PACs, non captured tachy dysrhythmia. Patient to follow up and continue with outpatient plan for Holter stress Preliminary Favored Differential Diagnosis: Structural heart disease, electrolyte derangement, tachyarrhythmia, Pac, among additional considered etiologies Testing Interpreted Independently: ?See below for details Radiology or Lab testing Results Reviewed: ?See below for details Consults: ?See below for details Independent Historians/External Chart Reviews: ?See below for details Social Determinants of Health Impacting MDM/Planning: ?See below for details Lab Data 12/13/24 18:32 12/13/24 18:32 Labs: Lab Results 12/13/24 Range/Units 18:32 WBC 6.6 (4.8-10.8) X10*3/uL RBC 4.88 (4.20-5.50) X10*6/uL Hgb 13.2 (12.0-16.0) g/dl Hct 39.3 (37.0-47.0) % MCV 80.5 (80.0-98.0) fL MCH 27.0 (27.0-33.0) pg MCHC 33.6 (31.0-35.0) g/dl RDW 15.5 (11.0-16.0) % Plt Count 193 (160-400) X10*3/uL MPV 11.3 (9.4-12.3) fL Immature Gran % (Auto) 0.3 (0.0-0.4) % Neut % (Auto) 60.8 (45-73) % Lymph % (Auto) 30.5 (20-40) % Chambers % (Auto) 6.7 (2-11) % Eos % (Auto) 1.1 (0-4) % Baso % (Auto) 0.6 (0-2) % Lymph # (Auto) 2.0 (1.2-4.9) X10*3/uL Chambers # (Auto) 0.4 (0.1-1.2) X10*3/uL Eos # (Auto) 0.1 (0.0-0.4) X10*3/uL Baso # (Auto) 0.0 (0.0-0.2) X10*3/uL Abs Immat Gran (auto) 0.02 (0.00-0.03) X10*3/uL Absolute Neuts (auto) 4.0 (2.0-8.3) x10*3/uL Absolute Nucleated RBC 0.000 (0.0-0.012) X10*3/uL Nucleated RBC % (auto) 0.0 (0.0-0.2) /100WBC PT 13.4 H (10.9-12.4) SEC INR 1.2 H (0.9-1.1) APTT 32.9 (26.7-34.1) SEC Sodium 143 (135-145) mmol/L Potassium 3.3 (3.3-5.1) mmol/L Chloride 108 (96-108) mmol/L Carbon Dioxide 28 (22-29) mmol/L Anion Gap 10 L (12-20) BUN 15 (9-16) mg/dL Creatinine 0.66 (0.5-1.4) mg/dL Estim Creat Clear Calc 95.5 Estimated GFR > 60 Random Glucose 81 (60-115) mg/dL Calcium 9.4 (8.4-10.2) mg/dL Magnesium 1.9 (1.6-2.6) mg/dL Total Bilirubin 0.5 (0.0-1.0) mg/dL AST 18 (5-31) U/L ALT 11 (0-31) U/L Alkaline Phosphatase 100 (39-117) U/L Troponin I High Sens < 2.7 (<3.5-17.0) ng/L NT-Pro-B Natriuret Pep 135.6 (<300) pg/mL Total Protein 7.2 (6.5-8.0) g/dL Albumin 4.3 (3.5-5.0) g/dL TSH 1.67 (0.32-4.0) uIU/mL Discharge Plan Discharge Clinical Impression: Palpitations Patient Disposition: Home, Self-Care Instructions: Heart Palpitations (ED) Additional Instructions: In the emergency department today we did lab work including thyroid and electrolyte testing and repeat testing in the cardiac protein enzyme test which reassuringly is all negative and normal. We also did a limited point of care ultrasound echocardiogram of your heart which showed normal structures, muscle and function. Continue with the previously scheduled follow up including Holter monitoring and outpatient stress testing. Avoid caffeine. Stay well hydrated and try relaxation techniques at night to help sleep. Prescriptions: No Action fluoxetine [Prozac] 20 mg capsule 20 mg PO BID amlodipine 2.5 mg tablet See Rx Instructions PO DAILY Rx Instructions: 5 mg orally daily; sumatriptan succinate [Imitrex] 50 mg tablet 50 mg PO Q2H PRN (Reason: migraine headache) Qty: 10 0RF Rx Instructions: do not exceed 2 doses per 24 hrs clonazepam 2 mg tablet,disintegrating See Rx Instructions PO BID PRN Rx Instructions: 2.5 orally 2 times a day PRN; administer 30 minutes before bedtime zolpidem 10 mg tablet 10 mg PO BEDTIME PRN metoprolol tartrate 25 mg tablet 25 mg PO DAILY losartan-hydrochlorothiazide 100-12.5 mg tablet 1 tab PO DAILY Eliquis 5 mg tablet 5 mg PO BID Interventions: ED Discharge Assessment Last Done: 12/13/24 20:30 Discharge Date/Time: 12/13/24 20:35 Print Language: Estonian
[2024-12-13 18:48] LABS: MANUAL DIFF FLAG NO
[2024-12-13 18:49] LABS: Hematocrit 39.3 % (37.0-47.0); Hemoglobin 13.2 g/dl (12.0-16.0); Imm Gran Abs Auto 0.02 X10*3/uL (0.00-0.03); Imm Gran Pct Auto 0.3 % (0.0-0.4); Lymphocytes Absolute Auto 2.0 X10*3/uL (1.2-4.9); Mean Corpuscular HGB Conc 33.6 g/dl (31.0-35.0); Mean Corpuscular Hemoglobin 27.0 pg (27.0-33.0); Mean Corpuscular Volume 80.5 fL (80.0-98.0); NRBC Abs Auto 0.000 X10*3/uL (0.0-0.012); NRBC Pct Auto 0.0 /100WBC (0.0-0.2); Platelet Count 193 X10*3/uL (160-400); Red Blood Count 4.88 X10*6/uL (4.20-5.50); White Blood Count 6.6 X10*3/uL (4.8-10.8)
[2024-12-13 18:59] LABS: INTERNATIONAL NORM RATIO 1.2 (0.9-1.1); Prothrombin Time 13.4 SEC (10.9-12.4)
[2024-12-13 19:01] LABS: Partial Thromboplastin Time 32.9 SEC (26.7-34.1)
[2024-12-13 19:04] LABS: Alanine Aminotransferase 11 U/L (0-31); Albumin Level 4.3 g/dL (3.5-5.0); Alkaline Phosphatase 100 U/L (39-117); Anion Gap 10 (12-20); Aspartate Amino Transferase 18 U/L (5-31); Blood Urea Nitrogen 15 mg/dL (9-16); Calcium 9.4 mg/dL (8.4-10.2); Carbon Dioxide 28 mmol/L (22-29); Chloride 108 mmol/L (96-108); Creatinine Clr Calc Pharmacy 95.5; Estimated Glomerular Filt Rate > 60; Potassium 3.3 mmol/L (3.3-5.1); Sodium 143 mmol/L (135-145); Total Protein 7.2 g/dL (6.5-8.0)
[2024-12-13 19:14] LABS: Troponin-I High Sensitivity < 2.7 ng/L (<3.5-17.0)
[2024-12-13 19:24] LABS: NT Pro B Type Natriuretic Pept 135.6 pg/mL (<300)
[2024-12-13 19:40] LABS: Magnesium 1.9 mg/dL (1.6-2.6)
[2024-12-13 19:43] VITALS: BP 118/62; PULSE 66; RESP 18; TEMP 36.7; O2SAT 97
[2024-12-13 19:54] LABS: Thyroid Stimulating Hormone 1.67 uIU/mL (0.32-4.0)
[2024-12-13 20:30] VITALS: BP 118/62; PULSE 66; RESP 18; TEMP 36.7; O2SAT 97
== END 2024-12-13 20:35 | disposition home or self-care (01) ==
PROVIDERS: Physician Assistant; Emergency Provider Emergency Medicine; PCP Internal Medicine
DX: R07.89 Other chest pain (principal); H53.8 Other visual disturbances; R06.02 Shortness of breath; R42 Dizziness and giddiness; Z79.899 Other long term (current) drug therapy
CPT/HCPCS: 36415; 71045; 80053; 83735; 83880; 84443; 84484; 85025; 85610; 85730; 93005; 99283

== ENCOUNTER → 2024-12-13 17:58 | Outpatient (BNV) | payer OTHER, SELFPAY | PROVIDERS: Emergency Provider Emergency Medicine; PCP Internal Medicine; Visit Provider Internal Medicine | DX: R07.89 Other chest pain (principal) | CPT/HCPCS: 93010 ==

== ENCOUNTER → 2024-12-13 18:19 | Outpatient (BNV) | payer MEDICAID, SELFPAY | PROVIDERS: PCP Internal Medicine; Visit Provider Nuclear Medicine | DX: R07.89 Other chest pain (principal); R06.02 Shortness of breath | CPT/HCPCS: 71045 ==

== ENCOUNTER → 2025-01-04 09:49 | Outpatient (REF) | payer OTHER, SELFPAY ==
--- NOTE | 2025-01-04 09:53 | CA_ITS ---
Transthoracic Echocardiogram Patient (Last, First, Middle): Angie Howell, Gender: F Date of : 1975 Age: 49 Procedure Date: 01/04/2025 Procedure Type: Transthoracic Echocardiogram Location: OP Height: 157.48 cm Weight: 68.95 kg BSA: 1.70 m2 Heart Rate: 85 bpm BP: 128 / 82 mmHg Transportation Coordinator: TO Referring MD: Dakota Baum [employer]ICAL DEVICE SALES REPRESENTATIVE Shucker: Kit Landin MD Symptoms: R00.2 - Palpitations Study Quality: Adequate ECG Rhythm: Sinus with PVCs Conclusions: - Essentially normal study Findings Procedure Information Contrast agent, definity, is being given per protocol without apparent complications. Left Ventricle Normal left ventricular size, thickness, and systolic function. The visually estimated ejection fraction is between 55-60%. Spectral Doppler is indicative of a normal filling pattern. Right Ventricle Normal right ventricular cavity size and systolic function. Atria Both atria are normal in size. There is no evidence of interatrial shunt. Aortic Valve Normal aortic valve structure and function. There is no aortic valve stenosis. There is no aortic valve regurgitation. Mitral Valve Normal mitral valve structure and function. There is trace mitral valve regurgitation. There is no mitral valve stenosis. Pulmonic Valve The pulmonic valve is likely normal. Tricuspid Valve Normal tricuspid valve structure. Tricuspid regurgitation envelope is inadequate for calculation of right ventricular systolic pressure. Normal right atrial pressure. Great Vessels All visible segments of the aorta are normal in size. The visualized portions of the pulmonary artery and branches are normal. Venous The inferior vena cava is normal in size and collapses greater than 50% with inspiration. Pericardium/Pleural There is no evidence of pericardial effusion. Prior Study Comparison No prior study available for comparison. Measurements 2D Linear Measurements IVSd: 0.69 0.6-0.9/0.6-1.0 cm LVIDd: 4.65 3.9-5.3/4.2-5.9 cm LVIDd Index: 2.74 2.4-3.2/2.2-3.1 cm/m2 LVIDs: 3.27 2.0-3.6 cm LVPWd: 0.71 0.7-1.1 cm LA Diam: 3.10 2.7-3.8/3.0-4.0 cm LAIDs Index: 1.82 1.5-2.3 cm/m2 LV Mass: 125.62 67-162/88-224 g LV Mass Index: 73.90 43-95/49-115 g/m2 LVOT Diam: 2.00 3.0+(-)1.3 cm 2D Systolic Function EF 4C: 58.00 >55% EF 2C: 59.90 >55% EF BiP: 59.30 >55% Mitral Valve MV Pk E: 0.78 MV PK A: 0.65 MV Decel Time: 186.00 E/A: 1.20 E'Lateral: 9.03 E'Medial: 8.27 E/E' Med: 9.40 E/E' Lat: 8.60 PHT: 55.00 MVA PHT: 4.00 Decel [place]: 4.18 Aortic Valve AoV Pk Ralph: 1.05 AoV Mn Ralph: 0.78 AoV VTI: 0.22 AoV Pk Grad: 4.00 Aov Mn Grad: 3.00 ALEX Cont.VTI: 2.74 LVOT LVOT Pk Ralph: 0.99 LVOT Mn Ralph: 0.65 LVOT VTI: 0.19 LVOT Pk Grad: 4.00 LVOT Mn Grad: 2.00 LVOT Diam: 2.00 LVOT Area: 3.14 Diastolic Function MV Pk E: 0.78 MV Pk A: 0.65 E/A: 1.20 E'Medial: 8.27 E/E' Med: 9.40 E' Laterial: 9.03 E/E' Lat: 8.60 Right Ventricle TAPSE (mm): 22.70 TVS' Ralph: 11.40 Tricuspid Valve RA Press: 3.00 Great Vessels Aorta Sinus of Valsalva: 3.40 2.0-3.5 cm Ao Asc: 2.70 2.1-3.4 cm Updated in Other Vendor System with Status of Final Kit Landin MD electronically signed on 01/06/2025 12:44:35 PM with status of Final
--- NOTE | 2025-01-04 09:53 | HM_ITS ---
* Total monitoring time 2 days. * Underlying is sinus with an average rate of 78/Min. * Frequent ventricular ectopy burden of 5.5%. Rare couplets. * No significant pauses or high-grade AV blocks. * No patient markers or diary events. MTDD
--- OUTSIDE RECORDS SUMMARY | 2025-01-04 11:07 | XMS_ITS | Encounter Summary ---
Author Organization [facility] Address [address] [place] [address] Care Team Providers Care Sales Service Rep Name Role Phone Clover Okeefe MD Primary Care Provider [phone] Reason for Visit * Reason Onset Date Comments Special Procecdure 12/25/2024 Encounter Details Date Type Department Care Team (Late st Contact Info) Description 12/25/2024 Telephone Gastroenterology - [address] [facility] [address] [place] [address] Efrain Castillo MD [address] [facility] [address] [place] [address] Social History Tobacco Use Types Packs/Day Years Used Date Smoking Tobacco: Never Smokeless Tobacco: Never Alcohol Use Standard Drinks/Week Comments No 0 (1 standard drink = 0.6 oz pur e alcohol) Comments Unknown Sex and Gender Information Value Date Recorded Sex Assigned at Not on file Legal Sex Female 3:33 PM EST Gender Identity Not on file Sexual Orientation Not on file documented as of this encounter Progress Notes * Christopher Dotson - 01/01/2025 10:53 AM EDT PATIENT HAS BEEN SCHEDULED. * Augustina Moody MA - 12/28/2024 1:01 PM EDT 1st attempt to schedule an appointment patient left message to call back SCREENING-ANY * Marilia Vaughan MA - 12/27/2024 1:19 PM EDT Medication and allergies updated. Referral packet given to schedulers. AYLIN * Madonna Win - 12/27/2024 1:14 PM EDT Records received from [facility] / Dr. Okeefe's office for a colonoscopy screening. Given to Marilia to update meds/allergies. * Elisabeth Grimaldo - 12/27/2024 10:11 AM EDT 2nd request faxed for last office notes, meds & allergies * Madonna Win - 12/25/2024 11:26 AM EDT Received records from [facility], Dr. Okeefe's office for a colonoscopy. Missing office note, med/allergylist/ Faxed request and placed into missing bin. documented in this encounter Plan of Treatment Upcoming Encounters Date Type Department Care Team (Late st Contact Info) Description 01/30/2025 3:30 PM EST Appointment [facility] [address] [place] [id number] Danielle Lara MD [address] [address] documented as of this encounter Visit Diagnoses Not on filedocumented in this encounter Care Teams Sales Service Rep Relationship Specialty Start Date End Date Clover Okeefe MD [address] [place] [address] [place] [id number] PCP - General Internal Medicine 12/25/24 documented as of this encounter
--- OUTSIDE RECORDS SUMMARY | 2025-01-04 11:07 | XMS_ITS | Clinical Summary ---
Author Organization [address] [place] [address] [place] [phone] Phone Care Team Providers Care Laminator Hand Name Role Phone Clover Okeefe MD Primary Care Provider [phone] Allergies No known active allergies Medications aspirin 81 mg EC tablet Take 1 tablet (81 mg total) by mouth 1 (one) time each day. 10/09/2020 Active amLODIPine (NORVASC) 5 mg tablet Take by mouth 1 (one) time each day. Active clonazePAM (KlonoPIN) 0.5 mg tablet Take 1 tablet (0.5 mg total) by mouth 2 (two) times a day. Max Daily Amount: 1 mg Active apixaban (ELIQUIS) 5 mg tablet Take 1 tablet (5 mg total) by mouth 2 (two) times a day. Active FLUoxetine (PROzac) 20 mg capsule Take 1 capsule (20 mg total) by mouth 1 (one) time each day. Active metoprolol succinate (TOPROL-XL) 25 mg 24 hr tablet Take 1 tablet (25 mg total) by mouth 1 (one) time each day. Do not crush or chew. Active zolpidem (AMBIEN) 10 mg tablet Take by mouth at bedtime as needed for sleep. Active Encounters Date Type Department Care Team Description 12/25/2024 Telephone Gastroenterology - [address] [place] [phone] Efrain Castillo MD from Last 3 Months Surgical History Surgery Date Site/Laterality Comments OTHER SURGICAL HISTORY PROCEDURE: [place] UNLISTED PROCEDURE SPINE TUBAL LIGATION PROCEDURE: HISTORICAL TUBAL LIGATION CARPAL TUNNEL RELEASE Left PROCEDURE: [place] NEUROPLASTY &/TRANSPOS MEDIAN NRV CARPAL TUNNE Medical History Medical History Date Comments Depression DX:Depression Anxiety DX:Anxiety Back pain DX:Back pain CTS (carpal tunnel syndrome) DX: CTS (carpal tunnel syndrome) Abnormal mammogram 04/2016 DX:Abnormal m ammogram; COMMENT: repeat 6 mo Major depressive disorder wi th single episode, in remission (CMS/HCC V24) 09/15/2016 DX:Major depressiv e disorder with single episode, in remission (HCC) Ovarian cyst DX:Ovarian cyst Pulmonary embolus (CMS/HCC V 24, CMS/HCC V28) 05/04/2018 DX:Pulmonary embolus (HCC) Abnormal uterine bleeding (AUB) 05/04/2018 DX:Abnormal uterine bleeding (AUB) Iron deficiency anemia due t o chronic blood loss 05/04/2018 DX:Iron deficiency anemia du e to chronic blood loss Family History Medical History Relation Name Comments Suicide Attempts Brother 1 Depression Brother 2 Depression Father Hypertension Father Coronary artery disease Mother Hypertension Mother Ovarian cancer Mother's side cousin Depression Sister Blindness Neg Hx Breast cancer Neg Hx Cataracts Neg Hx Colon cancer Neg Hx Glaucoma Neg Hx Macular degeneration Neg Hx Strabismus Neg Hx Uterine cancer Neg Hx Relation Name Status Comments Brother 1 Brother 2 Daughter Alive Father Mother Alive Mother's side Sister Alive Son Alive Social History Tobacco Use Types Packs/Day Years Used Date Smoking Tobacco: Never Smokeless Tobacco: Never Alcohol Use Standard Drinks/Week Comments No 0 (1 standard drink = 0.6 oz pur e alcohol) Comments Unknown Sex and Gender Information Value Date Recorded Sex Assigned at Not on file Legal Sex Female 3:33 PM EST Gender Identity Not on file Sexual Orientation Not on file Obstetrics History Plan of Treatment Upcoming Encounters Date Type Department Care Team (Late st Contact Info) Description 01/30/2025 3:30 PM EST Appointment [facility] Endoscopy [address] [place] [phone] Danielle Lara MD [address] [address] Health Maintenance Due Date Last Done Comments Colorectal Cancer Screening: Colonoscopy 1974 Hepatitis B Vaccines (1 of 3 - 19+ 3-dose series) 1993 Breast Cancer Screening 06/23/2019 06/23/19 18, 12/22/2016 Cervical Cancer Screening: P ap Smear 05/29/2021 05/29/2018 Depression Screening 03/14/2024 Pneumococcal Vaccine: 50+ Years (1 of 1 - PCV) 2024 RSV Immunization Adult Patients (1 - Risk 50-74 years 1-dose series) 2024 Zoster Vaccines (1 of 2) 2024 COVID-19 Vaccine (3 - 2024-2 6 season) 2024 07/26/2020, 07/05/2020 Influenza Vaccine (#1) 2024 7, 05/20/2016 Hepatitis C Screening 12/25/2024 Medicare Annual Wellness Visit 12/25/2024 Social Influencers of Health Screening 12/25/2024 DTaP,Tdap,and Td Vaccines (2 - Td or Tdap) 10/13/2027 10/12/2017 HIV Screening Completed 12/10/2020 HIB Vaccines Aged Out No longer eligi ble based on patient's age to complete this topic HPV Vaccines Aged Out No longer eligi ble based on patient's age to complete this topic Hepatitis A Vaccines Aged Out No long er eligible based on patient's age to complete this topic IPV Vaccines Aged Out No longer eligi ble based on patient's age to complete this topic MMR Vaccines Aged Out No longer eligi ble based on patient's age to complete this topic Meningococcal ACWY Vaccine Aged Out N o longer eligible based on patient's age to complete this topic Meningococcal B Vaccine Aged Out No l onger eligible based on patient's age to complete this topic RSV Immunization Patients Under 20 months Aged Out No longer eligible b ased on patient's age to complete this topic Varicella Vaccines Aged Out No longer eligible based on patient's age to complete this topic Goals Goal Patient Goal Type Associated Problems Recent Progress Patient-Stated? Author Autogenera huong Goal Care Plan Autogenerated Problem No Lilian Corey Procedures Procedure Name Priority Date/Time Associated Diagnosis Comments PAP SMEAR Routine 05/29/2018 DX MAMMO INCL CAD UNI Routine 06/22/2017 2:18 PM EDT Mammographic microcalcification found on diagnostic imaging of breast from Last 3 Months or Most Recently Relevant to Health Maintenance Results * Pap smear (05/29/2018) 05/29/2018 Narrative HISTORICAL TESTING LAB RESULTING AGENCY - 06/01/2018 5:14 PM EDT [id number] THINPREP PAP, IMAGED: NEGATIVE FOR SQUAMOUS INTRAEPITHELIAL LESION AND MALIGNANCY . ABUNDANT RED BLOOD CELLS ARE PRESENT. ESTEBAN PAK , KHOA(ASCP) (CASE ELECTRONICALLY SIGNED 06 01 2018) RESULT OF APTIMA HIGH RISK HPV ASSAY: HIGH RISK HPV: NEGATIVE (SEROTYPES 16,18,31,33,35,39,45,51,52,56,58,59,66,68) COMPLETED ON 2018-05-31 ADEQUACY: SATISFACTORY ENDOCERVICAL/TRANSFORMATION ZONE COMPONENT PRESENT. SOURCE: THINPREP PAP HPV ANY DX: REFLEX 16 AND 18, CERVICAL, IMAGED CLINICAL INFORMATION: HPV ANY DIAGNOSIS. Z12.4, N93.9, I26.09, Z01.419, PAP HX:LSIL WIT NEGATIVE FOLLOW UP us Rjaiv Villanueva MD LAB CYTOLOGY ORDERABLES Final Result HISTORICAL TESTING LAB RESULTING AGENCY * DX MAMMO INCL CAD UNI (06/22/2017 2:18 PM EDT) Anatomical Region Laterality Modality Mammography 12/22/2016 4:12 PM EDT Narrative 06/22/2017 2:28 PM EDT This is a summary report. The complete report is available in the patient's medical record. If you cannot access the medical record, please contact the sending organization for a detailed fax or copy. 18 month follow-up right mammography: Magnification CC and true lateral views of the right breast for performed as an 18 month follow-up for microcalcifications. There has been a slight overall long-term increase in calcifications. almost all of the calcifications visualized have a configurational change compatible with milk of calcium on today's true lateral view. Other calcifications are rounded and circumscribed. There are no suspicious features. Impression: Benign right breast calcifications. Annual screening has been scheduled to resume in 6 months. BI-RADS category 2, benign. 5 year breast cancer risk assessment 0.3 % Lifetime breast cancer risk assessment 5.1 % Breast cancer risk category Low (<15%) Procedure Note Rah Puckett MD - 03/02/2022 This is a summary report. The complete report is available in thepatient's medical record. If you cannot access the medical record, pleasecontact the sending organization for a detailed fax or copy. 18 month follow-up right mammography: Magnification CC and true lateralviews of the right breast for performed as an 18 month follow-up formicrocalcifications. There has been a slight overall long-term increasein calcifications. almost all of the calcifications visualized have aconfigurational change compatible with milk of calcium on today's truelateral view. Other calcifications are rounded and circumscribed. Thereare no suspicious features. Impression: Benign right breast calcifications. Annual screening has beenscheduled to resume in 6 months. BI-RADS category 2, benign. 5 year breast cancer risk assessment 0.3 % Lifetime breast cancer risk assessment 5.1 % Breast cancer risk category Low (<15%) Edgar Zuñiga MD IMG BI PROCEDURES Final Result from Last 3 Months or Most Recently Relevant to Health Maintenance Additional Health Concerns Active Problems Noted Date Diagnosed Date Autogenerated Problem 01/01/2025 Insurance [facility] MEDICARE Member Subscriber Plan / Payer (Ef fective 2024-Present) Name:BRIANNE HOWELL Relation to Subscriber:Self Name:Brianne Howell Payer ID:[id number] Group ID:[id number] Type:Not on file Address: [address] [place] [address] Care Teams Laminator Hand Relationship Specialty Start Date End Date Clover Okeefe MD [address] [place] [address] [place] [address] PCP - General Internal Medicine 12/25/24
== END ==
LOC: HO.CARD 09:49
PROVIDERS: PCP Internal Medicine
DX: R00.2 Palpitations (principal); R42 Dizziness and giddiness; R07.9 Chest pain, unspecified
CPT/HCPCS: 93225; 93306; Q9957

== ENCOUNTER → 2025-01-04 09:53 | Outpatient (BNV) | payer OTHER, SELFPAY | PROVIDERS: PCP Internal Medicine; Visit Provider Internal Medicine Cardiovascular Disease | DX: I49.3 Ventricular premature depolarization (principal) | CPT/HCPCS: 93227; 93306 ==

== ENCOUNTER → 2025-01-11 11:21 | Outpatient (BNV) | payer OTHER, SELFPAY | PROVIDERS: Visit Provider Internal Medicine Medical Oncology | DX: D05.01 Lobular carcinoma in situ of right breast (principal); Z80.3 Family history of malignant neoplasm of breast | CPT/HCPCS: 99204 ==

== ENCOUNTER → 2025-01-14 09:22 | Outpatient (REF) | payer OTHER, SELFPAY ==
--- NOTE | 2025-01-14 09:25 | CA_ITS ---
Acquisition Time: 2025-01-14 09:39:04 Total Exercise Time: 00:05:15 Test Indications: cp, lightheadedness Medications: see h&p Protocol: TRAVIS Max HR: 146 BPM 85% of Pred: 170 BPM Max BP: 168/70 mmHG Max Work Load: 7.0 METS Exercise stress test with exercise 5 mins 15 secs of Travis Protocol, achieving 85% MPHR, with reports of 6/10 mid chest pressure, SOB and dizziness, with frequent PVCs, with normotensive response to exercise. Without any EKG changes meeting criteria for ischemia. In recovery, pt's symptoms graduallty improved to baseline. Test reviewed with Dr. Monge. Referred By: Dakota Baum Electronically Signed By: Dakota Baum
--- OUTSIDE RECORDS SUMMARY | 2025-01-14 10:32 | XMS_ITS | Clinical Summary ---
Author Organization [facility] Address [address] [place] [phone] Phone Care Team Providers Care Band Bias Machine Operator Name Role Phone Clover Okeefe MD Primary Care Provider [phone] Allergies No known active allergies Medications aspirin [...] Care Team Description 12/25/2024 Telephone Gastroenterology - [place] [address] [address] Efrain Castillo MD from Last 3 Months Surgical History Surgery Date Site/Laterality Comments OTHER SURGICAL HISTORY PROCEDURE: [place] UNLISTED PROCEDURE SPINE TUBAL LIGATION PROCEDURE: HISTORICAL TUBAL LIGATION CARPAL TUNNEL RELEASE Left PROCEDURE: [place] NEUROPLASTY &/TRANSPOS MEDIAN NRV CARPAL TUNNE Medical History Medical History Date Comments Depression DX:Depression Anxiety DX:Anxiety Back pain DX:Back pain CTS (carpal tunnel syndrome) DX: CTS (carpal tunnel syndrome) Abnormal mammogram 04/2016 DX:Abnormal m ammogram; COMMENT: repeat 6 mo Major depressive disorder wi th single episode, in remission ([facility]/HCC V24) 09/15/2016 DX:Major depressiv e disorder with [...] Info) Description 01/30/2025 3:30 PM EST Appointment [facility] Endoscopy [address] [place] [address] Danielle Lara MD [address] [place] [phone] Health Maintenance Due Date Last Done Comments [...] on patient's age to complete this topic Procedures Procedure Name Priority Date/Time Associated Diagnosis Comments PAP SMEAR Routine 05/29/2018 DX MAMMO INCL CAD UNI Routine 06/22/2017 2:18 PM EDT Mammographic microcalcification found on diagnostic imaging of breast from Last 3 Months or Most Recently Relevant to Health Maintenance Results * Pap smear (05/29/2018) 05/29/2018 Narrative HISTORICAL TESTING LAB RESULTING AGENCY - 06/01/2018 5:14 PM EDT [id number] THINPREP PAP, IMAGED: NEGATIVE FOR SQUAMOUS INTRAEPITHELIAL LESION AND MALIGNANCY . ABUNDANT RED BLOOD CELLS ARE PRESENT. ESTEBAN PAK , CT(ASCP) (CASE ELECTRONICALLY SIGNED 06 01 2018) RESULT OF APTIMA HIGH RISK HPV ASSAY: HIGH RISK HPV: NEGATIVE (SEROTYPES 16,18,31,33,35,39,45,51,52,56,58,59,66,68) COMPLETED ON 2018-05-31 ADEQUACY: SATISFACTORY ENDOCERVICAL/TRANSFORMATION ZONE COMPONENT PRESENT. SOURCE: THINPREP PAP HPV ANY DX: REFLEX 16 AND 18, CERVICAL, IMAGED CLINICAL INFORMATION: HPV ANY DIAGNOSIS. Z12.4, N93.9, I26.09, Z01.419, PAP HX:LSIL WIT NEGATIVE FOLLOW UP us Rajiv Villanueva MD LAB CYTOLOGY ORDERABLES Final Result [...] or Most Recently Relevant to Health Maintenance Insurance [facility] MEDICARE Member Subscriber Plan / Payer (Ef fective 2024-Present) Name:BRIANNE HOWELL Relation to Subscriber:Self Name:Brianne Howell Payer ID:[id number] Group ID:[id number] Type:Not on file Address: [place] [address] [place] [address] Care Teams Band Bias Machine Operator Relationship Specialty Start Date End Date Clover Okeefe MD [address] [place] [address] [place] [address] PCP - General Internal Medicine 12/25/24
== END ==
LOC: HO.CARD 09:22
PROVIDERS: PCP Internal Medicine
DX: R00.2 Palpitations (principal); R07.9 Chest pain, unspecified; R42 Dizziness and giddiness
CPT/HCPCS: 93017

== ENCOUNTER → 2025-01-14 09:25 | Outpatient (BNV) | payer OTHER, SELFPAY | PROVIDERS: PCP Internal Medicine | DX: I49.3 Ventricular premature depolarization (principal); R07.89 Other chest pain; R06.02 Shortness of breath; R42 Dizziness and giddiness | CPT/HCPCS: 93016; 93018 ==

== ENCOUNTER 2025-01-24 12:00 | Outpatient (REF) | payer OTHER, SELFPAY ==
--- NOTE | ~2025-01-24 | US_ITS ---
EXAMINATION: US SCREENING ULTRASOUND BREAST, BILATERAL CLINICAL INFORMATION: Dense breasts on mammography. Screening ultrasound. COMPARISON: None available. TECHNIQUE: Ultrasound is performed using grayscale imaging and color Doppler. Imaging is performed to include the four quadrants and retroareolar region. Both breasts are imaged. FINDINGS: Right breast: There is no suspicious finding by ultrasound. There is no solid mass or focal architectural abnormality. Left breast: There is no suspicious finding by ultrasound. There is no solid mass or focal architectural abnormality. US/US breast BI complete IMPRESSION: No suspicious findings on screening breast ultrasound. ASSESSMENT: Category 1: Negative RECOMMENDATION: 1 year F/U This patient's information was entered into a reminder system with a target due date for their next mammogram. Electronically signed by: Shital Hinojosa DO 01/24/2025 01:36 PM EST
--- OUTSIDE RECORDS SUMMARY | 2025-01-24 15:12 | XMS_ITS | Clinical Summary ---
Author Organization 175 [facility] Address [address] [place] [address] Phone Care Team Providers Care Sewer Inspector Name Role Phone Clover Okeefe MD Primary Care Provider [phone] Allergies No known active allergies Medications aspirin 81 mg EC tablet Take 1 tablet (81 mg total) by mouth 1 (one) time each day. 1 Active amLODIPine (NORVASC) 5 mg tablet Take [...] at bedtime as needed for sleep. Active polyethylene glycol (Golytely) 236-22.74-6.74 -5.86 gram solution Take 4L by mouth once for one dose. May substitue any PEG. Starting at 2PM the day before your procedure drink 1 8oz glasses at your own pace until you complete half of the gallon. Finish 2nd half of the gallon at 8PM. 4000 mL 5 Active bisacodyL (DULCOLAX) 5 mg EC tablet Take 2 tablets by mouth right before beginning bowel prep. See instructions provided by the office 2 tablet Active Encounters Date Type Department Care Team Description 01/18/2025 Telephone Gastroenterology - 299 [facility] 299 [facility] [address] [place] [address] Frank [place], [place] 12/25/2024 Telephone Gastroenterology - [place] 175 [facility] 175 [facility] [address] [place] [address] Efrain Castillo MD from Last 3 Months Surgical History Surgery Date Site/Laterality Comments OTHER SURGICAL HISTORY PROCEDURE: [place] UNLISTED PROCEDURE SPINE TUBAL LIGATION PROCEDURE: HISTORICAL TUBAL LIGATION CARPAL TUNNEL RELEASE Left PROCEDURE: [place] NEUROPLASTY &/TRANSPOS MEDIAN NRV CARPAL TUNNE Medical [...] Contact Info) Description 01/30/2025 3:30 PM EST Hospital Encounter [facility] Endoscopy [address] [place] [phone] Danielle Lara MD [address] [address] Health Maintenance Due Date Last Done Comments [...] RESULTING AGENCY - 06/01/2018 5:14 PM EDT [id number] THINPREP PAP, IMAGED: NEGATIVE FOR SQUAMOUS INTRAEPITHELIAL [...] Most Recently Relevant to Health Maintenance Insurance [facility] MEDICARE Member Subscriber Plan / Payer (Ef fective 2024-Present) Name:KENJI HOWELL BRIANNE Relation to Subscriber:Self Name:Kenji Howell Brianne Payer ID:[id number] Group ID:[id number] Type:Not on file Address: [place] [address] [place] [address] Care Teams Sewer Inspector Relationship Specialty Start Date End Date Clover Okeefe MD [address] [place] [address] [place] [address] PCP - General Internal Medicine 12/25/24
--- OUTSIDE RECORDS SUMMARY | 2025-01-24 15:12 | XMS_ITS | Data Portability ---
Author Organization [facility] Address [address] [place] [address] Assessment No assessment recorded. Plan of Treatment Reminders Order Date Submit Date Provider Last Modified By Organization Details Last Modified Time Details Appointments None recorded. Lab SARS CoV 2 RNA (COVID-19), QL, soaker helper-PCR, respiratory specimen 2019 020 [address] [facility], [address] [facility], [place], [address], 0 06:05:40 Referral None recorded. Procedures None recorded. Surgeries None recorded. Imaging None recorded. Medication Orders None recorded. Patient TargetsNo targets recorded. Patient Instructions Encounter Date Encounter Id Patient Instructions Last Modified By Organization Details Last Modified Time 01/18/2020 [id number] viral respirator y infection: care instructions Not available 01/18/2020 11:01:22 You have been tested for coronavirus. As of now, testing is taking around 3-7 days (this is subject to change.) We have chosen to do this based on your symptoms and your exposure to the disease. Please quarantine yourself in your home until we get results back. THIS MEANS DO NOT LEAVE YOUR HOME AND INTERACT WITH THOSE IN YOUR HOME LITTLE POSSIBLE It is recommended to self isolate for 10 days after symptoms onset and 3 days after all symptoms resolve (fever and cough resolve and you are feeling well.) You must wear a surgical mask at all times when outside your home until 14 days after symptoms onset. Use Tylenol (Acetaminophen) for pain and fever. If worsening, please go to ER. Wear a mask as much as possible around family members. Wash your hands frequently. CALL THE [place] DEPT OF PUBLIC HEALTH hotline at: [phone] to speak with a Health Department Pulp Grinder Feeder for further instruction or questions, as well as calling your doctor, and proceed as advised , or call us, with any further questions in the meantime. Even if your testing is negative, you should still practice social distancing to prevent the spread of infection in the community. Coronavirus is expected to be in our community for months, just because you tested negative now does not mean you couldn't be infected in the future. If you are having symptoms, please seek medical advise or self-isolate. Not available 01/20/2020 23:30:02 Attending Attestation Note I reviewed the chart and I agree with the PA's notes and the management plan. I was present in the office and available during the patient's evaluation by the physician assistant professor of archaeology. I reviewed the patient's studies (labs/x-rays/EKG/e tc.). ELIA Not available 01/20/2020 23:30:04 Reason for Referral None Reported. Results Created Date Observation Date Name Description Value Unit Range Abnormal Flag Note LastModifiedBy Organization Detail LastModifiedTime 01/19/20 20 01/20/2020 SARS CoV 2 RNA (COVI D-19) , QL, soaker helper-P CR, respi rator y speci men sars-cov-2, MANNIE Detect ed not detect ed abnormal Testi ng was perfo rmed using the chidi (R) SARS- CoV-2 test. This nucle ic acid ampli ficat ion test was devel oped and its perfo rmanc e fabian cteri stics deter mined by [facility]. Nucle ic acid ampli ficat ion tests inclu de PCR and TMA. This test has not been FDA clear ed or appro chio. This test has been autho rized by FDA under an Emerg ency Use Autho rizat ion (EUA) . This test is only autho rized for the durat ion of time the decla ratio n that circu mstan randy exist justi fying the autho rizat ion of the emerg ency use of in vitro diagn ostic tests for detec tion of SARS- CoV-2 virus and/o r diagn osis of COVID -19 infec tion under secti on 564(b )(1) of the Act, 21 U.S.C . 360bb b-3(b ) (1), unles s the autho rizat ion is termi nated or revok ed soone r. When diagn ostic testi ng is negat michael, the possi bilit y of a false negat michael resul t shoul d be consi dered in the emory xt of a patie nt's recen t expos ures and the prese nce of clini piotr signs and sympt oms consi stent with COVID -19. An indiv idual witho ut sympt oms of COVID -19 and who is not von ing SARS- CoV-2 virus would expec t to have a negat michael (not detec huong) resul t in this assay . Not Available [facility] ([facility]) [address] [facility], [place], [address], 01/21/2020 06:05:40 Result Notes None recorded. Medical Equipment None Reported. Allergies No known drug allergies Medications Not known to be on any medication Vitals Date Recorded Heart rate Respiratory rate Oxygen saturation Oxygen saturation in Arterial blood by Pulse oximetry Body temperature Provider Name and Address Organization Details Last Updated DateTime 0 71 /min 18 /min 98 % 98 % 98.6 [degF] Srikanth CALVO - [facility] 0 23:29:34 Social History None recorded. Functional Status None recorded. Mental Status None recorded. Family History Nothing Reported. Medical History No medical history recorded. Gynecological HistoryNo gynecological history recorded. Obstetrics History GPAL:G 0 P 0 0 0 0 Past Encounters Encounter ID Performer Location Encounter Start Date Encounter Closed Date Diagnosis/Indication Diagnosis SNOMED-CT Code Diagnosis ICD10 Code Diagnosis IMO Codes Diagnosis Note [id number] Srikanth Vásquez, DO [place] [address] [place] [phone] 01/18/2020 10:24:13 01/18/2020 11:39:19 Loss of sense of smell 98164772 R43.0 Loss of taste 80647748 R 43.2 Exposure t o SARS-CoV-2 820661854 Z20.828 Health Concerns Section Related Observation LastModified by Organization Detai ls LastModified Time None Recorded Concern Status LastModified by Organization Details LastModified Time None Recorded Advance Directives Directive None Recorded Payers Insurance Date Sequence Insurance Name Policy Number Policy Pal Covered Member ID Pal Member ID Guarantor Name 01/29/2020 1 [facility] - DOS PRIOR TO 2022 - DUAL ELIGIBLE (MEDICARE REPLACEMENT/ADV ANTAGE - HMO) Angie Reed [id number] Angie Reed 01/18/2020 1 [employer] - TOGETHER (MEDICAID HMO) Angie Reed [id number] Angie Reed 01/29/2020 2 [place] Angie Howell [id number] Angie Reed Notes Date Note Type Note Provider Name and Address Organization Details Recorded Time 01/18/2020 text/html Loss of taste and smell X 2 days Sxs are mild, slowly improving w/ time and OTCs, but still persistent. was exposed to sister who tested positive [facility] 01/20/2020 23:30:46 OBGyn Episode No OBEpisode recorded.
== END 2025-01-24 12:01 | disposition home or self-care (01) ==
LOC: HO.MAMMO 12:00
PROVIDERS: PCP Internal Medicine; Visit Provider Internal Medicine
DX: R92.30 Dense breasts, unspecified (principal)
CPT/HCPCS: 76641

== ENCOUNTER → 2025-01-24 12:30 | Outpatient (BNV) | payer OTHER, SELFPAY | PROVIDERS: PCP Internal Medicine; Visit Provider Internal Medicine | DX: Z12.39 Encounter for other screening for malignant neoplasm of breast (principal) | CPT/HCPCS: 76641 ==

== ENCOUNTER 2025-02-19 11:09 | Outpatient (AMB) | payer MEDICAID, SELFPAY ==
[2025-02-19 11:39] VITALS: BMI 27.4
--- NOTE | 2025-02-19 11:39 | MHC.OFFVIS ---
Vital Signs 02/19/25 11:39 Height 5 ft 2 in Weight 150 lb BMI 27.4 Intake Visit Reasons: BUILDING ESTIMATOR/Cardio/Vas referral for Intake Note: BUILDING ESTIMATOR for VV bilateral LE, Right LE worse than Left LE, pt states pain in LE w/ ambulation and going up inclines or stairs. Gets numbness and tingling, sometimes weakness Accompanied by: boyfriend Allergies latex (LATEX) Allergy (Unknown, Verified 02/19/25 11:43) DERMATITIS HPI HPI BUILDING ESTIMATOR/Cardio/Vas referral for : Details: The patient is a 49 year old female presenting with venous insufficiency. She reports symptoms of heavy, swollen, and tired legs, which began in August. The symptoms affect both legs, but are worse in the right leg, and she also experiences leg pain at night. The onset was random and not associated with any accident. Her past medical history is notable for a pulmonary embolism in 2018. She is also being followed for a cardiac condition. She denies a history of smoking or diabetes and is on disability. A lower extremity venous duplex study performed in [place] in September did demonstrate venous insufficiency. It has been affecting there daily activities including walking. It is noted more so in right leg. Patient denies any previous venous surgery or injections. Patient denies any history of DVT/ PE. Patient denies any history of phlebitis. Trial of compression includes - prescription compression since September They now present for vascular evaluation regarding their varicose veins. [facility] Medical History Salmonella enteritis COVID-19 Pulmonary embolism Hypertension History of back pain Anemia Hx pulmonary embolism Surgical History Hx of lumpectomy Hx of tubal ligation History of carpal tunnel surgery Family History Maternal Uncle Hx of cancer of lung Mother Hx of myocardial infarction Social History Household Members: Children Housing: House Are you a primary human services care specialist to a significant other at home: No Do you presently have visiting nurse or other home services: No Alcohol intake: never Patient Tobacco Use Status: Never used Tobacco service: No Current occupational status: disabled Review of Systems Const Reports as per HPI ENT Reports no additional complaints Card Denies chest pain, Denies chest pain at rest and Denies chest pain with activity Resp Denies chest congestion and Denies cough GI Reports no additional complaints Musc Details: pain over varicosities, aching of lower extremities, swelling, cramping, heaviness and tiredness, itching Denies abnormal gait Skin/Breast Reports pruritus and Denies wounds Neuro Reports no additional complaints and Denies abnormal gait Psych Denies no additional complaints Physical Exam Vital Signs: BMI result Body Mass Index 27.4 Const General: cooperative, healthy appearing and comfortable Orientation/consciousness: oriented to person, oriented to place and oriented to time Neck Carotids: no bruits Chest Chest palpation & inspection: normal inspection of the chest and normal palpation of entire chest wall Resp Effort & Inspection: normal respiratory effort and able to speak in complete sentences Cardio Rate: regular rate Heart sounds: S1 normal heart sound present and S2 normal heart sound present Peripheral pulses: Peripheral pulses 2+ throughout GI Inspection: Yes normal to inspection Skin Other: +2 edema, large rope-like varicosities greater than 4 mm CEAP Classification C4 - skin color changes Ep - Etiology Primary As - superficial veins P - reflux General skin exam: dry skin Neuro General: oriented to person, oriented to place and oriented to time Extrem Right lower extremity: full ROM, normal capillary refill and edema Left lower extremity: full ROM, normal capillary refill and edema Psych Mental Status: mental status grossly normal Results Reviewed Results Reviewed: Ultrasound dated 09/17/2024 demonstrates venous insufficiency although exact reflux times were not given on the report. Assessment & Plan Assessment & Plan (1) Varicose veins of right lower extremity with inflammation: Code(s): I83.11 - Varicose veins of right lower extremity with inflammation Category: Medical Plan: In short, the patient has evidence of venous insufficiency. I have discussed the pathophysiology with the patient. In addition I have provided informational material regarding venous disease to the patient. We have discussed conservative measures including compression, elevation, and exercise. I have also provided a handout regarding appropriate use of compression stockings and where to purchase good compression stockings as well. I have taken the liberty of ordering venous insufficiency testing with the patient. They will follow up with me after testing. The patient had an opportunity to ask questions regarding the treatment plan. All questions were answered. Imaging studies, laboratory studies and physical exam results were discussed and reviewed in detail. No major barriers to understanding were identified. The patient expressed understanding and agreement with the above treatment plan. The patient is aware they should contact our office by phone for worsening of the current condition or the appearance of new symptoms. Thank you for allowing me to participate in the vascular care of this patient. If you have any questions or concerns regarding the treatment for the above condition please do not hesitate to contact me. The office telephone contact is [phone]. This note is constructed using voice recognition software. While every effort has been made to ensure accuracy, credit negotiator errors may have been included. Thank you for allowing me to participate in the care of your patient. Yours sincerely, Christopher Haines MD, FACS, R.P.V.I. Orders: Orders US venous duplex LE BI Today I83.11 - Varicose veins of right lower extremity with inflammation Coding Level of Care Code New Pt Level 4 (59602) Diagnoses Varicose veins of right lower extremity with inflammation I83.11
== END 2025-02-19 11:58 | disposition home or self-care (01) ==
LOC: HO.HVS 11:10
PROVIDERS: PCP Internal Medicine; Visit Provider Surgery Vascular Surgery
DX: I83.11 Varicose veins of right lower extremity with inflammation (principal)
CPT/HCPCS: 99204

== ENCOUNTER → 2025-02-19 11:09 | Outpatient (BNVA) | payer OTHER, SELFPAY | PROVIDERS: PCP Internal Medicine; Visit Provider Surgery Vascular Surgery | DX: I83.11 Varicose veins of right lower extremity with inflammation (principal) | CPT/HCPCS: 99202 ==

== ENCOUNTER 2025-02-22 16:22 | Emergency (ER) | payer OTHER, SELFPAY ==
--- NOTE | ~2025-02-22 | XR_ITS ---
EXAMINATION: XR CHEST CLINICAL INFORMATION: chest pain COMPARISON: 12/13/2024. 11/18/2024. TECHNIQUE: 2 views of the chest were obtained. FINDINGS: The cardiac, hilar, and mediastinal contours are normal. The lungs are clear bilaterally. There is no pneumothorax or pleural effusion. There is no focal osseous or soft tissue abnormality. XR/XR chest 2V IMPRESSION: No active pulmonary disease. Electronically signed by: Jay Henning MD 02/22/2025 05:08 PM MANA
--- NOTE | 2025-02-22 16:28 | ECG_ITS ---
Test Reason : CP Blood Pressure : */* mmHG Vent. Rate : 70 BPM Atrial Rate : 70 BPM P-R Int : 148 ms QRS Dur : 92 ms QT Int : 406 ms P-R-T Axes : 52 29 51 degrees QTcB Int : 438 ms Normal sinus rhythm Low voltage QRS Borderline ECG When compared with ECG of 13-Dec-2024 17:58, No significant change was found Referred By: Rosmery Sawyer Electronically Signed By: NICHOLAS MCCARTHY MD
[2025-02-22 16:45] VITALS: BP 150/70; PULSE 73; RESP 18; TEMP 36.7; O2SAT 99; BMI 27.1
--- NOTE | 2025-02-22 16:45 | ED_ITS ---
HPI - General Adult General Chief complaint: Chest Pain Stated complaint: CP Left side Pain neck sob Time Seen by Provider: 02/22/25 20:55 Source: patient Limitations: no limitations History of Present Illness ED Provider: Rosalba Reaves PA-C HPI narrative: 49-year-old female with a history of hypertension, PE on apixaban, anxiety who presents with intermittent chest discomfort for months. Patient has been having ongoing chest discomfort for months, it occurs randomly, at rest at times. Today the pain was left-sided with radiation to the arm. Patient states when she wakes from sleep, she feels as if she can not catch her breath. She denies history of sleep apnea. No recent cough or cold symptoms. No new activity heavy lifting that could have precipitated chest wall pain. The pain is not reproducible with movement or palpation of chest wall. Denies pleuritic nature of her discomfort. The patient does admit to being anxious, however she denies new psychosocial stressors that could be contributing to her symptoms. Related Data Home Medications ?Medication ?Instructions ?Recorded ?Confirmed fluoxetine 20 mg capsule (Prozac) 30 mg PO BID 3 01/11/25 apixaban 5 mg tablet (Eliquis) 5 mg PO BID 12/04/24 clonazepam 2 mg disintegrating 5 mg PO BID PRN yes 01/11/25 tablet losartan 100 1 tab PO DAILY 12/04/2412/14 mg-hydrochlorothiazide 12.5 mg tablet zolpidem 10 mg tablet 10 mg PO BEDTIME PRN yes 01/11/25 Previous Rx's ?Medication ?Instructions ?Recorded sumatriptan succinate 50 mg tablet 50 mg PO Q2H PRN mi graine headache 06/04/23 (Imitrex) #10 tabs metoprolol succinate 100 mg 100 mg PO DAILY #90 tabs 1 03/16/24 tablet,extended release 24 hr Allergies Allergy/AdvReac Type Severity Reaction Status Date / Time latex (LATEX) Allergy Unknown DERMATITIS Verified 02/22/25 16:48 Review of Systems 2 Review of Systems: Yes all other systems are reviewed and are negative Constitutional: Constitutional: Denies fatigue and Denies fever(s) Cardiovascular: Cardiovascular: Reports chest pain and Reports dyspnea Respiratory: Respiratory: Denies cough and Reports dyspnea Gastrointestinal: Gastrointestinal: Denies abdominal pain, Denies nausea and Denies vomiting Musculoskeletal: Musculoskeletal: Denies back pain Endocrine: Endocrine: Denies fatigue [facility] Past Medical History Attestation statement: The following information was validated with the patient. Medical History Salmonella enteritis COVID-19 Pulmonary embolism Hypertension History of back pain Anemia Hx pulmonary embolism Surgical History Hx of lumpectomy Hx of tubal ligation History of carpal tunnel surgery Family History Family History Maternal Uncle Hx of cancer of lung Mother Hx of myocardial infarction Social History Social History Household Members: Children Housing: House Are you a primary nurse healthcare manager to a significant other at home: No Do you presently have visiting nurse or other home services: No Alcohol intake: never Patient Tobacco Use Status: Never used Tobacco service: No Current occupational status: disabled Physical Exam ED Vital Signs: Vital Signs - 24 hr 02/22/25 16:45 02/22/25 20:53 Temperature 98.1 F 98.0 F Pulse Rate 73 60 Respiratory Rate 18 Blood Pressure 150/70 H 151/74 H Pulse Oximetry 99 100 Oxygen Delivery Method Room Air Room Air BMI result Body Mass Index 27.1 Const Other: Alert well-appearing Orientation/consciousness: patient oriented x3 Resp Effort & Inspection: normal respiratory effort Cardio Other: Normal peripheral perfusion Skin Other: Warm dry no rash Neuro General: patient oriented x3, gait normal, no focal motor deficits and CN's II- XI intact bilaterally Psych Other: Cooperative Course Course Course Narrative: Rapid medical examination performed in triage by Rosmery Sawyer PA-C: Patient is a 49 year old assigned female at presenting to the emergency department with fatigue since Tuesday and chest pain beginning today. Detailed physical exam and review of systems are deferred to the yard attendant. EKG, labs, imaging, swabs ordered. Patient placed back in the waiting room pending room availability and results. Medical Decision Making Medical Decision Making MDM Narrative: 49-year-old female with a history of hypertension, PE on apixaban, anxiety who presents with intermittent chest discomfort for months. Patient has been having ongoing chest discomfort for months, it occurs randomly, at rest at times. Today the pain was left-sided with radiation to the arm. Patient states when she wakes from sleep, she feels as if she can not catch her breath. She denies history of sleep apnea. No recent cough or cold symptoms. No new activity heavy lifting that could have precipitated chest wall pain. The pain is not reproducible with movement or palpation of chest wall. Denies pleuritic nature of her discomfort. The patient does admit to being anxious, however she denies new psychosocial stressors that could be contributing to her symptoms. Problem: Hypertension, PE, anxiety History: Per patient I have considered the following differential diagnoses: ACS, PE, atypical chest pain, chest wall strain, costochondritis, pneumonia, viral syndrome , anxiety/panic attack Plan: Patient's discomfort is not consistent with a ACS, she is having intermittent symptoms for months, she has had numerous negative cardiac assessments. I do think her anxiety is contributory. Screening labs including cardiac enzymes EKG and chest x-ray obtained. The patient has no infectious respiratory symptoms to account for her discomfort, in the chest x-ray is clear. Thought about PE, however there was not a pleuritic nature to her discomfort, she is not hypoxic she is not tachycardic, she is also anticoagulated, deferring a dimer, this is not fit her current clinical picture. I have independently reviewed the following tests: Labs: No leukocytosis, not anemic, no electrolyte abnormality, troponin less than 2.7 EKG: Normal sinus rhythm, rate of 70, no ischemic changes no ectopy QTC 438, no change Chest x-ray: XR/XR chest 2V IMPRESSION: No active pulmonary disease. Differential Diagnosis Differential Diagnoses: The differential diagnosis associated with the presentation includes See [facility] Admission/Observation Consideration of admission/observation: Escalation of care including admission/observation considered Not applicable Lab Data [facility] Lab Attestation statement: I reviewed the patient's lab results. 02/22/25 16:58 02/22/25 16:58 Labs: Lab Results 02/22/25 Range/Units 16:58 WBC 7.6 (4.8-10.8) X10*3/uL RBC 4.89 (4.20-5.50) X10*6/uL Hgb 12.5 (12.0-16.0) g/dl Hct 40.3 (37.0-47.0) % MCV 82.4 (80.0-98.0) fL MCH 25.6 L (27.0-33.0) pg MCHC 31.0 (31.0-35.0) g/dl RDW 13.7 (11.0-16.0) % Plt Count 215 (160-400) X10*3/uL MPV 11.2 (9.4-12.3) fL Immature Gran % (Auto) 0.1 (0.0-0.4) % Neut % (Auto) 61.8 (45-73) % Lymph % (Auto) 28.9 (20-40) % [place] % (Auto) 7.3 (2-11) % Eos % (Auto) 1.1 (0-4) % Baso % (Auto) 0.8 (0-2) % Lymph # (Auto) 2.2 (1.2-4.9) X10*3/uL [place] # (Auto) 0.6 (0.1-1.2) X10*3/uL Eos # (Auto) 0.1 (0.0-0.4) X10*3/uL Baso # (Auto) 0.1 (0.0-0.2) X10*3/uL Abs Immat Gran (auto) 0.01 (0.00-0.03) X10*3/uL Absolute Neuts (auto) 4.7 (2.0-8.3) x10*3/uL Absolute Nucleated RBC 0.000 (0.0-0.012) X10*3/uL Nucleated RBC % (auto) 0.0 (0.0-0.2) /100WBC Sodium 142 (135-145) mmol/L Potassium 3.9 (3.3-5.1) mmol/L Chloride 106 (96-108) mmol/L Carbon Dioxide 30 H (22-29) mmol/L Anion Gap 10 L (12-20) BUN 19 H (9-16) mg/dL Creatinine 0.88 (0.5-1.4) mg/dL Estim Creat Clear Calc 68.7 Estimated GFR > 60 Random Glucose 93 (60-115) mg/dL Calcium 10.3 H D (8.4-10.2) mg/dL Magnesium 2.3 (1.6-2.6) mg/dL Total Bilirubin 0.4 (0.0-1.0) mg/dL AST 20 (5-31) U/L ALT 14 (0-31) U/L Alkaline Phosphatase 102 (39-117) U/L Troponin I High Sens < 2.7 (<3.5-17.0) ng/L NT-Pro-B Natriuret Pep 185.3 (<300) pg/mL Total Protein 7.8 (6.5-8.0) g/dL Albumin 4.5 (3.5-5.0) g/dL TSH 1.89 (0.32-4.0) uIU/mL Influenza Type A (PCR) NEGATIVE (Negative) Influenza Type B (PCR) NEGATIVE (Negative) RSV RNA Qual (PCR) NEGATIVE (Negative) SARS-CoV-2 RNA (RT-PCR) NEGATIVE (Negative) Independent Interpretation I performed an independent interpretation of an: EKG Radiology Impression Discussion of test interpretation with radiology: I have reviewed the radiologist's reading. Discharge Plan Discharge Clinical Impression: Atypical chest pain Patient Disposition: Home, Self-Care Instructions: Noncardiac Chest Pain (ED) Additional Instructions: All of your screening labs including a cardiac enzymes were normal. There were no concerning changes on the EKG, the chest x-ray is clear. The ongoing intermittent discomfort that you have been experiencing is not cardiac in origin. Continue to follow up with primary care and your air conditioning supervisor. Prescriptions: No Action metoprolol succinate 100 mg tablet extended release 24 hr 100 mg PO DAILY Qty: 90 0RF fluoxetine [Prozac] 20 mg capsule 30 mg PO BID sumatriptan succinate [Imitrex] 50 mg tablet 50 mg PO Q2H PRN (Reason: migraine headache) Qty: 10 0RF Rx Instructions: do not exceed 2 doses per 24 hrs clonazepam 2 mg tablet,disintegrating 5 mg PO BID PRN (Reason: yes) Rx Instructions: 2.5 orally 2 times a day PRN; administer 30 minutes before bedtime zolpidem 10 mg tablet 10 mg PO BEDTIME PRN (Reason: yes) losartan-hydrochlorothiazide 100-12.5 mg tablet 1 tab PO DAILY Eliquis 5 mg tablet 5 mg PO BID Discharge Date/Time: 02/22/25 23:17 Print Language: Martiniquais
[2025-02-22 17:03] LABS: MANUAL DIFF FLAG NO
[2025-02-22 17:04] LABS: Hematocrit 40.3 % (37.0-47.0); Hemoglobin 12.5 g/dl (12.0-16.0); Imm Gran Abs Auto 0.01 X10*3/uL (0.00-0.03); Imm Gran Pct Auto 0.1 % (0.0-0.4); Lymphocytes Absolute Auto 2.2 X10*3/uL (1.2-4.9); Mean Corpuscular HGB Conc 31.0 g/dl (31.0-35.0); Mean Corpuscular Hemoglobin 25.6 pg (27.0-33.0); Mean Corpuscular Volume 82.4 fL (80.0-98.0); NRBC Abs Auto 0.000 X10*3/uL (0.0-0.012); NRBC Pct Auto 0.0 /100WBC (0.0-0.2); Platelet Count 215 X10*3/uL (160-400); Red Blood Count 4.89 X10*6/uL (4.20-5.50); White Blood Count 7.6 X10*3/uL (4.8-10.8)
[2025-02-22 17:18] LABS: Alanine Aminotransferase 14 U/L (0-31); Albumin Level 4.5 g/dL (3.5-5.0); Alkaline Phosphatase 102 U/L (39-117); Anion Gap 10 (12-20); Aspartate Amino Transferase 20 U/L (5-31); Blood Urea Nitrogen 19 mg/dL (9-16); Calcium 10.3 mg/dL (8.4-10.2); Carbon Dioxide 30 mmol/L (22-29); Chloride 106 mmol/L (96-108); Creatinine Clr Calc Pharmacy 68.7; Estimated Glomerular Filt Rate > 60; Magnesium 2.3 mg/dL (1.6-2.6); Potassium 3.9 mmol/L (3.3-5.1); Sodium 142 mmol/L (135-145); Total Protein 7.8 g/dL (6.5-8.0)
[2025-02-22 17:25] LABS: NT Pro B Type Natriuretic Pept 185.3 pg/mL (<300)
[2025-02-22 17:28] LABS: Troponin-I High Sensitivity < 2.7 ng/L (<3.5-17.0)
[2025-02-22 17:45] LABS: Resp Syncy Virus RNA Qual PCR NEGATIVE (Negative); SARS COV2 PCR INHOUSE NEGATIVE (Negative)
[2025-02-22 20:53] VITALS: BP 151/74; PULSE 60; TEMP 36.7; O2SAT 100
--- OUTSIDE RECORDS SUMMARY | 2025-02-22 21:06 | XMS_ITS | Encounter Summary ---
Author Organization [facility] Address [address] [place] [address] Care Team Providers Care Shoe Dyer Name Role Phone Clover Okeefe MD Primary Care Provider [phone] Encounter Details Date Type Department Care Team ([facility] st Contact Info) Description 01/31/2025 Results Follow-Up Gastroenterology - [address] [phone] Danielle Lara MD [address] [address] Social History Tobacco Use Types Packs/Day Years Used Date Smoking Tobacco: Never Smokeless Tobacco: Never Alcohol Use Standard Drinks/Week Comments No 0 (1 standard drink = 0.6 oz pur e alcohol) Interpersonal Safety Answer Date Record ed Physical Abuse Unrecognized value 01/30/2025 Verbal Abuse Unrecognized value 01/30/2025 Comments No Sex and Gender Information Value Date Recorded Sex Assigned at Not on file Legal Sex Female 3:33 PM EST Gender Identity Not on file Sexual Orientation Not on file documented as of this encounter Progress Notes * Danielle Lara MD - 01/31/2025 4:21 PM EST Angie, The tiny colon polyp that was removed was precancerous in nature. Repeat colonoscopy in [address] Lara documented in this encounter Plan of Treatment Not on file documented as of this encounter Visit Diagnoses Not on filedocumented in this encounter Care Teams Shoe Dyer Relationship Specialty Start Date End Date Clover Okeefe MD [address] [place] [address] [place] [address] PCP - General Internal Medicine 12/25/24 documented as of this encounter
--- OUTSIDE RECORDS SUMMARY | 2025-02-22 21:06 | XMS_ITS | Data Portability ---
Author Organization [facility] Address [address] [place] [address] Assessment No assessment recorded. Plan of Treatment Reminders Order Date Submit Date Provider Last Modified By Organization Details Last Modified Time Details Appointments None recorded. Lab SARS CoV 2 RNA (COVID-19), QL, house wirer helper-PCR, respiratory specimen 2019 020 [place] [facility], [address] [facility], [place], [address], 0 06:05:40 Referral None recorded. Procedures None recorded. Surgeries None recorded. Imaging None recorded. Medication Orders None recorded. Patient TargetsNo targets recorded. Patient Instructions Encounter Date Encounter Id Patient Instructions Last Modified By Organization Details Last Modified Time 01/18/2020 [id number] viral respirator y infection: care instructions Not [...] members. Wash your hands frequently. CALL THE [place] [employer] hotline at: [phone] to speak with a Health Department Cistern Room Operator for further instruction or questions, as well [...] during the patient's evaluation by the physician ob gyn physician assistant. I reviewed the patient's studies (labs/x-rays/EKG/e tc.). ELIA Not available 01/20/2020 23:30:04 Reason for Referral None Reported. Results Created Date Observation Date Name Description Value Unit Range Abnormal Flag Note LastModifiedBy Organization Detail LastModifiedTime 01/19/20 20 01/20/2020 SARS CoV 2 RNA (COVI D-19) , QL, house wirer helper-P CR, respi rator y speci men [...] b-3(b ) (1), unles s the autho rivictorinot ion is termi nated or revok ed [...] in this assay . Not Available [facility] ([facility]) [address], [place], [address], 01/21/2020 06:05:40 Result Notes None recorded. Medical Equipment None Reported. Allergies No known drug allergies Medications Not known to be on any medication Vitals Date Recorded Heart rate Respiratory rate Oxygen saturation Body temperature Provider Name and Address Organization Details Last Updated DateTime 01/18/2020 71 /min 18 /min 98 % 98.6 [degF] Srikanth CALVO - [...] ICD10 Code Diagnosis IMO Codes Diagnosis Note [id number] DO Brooke Martin [address] [facility] [address] 01/18/2020 10:24:13 01/18/2020 11:39:19 Loss of sense of smell 27073256 R43.0 Loss of taste 94304813 R 43.2 Exposure t o SARS-CoV-2 [id number] Z20.828 Health Concerns Section Related Observation LastModified by Organization Detai ls LastModified Time None Recorded Concern Status LastModified by Organization Details LastModified Time None Recorded Advance Directives Directive None Recorded Payers Insurance Date Sequence Insurance Name Policy Number Policy Pal Covered Member ID Pal Member ID Guarantor Name 01/29/2020 1 [facility] - DOS PRIOR TO 2022 - DUAL ELIGIBLE (MEDICARE REPLACEMENT/ADV ANTAGE - HMO) Angie Reed [id number] Angie Reed 01/18/2020 1 [facility] [employer] - TOGETHER (MEDICAID HMO) Angie Reed [id number] Angie Reed 01/29/2020 2 [place] Angie Howell [id number] Angie Reed Notes Date Note Type Note Provider Name and Address Organization Details Recorded Time 01/18/2020 text/html Loss of taste and smell X 2 days Sxs are mild, slowly improving w/ time and OTCs, but still persistent. was exposed to sister who tested positive [facility] 01/20/2020 23:30:46 OBGyn Episode No OBEpisode recorded.
--- OUTSIDE RECORDS SUMMARY | 2025-02-22 21:06 | XMS_ITS | Clinical Summary ---
Author Organization [facility] Address [address] [place] [address] Phone Care Team Providers Care Laborer Brush Clearing Name Role Phone Clover Okeefe MD Primary Care Provider [phone] Allergies No known active allergies Medications aspirin 81 mg EC tablet Take 1 tablet (81 mg total) by mouth 1 (one) time each day. 1 Active amLODIPine (NORVASC) 5 mg tablet Take by mouth 1 (one) time each day. Active clonazePAM (KlonoPIN) 0.5 mg tablet Take 1 tablet (0.5 mg total) by mouth 2 (two) times a day. Active apixaban (ELIQUIS) 5 mg tablet Take [...] provided by the office 2 tablet Active Active Problems Problem Noted Date Diagnosed Date HTN (hypertension) 01/30/2025 Anemia 01/30/2025 Encounters Date Type Department Care Team Description 01/31/2025 Results Follow-Up Gastroenterology - 299 [facility] 299 [facility] [address] [place] [address] Danielle Lara MD 01/30/2025 2:25 PM EST Anesthesia Event [facility] Endoscopy [address] [place] [address] Brandon Waters DO Kriz, Petra, MD 01/30/2025 12:36 PM EST - 01/30/2025 11:59 PM EST Hospital Encounter [facility] Endoscopy [address] [place] [address] Danielle Lara MD Korobkov, Vitaliy, DO Colon cancer screening Discharge Disposition: Home or Self Care 01/18/2025 Telephone Gastroenterology - [address] [place] [address] 299 [facility] [address] [place] [address] Vero Marie [place] 12/25/2024 Telephone Gastroenterology - [place] 175 [facility] 175 [facility] [address] [place] [phone] Efrain Castillo MD from Last 3 Months Surgical History Surgery Date Site/Laterality Comments OTHER SURGICAL HISTORY PROCEDURE: [place] UNLISTED PROCEDURE SPINE TUBAL LIGATION PROCEDURE: HISTORICAL TUBAL LIGATION CARPAL TUNNEL RELEASE Left PROCEDURE: [place] NEUROPLASTY &/TRANSPOS MEDIAN NRV CARPAL TUNNE Medical [...] anemia du e to chronic blood loss HTN (hypertension) 01/30/2025 Family History Medical History Relation Name Comments [...] on file Sexual Orientation Not on file Last Filed Vital Signs Vital Sign Reading Time Taken Comments Blood Pressure 120/81 01/30/2025 3:04 PM EST Pulse 59 01/30/2025 3:04 PM EST Temperature 36.9 C (98.5 F) 01/30/2025 2:44 PM EST Respiratory Rate 14 01/30/2025 3:04 PM EST Oxygen Saturation 100% 01/30/2025 3:04 PM EST Inhaled Oxygen Concentration - - Weight 66.7 kg (147 lb) 01/30/2025 1:40 PM EST Height 157.5 cm (5' 2 ) 01/30/2025 1:40 PM EST Body Mass Index 26.89 01/30/2025 1:40 PM EST Plan of Treatment Health Maintenance Due Date Last Done Comments Hepatitis B Vaccines (1 of 3 - [...] 07/05/2020 Influenza Vaccine (#1) 2024 7, 05/20/2016 Cholesterol Screening (Lipid Panel) 12/25/2024 Hepatitis C Screening 12/25/2024 Medicare Annual Wellness Visit 12/25/2024 Social Influencers of Health Screening 12/25/2024 Hypertension/CHF/CAD Annual BMP Blood Test 01/30/2025 DTaP,Tdap,and Td Vaccines (2 - Td or Tdap) 10/13/2027 10/12/2017 Colorectal Cancer Screening: Colonoscopy 01/31/2032 01/30/2025 HIV Screening Completed 12/10/2020 HIB Vaccines Aged [...] Procedure Name Priority Date/Time Associated Diagnosis Comments COLONOSCOPY Routine 01/30/2025 2:43 PM EST Colon cancer screening TISSUE EXAM Routine 01/30/2025 2:43 PM EST Colon cancer screening PAP SMEAR Routine 05/29/2018 DX MAMMO INCL CAD UNI Routine 06/22/2017 2:18 PM EDT Mammographic microcalcification found on diagnostic imaging of breast from Last 3 Months or Most Recently Relevant to Health Maintenance Results * COLONOSCOPY Anesthesia - MAC; [facility] ENDOSCOPY (01/30/2025 2:43 PM EST) Anatomical Region Laterality Modality Endoscopy 01/30/2025 2:28 PM EST Impressions 01/30/2025 2:44 PM EST - The examined portion of the ileum was normal. - One 2 mm polyp in the cecum, removed with a cold snare. Resected and retrieved. - Internal hemorrhoids. - The examination was otherwise normal. Recommendation: - Await pathology results. - Repeat colonoscopy in 7-10 years for surveillance based on pathology results. Narrative 01/30/2025 2:44 PM EST [facility] GI Patient Name: Brianne Howell Procedure Date: 01/30/2025 2:28 PM Date of : 1975 Age: 49 Gender: Female Note Status: Finalized Attending MD: Dnaielle Lara MD, Procedure Date No Time: 01/30/2025 Procedure: Colonoscopy Indications: Screening for colorectal malignant neoplasm Providers: Danielle Lara MD Referring MD: Clover Okeefe MD Medicines: Propofol per Anesthesia Complications: No immediate complications. Estimated Blood Loss: Estimated blood loss: none. Procedure: Pre-Anesthesia Assessment: - ASA Grade Assessment: II - A patient with mild systemic disease. After I obtained informed consent, the scope was passed under direct vision. Throughout the procedure, the patient's blood pressure, pulse, and oxygen saturations were monitored continuously.The Olympus Pediatric Colonoscope was introduced through the anus and advanced to the terminal ileum. The colonoscopy was performed without difficulty. The patient tolerated the procedure well. The quality of the bowel preparation was good. Findings: The perianal and digital rectal examinations were normal. The terminal ileum appeared normal. A 2 mm polyp was found in the cecum. The polyp was sessile. The polyp was removed with a cold snare. Resection and retrieval were complete. Internal hemorrhoids were found during retroflexion. The hemorrhoids were Grade I (internal hemorrhoids that do not prolapse). The exam was otherwise without abnormality. Procedure Code(s): --- Professional --- 77282, Colonoscopy, flexible; with removal of tumor(s), polyp(s), or other lesion(s) by snare technique Diagnosis Code(s): --- Professional --- Z12.11, Encounter for screening for malignant neoplasm of colon D12.0, Benign neoplasm of cecum CPT copyright 2020 [employer]. All rights reserved. The codes documented in this report are preliminary and upon library media specialist review may be revised to meet current compliance requirements. Danielle Lara MD 01/30/2025 2:43:54 PM This report has been signed electronically.Danielle Lara MD Number of Addenda: 0 Note Initiated On: 01/30/2025 2:28 PM Scope In: Scope Out: Endoscopy Department at [facility] - [address] [place] [phone] Procedure Note Danielle Lara MD - 01/30/2025 [facility] GI Patient Name: Brianne Howell Procedure Date: 01/30/2025 2:28 PM Date of : 1975 Age: 49 Gender: Female Note Status: Finalized Attending MD: Danielle Lara MD, Procedure Date No Time: 01/30/2025 Procedure: Colonoscopy Indications: Screening for colorectal malignant neoplasm Providers: Danielle Lara MD Referring MD: Clover Okeefe MD Medicines: Propofol per Anesthesia Complications: No immediate complications. Estimated Blood Loss: Estimated blood loss: none. Procedure: Pre-Anesthesia Assessment: - ASA Grade Assessment: II - A patient with mild systemic disease. After I obtained informed consent, the scope was passed under direct vision. Throughout theprocedure, the patient's blood pressure, pulse, and oxygen saturations were monitored continuously.The Olympus Pediatric Colonoscope was introduced through theanus and advanced to the terminal ileum. The colonoscopy was performed without difficulty. The patient tolerated the procedure well. The quality of thebowel preparation was good. Findings: The perianal and digital rectal examinations were normal. The terminal ileum appeared normal. A 2 mm polyp was found in the cecum. The polyp was sessile. The polyp was removed with a cold snare. Resection and retrieval were complete. Internal hemorrhoids were found duringretroflexion. The hemorrhoids were Grade I (internal hemorrhoids that do not prolapse). The exam was otherwise without abnormality. Procedure Code(s): --- Professional --- 38954, Colonoscopy, flexible; with removal of tumor(s), polyp(s), or other lesion(s) by snare technique Diagnosis Code(s): --- Professional --- Z12.11, Encounter for screening for malignantneoplasm of colon D12.0, Benign neoplasm of cecum CPT copyright 2020 [employer]. All rights reserved. The codes documented in this report are preliminary and upon library media specialist reviewmay be revised to meet current compliance requirements. Danielle Lara MD 01/30/2025 2:43:54 PM This report has been signed electronically.Danielle Lara MD Number of Addenda: 0 Note Initiated On: 01/30/2025 2:28 PM Scope In: Scope Out: Endoscopy Department at [facility] - [address] [place] [phone] IMPRESSION: - The examined portion of the ileum was normal. - One 2 mm polyp in the cecum, removed with a cold snare. Resected and retrieved. - Internal hemorrhoids. - The examination was otherwise normal. Recommendation: - Await pathology results. - Repeat colonoscopy in 7-10 years for surveillance based on pathology results. Danielle Lara MD GI~PROCEDURE ORDERABLES Final Result * Tissue exam (01/30/2025 2:43 PM EST) Final Diagnosis Polyp, cecum, polypectomy: - Tubular adenoma. 01/31/2025 9:58 AM EST [facility] ([facility]) HOSPITAL LAB at 0957 EST Gross Description A. Large Intestine, Cecum, polyp: Labeled colon cecum polyp . Received in formalin are two irregular machado mucosal tissue fragments, measuring less than 0.1 cm and 0.2 cm in greatest dimension, which are wrapped in paper and submitted in toto in one cassette, two pieces, multiple levels on one slide. SPENSER 01/31/2025 9:58 AM EST [facility] ([facility]) [facility] LAB Disclaimer Unless otherwise specified, all tissue is 10% NB formalin fixed and paraffin embedded. 01/31/2025 9:58 AM EST [facility] ([facility]) [facility] Tissue Cecum structure / Unknown 01/30/2025 2:43 PM EST 01/30/2025 3:39 PM EST us Danielle Lara MD LAB PATHOLOGY ORDERABLES Final Result [facility] ([facility]) [facility] [address] [place] [address], [place] [phone] * Pap smear (05/29/2018) 05/29/2018 Narrative HISTORICAL TESTING LAB RESULTING AGENCY - 06/01/2018 5:14 PM EDT [id number] THINPREP PAP, IMAGED: NEGATIVE FOR SQUAMOUS INTRAEPITHELIAL LESION AND MALIGNANCY . ABUNDANT RED BLOOD CELLS ARE PRESENT. KHOA APPLE(ASCP) (CASE ELECTRONICALLY SIGNED 06 01 2018) RESULT [...] 2024-Present) Name:KENJI HOWELL BRIANNE Relation to Subscriber:Self Name:Reed DanteBrianne Payer ID:[id number] Group ID:[id number] Type:Not on file Address: [place] [address] [address] [address] Care Teams Laborer Brush Clearing Relationship Specialty Start Date End Date Clover Okeefe MD [address] [place] [address] [place] [address] PCP - General Internal Medicine 12/25/24
== END 2025-02-22 23:17 | disposition home or self-care (01) ==
PROVIDERS: Physician Assistant Medical; Emergency Provider Emergency Medicine; PCP Internal Medicine
DX: R07.89 Other chest pain (principal); R06.02 Shortness of breath; I10 Essential (primary) hypertension; Z86.711 Personal history of pulmonary embolism; Z79.01 Long term (current) use of anticoagulants; Z79.899 Other long term (current) drug therapy; Z03.818 Encounter for observation for suspected exposure to other biological agents ruled out
CPT/HCPCS: 36415; 71046; 80053; 83735; 83880; 84443; 84484; 85025; 87637; 93005; 99283

== ENCOUNTER → 2025-02-22 16:28 | Outpatient (BNV) | payer OTHER, SELFPAY | PROVIDERS: Emergency Provider Emergency Medicine; PCP Internal Medicine; Visit Provider Internal Medicine Cardiovascular Disease | DX: R07.9 Chest pain, unspecified (principal) | CPT/HCPCS: 93010 ==

== ENCOUNTER → 2025-02-22 16:46 | Outpatient (BNV) | payer OTHER, SELFPAY | PROVIDERS: PCP Internal Medicine; Visit Provider Radiology Diagnostic Radiology | DX: R07.9 Chest pain, unspecified (principal) | CPT/HCPCS: 71046 ==

== ENCOUNTER 2025-03-11 08:55 | Outpatient (REF) | payer OTHER, SELFPAY ==
--- OUTSIDE RECORDS SUMMARY | 2025-03-11 09:06 | XMS_ITS | Clinical Summary ---
Author Organization [facility] Address [address] [place] [address] Phone Care Team Providers Care Forest Economics Professor Name Role Phone Clover Okeefe MD Primary Care Provider Allergies No known active allergies Medications aspirin [...] Description 01/31/2025 Results Follow-Up Gastroenterology - 299 [facility] 299 [facility] [address] [place] [address] Danielle Lara MD 01/30/2025 2:25 PM EST Anesthesia Event [facility] Endoscopy [address] [place] [address] Brandon Waters DO Kriz, Petra, MD 01/30/2025 12:36 PM EST - 01/30/2025 11:59 PM EST Hospital Encounter [facility] Endoscopy [address] [place] [address] Danielle Lara MD Korobkov, Vitaliy, DO Colon cancer screening Discharge Disposition: Home or Self Care 01/18/2025 Telephone Gastroenterology - [address] [place] [address] 299 [facility] [address] [place] [address] Vero Mraie [place] 12/25/2024 Telephone Gastroenterology - [place] 175 [facility] 175 [facility] [address] [place] [phone] Efrain Castillo MD from Last 3 Months Surgical History Surgery Date Site/Laterality Comments OTHER SURGICAL HISTORY PROCEDURE: [place] UNLISTED PROCEDURE SPINE TUBAL LIGATION PROCEDURE: HISTORICAL TUBAL LIGATION CARPAL TUNNEL RELEASE Left PROCEDURE: [place] NEUROPLASTY &/TRANSPOS MEDIAN NRV CARPAL TUNNE Medical [...] Health Maintenance Due Date Last Done Comments Drug Screen 1975 Non-Opioid Controlled Substance Agreement 1975 Hepatitis B Vaccines (1 of 3 [...] Maintenance Results * COLONOSCOPY Anesthesia - MAC; [facility] ENDOSCOPY (01/30/2025 2:43 PM EST) Anatomical [...] pathology results. Narrative 01/30/2025 2:44 PM EST [facility] GI Patient Name: Brianne Howell Procedure [...] without abnormality. Procedure Code(s): --- Professional --- 77691, Colonoscopy, flexible; with removal of tumor(s), polyp(s), or other lesion(s) by snare technique Diagnosis Code(s): --- Professional --- Z12.11, Encounter for screening for malignant neoplasm of colon D12.0, Benign neoplasm of cecum CPT copyright 2020 [employer]. All rights reserved. The codes documented in this report are preliminary and upon transmission tester review may be revised to meet current compliance requirements. Danielle Lara MD 01/30/2025 2:43:54 PM This report has been signed electronically.Danielle Lara MD Number of Addenda: 0 Note Initiated On: 01/30/2025 2:28 PM Scope In: Scope Out: Endoscopy Department at [facility] - [address] [place] [phone] Procedure Note Danielle Lara MD - 01/30/2025 [facility] GI Patient Name: Brianne Howell Procedure [...] without abnormality. Procedure Code(s): --- Professional --- 66990, Colonoscopy, flexible; with removal of tumor(s), polyp(s), or other lesion(s) by snare technique Diagnosis Code(s): --- Professional --- Z12.11, Encounter for screening for malignantneoplasm of colon D12.0, Benign neoplasm of cecum CPT copyright 2020 [employer]. All rights reserved. The codes documented in this report are preliminary and upon transmission tester reviewmay be revised to meet current compliance requirements. Danielle Lara MD 01/30/2025 2:43:54 PM This report has been signed electronically.Danielle Lara MD Number of Addenda: 0 Note Initiated On: 01/30/2025 2:28 PM Scope In: Scope Out: Endoscopy Department at [facility] - [address] [place] [phone] IMPRESSION: - The examined portion of the [...] - Tubular adenoma. 01/31/2025 9:58 AM EST [facility] ([facility]) HOSPITAL LAB at 0957 EST Gross Description A. Large Intestine, Cecum, polyp: Labeled colon cecum polyp . Received in formalin are two irregular machado mucosal tissue fragments, measuring less than 0.1 cm and 0.2 cm in greatest dimension, which are wrapped in paper and submitted in toto in one cassette, two pieces, multiple levels on one slide. SPENSER 01/31/2025 9:58 AM EST [facility] ([facility]) [facility] Disclaimer Unless otherwise specified, all tissue is 10% NB formalin fixed and paraffin embedded. 01/31/2025 9:58 AM EST [facility] LAB Tissue Cecum structure / Unknown 01/30/2025 2:43 PM EST 01/30/2025 3:39 PM EST Danielle Lara MD LAB PATHOLOGY ORDERABLES Final Result Performing Organization Address City/State/[facility] Co de Phone Number [facility]) [facility] [address] [place] [address], * Pap smear (05/29/2018) 05/29/2018 Narrative HISTORICAL TESTING LAB RESULTING AGENCY - 06/01/2018 5:14 PM EDT [id number] THINPREP PAP, IMAGED: NEGATIVE FOR SQUAMOUS INTRAEPITHELIAL [...] % Breast cancer risk category Low (<15%) us Edgar Zuñiga MD IMG BI PROCEDURES Final Result from Last 3 Months or Most Recently Relevant to Health Maintenance Insurance [employer] MEDICARE Member Subscriber Plan / Payer (Ef fective 2024-Present) Name:BRIANNE HOWELL Relation to Subscriber:Self Name:Brianne Howell Payer ID:[id number] Group ID:[id number] Type:Not on file Address: [place] [address] [address] [address] Care Teams Forest Economics Professor Relationship Specialty Start Date End Date Clover Okeefe MD [address] [place] [address] [place] [address] PCP - General Internal Medicine 12/25/24
--- OUTSIDE RECORDS SUMMARY | 2025-03-11 09:06 | XMS_ITS | Encounter Summary ---
Author Organization [facility] Address [address] [place] [address] Care Team Providers Care Well Testing Operator Name Role Phone Clover Okeefe MD Primary Care Provider [phone] Encounter Details Date Type Department Care Team ([facility] st Contact Info) Description 01/31/2025 Results Follow-Up Gastroenterology - [address] [phone] Danielle Lara MD [address] [address] Social History Tobacco Use Types Packs/Day Years [...] as of this encounter Progress Notes * Dnaielle Lara MD - 01/31/2025 4:21 PM EST Angie, The tiny colon polyp that was removed was precancerous in nature. Repeat colonoscopy in [address] Lara documented in this encounter Plan of Treatment Not on file documented as of this encounter Visit Diagnoses Not on filedocumented in this encounter Care Teams Well Testing Operator Relationship Specialty Start Date End Date Clover Okeefe MD [address] [place] [address] [place] [address] PCP - General Internal Medicine 12/25/24 documented as of this encounter
[2025-03-11 10:28] LABS: Anion Gap 9 (12-20); Blood Urea Nitrogen 15 mg/dL (9-16); Calcium 9.4 mg/dL (8.4-10.2); Carbon Dioxide 30 mmol/L (22-29); Chloride 108 mmol/L (96-108); Estimated Glomerular Filt Rate > 60; Potassium 4.0 mmol/L (3.3-5.1); Sodium 143 mmol/L (135-145)
== END 2025-03-11 08:56 ==
LOC: HO.LAB 08:55
PROVIDERS: Absent Provider Internal Medicine Medical Oncology; PCP Internal Medicine
DX: R07.9 Chest pain, unspecified (principal)
CPT/HCPCS: 36415; 80048

== ENCOUNTER 2025-03-11 09:50 | Outpatient (REF) | payer OTHER, SELFPAY ==
[2025-03-11 10:44] LABS: Hematocrit 40.9 % (37.0-47.0); Hemoglobin 12.6 g/dl (12.0-16.0); Mean Corpuscular HGB Conc 30.8 g/dl (31.0-35.0); Mean Corpuscular Hemoglobin 25.5 pg (27.0-33.0); Mean Corpuscular Volume 82.8 fL (80.0-98.0); NRBC Abs Auto 0.000 X10*3/uL (0.0-0.012); NRBC Pct Auto 0.0 /100WBC (0.0-0.2); Platelet Count 200 X10*3/uL (160-400); Red Blood Count 4.94 X10*6/uL (4.20-5.50); White Blood Count 6.1 X10*3/uL (4.8-10.8)
[2025-03-11 11:20] LABS: Alanine Aminotransferase 13 U/L (0-31); Albumin Level 4.3 g/dL (3.5-5.0); Alkaline Phosphatase 101 U/L (39-117); Anion Gap 8 (12-20); Aspartate Amino Transferase 24 U/L (5-31); Blood Urea Nitrogen 15 mg/dL (9-16); Calcium 9.7 mg/dL (8.4-10.2); Carbon Dioxide 31 mmol/L (22-29); Chloride 108 mmol/L (96-108); Cholesterol 176 mg/dL (<200); Estimated Glomerular Filt Rate > 60; Ferritin 6 ng/mL (10-250); HDL Cholesterol 52 mg/dL (>40); Potassium 4.1 mmol/L (3.3-5.1); Sodium 143 mmol/L (135-145); Total Protein 7.5 g/dL (6.5-8.0); Triglycerides 130 mg/dL (<150)
== END 2025-03-11 09:51 | disposition home or self-care (01) ==
LOC: HO.LAB 09:50
PROVIDERS: PCP Internal Medicine; Visit Provider Internal Medicine
DX: C50.911 Malignant neoplasm of unspecified site of right female breast (principal); D50.8 Other iron deficiency anemias; R00.2 Palpitations; R07.89 Other chest pain; Z79.01 Long term (current) use of anticoagulants
CPT/HCPCS: 36415; 80048; 80053; 80061; 82728; 84443; 85027